=== PATIENT | male | born 1940 | race Caucasian/White ===

== ENCOUNTER → 2016-08-16 | Outpatient (CLI) | payer MEDICARE ==
[2016-08-16 08:45] LABS: CH 32.8; CHCM 32.4; HCT 36.1 % (39.0-53.0); HDW 3.09; Hypochromasia Slight; MCH 33.9 pg (25.0-35.0); MCHC 33.2 g/dL (31.0-37.0); MCV 102.1 fL (80.0-100.0); Macrocytosis Slight; Mean Platelet Volume 7.3; RBC 3.53 m/uL (4.30-5.90); RDW 14.8 % (11.5-15.5); WBC 8.3 k/uL (3.8-10.6)
[2016-08-16 09:59] LABS: Calcium 8.6 mg/dL (8.4-10.2); Total Bilirubin 1.1 mg/dL (0.2-1.3); Total Protein 6.5 g/dL (6.3-8.2)
== END | disposition home or self-care (01) ==
LOC: LABWHC1 08:29
PROVIDERS: ATTEND Nurse Practitioner Adult Health
DX: I50.22 Chronic systolic (congestive) heart failure (principal); E11.8 Type 2 diabetes mellitus with unspecified complications; K92.2 Gastrointestinal hemorrhage, unspecified
CPT/HCPCS: 36415; 80053; 85027

== ENCOUNTER → 2016-08-21 | Outpatient (CLI) | payer MEDICARE ==
[2016-08-21 10:08] LABS: Potassium 3.3 mmol/L (3.5-5.1)
== END | disposition home or self-care (01) ==
LOC: LABWHC1 09:35
PROVIDERS: ATTEND Internal Medicine Clinical Cardiac Electrophysiology
DX: E87.6 Hypokalemia (principal); N18.9 Chronic kidney disease, unspecified; I50.22 Chronic systolic (congestive) heart failure
CPT/HCPCS: 36415; 80051; 82565; 84520

== ENCOUNTER → 2016-09-04 | Outpatient (CLI) | payer MEDICARE ==
[2016-09-04 12:38] LABS: Calcium 9.5 mg/dL (8.4-10.2); Potassium 4.9 mmol/L (3.5-5.1)
== END | disposition home or self-care (01) ==
LOC: LABWHC1 11:46
PROVIDERS: ATTEND Nurse Practitioner Adult Health
DX: N18.3 Chronic kidney disease, stage 3 (moderate) (principal); I50.22 Chronic systolic (congestive) heart failure
CPT/HCPCS: 36415; 80048

== ENCOUNTER → 2016-09-06 | Outpatient (CLI) | payer MEDICARE ==
[2016-09-06 10:50] LABS: Basophils % (A) 0 %; CH 32.5; CHCM 33.2; Eosinophils % (A) 0 %; HCT 44.6 % (39.0-53.0); HDW 2.79; HGB 14.5 gm/dL (13.0-17.5); Luc # (Auto) 0.07; Luc % (Auto) 1; Lymphocytes # (A) 0.8 k/uL (1.0-4.8); Lymphocytes % (A) 9 %; MCH 32.1 pg (25.0-35.0); MCHC 32.6 g/dL (31.0-37.0); MCV 98.5 fL (80.0-100.0); Monocytes # (A) 0.5 k/uL (0-1.0); Monocytes % (A) 5 %; Neutrophils # (A) 7.4 k/uL (1.3-7.7); Neutrophils % (A) 85 %; RBC 4.52 m/uL (4.30-5.90); RDW 14.5 % (11.5-15.5); WBC 8.8 k/uL (3.8-10.6); WBC (Perox) 8.28
[2016-09-06 11:02] LABS: Appearance,Urine Clear (Clear); Bilirubin,Urine Negative (Negative); Glucose,Urine (UA) Negative (Negative); Ketones,Urine Negative (Negative); Leukocyte Esterase,Urine Negative (Negative); Nitrite,Urine Negative (Negative); Protein,Urine Negative (Negative); Specific Gravity,Urine 1.008 (1.001-1.035); UA Billing (MACRO vs. MICRO) CHEM; Urobilinogen,Urine <2.0 mg/dL (<2.0)
[2016-09-06 13:34] LABS: Calcium 9.8 mg/dL (8.4-10.2); Magnesium 1.6 mg/dL (1.6-2.3); Phosphorous 4.5 mg/dL (2.5-4.5); Potassium 5.2 mmol/L (3.5-5.1); Uric Acid 4.8 mg/dL (3.5-8.5)
[2016-09-06 13:42] LABS: % Iron Saturation 42.3 % (20-50)
== END | disposition home or self-care (01) ==
LOC: LABWHC1 10:24
PROVIDERS: ATTEND Nurse Practitioner Family
DX: N18.3 Chronic kidney disease, stage 3 (moderate) (principal); E79.0 Hyperuricemia without signs of inflammatory arthritis and tophaceous disease; E55.9 Vitamin D deficiency, unspecified; M10.9 Gout, unspecified; D64.9 Anemia, unspecified; E21.3 Hyperparathyroidism, unspecified; N39.0 Urinary tract infection, site not specified
CPT/HCPCS: 36415; 80048; 81003; 82040; 82306; 82728; 83540; 83550; 83735; 83970; 84100; 84550; 85025

== ENCOUNTER → 2016-09-15 | Outpatient (CLI) | payer MEDICARE ==
[2016-09-15 11:23] LABS: Calcium 9.1 mg/dL (8.4-10.2); Magnesium 1.5 mg/dL (1.6-2.3)
[2016-09-15 11:48] LABS: Potassium 4.4 mmol/L (3.5-5.1)
== END | disposition home or self-care (01) ==
LOC: LABWHC1 10:43
PROVIDERS: ATTEND Nurse Practitioner Family
DX: N18.3 Chronic kidney disease, stage 3 (moderate) (principal)
CPT/HCPCS: 36415; 80048; 83735

== ENCOUNTER → 2016-10-03 | Outpatient (CLI) | payer MEDICARE ==
[2016-10-03 11:39] LABS: Calcium 8.5 mg/dL (8.4-10.2); Potassium 3.3 mmol/L (3.5-5.1)
== END | disposition home or self-care (01) ==
LOC: LABWHC1 10:56
PROVIDERS: ATTEND Nurse Practitioner Family
DX: N18.3 Chronic kidney disease, stage 3 (moderate) (principal)
CPT/HCPCS: 36415; 80048

== ENCOUNTER → 2016-10-09 | Outpatient (CLI) | payer MEDICARE ==
[2016-10-09 09:49] LABS: Calcium 8.7 mg/dL (8.4-10.2); Magnesium 1.2 mg/dL (1.6-2.3); Phosphorous 3.2 mg/dL (2.5-4.5); Potassium 3.4 mmol/L (3.5-5.1); Uric Acid 4.2 mg/dL (3.5-8.5)
== END | disposition home or self-care (01) ==
LOC: LABWHC1 08:31
PROVIDERS: ATTEND Nurse Practitioner Family
DX: N18.3 Chronic kidney disease, stage 3 (moderate) (principal); N25.81 Secondary hyperparathyroidism of renal origin; M10.9 Gout, unspecified
CPT/HCPCS: 36415; 80048; 82306; 83735; 83970; 84100; 84550

== ENCOUNTER → 2016-10-23 | Outpatient (CLI) | payer MEDICARE ==
[2016-10-23 11:12] LABS: Calcium 8.8 mg/dL (8.4-10.2); Magnesium 1.3 mg/dL (1.6-2.3); Potassium 3.4 mmol/L (3.5-5.1)
== END | disposition home or self-care (01) ==
LOC: LABWHC1 10:23
PROVIDERS: ATTEND Nurse Practitioner Family
DX: N18.3 Chronic kidney disease, stage 3 (moderate) (principal)
CPT/HCPCS: 36415; 80048; 83735

== ENCOUNTER → 2016-11-14 | Outpatient (CLI) | payer MEDICARE ==
[2016-11-14 11:17] LABS: Calcium 9.3 mg/dL (8.4-10.2); Phosphorous 3.9 mg/dL (2.5-4.5); Potassium 4.5 mmol/L (3.5-5.1); Uric Acid 4.2 mg/dL (3.5-8.5)
[2016-11-14 12:01] LABS: Hemoglobin A1C 5.2 % (4.2-6.1)
== END | disposition home or self-care (01) ==
LOC: LABWHC1 10:29
PROVIDERS: ATTEND Nurse Practitioner Family
DX: N25.81 Secondary hyperparathyroidism of renal origin (principal); N18.3 Chronic kidney disease, stage 3 (moderate); M10.9 Gout, unspecified; E11.9 Type 2 diabetes mellitus without complications; I50.22 Chronic systolic (congestive) heart failure
CPT/HCPCS: 36415; 80048; 82306; 83036; 83735; 83970; 84100; 84550

== ENCOUNTER → 2017-03-13 | Outpatient (CLI) | payer MEDICARE ==
[2017-03-13 09:57] LABS: Appearance,Urine Clear (Clear); Bilirubin,Urine Negative (Negative); Glucose,Urine (UA) Negative (Negative); Ketones,Urine Negative (Negative); Leukocyte Esterase,Urine Negative (Negative); Nitrite,Urine Negative (Negative); PH, Urine 6.5 (5.0-8.0); Protein,Urine Negative (Negative); Specific Gravity,Urine 1.008 (1.001-1.035); UA Billing (MACRO vs. MICRO) CHEM; Urobilinogen,Urine <2.0 mg/dL (<2.0)
[2017-03-13 09:59] LABS: Anisocytosis Slight; Basophils # (A) 0.1 k/uL (0-0.2); Basophils % (A) 1 %; CH 33.8; CHCM 33.1; Eosinophils # (A) 0.1 k/uL (0-0.7); Eosinophils % (A) 1 %; HCT 43.5 % (39.0-53.0); HDW 2.53; Luc # (Auto) 0.16; Luc % (Auto) 2; Lymphocytes % (A) 12 %; MCH 33.1 pg (25.0-35.0); MCHC 32.2 g/dL (31.0-37.0); MCV 102.9 fL (80.0-100.0); Macrocytosis Moderate; Mean Platelet Volume 7.8; Monocytes # (A) 0.5 k/uL (0-1.0); Monocytes % (A) 6 %; Neutrophils # (A) 6.5 k/uL (1.3-7.7); Neutrophils % (A) 78 %; RBC 4.22 m/uL (4.30-5.90); RDW 16.5 % (11.5-15.5); WBC 8.3 k/uL (3.8-10.6); WBC (Perox) 8.12
[2017-03-13 10:12] LABS: Calcium 9.5 mg/dL (8.4-10.2); Magnesium 1.7 mg/dL (1.6-2.3); Phosphorous 3.7 mg/dL (2.5-4.5); Potassium 4.3 mmol/L (3.5-5.1); Uric Acid 4.8 mg/dL (3.5-8.5)
[2017-03-13 10:26] LABS: % Iron Saturation 20.6 % (20-50)
== END | disposition home or self-care (01) ==
LOC: LABWHC1 09:22
PROVIDERS: ATTEND Internal Medicine Nephrology
DX: E55.9 Vitamin D deficiency, unspecified (principal); D63.1 Anemia in chronic kidney disease; N18.3 Chronic kidney disease, stage 3 (moderate); E21.3 Hyperparathyroidism, unspecified; M10.9 Gout, unspecified; N39.0 Urinary tract infection, site not specified
CPT/HCPCS: 36415; 80048; 81003; 82306; 82728; 83540; 83550; 83735; 83970; 84100; 84550; 85025

== ENCOUNTER → 2017-04-20 | Outpatient (CLI) | payer MEDICARE ==
[2017-04-20 13:48] LABS: Calcium 9.2 mg/dL (8.4-10.2)
== END | disposition home or self-care (01) ==
LOC: LABWHC1 12:36
PROVIDERS: ATTEND Internal Medicine Nephrology
DX: N18.3 Chronic kidney disease, stage 3 (moderate) (principal)
CPT/HCPCS: 36415; 80048

== ENCOUNTER → 2017-07-09 | Outpatient (CLI) | payer MEDICARE ==
[2017-07-09 10:49] LABS: Basophils # (A) 0.1 k/uL (0-0.2); Basophils % (A) 1 %; CH 33.7; CHCM 33.3; Eosinophils # (A) 0.2 k/uL (0-0.7); Eosinophils % (A) 2 %; HCT 42.1 % (39.0-53.0); HDW 2.68; HGB 13.6 gm/dL (13.0-17.5); Luc # (Auto) 0.23; Luc % (Auto) 3; Lymphocytes # (A) 1.3 k/uL (1.0-4.8); Lymphocytes % (A) 15 %; MCH 32.9 pg (25.0-35.0); MCHC 32.3 g/dL (31.0-37.0); MCV 101.9 fL (80.0-100.0); Macrocytosis Slight; Mean Platelet Volume 7.5; Monocytes # (A) 0.5 k/uL (0-1.0); Monocytes % (A) 5 %; Neutrophils # (A) 6.4 k/uL (1.3-7.7); Neutrophils % (A) 74 %; RBC 4.13 m/uL (4.30-5.90); RDW 14.3 % (11.5-15.5); WBC 8.6 k/uL (3.8-10.6); WBC (Perox) 8.73
[2017-07-09 11:00] LABS: Calcium 9.3 mg/dL (8.4-10.2); Magnesium 1.9 mg/dL (1.6-2.3); Phosphorus 3.3 mg/dL (2.5-4.5); Potassium 4.5 mmol/L (3.5-5.1); Uric Acid 4.1 mg/dL (3.5-8.5)
[2017-07-09 11:22] LABS: Appearance,Urine Clear (Clear); Bilirubin,Urine Negative (Negative); Glucose,Urine (UA) Negative (Negative); Ketones,Urine Negative (Negative); Leukocyte Esterase,Urine Trace (Negative); Mucus,Urine Rare /hpf; Nitrite,Urine Negative (Negative); Particle Count 489; Protein,Urine Negative (Negative); RBC,Urine <1 /hpf (0-5); Specific Gravity,Urine 1.013 (1.001-1.035); Squamous Epithelial Cell,Urine <1 /hpf (0-4); UA Billing (MACRO vs. MICRO) MICRO; Urobilinogen,Urine <2.0 mg/dL (<2.0); WBC,Urine 3 /hpf (0-5)
[2017-07-09 16:12] LABS: Iron Saturation 23.27 (15.00-50.00)
== END | disposition home or self-care (01) ==
LOC: LABWHC1 09:58
PROVIDERS: ATTEND Internal Medicine Nephrology
DX: E55.9 Vitamin D deficiency, unspecified (principal); E21.3 Hyperparathyroidism, unspecified; M10.9 Gout, unspecified; N39.0 Urinary tract infection, site not specified; N18.3 Chronic kidney disease, stage 3 (moderate); D63.1 Anemia in chronic kidney disease
CPT/HCPCS: 36415; 80048; 81001; 82306; 82728; 83540; 83550; 83735; 83970; 84100; 84550; 85025

== ENCOUNTER → 2017-08-31 | Outpatient (CLI) | payer MEDICARE ==
[2017-08-31 10:40] LABS: Potassium 3.8 mmol/L (3.5-5.1)
== END | disposition home or self-care (01) ==
LOC: LABWHC1 09:34
PROVIDERS: ATTEND Internal Medicine Clinical Cardiac Electrophysiology
DX: I50.22 Chronic systolic (congestive) heart failure (principal)
CPT/HCPCS: 36415; 80048

== ENCOUNTER 2017-09-25 18:46 | Inpatient (IN) | payer MEDICARE ==
--- NOTE | 2017-09-25 20:10 | ED ---
Chest Pain HPI - General Chief Complaint: Chest Pain Stated Complaint: Chest pain/sob Time Seen by Provider: 09/25/17 19:11 Source: patient Mode of arrival: wheelchair Limitations: no limitations - History of Present Illness Initial Comments: This is a 77-year-old male history of pneumonia several times in the past who states he had the onset over last couple days of chest tightness shortness of breath orthopnea a cough no overt fevers chills or sweats. He states he feels like he did when he had pneumonia last several years. He does state he gets close to his birthday. No other complaints no palpitations. MD Complaint: chest pain, other - Related Data Home Medications Medication Instructions Recorded Confirmed Atorvastatin Calcium [Lipitor] 80 mg PO HS 04/29/14 09/25/17 Finasteride [Proscar] 5 mg PO HS 04/29/14 09/25/17 Mexiletine [Mexitil] 150 mg PO TID 04/29/14 09/25/17 Clopidogrel [Plavix] 75 mg PO DAILY 10/19/15 09/25/17 Spironolactone [Aldactone] 25 mg PO DAILY 10/19/15 09/25/17 Amiodarone [Cordarone] 200 mg PO HS 07/25/16 09/25/17 Calcitriol 0.5 mcg PO FR 07/25/16 09/25/17 Magnesium Gluconate [Magonate] 500 mg PO BID 07/25/16 09/25/17 Warfarin [Coumadin] 1 mg PO HS 07/25/16 09/25/17 Allopurinol [Zyloprim] 300 mg PO DAILY 09/25/17 09/25/17 Carvedilol [Coreg] 3.125 mg PO BID 09/25/17 09/25/17 Ergocalciferol (Vitamin D2) 50,000 unit PO Q30D 09/25/17 09/25/17 [Vitamin D2] Furosemide [Lasix] 80 mg PO DAILY 09/25/17 09/25/17 Tamsulosin HCl [Flomax] 0.4 mg PO HS 09/25/17 09/25/17 Previous Rx's Medication Instructions Recorded Pantoprazole [Protonix] 40 mg PO AC-BID #60 tablet. 09/28/15 Allergies Allergy/AdvReac Type Severity Reaction Status Date / Time adhesive tape Allergy Severe BLISTERS Verified 09/25/17 20:00 Review of Systems ROS Statement: Those systems with pertinent positive or pertinent negative responses have been documented in the HPI. ROS Other: All systems not noted in ROS Statement are negative. EKG Findings - EKG Results: EKG: interpreted by LOUISE (Atrial sensed ventricular paced rhythm occasional sinus complexes the rate was 82. 38 QRS duration 188 QT since QTC of 470/549) Past Medical History Past Medical History: Atrial Fibrillation, Coronary Artery Disease (CAD), Cancer , Heart Failure, COPD, Diabetes Mellitus, GERD/Reflux, Hyperlipidemia, Hypertension, Myocardial Infarction ([place]), Osteoarthritis (OA), Pneumonia, Prostate Disorder, Renal Disease, Thyroid Disorder Additional Past Medical History / Comment(s): Pt is on coumadin. 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 bilateral cataracts, UTI with sepsis , diverticular dx, R upper lobe pneumonia with SIRS 08/27/15. Last Myocardial Infarction Date:: 1983 History of Any Multi-Drug Resistant Organisms: None Reported Past Surgical History: AICD, Appendectomy, Back Surgery, Cholecystectomy, Prostate Surgery, Tonsillectomy Additional Past Surgical History / Comment(s): AICD 2008 with gen change , PCI with stent, R caratid endartectomy with reocclusion, back surgery x 2, bilateral breast lumpectomies, picc line in and out. Past Anesthesia/Blood Transfusion Reactions: No Reported Reaction Date of Last Stent Placement:: unkn Type of Cardiac Device: AICD Device Placement Date:: 2008 with gen change 05/25/14 Past Psychological History: No Psychological Hx Reported Smoking Status: Former smoker Past Alcohol Use History: None Reported Past Drug Use History: None Reported - Past Family History Father Family Medical History: Unable to Obtain Additional Family Medical History / Comment(s): Pt does not remember fathers health history. His father at age 82 yrs. Mother Family Medical History: Coronary Artery Disease (CAD) Additional Family Medical History / Comment(s): Mother during heart surgery when she was in her 50's General Exam - General Exam Comments Initial Comments: Is a well-developed well-nourished awake alert oriented 3 male Limitations: no limitations General appearance: alert, in no apparent distress Head exam: Present: atraumatic, normocephalic, normal inspection Eye exam: Present: normal appearance, PERRL, EOMI. Absent: scleral icterus, conjunctival injection, periorbital swelling ENT exam: Present: normal exam, mucous membranes moist Neck exam: Present: normal inspection. Absent: tenderness, meningismus, lymphadenopathy Respiratory exam: Present: other (Decreased breath sounds on the right.). Absent: respiratory distress, wheezes, rales, rhonchi, stridor Cardiovascular Exam: Present: regular rate, normal rhythm, normal heart sounds. Absent: systolic murmur, diastolic murmur, rubs, gallop, clicks GI/Abdominal exam: Present: soft, normal bowel sounds. Absent: distended, tenderness, guarding, rebound, rigid Extremities exam: Present: normal inspection, full ROM, normal capillary refill. Absent: tenderness, pedal edema, joint swelling, calf tenderness Back exam: Present: normal inspection Neurological exam: Present: alert, oriented X3, CN II-XII intact Psychiatric exam: Present: normal affect, normal mood Skin exam: Present: warm, dry, intact, normal color. Absent: rash Course Vital Signs 09/25/17 19:04 Temperature 97.9 F Pulse Rate 81 Respiratory 26 H Rate Blood Pressure 128/77 O2 Sat by Pulse 97 Oximetry - Reevaluation(s) Reevaluation #1: 09/25/17 21:40 Comparison of today's EKG with an old one dated 07/25/16 the configuration appears consistent except the PVCs noted today Chest Pain MDM - [facility] Evaluation x-ray shows evidence a right lower lobe pneumonia. I did discuss findings with the patient family patient does have pneumonia additionally he does appear to have CHF and renal insufficiency he will be admitted for inpatient treatment. I did discuss case with the on-call [facility] physician Dr. Alonzo. Disposition Clinical Impression: Pneumonia, CHF (congestive heart failure), Renal insufficiency Disposition: ADMITTED IP TO THIS [facility] Condition: Stable Referrals: Nonstaff,Physician [Primary Care Provider] - 1-2 days
[2017-09-25 20:11] LABS: Basophils # (A) 0.1 k/uL (0-0.2); Basophils % (A) 1 %; Eosinophils # (A) 0.1 k/uL (0-0.7); Eosinophils % (A) 1 %; HCT 37.5 % (39.0-53.0); Lymphocytes # (A) 1.3 k/uL (1.0-4.8); Lymphocytes % (A) 14 %; MCH 32.4 pg (25.0-35.0); MCHC 31.9 g/dL (31.0-37.0); MCV 101.6 fL (80.0-100.0); Macrocytosis Slight; Mean Platelet Volume 7.6; Monocytes # (A) 0.6 k/uL (0-1.0); Monocytes % (A) 6 %; Neutrophils # (A) 6.6 k/uL (1.3-7.7); Neutrophils % (A) 76 %; Platelet Count 272 k/uL (150-450); RBC 3.69 m/uL (4.30-5.90); RDW 15.1 % (11.5-15.5); WBC 8.7 k/uL (3.8-10.6)
--- NOTE | 2017-09-25 20:14 | XR ---
EXAMINATION TYPE: XR chest 2V DATE OF EXAM: 09/25/2017 COMPARISON: 07/30/2016 HISTORY: Chest pain TECHNIQUE: Frontal and lateral views of the chest are obtained. FINDINGS: Heart is enlarged. There is no gross heart failure. There is a mild infiltrate in the righ t lower lobe. There is no definite pleural effusion. There is left axillary pacemaker with the lead t ips in the right ventricle. There are chest leads. IMPRESSION: There is a new right lower lobe pneumonia compared to last exam. There is clearing of ri ght perihilar pneumonic infiltrate compared to last exam. There is clearing of apparent mild heart fa ilure compared to last exam.
[2017-09-25 20:21] LABS: INR 2.8 (<1.2); Partial Thromboplastin Time 31.2 sec (22.0-30.0)
[2017-09-25 20:30] LABS: Albumin 3.7 g/dL (3.5-5.0); Calcium 9.1 mg/dL (8.4-10.2); Magnesium 1.7 mg/dL (1.6-2.3); Potassium 3.6 mmol/L (3.5-5.1); Total Bilirubin 1.1 mg/dL (0.2-1.3); Total Protein 6.5 g/dL (6.3-8.2)
[2017-09-25 20:40] LABS: Creatine Kinase MB 0.3 ng/mL (0.0-2.4); Troponin I 0.029 ng/mL (0.000-0.034)
[2017-09-25] MEDS ORDERED: cefTRIAXone IN SWFI 1,000 MG/10 ML SYRINGE IVP STA (22:39)
[2017-09-25] MEDS ORDERED: PNEUMONIA PROTOCOL UTILIZED 1 EACH MISC PO PRN (22:41)
[2017-09-25] MEDS ORDERED: AZITHROMYCIN 500 MG in SODIUM CHLORIDE 0.9% 250 ML IVPB STA (22:41)
[2017-09-25] MEDS ORDERED: NON-FORMULARY DRUG (Magnesium Gluconate 500 MG) PO STA (23:33)
[2017-09-25] MEDS ORDERED: MEXILETINE 150 MG CAP PO STA (23:33)
[2017-09-25] MEDS ORDERED: CARVEDILOL 3.125 MG TAB PO STA (23:34)
[2017-09-25] MEDS ORDERED: WARFARIN 1 MG TAB PO STA (23:34)
[2017-09-25] MEDS ORDERED: AMIODARONE 200 MG TAB PO STA (23:34)
[2017-09-25] MEDS ORDERED: ATORVASTATIN 80 MG TAB PO STA (23:34)
[2017-09-25] MEDS ORDERED: TAMSULOSIN 0.4 MG CAP.ER.24H PO STA (23:34)
[2017-09-26] MEDS: SODIUM CHLORIDE 0.9% 1,000 ML IV SCH (00:01)
[2017-09-26] MEDS: IPRATROPIUM-ALBUTEROL 3 ML NEB INHALATION SCH ×7 (03:41→20:57)
[2017-09-26 07:09] LABS: Glucose,Whole Blood 131 mg/dL (75-99)
[2017-09-26] MEDS: PANTOPRAZOLE 40 MG TABLET PO SCH ×2 (08:58→17:40)
[2017-09-26] MEDS: ALLOPURINOL 300 MG TAB PO SCH (08:59)
[2017-09-26] MEDS: CLOPIDOGREL 75 MG TAB PO SCH (08:59)
[2017-09-26] MEDS ORDERED: NON-FORMULARY DRUG (Magnesium Gluconate 500 MG) PO SCH (09:00)
[2017-09-26] MEDS: FUROSEMIDE 80 MG TAB PO SCH (09:00)
[2017-09-26] MEDS: SPIRONOLACTONE 25 MG TAB PO SCH (09:02)
[2017-09-26] MEDS: MEXILETINE 150 MG CAP PO SCH ×3 (09:02→21:18)
[2017-09-26] MEDS: CARVEDILOL 3.125 MG TAB PO SCH ×2 (09:05→17:40)
[2017-09-26 11:33] LABS: Glucose,Whole Blood 155 mg/dL (75-99)
--- NOTE | 2017-09-26 15:59 | XR ---
EXAMINATION TYPE: XR chest 2V DATE OF EXAM: 09/26/2017 COMPARISON: Prior chest x-ray 09/25/2017 HISTORY: Pneumonia TECHNIQUE: Frontal and lateral views of the chest are obtained. FINDINGS: Intracardiac defibrillator leads are stable. Heart remains enlarged. Interstitium and cent ral vascularity are prominent. No pneumothorax or pleural effusion. Prominence of the pulmonary arter y may be indicative of underlying pulmonary artery hypertension. Aorta is dense. There are overlying cardiac leads. IMPRESSION: Suspect a component of congestive heart failure. Follow-up is recommended.
--- NOTE | 2017-09-26 16:29 | HP ---
HISTORY AND PHYSICAL CHIEF COMPLAINT: Shortness of breath. HISTORY OF PRESENT ILLNESS: This is another of many admissions for this 77-year-old white male with a longstanding history of congestive heart failure. He started to have shortness of breath and became generally more weak. He did not have a fever. He has slight cough. Came to the emergency room where he was diagnosed as having a right lower lobe pneumonitis. He also has history of renal failure. REVIEW OF SYSTEMS: He has had no headaches, neurologic deficits, change in vision hearing, chest pain, hemoptysis, purulent sputum production, orthopnea, PND, abdominal pain, nausea, vomiting and diarrhea, melena, hematochezia, colitis, jaundice, hepatitis, hematuria, frequency, urgency, arthralgias, diabetes, etc. PAST MEDICAL HISTORY: Past medical history, family history and personal and social histories reveal he has had numerous cardiac issues and BPH. MEDICATIONS INCLUDE: Zyloprim 300 once a day, amiodarone 200 mg once a day, Lipitor 80 mg once a day, Coreg 3.125 twice a day, Plavix 75 once a day, vitamin D2, Proscar 5 mg a day, Lasix 80 mg a day, Mexitil 150 mg t.i.d., Protonix 40 mg once a day, Aldactone 25 mg once a day, Flomax 0.4 once a day, and Coumadin 1 mg a day. SOCIAL HISTORY: He does not smoke or drink. PHYSICAL EXAMINATION: Blood pressure is 109/56 with a pulse 79, respirations of 18, and temperature 97.4. GENERAL: He appeared to be well developed, well nourished and slightly short of breath. Lymph nodes not enlarged. Head, ears, eyes, nose, mouth, and throat were normal and neck veins were not distended. Thyroid was not enlarged. Chest is clear. No rales or rhonchi. Cardiac exam: Normal sinus rhythm and no murmurs or extra sounds. The abdomen is soft, nontender without visceromegaly or masses. EXTREMITIES: Normal neurological is intact. IMPRESSION: 1. Right lower lobe pneumonitis. 2. Congestive heart failure. 3. History of cardiac arrhythmia. 4. History of renal failure. 5. Benign prostatic hypertrophy. PLAN: 1. Bed rest. 2. IV fluids. 3. Updrafts. 4. Antibiotics. 5. Maintain his usual medications. MMODL / IJN: [id number] /
--- NOTE | 2017-09-26 16:35 | PN ---
PROGRESS NOTE DATE OF SERVICE: 09/26/2017 CHIEF COMPLAINT: Pneumonitis. HISTORY OF PRESENT ILLNESS: This gentleman is doing fairly well, but he is still somewhat short of breath. He has not been feverish. He has not been nauseated. PHYSICAL EXAMINATION: Breath sounds are heard on both sides and they are clear. Cardiac exam is normal. The abdomen is soft and nontender. IMPRESSION: 1. Right lower lobe pneumonitis. 2. Congestive heart failure. 3. History of cardiac arrhythmia. PLAN: Continue with current program. MMODL / IJN: [id number] /
[2017-09-26 17:08] LABS: Glucose,Whole Blood 165 mg/dL (75-99)
[2017-09-26 19:54] LABS: Glucose,Whole Blood 131 mg/dL (75-99)
[2017-09-26] MEDS: AZITHROMYCIN 500 MG TAB PO SCH (21:17)
[2017-09-26] MEDS: FINASTERIDE 5 MG TAB PO SCH (21:17)
[2017-09-26] MEDS: ATORVASTATIN 80 MG TAB PO SCH (21:17)
[2017-09-26] MEDS: WARFARIN 1 MG TAB PO SCH (21:17)
[2017-09-26] MEDS: AMIODARONE 200 MG TAB PO SCH (21:17)
[2017-09-26] MEDS: TAMSULOSIN 0.4 MG CAP.ER.24H PO SCH (21:18)
[2017-09-26] MEDS: cefTRIAXone IN SWFI 1,000 MG/10 ML SYRINGE IVP SCH (21:35)
[2017-09-27] MEDS: IPRATROPIUM-ALBUTEROL 3 ML NEB INHALATION SCH ×6 (00:57→21:44)
[2017-09-27] MEDS: SODIUM CHLORIDE 0.9% 1,000 ML IV SCH (03:58)
[2017-09-27 07:14] LABS: Glucose,Whole Blood 113 mg/dL (75-99)
[2017-09-27] MEDS: CARVEDILOL 3.125 MG TAB PO SCH ×2 (08:47→15:52)
[2017-09-27] MEDS: MEXILETINE 150 MG CAP PO SCH ×3 (08:48→21:11)
[2017-09-27] MEDS: CLOPIDOGREL 75 MG TAB PO SCH (08:48)
[2017-09-27] MEDS: PANTOPRAZOLE 40 MG TABLET PO SCH ×2 (08:48→15:52)
[2017-09-27] MEDS: SPIRONOLACTONE 25 MG TAB PO SCH (08:48)
[2017-09-27] MEDS: ALLOPURINOL 300 MG TAB PO SCH (08:48)
[2017-09-27] MEDS: FUROSEMIDE 80 MG TAB PO SCH (08:48)
[2017-09-27 11:49] LABS: Glucose,Whole Blood 160 mg/dL (75-99)
--- NOTE | 2017-09-27 16:09 | PN ---
PROGRESS NOTE CHIEF COMPLAINT: Pneumonitis and congestive heart failure. HISTORY OF PRESENT ILLNESS: This gentleman has gained some fluid and he is a little bit more short of breath. He is afebrile. PHYSICAL EXAM: His chest remains fairly clear with only occasional rales. Cardiac exam is normal and the abdomen is soft, nontender. IMPRESSION: 1. Pneumonitis. 2. Congestive heart failure. PLAN: 1. Continue with antibiotics and IV fluids. 2. Continue with his congestive heart failure program. MMODL / IJN: [id number] /
[2017-09-27 17:17] LABS: Glucose,Whole Blood 171 mg/dL (75-99)
[2017-09-27 20:28] LABS: Glucose,Whole Blood 143 mg/dL (75-99)
[2017-09-27] MEDS: ATORVASTATIN 80 MG TAB PO SCH (21:10)
[2017-09-27] MEDS: AZITHROMYCIN 500 MG TAB PO SCH (21:10)
[2017-09-27] MEDS: TAMSULOSIN 0.4 MG CAP.ER.24H PO SCH (21:11)
[2017-09-27] MEDS: FINASTERIDE 5 MG TAB PO SCH (21:11)
[2017-09-27] MEDS: WARFARIN 1 MG TAB PO SCH (21:11)
[2017-09-27] MEDS: AMIODARONE 200 MG TAB PO SCH (21:11)
[2017-09-27] MEDS: cefTRIAXone IN SWFI 1,000 MG/10 ML SYRINGE IVP SCH (21:11)
[2017-09-28] MEDS: IPRATROPIUM-ALBUTEROL 3 ML NEB INHALATION SCH ×6 (00:31→20:07)
[2017-09-28] MEDS: SODIUM CHLORIDE 0.9% 1,000 ML IV SCH (01:02)
[2017-09-28 06:59] LABS: Glucose,Whole Blood 122 mg/dL (75-99)
[2017-09-28] MEDS: CARVEDILOL 3.125 MG TAB PO SCH (08:28)
[2017-09-28] MEDS: ALLOPURINOL 300 MG TAB PO SCH (08:29)
[2017-09-28] MEDS: MEXILETINE 150 MG CAP PO SCH ×3 (08:29→21:02)
[2017-09-28] MEDS: PANTOPRAZOLE 40 MG TABLET PO SCH ×2 (08:29→17:25)
[2017-09-28] MEDS: SPIRONOLACTONE 25 MG TAB PO SCH (08:29)
[2017-09-28] MEDS: FUROSEMIDE 80 MG TAB PO SCH (08:29)
[2017-09-28] MEDS: CLOPIDOGREL 75 MG TAB PO SCH (08:29)
[2017-09-28] MEDS ORDERED: FUROSEMIDE 10 MG/ML 10 ML VIAL IV STA (08:36)
[2017-09-28] MEDS ORDERED: CALCITRIOL 0.25 MCG CAP PO SCH (09:00)
[2017-09-28 12:01] LABS: Glucose,Whole Blood 147 mg/dL (75-99)
[2017-09-28 12:12] LABS: Basophils # (A) 0.1 k/uL (0-0.2); Basophils % (A) 1 %; Eosinophils # (A) 0.1 k/uL (0-0.7); Eosinophils % (A) 1 %; HCT 36.3 % (39.0-53.0); HGB 11.4 gm/dL (13.0-17.5); Hypochromasia Slight; Lymphocytes # (A) 0.8 k/uL (1.0-4.8); Lymphocytes % (A) 9 %; MCH 32.7 pg (25.0-35.0); MCHC 31.6 g/dL (31.0-37.0); MCV 103.6 fL (80.0-100.0); Macrocytosis Moderate; Mean Platelet Volume 7.7; Monocytes # (A) 0.5 k/uL (0-1.0); Monocytes % (A) 6 %; Neutrophils # (A) 7.4 k/uL (1.3-7.7); Neutrophils % (A) 81 %; Platelet Count 245 k/uL (150-450)
[2017-09-28 12:30] LABS: Calcium 9.2 mg/dL (8.4-10.2)
--- NOTE | 2017-09-28 12:34 | CONS ---
CONSULTATION Mr. Josue is a 77-year-old male with known history of severe ischemic cardiomyopathy, history of paroxysmal atrial fibrillation, history of AICD Bi V implant and prior episode of ventricular tachycardia, who presented with symptoms of progressive dyspnea, PND and orthopnea. The patient has been followed by Dr. Benitez in the past, underwent cardiac catheterization 2010 and at that time was found totally occluded right coronary artery with patent stent of the LAD. He denies any recent cough. No wheezing. He denies any clear PND or orthopnea. No syncope. He had a prior episode of ventricular tachycardia. The patient's past history is remarkable for the coronary artery disease, ischemic cardiomyopathy, history of carotid disease, status post right carotid endarterectomy. His coronary risk factors are remarkable for hyperlipidemia. He stopped smoking over 30 years ago. He is nondiabetic. His medications include vitamin D, Zyloprim, Flomax, Coumadin, spironolactone 25 mg daily, Protonix, mexiletine 150 mg 3 times a day, Lasix 80 mg daily, and he has taken extra Lasix over the last week because of weight gain, Plavix 75 mg daily, Proscar 5 mg daily, Coreg 3.125 mg twice a day, Calcitriol, Lipitor 80 mg daily, and amiodarone 200 mg daily. REVIEW OF SYSTEMS: RESPIRATORY SYSTEM: He had dyspnea on exertion. No recent wheezing or cough. GI SYSTEM: No recent GI bleed. No peptic ulcer disease. SYSTEM: No dysuria or hematuria. NERVOUS SYSTEM: No history of seizure, questionable history of stroke. PHYSICAL EXAMINATION: He is a 77-year-old male, alert, oriented, in no apparent distress. Blood pressure 116/60 with the heart in the 80s. HEAD: Normocephalic. EYES: Sclerae nonicteric. Neck with scar on the right side and increased jugular venous pressure. LUNGS: crackles at the bases. HEART: Regular rate and rhythm, S1, S2. No S3 with a holosystolic murmur at the apex radiating to and systolic ejection murmur. ABDOMEN: Soft, nontender. Positive bowel sounds. No organomegaly. EXTREMITIES: No significant edema. LAB DATA: Lab data on presentation on 25 of September showed a hemoglobin of 12, white blood cell of 8.7. INR of 2.8. BUN and creatinine 29 and 1.65. His NT proBNP was 3760. His EKG revealed a sinus mechanism with 100% ventricle pacing. His chest x-ray is consistent with findings of CHF. IMPRESSION: 1. Progressive dyspnea in a patient with history of congestive heart failure with exacerbation of his chronic systolic dysfunction with acute on chronic systolic heart failure. 2. Prior history of coronary artery disease. 3. Paroxysmal atrial fibrillation, anticoagulated. 4. History of automated implantable cardioverter-defibrillator Bi V implant. 5. History of ventricular tachycardia, stable. 6. History of carotid disease, status post carotid endarterectomy. 7. History of chronic kidney disease followed by Dr. Johnson. RECOMMENDATION: From the cardiac standpoint, I will initiate treatment with IV Lasix. I will increase the dose of Coreg. Follow his renal function closely as well as his INR. It is likely that he can be switched back to oral diuretic in the next 24 to 48 hours. I do not feel that there is any clear evidence to suggest pneumonia at this time. Thank you for this consult. We will follow with you. GABI / ALMA DELIAN: [id number] /
--- NOTE | 2017-09-28 12:42 | ECHOF ---
Referral Reason: MEASUREMENTS -------- HEIGHT: 180.3 cm WEIGHT: 111.6 kg BP: RVIDd: 3.4 cm (< 3.3) IVSd: 1.4 cm (0.6 - 1.1) LVIDd: 4.8 cm (3.9 - 5.3) LVPWd: 1.2 cm (0.6 - 1.1) IVSs: 1.5 cm LVIDs: 4.2 cm LVPWs: 1.5 cm LAESV Index (A-L): 47.68 ml/m Ao Diam: 3.1 cm (2.0 - 3.7) AV Cusp: 1.1 cm (1.5 - 2.6) LA Diam: 3.4 cm (2.7 - 3.8) MV EXCURSION: 32.625 mm (> 18.000) MV EF SLOPE: 59 mm/s (70 - 150) EPSS: 1.1 cm MV E Naif: 1.37 m/s MV DecT: 201 ms MV A Naif: 0.77 m/s MV E/A Ratio: 1.79 AR PHT: 161 ms RAP: 5.00 mmHg RVSP: 65.14 mmHg FINDINGS -------- Sinus rhythm. Pacerwire seen in RV and RA. This was a technically good study. The left ventricular size is normal. There is mild concentric left ventricular hypertrophy. Overa ll left ventricular systolic function is moderate-severely impaired with, an EF between 30 - 35 %. Basal posterior LV wall motion is akinetic. Basal inferior LV wall motion is akinetic. Basal in feroseptal LV wall motion is akinetic. Mid posterior LV wall motion is akinetic. Mid inferior L V wall motion is akinetic. Apical inferior LV wall motion is akinetic. The right ventricle is mildly enlarged. LA is severely dilated >40 ml/m2 The right atrium is normal in size. There is mild aortic valve sclerosis. There is [id number] aortic regurgitation. Moderate mitral annular calcification present. Severe mitral regurgitation is present , predominate ly a posteriorly directed jet. 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 Moderate tricuspid regurgitation present. There is moderate to severe pulmonary hypertension. The right ventricular systolic pressure, as measured by Doppler, is 65.14mmHg. There is no pulmonic regurgitation present. The aortic root size is normal. Normal inferior vena cava with normal inspiratory collapse consistent with estimated right atrial pre ssure of 5 mmHg. There is no pericardial effusion. CONCLUSIONS -------- 1. Sinus rhythm. 2. Pacerwire seen in RV and RA. 3. This was a technically good study. 4. The left ventricular size is normal. 5. There is mild concentric left ventricular hypertrophy. 6. Overall left ventricular systolic function is moderate-severely impaired with, an EF between 30 - 35 %. 7. Basal posterior LV wall motion is akinetic. 8. Basal inferior LV wall motion is akinetic. 9. Basal inferoseptal LV wall motion is akinetic. 10. Mid posterior LV wall motion is akinetic. 11. Mid inferior LV wall motion is akinetic. 12. The right ventricle is mildly enlarged. 13. LA is severely dilated >40 ml/m2 14. There is mild aortic valve sclerosis. 15. There is [id number]-[id number] aortic regurgitation. 16. Moderate mitral annular calcification present. 17. Severe mitral regurgitation is present. 18. , predominately a posteriorly directed jet. 19. 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 20. Moderate tricuspid regurgitation present. 21. There is moderate to severe pulmonary hypertension. 22. There is no pulmonic regurgitation present. 23. The aortic root size is normal. 24. Normal inferior vena cava with normal inspiratory collapse consistent with estimated right atrial pressure of 5 mmHg. 25. There is no pericardial effusion. NURSES DIRECTOR: Brooklyn Sung [facility]
--- NOTE | 2017-09-28 15:19 | XR ---
EXAMINATION TYPE: XR chest 2V DATE OF EXAM: 09/28/2017 COMPARISON: Prior chest x-ray January 24, 2018 HISTORY: Congestive heart failure TECHNIQUE: Frontal and lateral views of the chest are obtained. FINDINGS: Patient is rotated. Intracardiac defibrillator leads are stable. Perihilar increased atten uation is again noted, pulmonary arteries prominent. Interstitium mildly increased. No evident pneumo thorax or pleural effusion. Heart is stable and likely enlarged. IMPRESSION: Correlate for pulmonary venous hypertension and interstitial edema, additional follow-up recommended. Correlate to exclude pulmonary arterial hypertension.
--- NOTE | 2017-09-28 16:01 | PN ---
PROGRESS NOTE CHIEF COMPLAINT: Increasing shortness of breath. HISTORY OF PRESENT ILLNESS: This gentleman is having more trouble with shortness of breath. He has gained weight. Likely his problems are more related to congestive heart failure than pneumonia. He is already on Aldactone and a stiff dose of Lasix. He has no chest pain. He has had no fever, cough, hemoptysis, chills, etc. PHYSICAL EXAM: Breath sounds are good except for occasional rales scattered throughout. Cardiac exam is normal. Abdomen is protuberant. IMPRESSION: 1. Pneumonitis. 2. Increasing congestive heart failure. PLAN: 1. Chest x-ray and repeat labs. 2. Consult Cardiology. MMODL / IJN: [id number] /
[2017-09-28 17:43] LABS: Glucose,Whole Blood 119 mg/dL (75-99)
[2017-09-28] MEDS: CARVEDILOL 6.25 MG TAB PO SCH (19:07)
[2017-09-28 20:26] LABS: Glucose,Whole Blood 129 mg/dL (75-99)
[2017-09-28] MEDS ORDERED: IPRATROPIUM-ALBUTEROL 3 ML NEB INHALATION PRN (20:55)
[2017-09-28] MEDS: AMIODARONE 200 MG TAB PO SCH (21:02)
[2017-09-28] MEDS: ATORVASTATIN 80 MG TAB PO SCH (21:02)
[2017-09-28] MEDS: WARFARIN 1 MG TAB PO SCH (21:02)
[2017-09-28] MEDS: AZITHROMYCIN 500 MG TAB PO SCH (21:02)
[2017-09-28] MEDS: FINASTERIDE 5 MG TAB PO SCH (21:02)
[2017-09-28] MEDS: cefTRIAXone IN SWFI 1,000 MG/10 ML SYRINGE IVP SCH (21:02)
[2017-09-28] MEDS: TAMSULOSIN 0.4 MG CAP.ER.24H PO SCH (21:02)
[2017-09-28] MEDS: FUROSEMIDE 10 MG/ML 10 ML VIAL IV SCH (21:03)
[2017-09-29] MEDS: SODIUM CHLORIDE 0.9% 1,000 ML IV SCH (00:10)
[2017-09-29 07:10] LABS: Glucose,Whole Blood 150 mg/dL (75-99)
[2017-09-29 07:34] LABS: INR 3.8 (<1.2); Prothrombin Time 33.9 sec (9.0-12.0)
[2017-09-29 07:42] LABS: Calcium 9.1 mg/dL (8.4-10.2); Potassium 3.6 mmol/L (3.5-5.1)
[2017-09-29] MEDS: IPRATROPIUM-ALBUTEROL 3 ML NEB INHALATION SCH ×4 (08:03→18:44)
[2017-09-29] MEDS: FUROSEMIDE 10 MG/ML 10 ML VIAL IV SCH ×2 (08:35→21:15)
[2017-09-29] MEDS: CARVEDILOL 6.25 MG TAB PO SCH ×2 (08:35→17:31)
[2017-09-29] MEDS: SPIRONOLACTONE 25 MG TAB PO SCH (08:35)
[2017-09-29] MEDS: PANTOPRAZOLE 40 MG TABLET PO SCH ×2 (08:36→17:31)
[2017-09-29] MEDS: ALLOPURINOL 300 MG TAB PO SCH (08:36)
[2017-09-29] MEDS: CLOPIDOGREL 75 MG TAB PO SCH (08:36)
[2017-09-29] MEDS: MEXILETINE 150 MG CAP PO SCH ×3 (08:37→21:16)
[2017-09-29 12:09] LABS: Glucose,Whole Blood 110 mg/dL (75-99)
--- NOTE | 2017-09-29 14:50 | PN ---
PROGRESS NOTE 77-year-old gentleman with ischemic cardiomyopathy, severe mitral regurgitation, moderate to severe pulmonary hypertension, who has an ICD in place. He is doing somewhat better today. He was started on IV Lasix by Dr. Alicea yesterday. He lost nearly 4-1/2 pounds. His breathing is easier, but complains of feeling a bit tired. Blood pressure is 112/70, pulse rate is about 70 per minute JVD is evident of about 1- 2 cm S1-S2 heard normally. Holosystolic murmur is audible at the apex. Lungs reveal improved air entry with a decent air entry in upper and mid zones. Fine rales both bases. Abdomen is soft. Lower extremity edema has improved. I am recommending that we give him 2 doses of potassium 20 mEq today. Check a BMP tomorrow. Hold Coumadin since INR is 3.8 and continue the diuresis for [address] consideration can be given for a mitral valve clip for this patient, but for now, diuresis appears to be the best approach and I explained this to Mr. Josue. MMODL / IJN: [id number] /
--- NOTE | 2017-09-29 16:47 | PN ---
PROGRESS NOTE DATE OF SERVICE: 09/29/2017. CHIEF COMPLAINT: Pneumonitis and congestive heart failure. HISTORY OF PRESENT ILLNESS: This gentleman is doing a little bit better. He was a little bit better yesterday than today. He is on IV Lasix. This morning he started to have some tightness in the chest, but it was minimal and went away. PHYSICAL EXAM: He has rales scattered throughout and more at the bases posteriorly. Cardiac exam is unchanged. Abdomen is soft and protuberant. He has very little edema. IMPRESSION: 1. Congestive heart failure. 2. Pneumonitis. 3. Chest pain-question angina. PLAN: Continue on current course of diuresis and observe for any further chest pain. MMODL / IJN: [id number] /
[2017-09-29 17:10] LABS: Glucose,Whole Blood 150 mg/dL (75-99)
[2017-09-29] MEDS: POTASSIUM CHLORIDE ER 20 MEQ TAB.ER PO SCH ×2 (17:30→21:16)
[2017-09-29 20:14] LABS: Glucose,Whole Blood 155 mg/dL (75-99)
[2017-09-29] MEDS: AMIODARONE 200 MG TAB PO SCH (21:15)
[2017-09-29] MEDS: cefTRIAXone IN SWFI 1,000 MG/10 ML SYRINGE IVP SCH (21:15)
[2017-09-29] MEDS: ATORVASTATIN 80 MG TAB PO SCH (21:15)
[2017-09-29] MEDS: FINASTERIDE 5 MG TAB PO SCH (21:16)
[2017-09-29] MEDS: TAMSULOSIN 0.4 MG CAP.ER.24H PO SCH (21:16)
[2017-09-29] MEDS: AZITHROMYCIN 500 MG TAB PO SCH (21:16)
[2017-09-29 21:18] LABS: Glucose,Whole Blood 129 mg/dL (75-99)
[2017-09-30] MEDS: SODIUM CHLORIDE 0.9% 1,000 ML IV SCH ×2 (01:02→23:56)
[2017-09-30 07:22] LABS: Glucose,Whole Blood 124 mg/dL (75-99)
[2017-09-30] MEDS: PANTOPRAZOLE 40 MG TABLET PO SCH ×2 (07:49→15:50)
[2017-09-30] MEDS: MEXILETINE 150 MG CAP PO SCH ×3 (07:49→22:06)
[2017-09-30] MEDS: SPIRONOLACTONE 25 MG TAB PO SCH (07:50)
[2017-09-30] MEDS: FUROSEMIDE 10 MG/ML 10 ML VIAL IV SCH ×2 (07:50→16:44)
[2017-09-30] MEDS: ALLOPURINOL 300 MG TAB PO SCH (07:50)
[2017-09-30] MEDS: CLOPIDOGREL 75 MG TAB PO SCH (07:50)
[2017-09-30] MEDS: CARVEDILOL 6.25 MG TAB PO SCH ×2 (07:50→15:50)
[2017-09-30 08:06] LABS: INR 3.7 (<1.2); Prothrombin Time 33.6 sec (9.0-12.0)
[2017-09-30] MEDS: IPRATROPIUM-ALBUTEROL 3 ML NEB INHALATION SCH ×4 (08:15→19:36)
[2017-09-30 12:02] LABS: Calcium 9.5 mg/dL (8.4-10.2)
[2017-09-30 12:29] LABS: Glucose,Whole Blood 133 mg/dL (75-99)
--- NOTE | 2017-09-30 16:25 | PN ---
PROGRESS NOTE Mr. Josue feels better today. His weight has not changed much. I am recommending that we switch him to oral Lasix from tomorrow. Continue IV Lasix today. We will do a BMP in the morning. PT/INR is still elevated. Coumadin will be held. Blood pressure is good. The physical exam revealed normal vital signs. JVD is evident 1 cm. S1-S2 heard normally. Short systolic murmur noted. Lungs reveal improved air entry with fine rales over both bases. Abdomen is soft. Lower extremities reveal improved edema. Rest of physical examination is unchanged. RECOMMENDATIONS: We will switch him from IV to oral Lasix from tomorrow. No Coumadin today and hopefully discharge planning will soon happen in the next 24-48 hours. MMODL / IJN: [id number] /
[2017-09-30] MEDS: NYSTATIN 100,000 UNIT/GM POWD 15 GM TOPICAL SCH ×2 (16:44→22:06)
[2017-09-30 17:23] LABS: Glucose,Whole Blood 133 mg/dL (75-99)
[2017-09-30] MEDS ORDERED: WARFARIN 1 MG TAB PO SCH (21:00)
[2017-09-30] MEDS: AZITHROMYCIN 500 MG TAB PO SCH (22:05)
[2017-09-30] MEDS: ATORVASTATIN 80 MG TAB PO SCH (22:05)
[2017-09-30] MEDS: FINASTERIDE 5 MG TAB PO SCH (22:06)
[2017-09-30] MEDS: TAMSULOSIN 0.4 MG CAP.ER.24H PO SCH (22:06)
[2017-09-30] MEDS: AMIODARONE 200 MG TAB PO SCH (22:11)
[2017-09-30] MEDS: cefTRIAXone IN SWFI 1,000 MG/10 ML SYRINGE IVP SCH (22:11)
[2017-10-01] MEDS: IPRATROPIUM-ALBUTEROL 3 ML NEB INHALATION SCH ×4 (07:33→19:37)
[2017-10-01 07:56] LABS: INR 4.2 (<1.2); Prothrombin Time 37.5 sec (9.0-12.0)
[2017-10-01] MEDS: MEXILETINE 150 MG CAP PO SCH ×3 (09:41→21:52)
[2017-10-01] MEDS: FUROSEMIDE 10 MG/ML 10 ML VIAL IV SCH ×2 (09:41→21:51)
[2017-10-01] MEDS: PANTOPRAZOLE 40 MG TABLET PO SCH ×2 (09:41→17:38)
[2017-10-01] MEDS: ALLOPURINOL 300 MG TAB PO SCH (09:41)
[2017-10-01] MEDS: CARVEDILOL 6.25 MG TAB PO SCH ×2 (09:41→17:38)
[2017-10-01] MEDS: CLOPIDOGREL 75 MG TAB PO SCH (09:41)
[2017-10-01] MEDS: NYSTATIN 100,000 UNIT/GM POWD 15 GM TOPICAL SCH ×3 (09:42→21:52)
[2017-10-01] MEDS: SPIRONOLACTONE 25 MG TAB PO SCH (09:42)
[2017-10-01] MEDS ORDERED: FUROSEMIDE 80 MG TAB PO SCH (10:00)
[2017-10-01] MEDS ORDERED: ONDANSETRON 4 MG/2 ML VIAL IVP PRN (10:52)
--- NOTE | 2017-10-01 14:29 | PN ---
PROGRESS NOTE DATE OF SERVICE: 09/30/2017. CHIEF COMPLAINT: Pneumonitis and congestive heart failure. HISTORY OF PRESENT ILLNESS: This gentleman is fairly stable. He is not any better or any worse. He is still quite dyspneic and he is not responding to IV Lasix very well. He has had no chest pain. He has had no fever or chills. He has developed a area of irritation over the sacrum. PHYSICAL EXAM: Chest demonstrates rales at the bases posteriorly. Cardiac exam is unremarkable. The abdomen is soft, nontender. He has an area of maceration in the top of the intergluteal fold over the sacrum. IMPRESSION: 1. Congestive heart failure. 2. Pneumonitis. 3. Stage I decubitus of the sacrum. PLAN: Stay off of the sacral area as much as possible while using nystatin powder to see if this dries up. MMODL / IJN: [id number] /
--- NOTE | 2017-10-01 14:41 | P.PN ---
Subjective Progress Note Date: 10/01/17 Mr. Josue is seen and examined in no acute distress. He continues to complain of mild shortness of breath, but it has improved greatly since admission. He states he has not been able to have a bowel movement since admission and was vomiting this morning while on the commode. He denies symptoms of chest pain, palpitations, dizziness or diaphoresis. His weight has gone up with a 570 negative fluid balance. Potassium 4.0, creatinine 1.87, proBNP 5390 up from admission 3760. Objective - Vital Signs Vital signs: Vital Signs Temp 97.3 F L 10/01/17 07:00 Pulse 83 10/01/17 08:00 Resp 16 10/01/17 08:00 BP 106/51 10/01/17 07:00 Pulse Ox 93 L 10/01/17 07:00 Intake & Output 09/30/17 10/01/17 10/01/17 18:59 06:59 18:59 Intake Total 240 90 120 Output Total 900 Balance -660 90 120 Weight 110.3 kg 113 kg Intake: IV 30 .9 flush 30 Intake, IV Titration 60 Amount Sodium Chloride 0.9% 1, 60 000 ml @ 20 mls/hr IV . Q24H [facility] Rx#:[id number] Oral 240 120 Output: Urine 900 Other: Voiding Method Toilet Toilet Toilet # Voids 2 2 - Exam Blood pressure 106/51 heart rate 83 afebrile GENERAL: Well-appearing, well-nourished and in no acute distress. NECK: Supple with less than 1 cm JVD or thyromegaly. LUNGS: Breath sounds clear to auscultation bilaterally. Respiration equal and unlabored. No wheezes, rales or rhonchi. HEART: Regular rate and rhythm with holosystolic murmur at the apex radiating to the axilla and systolic ejection murmur at the base, no rubs or gallops. S1 and S2 heard. EXTREMITIES: Normal range of motion, no edema. No clubbing or cyanosis. Peripheral pulses intact. - Labs CBC & Chem 7: 10/02/17 08:33 10/02/17 08:33 Labs: Abnormal Lab Results - Last 24 Hours (Table) 09/30/17 10/01/17 Range/Units 17:20 07:20 PT 37.5 H (9.0-12.0) sec INR 4.2 H (<1.2) POC Glucose (mg/dL) 133 H (75-99) mg/dL Microbiology - Last 24 Hours (Table) 09/25/17 23:08 Blood Culture - Preliminary Blood No Growth after 120 hours Assessment and Plan Assessment: ASSESSMENT 1. Acute on chronic systolic heart failure 2. History of coronary artery disease 3. Paroxysmal atrial fibrillation on long-term anticoagulation 4. History of AICD/BIV pacemaker placement 5. History of ventricular tachycardia, stable 6. History of carotid artery disease, status post carotid endarterectomy 7. Chronic kidney disease followed by Dr. Johnson 8. Supratherapeutic INR, continue to hold coumadin PLAN Continue with IV diuresis with 80 mg IV BID; Repeat chest xray in the morning; Continue with daily weights and strict I&O's; Further recommendations to follow. Nurse Practitioner note has been reviewed, I agree with a documented findings and plan of care. Patient was seen and examined.
--- NOTE | 2017-10-01 14:59 | XR ---
EXAMINATION TYPE: XR abdomen 2V DATE OF EXAM: 10/01/2017 COMPARISON: NONE HISTORY: Constipation and vomiting TECHNIQUE: One view abdominal series FINDINGS: The osseous structures are intact. The bowel gas pattern is nonspecific. Postsurgical change. Arthro bree of the hips. Vascular calcifications noted. There is retained fecal debris throughout the colon . Multilevel degenerative disc disease. Surgical clips gallbladder fossa. Cardiac device noted. IMPRESSION: 1. Nonspecific abdomen. Retained fecal debris throughout the colon.
--- NOTE | 2017-10-01 15:03 | XR ---
EXAMINATION TYPE: XR chest 2V DATE OF EXAM: 10/01/2017 COMPARISON: 10/01/2017 TECHNIQUE: PA and lateral views submitted. HISTORY: Pain FINDINGS: The lungs are clear and there is no pneumothorax, pleural effusion, or focal pneumonia. Interstitia l pattern noted with cardiomegaly and cardiac device. Atherosclerotic change aorta. Arthropathy shoul ders with diffuse osteopenia. Hypertrophic and degenerative change of the spine. IMPRESSION: 1. Interstitial pattern could be seen with venous congestion. Interstitial pneumonitis or pneumonia a lso in the differential diagnosis. 2. There is a metallic density adjacent to the ventricular lead along the upper margin of the left he art border. This does not appear to be contiguous with the lead and should be correlated clinically f indings stable dating back to 2016.
--- NOTE | 2017-10-01 17:32 | PN ---
PROGRESS NOTE DATE OF SERVICE: 10/01/2017. CHIEF COMPLAINT: Pneumonitis and CHF. HISTORY OF PRESENT ILLNESS: This gentleman is doing fairly well, but has had very little improvement. He is still quite dyspneic. He is having no chest pain. He is being followed by Cardiology. PHYSICAL EXAM: He has decreased breath sounds with occasional rales posteriorly. His cardiac exam is unremarkable except for his atrial fibrillation. Abdomen is soft, nontender. He has no edema. IMPRESSION: 1. Pneumonitis. 2. Acute congestive heart failure. 3. Chronic congestive heart failure. PLAN: Continue with efforts to diuresis. MMODL / IJN: [id number] /
[2017-10-01] MEDS: AMIODARONE 200 MG TAB PO SCH (21:49)
[2017-10-01] MEDS: ATORVASTATIN 80 MG TAB PO SCH (21:49)
[2017-10-01] MEDS: AZITHROMYCIN 500 MG TAB PO SCH (21:49)
[2017-10-01] MEDS: cefTRIAXone IN SWFI 1,000 MG/10 ML SYRINGE IVP SCH (21:50)
[2017-10-01] MEDS: FINASTERIDE 5 MG TAB PO SCH (21:51)
[2017-10-01] MEDS: TAMSULOSIN 0.4 MG CAP.ER.24H PO SCH (21:52)
[2017-10-01] MEDS: SODIUM CHLORIDE 0.9% 1,000 ML IV SCH (22:42)
[2017-10-02] MEDS: IPRATROPIUM-ALBUTEROL 3 ML NEB INHALATION SCH ×4 (07:33→19:14)
[2017-10-02 09:34] LABS: Basophils # (A) 0.1 k/uL (0-0.2); Basophils % (A) 0 %; Eosinophils % (A) 0 %; HCT 32.4 % (39.0-53.0); HGB 10.6 gm/dL (13.0-17.5); Hypochromasia Slight; Lymphocytes # (A) 0.9 k/uL (1.0-4.8); Lymphocytes % (A) 7 %; MCH 32.9 pg (25.0-35.0); MCHC 32.6 g/dL (31.0-37.0); MCV 101.2 fL (80.0-100.0); Macrocytosis Slight; Mean Platelet Volume 8.1; Monocytes # (A) 0.6 k/uL (0-1.0); Monocytes % (A) 5 %; Neutrophils # (A) 10.3 k/uL (1.3-7.7); Neutrophils % (A) 86 %; Platelet Count 222 k/uL (150-450); RDW 14.9 % (11.5-15.5); WBC 11.9 k/uL (3.8-10.6)
[2017-10-02 09:36] LABS: INR 4.5 (<1.2); Prothrombin Time 40.4 sec (9.0-12.0)
[2017-10-02] MEDS: FUROSEMIDE 10 MG/ML 10 ML VIAL IV SCH (09:40)
[2017-10-02 09:43] LABS: Calcium 8.7 mg/dL (8.4-10.2); Potassium 4.1 mmol/L (3.5-5.1)
[2017-10-02] MEDS: CARVEDILOL 6.25 MG TAB PO SCH ×2 (10:02→18:33)
[2017-10-02] MEDS: MEXILETINE 150 MG CAP PO SCH ×3 (10:02→23:55)
[2017-10-02] MEDS: SPIRONOLACTONE 25 MG TAB PO SCH (10:02)
[2017-10-02] MEDS: CLOPIDOGREL 75 MG TAB PO SCH (10:02)
[2017-10-02] MEDS: PANTOPRAZOLE 40 MG TABLET PO SCH ×2 (10:02→18:33)
[2017-10-02] MEDS: NYSTATIN 100,000 UNIT/GM POWD 15 GM TOPICAL SCH ×3 (10:05→23:55)
[2017-10-02] MEDS: ALLOPURINOL 300 MG TAB PO SCH (10:57)
[2017-10-02] MEDS ORDERED: MAGNESIUM HYDROXIDE 2,400 MG/10 ML CUP PO PRN (11:31)
[2017-10-02 11:32] VITALS: BMI 34.0
[2017-10-02] MEDS: DOCUSATE 100 MG CAP PO SCH ×2 (13:05→23:54)
--- NOTE | 2017-10-02 13:11 | P.PN ---
Subjective Progress Note Date: 10/02/17 Mr. Josue is seen and examined today resting comfortably in bed. His breathing is better today and he is no longer requiring oxygen around the clock. He does continue to complain of constipation. Abdominal xray yesterday showed evidence of fecal impaction with no acute findings. Chest xray shows interstitial pattern with ongoing venous congestion with improvement. WBC 11.9, hgb 10.6, plt 222, INR 4.5, potassium 4.1, creatinine 2.04. Weight today 110 kg from 107 on admission. He had an episode of hypotension this morning blood pressure 88.48 heart rate 76. This occurred when he first woke up and was trying to get up and go to the bathroom. He was dizzy and had to ask for assistance with ambulation. Telemetry tracings have been unremarkable and continue to showed paced rhythm. Objective - Vital Signs Vital signs: Vital Signs Temp 97.6 F 10/02/17 12:29 Pulse 70 10/02/17 12:29 Resp 16 10/02/17 12:29 BP 114/59 10/02/17 12:29 Pulse Ox 97 10/02/17 12:29 Intake & Output 10/01/17 10/02/17 10/02/17 18:59 06:59 18:59 Intake Total 120 Balance 120 Weight 110.5 kg 110.5 kg Intake: Oral 120 Other: Voiding Method Toilet Toilet Toilet # Voids 2 2 - Exam Blood pressure 114/59 heart rate 70 afebrile GENERAL: Well-appearing, well-nourished and in no acute distress. NECK: Supple with less than 1 cm JVD and no thyromegaly. LUNGS: Breath sounds clear to auscultation bilaterally. Respiration equal and unlabored. No wheezes, rales or rhonchi. HEART: Regular rate and rhythm with holosystolic murmur at the apex radiating to the axilla and systolic ejection murmur at the base, no rubs or gallops. S1 and S2 heard. EXTREMITIES: Normal range of motion, no edema. No clubbing or cyanosis. Peripheral pulses intact. - Labs CBC & Chem 7: 10/02/17 08:33 10/02/17 08:33 Labs: Abnormal Lab Results - Last 24 Hours (Table) 10/02/17 10/02/17 10/02/17 Range/Units 08:33 08:33 08:33 WBC 11.9 H (3.8-10.6) k/uL RBC 3.20 L (4.30-5.90) m/uL Hgb 10.6 L (13.0-17.5) gm/dL Hct 32.4 L (39.0-53.0) % MCV 101.2 H (80.0-100.0) fL Neutrophils # 10.3 H (1.3-7.7) k/uL Lymphocytes # 0.9 L (1.0-4.8) k/uL PT 40.4 H (9.0-12.0) sec INR 4.5 H (<1.2) BUN 33 H (9-20) mg/dL Creatinine 2.04 H (0.66-1.25) mg/dL Glucose 152 H (74-99) mg/dL Microbiology - Last 24 Hours (Table) 09/25/17 23:08 Blood Culture - Final Blood No Growth after 144 hours Assessment and Plan Assessment: ASSESSMENT 1. Acute on chronic systolic heart failure 2. History of coronary artery disease 3. Paroxysmal atrial fibrillation on long-term anticoagulation 4. History of AICD/BIV pacemaker placement 5. History of ventricular tachycardia, stable 6. History of carotid artery disease, status post carotid endarterectomy 7. Chronic kidney disease followed by Dr. Johnson 8. Supratherapeutic INR, continue to hold coumadin PLAN Transition to PO lasix. Check orthostatic blood pressure. Consideration for KENNEDY to be done as an outpatient secondary to supratherapeutic INR, continue to hold coumadin. Check INR and BMP in the morning. Continue with daily weights and strict I&O's. Further recommendations to follow. Nurse Practitioner note has been reviewed, I agree with a documented findings and plan of care. Patient was seen and examined.
--- NOTE | 2017-10-02 16:04 | CDI ---
Last Revision, July 2017 Documentation Clarification Form Date: 10/02/2017 3:53:00 PM From: Alyx Samano RN, CCDS Admit Date: 09/25/2017 10:41:00 PM Patient Name: George Josue Visit Number: [id number] ATTENTION: The Clinical Documentation Specialists (CDI) and [facility] Coding Staff appreciate your assistance in clarifying documentation. Please respond to the clarification below the line at the bottom and electronically sign. The CDI & [facility] Coding staff will review the response and follow-up if needed. Please note: Queries are made part of the Legal Health Record. If you have any questions, please contact the author of this message via ITS. Dr. Edd Mcginnis Renal Insuffiency was documented in the EC notes and requires further Specificity. History/Risk Factors: 07/09/17 Patients baseline BUN/CR/GFR: 29/1.89/35 Clinical Indicators: 09/25 EC Note: "I did discuss findings with the patient family patient does have pneumonia additionally he does appear to have CHF and renal insufficiency he will be admitted for inpatient treatment." 10/02 Cardiology Progress Note: "Chronic kidney disease followed by Dr. Johnson Current BUN: //29/33 Cr: 1.65/1.68/1.87/2.04 GFR: /32 Treatment: Consults: no nephrology consult IVF: 0.9% NS @ 20 cc/hr Other: multiple doses of IV Lasix 80 mg IVP, followed by 80 mg PO BID In order to capture the severity of condition, please clarify if the condition signifies: Acute renal failure, Please specify etiology (if known): Cortical Necrosis Medullary Necrosis Tubular Necrosis Acute kidney injury Acute on chronic renal failure CKD Stage 1 GFR >90 CKD Stage 2 GFR 60-89 CKD Stage 3 GFR 30-59 CKD Stage 4 GFR 15-29 CKD Stage 5 GFR <15 Chronic renal failure/Chronic Kidney disease (CKD) please stage if known CKD Stage 1 GFR >90 CKD Stage 2 GFR 60-89 CKD Stage 3 GFR 30-59 CKD Stage 4 GFR 15-29 CKD Stage 5 GFR <15 ESRD Other, please specify Unable to determine Please continue to document in your progress notes and discharge summary in order to capture severity of illness and risk of mortality. Include clinical findings that support your diagnosis. CKD Stage 3 GFR 30-59 MTDD
[2017-10-02] MEDS: FUROSEMIDE 80 MG TAB PO SCH (18:32)
--- NOTE | 2017-10-02 19:45 | PN ---
PROGRESS NOTE DATE OF SERVICE: 10/02/17 CHIEF COMPLAINT: Pneumonitis and congestive heart failure. HISTORY OF PRESENT ILLNESS: This gentleman is doing fairly well. He is having a lot of trouble with constipation. His weight is about the same. His breathing is not improved. PHYSICAL EXAM: Chest demonstrates decreased breath sounds at the bases. Cardiac exam is normal. The abdomen is soft, nontender. IMPRESSION: 1. Pneumonitis. 2. Congestive heart failure. 3. Constipation and he will be prescribed stool softeners and milk of magnesia. PLAN: Continue to follow with Cardiology in hopes that his heart failure will be improved. MMODL / IJN: [id number] /
[2017-10-02] MEDS: ATORVASTATIN 80 MG TAB PO SCH (23:54)
[2017-10-02] MEDS: AMIODARONE 200 MG TAB PO SCH (23:54)
[2017-10-02] MEDS: FINASTERIDE 5 MG TAB PO SCH (23:54)
[2017-10-02] MEDS: TAMSULOSIN 0.4 MG CAP.ER.24H PO SCH (23:55)
[2017-10-03] MEDS: IPRATROPIUM-ALBUTEROL 3 ML NEB INHALATION SCH ×4 (07:53→19:10)
[2017-10-03 09:16] LABS: Prothrombin Time 46.8 sec (9.0-12.0)
[2017-10-03 09:21] LABS: INR 5.2 (<1.2)
[2017-10-03 09:23] LABS: Calcium 8.9 mg/dL (8.4-10.2)
[2017-10-03] MEDS: DOCUSATE 100 MG CAP PO SCH ×2 (09:31→20:14)
[2017-10-03] MEDS: PANTOPRAZOLE 40 MG TABLET PO SCH ×2 (09:31→16:51)
[2017-10-03] MEDS: FUROSEMIDE 80 MG TAB PO SCH ×2 (09:31→16:51)
[2017-10-03] MEDS: TAMSULOSIN 0.4 MG CAP.ER.24H PO SCH (09:32)
[2017-10-03] MEDS: MEXILETINE 150 MG CAP PO SCH ×3 (09:32→20:14)
[2017-10-03] MEDS: CARVEDILOL 6.25 MG TAB PO SCH ×2 (09:32→16:51)
[2017-10-03] MEDS: SPIRONOLACTONE 25 MG TAB PO SCH (09:32)
[2017-10-03] MEDS: CLOPIDOGREL 75 MG TAB PO SCH (09:32)
[2017-10-03] MEDS: ALLOPURINOL 300 MG TAB PO SCH (09:32)
[2017-10-03] MEDS: NYSTATIN 100,000 UNIT/GM POWD 15 GM TOPICAL SCH ×3 (09:33→20:15)
[2017-10-03] MEDS ORDERED: PHYTONADIONE ORAL 5 MG/5 ML ORAL.SYRG PO STA (10:49)
--- NOTE | 2017-10-03 13:26 | P.PN ---
Subjective Progress Note Date: 10/03/17 Mr. Josue is seen and examined in no acute distress. His breathing has improved and he no longer is wearing oxygen. He has had a bowel movement and overall states he feels much better. INR today 5.2, creatinine 2.18. Coumadin continues to be on hold. He denies symptoms of chest pain, palpitations, dizziness, nausea , vomiting or diaphoresis. He also denies any evidence of bleeding. Stools are brown no yani blood or black tarry stools noted. Objective - Vital Signs Vital signs: Vital Signs Temp 97.3 F L 10/03/17 12:28 Pulse 72 10/03/17 12:33 Resp 16 10/03/17 12:28 BP 105/55 10/03/17 12:28 Pulse Ox 96 10/03/17 07:00 Intake & Output 10/02/17 10/03/17 10/03/17 18:59 06:59 18:59 Intake Total 160 1340 Balance 160 1340 Weight 110.5 kg 110.2 kg Intake: Intake, IV Titration 160 Amount Sodium Chloride 0.9% 1, 160 000 ml @ 20 mls/hr IV . Q24H [facility] Rx#:[id number] Oral 1340 Other: Voiding Method Toilet Toilet Toilet # Voids 2 # Bowel Movements 1 - Exam Blood pressure 105/55 heart rate 76 afebrile GENERAL: Well-appearing, well-nourished and in no acute distress. Multiple sites of ecchymosis on bilateral arms secondary to blood draws. NECK: Supple with no JVD or thyromegaly. LUNGS: Breath sounds clear to auscultation bilaterally. Respiration equal and unlabored. No wheezes, rales or rhonchi. HEART: Regular rate and rhythm with holosystolic murmur at the apex radiating to the axilla and systolic ejection murmur at the base, no rubs or gallops. S1 and S2 heard. EXTREMITIES: Normal range of motion, no edema. No clubbing or cyanosis. Peripheral pulses intact. - Labs CBC & Chem 7: 10/02/17 08:33 10/03/17 08:25 Labs: Abnormal Lab Results - Last 24 Hours (Table) 10/03/17 10/03/17 Range/Units 08:25 08:25 PT 46.8 H (9.0-12.0) sec INR 5.2 H* (<1.2) BUN 36 H (9-20) mg/dL Creatinine 2.18 H (0.66-1.25) mg/dL Glucose 157 H (74-99) mg/dL Assessment and Plan Assessment: ASSESSMENT 1. Acute on chronic systolic heart failure 2. History of coronary artery disease 3. Paroxysmal atrial fibrillation on long-term anticoagulation 4. History of AICD/BIV pacemaker placement 5. History of ventricular tachycardia, stable 6. History of carotid artery disease, status post carotid endarterectomy 7. Chronic kidney disease followed by Dr. Johnson 8. Supratherapeutic INR, continue to hold coumadin PLAN Give Vitamin K 5 mg x1 now. Check INR in the morning. Hope for discharge tomorrow if INR reasonable. KENNEDY scheduled October [address] Rdz. Continue to hold coumadin. Check INR Sunday, Oct 08 at our office. Plan has been communicated to the patient. Pre-admission testing will call him Sunday with preparation information. Nurse Practitioner note has been reviewed, I agree with a documented findings and plan of care. Patient was seen and examined.
--- NOTE | 2017-10-03 19:15 | PN ---
PROGRESS NOTE DATE OF SERVICE: 10/03/2017 I am covering for Dr. Alonzo. This 77-year-old gentleman was admitted with CHF and pneumonia also had acute renal failure. The patient has had Coumadin coagulopathy today. INR is 1.4. Cardiology is following the patient closely. PAST MEDICAL HISTORY: Reviewed. REVIEW OF SYSTEMS: CARDIOVASCULAR: As mentioned earlier. GI: As mentioned earlier. : No nausea, vomiting. NERVOUS: No numbness, weakness. CURRENT MEDICATIONS: 1. DuoNeb q.i.d. and p.r.n. 2. Zyloprim 3 mg and. 3. Cordarone 200 mg q.h.s. 4. Lipitor 80 mg. 5. Rocaltrol 0.5 mg. 6. Coreg 6.5 mg p.o. b.i.d. 7. Plavix 75 mg daily. 8. Colace 100 mg p.o. b.i.d. 9. Vitamin D2 50,000 units. 10.Proscar 5 mg p.o. q.h.s. 11.Lasix 80 mg p.o. b.i.d. 12.Mexitil 150 mg p.o. b.i.d. 13.Zofran. 14.Protonix 40 mg daily. 15.Aldactone 25 mg daily. 16.Flomax 0.4 daily. PHYSICAL EXAM: Patient is alert, oriented x3. Pulse 73, blood pressure 170/86, respirations 16, temperature 97.4, pulse ox 98% room air. HEENT: Conjunctivae normal. Oral mucosa moist. NECK: No jugular venous distention. No carotid bruits. CARDIOVASCULAR: S1, S2 muffled. RESPIRATORY: Breath sounds diminished in the bases. Bilateral scattered rhonchi and no crackles. ABDOMEN: Soft, nontender. No mass palpable. LEGS: No edema. NERVOUS SYSTEM: Higher functions as mentioned earlier. Moves all 4 limbs. No focal deficits. LYMPHATIC: No lymphadenopathy in neck or axillae. SKIN: No ulcer, rash or bleeding. LABS: Chest x-ray done 2 days ago which was personally reviewed by me, showed some pulmonary venous congestion. Otherwise, other labs are WBC 11.2, hemoglobin is 10.6, and INR is 5.2 and PT is 46.2. Sodium 137, potassium 4 creatinine is 2.18. ASSESSMENT: 1. Congestive heart failure acute exacerbation with acute on chronic systolic dysfunction, ejection fraction 30%-35%. 2. Acute on chronic renal failure with baseline chronic kidney disease stage 3. 3. Mild to moderate aortic regurgitation. 4. Severe mitral regurgitation. 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 6. Moderate tricuspid regurgitation. 7. Pneumonitis, bilateral. 8. Constipation. 9. History of atrial fibrillation. 10.Coronary artery disease. 11.Chronic obstructive pulmonary disease. 12.Diabetes mellitus type 2. 13.Gastroesophageal reflux disease. 14.Hyperlipidemia. 15.History of automatic implantable cardioverter-defibrillator. RECOMMENDATIONS AND DISCUSSION: Recommend to continue current medical management and symptomatic treatment. Hold the Coumadin at this time, vitamin K 2.5 mg, monitor PT/INR closely. Otherwise, I would also recommend hold the Aldactone because otherwise some renal failure and I would also recommend a repeat chest x-ray to assess the fluid-electrolyte balance closely and the patient is on 80 mg Lasix daily. I recommend to cut down the home dose of Lasix because of the worsening of the renal failure and prognosis guarded because of multiple complex medical issues. Further recommendations to follow. See orders for further details. Continue the rest of medications, including bronchodilators. Discussed with the patient, who understands and agrees. MMODL / IJN: [id number] /
--- NOTE | 2017-10-03 19:16 | XR ---
EXAMINATION TYPE: XR chest 1V portable DATE OF EXAM: 10/03/2017 HISTORY: Shortness of breath. COMPARISON: None. TECHNIQUE: Single view of the chest is submitted. FINDINGS: Demonstrated are scattered senescent parenchymal change. There is no evidence for focal infiltrate. The heart is stable. Pulmonary venous congestion without overt failure. Hilar and mediastinal structures are within normal limits. Degenerative changes are seen of the dorsal spine. IMPRESSION: 1. Pulmonary venous congestion without overt failure.
[2017-10-03] MEDS: AMIODARONE 200 MG TAB PO SCH (20:14)
[2017-10-03] MEDS: FINASTERIDE 5 MG TAB PO SCH (20:14)
[2017-10-03] MEDS: ATORVASTATIN 80 MG TAB PO SCH (20:14)
[2017-10-04 07:48] LABS: INR 1.7 (<1.2); Prothrombin Time 15.6 sec (9.0-12.0)
[2017-10-04] MEDS: IPRATROPIUM-ALBUTEROL 3 ML NEB INHALATION SCH ×2 (07:48→11:27)
[2017-10-04 08:02] VITALS: BP 107/55; RESP 18; TEMP 97.7
[2017-10-04] MEDS: ALLOPURINOL 300 MG TAB PO SCH (08:10)
[2017-10-04] MEDS: MEXILETINE 150 MG CAP PO SCH (08:11)
[2017-10-04] MEDS: CARVEDILOL 6.25 MG TAB PO SCH (08:11)
[2017-10-04] MEDS: PANTOPRAZOLE 40 MG TABLET PO SCH (08:11)
[2017-10-04] MEDS: DOCUSATE 100 MG CAP PO SCH (08:12)
[2017-10-04] MEDS: CLOPIDOGREL 75 MG TAB PO SCH (08:13)
[2017-10-04] MEDS: NYSTATIN 100,000 UNIT/GM POWD 15 GM TOPICAL SCH (08:13)
[2017-10-04 08:21] LABS: Calcium 8.8 mg/dL (8.4-10.2)
[2017-10-04 08:32] LABS: Potassium 4.1 mmol/L (3.5-5.1)
[2017-10-04] MEDS ORDERED: FUROSEMIDE 80 MG TAB PO SCH (09:00)
[2017-10-04 11:38] VITALS: PULSE 80
--- NOTE | 2017-10-04 23:05 | DS ---
DISCHARGE SUMMARY FINAL DIAGNOSES: 1. Congestive heart failure acute exacerbation acute on chronic systolic dysfunction, ejection fraction 30%-35%. 2. Acute on chronic renal failure with baseline chronic kidney disease stage 3. 3. Mild to moderate aortic regurgitation. 4. Severe mitral regurgitation. 5. Chordal rupture of the posterior mitral leaflet next number. 6. Moderate tricuspid regurgitation. 7. Pneumonitis, bilateral, possibly gram-negative. 8. Constipation. 9. History of atrial fibrillation. 10.History of coronary artery disease. 11.Chronic obstructive pulmonary disease. 12.Diabetes mellitus type 2. 13.Gastroesophageal reflux disease. 14.Hyperlipidemia. 15.History of automatic implantable cardioverter-defibrillator. DISCHARGE DISPOSITION: The patient will be discharged in stable condition with guarded prognosis. Total time taken 35 minutes. HISTORY OF PRESENT ILLNESS: This 77-year-old gentleman with a past medical history of multiple medical problems is being followed by Dr. Alonzo as an outpatient, admitted for CHF acute exacerbation and possible pneumonia, treated with diuretics and antibiotics. Patient improved significantly. The patient would like to return home. The patient also had mild coagulopathy, which was reversed. EXAM: Vitals are stable. CARDIOVASCULAR: S1, S2 muffled. RESPIRATORY: A few scattered rhonchi and crackles. The patient discharged in stable condition with the following advice: 1. Diet: Cardiac. 2. Activity limited until followup. 3. Follow up with Dr. Alonzo as mentioned earlier, 2-3 days. 4. Follow up with Dr. Harvey Rdz as recommended. 5. Medications are: Zyloprim 300 mg p.o. daily. 6. Cordarone 200 mg q.h.s. 7. Lipitor 80 mg q.h.s. 8. Calcitriol 0.5 mg Sunday. 9. Coreg 6.25 mg p.o. b.i.d. 10.Plavix 75 mg p.o. daily. 11.Colace 100 mg p.o. b.i.d. 12.Vitamin D2 50,000 daily. 13.Proscar 5 mg p.o. q.h.s. 14.Lasix 80 mg p.o. daily. 15.Magnesium gluconate 500 mg p.o. b.i.d. 16.Mexitil 150 mg p.o. t.i.d. 17.Nystatin topical b.i.d. 18.Protonix 40 mg b.i.d. 19.Flomax 0.4 q.h.s. 20.Coumadin 0.5 mg q.h.s. to be adjusted . 21.CBC, BMP, PT/INR with Dr. Alonzo in the outpatient setting. MMODL / IJN: [id number] / MTDD
[2017-10-11] MEDS ORDERED: ERGOCALCIFEROL 50,000 UNIT CAP PO SCH (12:00)
--- NOTE | 2017-10-11 12:01 | DS ---
DISCHARGE SUMMARY DATE OF DISCHARGE: 10/04/17 CHIEF COMPLAINT: Shortness of breath. HISTORY OF PRESENT ILLNESS AND PHYSICAL EXAM: Details of this man's history and physical can be found in the initial workup. LABORATORY STUDIES: While he was in a hospital he had laboratory studies details which can be found laboratory section of his chart. COURSE IN HOSPITAL: After admission he was placed on bedrest, started on intravenous fluids, updrafts and IV antibiotics. He was treated for pneumonia. However, he continued to have a weight gain, orthopnea and it was felt that his problem was more related to congestive heart failure. He was seen by Cardiology and heart failure was managed with IV diuretics and eventually improved enough that he could be discharged on the . FINAL DIAGNOSES: 1. Bronchial pneumonia. 2. Congestive heart failure. 3. Chronic congestive heart failure. 4. Atherosclerotic cardiomyopathy. OPERATIONS: None. CONSULTATIONS: Cardiology. He is improved. MMODL / IJN: [id number] /
== END 2017-10-04 15:05 | disposition home or self-care (01) | DRG 291 ==
LOC: EC 18:46 → 4MS4W 22:41 → 5MS5E 09-26 01:41
PROVIDERS: ADMIT Family Medicine; ATTEND Family Medicine
DX: I13.0 Hypertensive heart and chronic kidney disease with heart failure and stage 1 through stage 4 chronic kidney disease, or unspecified chronic kidney disease (principal); I50.23 Acute on chronic systolic (congestive) heart failure; J15.6 Pneumonia due to other Gram-negative bacteria; L89.151 Pressure ulcer of sacral region, stage 1; N17.9 Acute kidney failure, unspecified; E11.22 Type 2 diabetes mellitus with diabetic chronic kidney disease; I25.82 Chronic total occlusion of coronary artery; I27.20 Pulmonary hypertension, unspecified; J44.0 Chronic obstructive pulmonary disease with (acute) lower respiratory infection; I48.0 Paroxysmal atrial fibrillation; N18.3 Chronic kidney disease, stage 3 (moderate); E78.5 Hyperlipidemia, unspecified; I25.10 Atherosclerotic heart disease of native coronary artery without angina pectoris; I25.5 Ischemic cardiomyopathy; I08.0 Rheumatic disorders of both mitral and aortic valves; K21.9 Gastro-esophageal reflux disease without esophagitis; K56.41 Fecal impaction; N40.0 Benign prostatic hyperplasia without lower urinary tract symptoms; R79.1 Abnormal coagulation profile; Z79.01 Long term (current) use of anticoagulants; Z79.02 Long term (current) use of antithrombotics/antiplatelets; Z79.899 Other long term (current) drug therapy; Z86.79 Personal history of other diseases of the circulatory system; Z87.891 Personal history of nicotine dependence; Z95.810 Presence of automatic (implantable) cardiac defibrillator
CPT/HCPCS: 36415; 71045; 71046; 74019; 80048; 80053; 82550; 82553; 83735; 83880; 84484; 85025; 85610; 85730; 87040; 87070; 87205; 93005; 93306; 94640; 94760; 96365; 96366; 96375; 99285

== ENCOUNTER 2017-10-11 10:36 | Day surgery (SDC) | payer MEDICARE ==
[2017-10-08 14:30] VITALS: BMI 33.2
[2017-10-11] MEDS ORDERED: SODIUM CHLORIDE 0.9% 500 ML IV ONE (11:18)
[2017-10-11 11:37] VITALS: TEMP 97.7
[2017-10-11 11:45] LABS: INR 1.4 (<1.2); Prothrombin Time 12.9 sec (9.0-12.0)
[2017-10-11] MEDS ORDERED: fentaNYL (PF) 50 MCG/ML 2 ML AMP ONE (12:13)
[2017-10-11] MEDS ORDERED: MIDAZOLAM 2 MG/2 ML VIAL ONE (12:13)
[2017-10-11] MEDS ORDERED: BENZOCAINE SPRAY 1 SPRAY CAN MUCOUS MEM ONE (12:31)
[2017-10-11] MEDS ORDERED: fentaNYL (PF) 50 MCG/ML 2 ML AMP IV ONE (12:31)
[2017-10-11] MEDS ORDERED: MIDAZOLAM 2 MG/2 ML VIAL IV ONE (12:35)
--- NOTE | 2017-10-11 13:37 | ECHOT ---
TRANSESOPHAGEAL ECHOCARDIOGRAM The transesophageal echocardiogram was performed to assess the patient mitral regurgitation. The patient was given intravenous sedation with Versed and fentanyl and transesophageal echocardiogram was performed without any complications. Left ventricular chamber is normal in size with evidence of inferior septal and inferolateral hypokinesia. Estimated ejection fraction is 35% to 40%. There is evidence of a ruptured chordae tendineae with flail middle cusp of the posterior mitral leaflet. The color Doppler study shows evidence of severe degree of eccentric mitral regurgitation. There is reversal of flow in the pulmonary vein. There is evidence of moderate degree of tricuspid regurgitation. Aortic valve is mildly sclerotic and there is mild stenosis. There is a mild atherosclerotic plaque noted in descending thoracic aorta. There is evidence of small PFO with [id number] and small [id number] shunt. FINAL IMPRESSION: 1. There is evidence of a ruptured chordae tendineae with flail posterior mitral leaflet with severe mitral regurgitation. There is evidence of reversal of flow in the pulmonary vein. 2. Left atrium is moderate to severely enlarged. 3. There is a moderate degree of right tricuspid regurgitation. 4. There is mild aortic stenosis. 5. There is evidence of small patent foramen ovale with [id number] and right-to- left shunt. MMODL / IJN: [id number] /
[2017-10-11 14:05] VITALS: BP 135/62; PULSE 76; RESP 16
== END 2017-10-11 14:14 | disposition home or self-care (01) ==
LOC: CATHCVL 10:36
PROVIDERS: ATTEND Internal Medicine Cardiovascular Disease
DX: I08.3 Combined rheumatic disorders of mitral, aortic and tricuspid valves (principal)
CPT/HCPCS: 93312; 93320; 93325; 85610; J2250; J3010

== ENCOUNTER → 2017-11-05 | Outpatient (CLI) | payer MEDICARE ==
[2017-11-05 10:36] LABS: Basophils % (A) 1 %; Eosinophils # (A) 0.2 k/uL (0-0.7); Eosinophils % (A) 2 %; HCT 33.4 % (39.0-53.0); HGB 10.2 gm/dL (13.0-17.5); Hypochromasia Marked; Lymphocytes # (A) 1.3 k/uL (1.0-4.8); Lymphocytes % (A) 16 %; MCH 29.3 pg (25.0-35.0); MCHC 30.5 g/dL (31.0-37.0); Mean Platelet Volume 8.9; Monocytes # (A) 0.6 k/uL (0-1.0); Monocytes % (A) 7 %; Neutrophils # (A) 6.2 k/uL (1.3-7.7); Neutrophils % (A) 74 %; Platelet Count 235 k/uL (150-450); RBC 3.47 m/uL (4.30-5.90); RDW 14.8 % (11.5-15.5); WBC 8.4 k/uL (3.8-10.6)
[2017-11-05 10:37] LABS: MCV 96.1 fL (80.0-100.0)
[2017-11-05 10:44] LABS: Calcium 9.2 mg/dL (8.4-10.2); Magnesium 1.6 mg/dL (1.6-2.3); Phosphorus 3.1 mg/dL (2.5-4.5); Potassium 4.7 mmol/L (3.5-5.1); Uric Acid 3.5 mg/dL (3.5-8.5)
[2017-11-05 11:44] LABS: Appearance,Urine Clear (Clear); Bilirubin,Urine Negative (Negative); Blood,Urine Negative (Negative); Color,Urine Yellow; Glucose,Urine (UA) Negative (Negative); Ketones,Urine Negative (Negative); Leukocyte Esterase,Urine Small (Negative); Mucus,Urine Rare /hpf; Nitrite,Urine Negative (Negative); Protein,Urine Trace (Negative); Specific Gravity,Urine 1.015 (1.001-1.035); Squamous Epithelial Cell,Urine 3 /hpf (0-4); Urobilinogen,Urine <2.0 mg/dL (<2.0); WBC,Urine 5 /hpf (0-5)
[2017-11-05 16:29] LABS: Parathyroid Hormone Intact 61.8 pg/mL (14.0-72.0)
== END | disposition home or self-care (01) ==
LOC: LABWHC1 09:35
PROVIDERS: ATTEND Nurse Practitioner Family
DX: I50.22 Chronic systolic (congestive) heart failure (principal); D64.9 Anemia, unspecified; E55.9 Vitamin D deficiency, unspecified; M10.9 Gout, unspecified; R80.9 Proteinuria, unspecified; N18.3 Chronic kidney disease, stage 3 (moderate)
CPT/HCPCS: 36415; 80048; 81001; 82728; 83540; 83550; 83735; 83970; 84100; 84550; 85025

== ENCOUNTER → 2017-11-21 | Outpatient (CLI) | payer MEDICARE ==
[2017-11-21 09:37] LABS: Calcium 8.8 mg/dL (8.4-10.2); Potassium 3.4 mmol/L (3.5-5.1)
== END | disposition home or self-care (01) ==
LOC: LABWHC1 08:40
PROVIDERS: ATTEND Nurse Practitioner Adult Health
DX: I50.22 Chronic systolic (congestive) heart failure (principal)
CPT/HCPCS: 36415; 80048

== ENCOUNTER → 2017-12-03 | Outpatient (CLI) | payer MEDICARE ==
[2017-12-03 13:09] LABS: Potassium 4.6 mmol/L (3.5-5.1)
== END | disposition home or self-care (01) ==
LOC: LABWHC1 12:15
PROVIDERS: ATTEND Nurse Practitioner Family
DX: I13.10 Hypertensive heart and chronic kidney disease without heart failure, with stage 1 through stage 4 chronic kidney disease, or unspecified chronic kidney disease (principal); N18.9 Chronic kidney disease, unspecified; I50.22 Chronic systolic (congestive) heart failure
CPT/HCPCS: 36415; 80048

== ENCOUNTER → 2017-12-26 | Outpatient (CLI) | payer MEDICARE ==
[2017-12-26 13:48] LABS: Anisocytosis Slight; Basophils # (A) 0.1 k/uL (0-0.2); Basophils % (A) 1 %; Eosinophils # (A) 0.1 k/uL (0-0.7); Eosinophils % (A) 1 %; HCT 43.2 % (39.0-53.0); Lymphocytes # (A) 1.2 k/uL (1.0-4.8); Lymphocytes % (A) 13 %; MCH 29.1 pg (25.0-35.0); MCV 91.2 fL (80.0-100.0); Mean Platelet Volume 7.1; Monocytes # (A) 0.6 k/uL (0-1.0); Monocytes % (A) 6 %; Neutrophils # (A) 7.1 k/uL (1.3-7.7); Neutrophils % (A) 78 %; Platelet Count 206 k/uL (150-450); RBC 4.74 m/uL (4.30-5.90); RDW 18.4 % (11.5-15.5); WBC 9.2 k/uL (3.8-10.6)
[2017-12-26 13:53] LABS: Appearance,Urine Clear (Clear); Bilirubin,Urine Negative (Negative); Blood,Urine Negative (Negative); Color,Urine Light Yellow; Glucose,Urine (UA) Negative (Negative); Ketones,Urine Negative (Negative); Leukocyte Esterase,Urine Negative (Negative); Nitrite,Urine Negative (Negative); Protein,Urine Negative (Negative); Specific Gravity,Urine 1.009 (1.001-1.035); Urobilinogen,Urine <2.0 mg/dL (<2.0)
[2017-12-26 13:57] LABS: Calcium 9.6 mg/dL (8.4-10.2); Magnesium 2.1 mg/dL (1.6-2.3); Potassium 4.6 mmol/L (3.5-5.1); Uric Acid 5.9 mg/dL (3.5-8.5)
[2017-12-26 14:04] LABS: HGB 13.8 gm/dL (13.0-17.5)
[2017-12-26 19:08] LABS: Vitamin D 25 Hydroxy 46.4 ng/mL (30.0-100.0)
[2017-12-26 19:12] LABS: Iron Saturation 23.21 (15.00-50.00)
[2017-12-26 20:21] LABS: Parathyroid Hormone Intact 119.7 pg/mL (14.0-72.0)
== END | disposition home or self-care (01) ==
LOC: LABWHC1 12:11
PROVIDERS: ATTEND Nurse Practitioner Family
DX: N18.3 Chronic kidney disease, stage 3 (moderate) (principal); D64.9 Anemia, unspecified; E55.9 Vitamin D deficiency, unspecified; E21.3 Hyperparathyroidism, unspecified; M10.9 Gout, unspecified; N39.0 Urinary tract infection, site not specified
CPT/HCPCS: 36415; 80048; 81003; 82306; 82728; 83540; 83550; 83735; 83970; 84100; 84550; 85025

== ENCOUNTER → 2018-02-01 | Outpatient (CLI) | payer MEDICARE ==
[2018-02-01 10:44] LABS: Calcium 9.1 mg/dL (8.4-10.2); Potassium 4.3 mmol/L (3.5-5.1)
== END | disposition home or self-care (01) ==
LOC: LABWHC1 10:01
PROVIDERS: ATTEND Internal Medicine Nephrology
DX: N18.3 Chronic kidney disease, stage 3 (moderate) (principal)
CPT/HCPCS: 36415; 80048

== ENCOUNTER → 2018-03-25 | Outpatient (CLI) | payer MEDICARE ==
[2018-03-25 14:27] LABS: Basophils % (A) 0 %; Eosinophils # (A) 0.2 k/uL (0-0.7); Eosinophils % (A) 2 %; HCT 33.4 % (39.0-53.0); HGB 11.1 gm/dL (13.0-17.5); Hypochromasia Slight; Lymphocytes # (A) 0.9 k/uL (1.0-4.8); Lymphocytes % (A) 11 %; MCH 30.2 pg (25.0-35.0); MCHC 33.1 g/dL (31.0-37.0); MCV 91.1 fL (80.0-100.0); Mean Platelet Volume 7.6; Monocytes # (A) 0.6 k/uL (0-1.0); Monocytes % (A) 7 %; Neutrophils # (A) 6.2 k/uL (1.3-7.7); Neutrophils % (A) 77 %; Platelet Count 270 k/uL (150-450); RBC 3.66 m/uL (4.30-5.90); RDW 15.5 % (11.5-15.5); WBC 8.1 k/uL (3.8-10.6)
[2018-03-25 14:37] LABS: Calcium 8.8 mg/dL (8.4-10.2); Magnesium 2.1 mg/dL (1.6-2.3); Phosphorus 3.7 mg/dL (2.5-4.5); Potassium 4.6 mmol/L (3.5-5.1); Uric Acid 5.5 mg/dL (3.5-8.5)
[2018-03-25 15:37] LABS: Appearance,Urine Clear (Clear); Bilirubin,Urine Negative (Negative); Blood,Urine Negative (Negative); Color,Urine Light Yellow; Glucose,Urine (UA) Negative (Negative); Ketones,Urine Negative (Negative); Leukocyte Esterase,Urine Negative (Negative); Nitrite,Urine Negative (Negative); Protein,Urine Negative (Negative); Specific Gravity,Urine 1.007 (1.001-1.035); Urobilinogen,Urine <2.0 mg/dL (<2.0)
[2018-03-25 18:53] LABS: Parathyroid Hormone Intact 99.7 pg/mL (14.0-72.0)
[2018-03-25 19:10] LABS: Iron Saturation 9.24 (15.00-50.00); Vitamin D 25 Hydroxy 44.6 ng/mL (30.0-100.0)
== END | disposition home or self-care (01) ==
LOC: LABWHC1 13:35
PROVIDERS: ATTEND Internal Medicine Nephrology
DX: E55.9 Vitamin D deficiency, unspecified (principal); N18.3 Chronic kidney disease, stage 3 (moderate); D63.1 Anemia in chronic kidney disease; M10.9 Gout, unspecified; N39.0 Urinary tract infection, site not specified
CPT/HCPCS: 36415; 80048; 81003; 82306; 82728; 83540; 83550; 83735; 83970; 84100; 84550; 85025

== ENCOUNTER → 2018-06-21 | Outpatient (CLI) | payer MEDICARE ==
[2018-06-21 10:40] LABS: Appearance,Urine Clear (Clear); Bilirubin,Urine Negative (Negative); Blood,Urine Negative (Negative); Color,Urine Yellow; Glucose,Urine (UA) Negative (Negative); Ketones,Urine Negative (Negative); Leukocyte Esterase,Urine Negative (Negative); Nitrite,Urine Negative (Negative); Protein,Urine Negative (Negative); Specific Gravity,Urine 1.011 (1.001-1.035); Urobilinogen,Urine <2.0 mg/dL (<2.0)
[2018-06-21 10:50] LABS: Anisocytosis Slight; Basophils % (A) 1 %; Eosinophils # (A) 0.1 k/uL (0-0.7); Eosinophils % (A) 2 %; HCT 42.7 % (39.0-53.0); HGB 13.6 gm/dL (13.0-17.5); Lymphocytes # (A) 1.2 k/uL (1.0-4.8); Lymphocytes % (A) 16 %; MCH 32.4 pg (25.0-35.0); MCHC 31.8 g/dL (31.0-37.0); MCV 101.7 fL (80.0-100.0); Macrocytosis Slight; Mean Platelet Volume 6.8; Monocytes # (A) 0.5 k/uL (0-1.0); Monocytes % (A) 6 %; Neutrophils # (A) 5.6 k/uL (1.3-7.7); Neutrophils % (A) 74 %; Platelet Count 201 k/uL (150-450); RBC 4.19 m/uL (4.30-5.90); RDW 17.2 % (11.5-15.5); WBC 7.7 k/uL (3.8-10.6)
[2018-06-21 17:22] LABS: Vitamin D 25 Hydroxy 28.8 ng/mL (30.0-100.0)
[2018-06-21 17:40] LABS: Calcium 8.9 mg/dL (8.7-10.3); Magnesium 1.9 mg/dL (1.5-2.4); Phosphorus 3.4 mg/dL (2.4-5.1); Potassium 3.8 mmol/L (3.5-5.5); Uric Acid 6.4 mg/dL (3.7-8.7)
[2018-06-21 17:54] LABS: Iron Saturation 15.51 (15.00-50.00)
== END | disposition home or self-care (01) ==
LOC: LABWHC1 10:04
PROVIDERS: ATTEND Nurse Practitioner Family
DX: N18.3 Chronic kidney disease, stage 3 (moderate) (principal); D63.1 Anemia in chronic kidney disease; M10.9 Gout, unspecified; N39.0 Urinary tract infection, site not specified; E55.9 Vitamin D deficiency, unspecified
CPT/HCPCS: 36415; 80048; 81003; 82306; 82728; 83540; 83550; 83735; 83970; 84100; 84550; 85025

== ENCOUNTER → 2018-09-18 | Outpatient (CLI) | payer MEDICARE ==
[2018-09-18 13:58] LABS: Basophils # (A) 0.1 k/uL (0-0.2); Basophils % (A) 1 %; Eosinophils # (A) 0.1 k/uL (0-0.7); Eosinophils % (A) 1 %; HCT 43.7 % (39.0-53.0); HGB 14.3 gm/dL (13.0-17.5); Lymphocytes # (A) 0.8 k/uL (1.0-4.8); Lymphocytes % (A) 10 %; MCH 33.4 pg (25.0-35.0); MCHC 32.6 g/dL (31.0-37.0); MCV 102.4 fL (80.0-100.0); Macrocytosis Slight; Mean Platelet Volume 7.7; Monocytes # (A) 0.5 k/uL (0-1.0); Monocytes % (A) 7 %; Neutrophils # (A) 6.2 k/uL (1.3-7.7); Neutrophils % (A) 80 %; Platelet Count 179 k/uL (150-450); RBC 4.27 m/uL (4.30-5.90); RDW 14.1 % (11.5-15.5); WBC 7.7 k/uL (3.8-10.6)
[2018-09-18 14:04] LABS: Appearance,Urine Clear (Clear); Bilirubin,Urine Negative (Negative); Blood,Urine Negative (Negative); Color,Urine Yellow; Glucose,Urine (UA) Negative (Negative); Ketones,Urine Negative (Negative); Leukocyte Esterase,Urine Negative (Negative); Nitrite,Urine Negative (Negative); PH, Urine 5.5 (5.0-8.0); Protein,Urine Negative (Negative); Specific Gravity,Urine 1.011 (1.001-1.035); Urobilinogen,Urine <2.0 mg/dL (<2.0)
[2018-09-18 19:59] LABS: Iron Saturation 39.2 (15.00-50.00)
[2018-09-18 20:06] LABS: Anion Gap 8.9 mmol/L (4.00-12.00); Calcium 8.8 mg/dL (8.7-10.3); Carbon Dioxide 24.1 mmol/L (21.6-31.8); Magnesium 1.9 mg/dL (1.5-2.4); Phosphorus 3.1 mg/dL (2.4-5.1); Potassium 3.6 mmol/L (3.5-5.5); Uric Acid 6.1 mg/dL (3.7-8.7)
== END ==
LOC: LABWHC1 13:25
PROVIDERS: ATTEND Nurse Practitioner Family
DX: N18.3 Chronic kidney disease, stage 3 (moderate) (principal); D63.1 Anemia in chronic kidney disease; M10.9 Gout, unspecified; N39.0 Urinary tract infection, site not specified
CPT/HCPCS: 36415; 80048; 81003; 82728; 83540; 83550; 83735; 84100; 84550; 85025

== ENCOUNTER → 2018-12-30 | Outpatient (CLI) | payer MEDICARE ==
--- NOTE | 2018-12-30 09:23 | US ---
EXAMINATION TYPE: US venous doppler duplex UE LT DATE OF EXAM: 12/30/2018 COMPARISON: NONE CLINICAL HISTORY: M79.89 LEFT ARM SWELLING. Injury this past week during simple movement in elderly m jacqueline, no h/o dvt, swelling in upper bicep and dark purple skin discoloration SIDE PERFORMED: Left Left Arm: Appears negative for dvt *At site of most pain and swelling near medial bicep appears to be fluid seen within possible tear or strain of bicep, difficult to fully assess due to habitus and edema. IMPRESSION: 1. No diagnostic evidence of DVT as visualized. It does appear to be a hypoechoic area in the region of the biceps tendon in the left upper arm. Could not exclude a hematoma or possibly biceps tendon or muscle injury correlate with MRI.
== END ==
LOC: RADUSWWP 08:29
PROVIDERS: ATTEND Family Medicine
DX: M79.89 Other specified soft tissue disorders (principal)

== ENCOUNTER 2018-12-31 11:29 | Observation (INO) | payer MEDICARE ==
[2018-12-31] MEDS ORDERED: IPRATROPIUM-ALBUTEROL 3 ML NEB INHALATION STA (11:37)
--- NOTE | 2018-12-31 12:09 | ED ---
General Adult HPI - General Chief complaint: Shortness of Breath Stated complaint: arm muscle pain/water retention Time Seen by Provider: 12/31/18 11:37 Source: patient, family, RN notes reviewed Mode of arrival: wheelchair Limitations: no limitations - History of Present Illness Initial comments: Patient is a pleasant 78-year-old male presenting to the emergency Department with shortness of breath. Onset of symptoms was yesterday. Patient does have a history of similar symptoms previously associated with moderate tension/CHF. No leg pain or leg swelling. Patient states he does not usually have leg involvement. Patient has a known history of a heart valve problem. Patient does take Coumadin for this. Patient last week was pulling on a box out of the truck when it did not move. Patient felt a snap in his left arm. Patient did see his doctor for this and had ultrasound done. Patient has been diagnosed with biceps tendon rupture. Patient is having some swelling increased of the left arm with ecchymosis. Patient states they also did an ultrasound for DVT yesterday showing no DVT. Arm discomfort increases with movement. - Related Data Home Medications Medication Instructions Recorded Confirmed Atorvastatin Calcium [Lipitor] 80 mg PO HS 04/29/14 12/31/18 Finasteride [Proscar] 5 mg PO DAILY 04/29/14 12/31/18 Mexiletine [Mexitil] 150 mg PO TID 04/29/14 12/31/18 Clopidogrel [Plavix] 75 mg PO DAILY 10/19/15 12/31/18 Amiodarone [Cordarone] 200 mg PO HS 07/25/16 12/31/18 Calcitriol 0.5 mcg PO FR 07/25/16 12/31/18 Magnesium Gluconate [Magonate] 500 mg PO DAILY 07/25/16 12/31/18 Allopurinol [Zyloprim] 150 mg PO DAILY 09/25/17 12/31/18 Ergocalciferol (Vitamin D2) 50,000 unit PO Q30D 09/25/17 12/31/18 [Vitamin D2] Furosemide [Lasix] 80 mg PO BID 09/25/17 12/31/18 Tamsulosin HCl [Flomax] 0.4 mg PO BID 09/25/17 12/31/18 Potassium Chloride [K-Tab ER] 20 meq PO DAILY 12/03/17 12/31/18 Calcium Carbonate [Calcium] 600 mg PO DAILY 12/31/18 12/31/18 Ferrous Sulfate [Feosol] 325 mg PO DAILY 12/31/18 12/31/18 Spironolactone [Aldactone] 25 mg PO DAILY 12/31/18 12/31/18 Warfarin [Coumadin] 1 mg PO HS 12/31/18 12/31/18 Previous Rx's Medication Instructions Recorded Pantoprazole [Protonix] 40 mg PO AC-BID #60 tablet. 09/28/15 Carvedilol [Coreg] 6.25 mg PO BID-W/MEALS #60 tab 10/04/17 Allergies Allergy/AdvReac Type Severity Reaction Status Date / Time adhesive tape Allergy Severe BLISTERS Verified 12/31/18 12:11 Review of Systems ROS Statement: Those systems with pertinent positive or pertinent negative responses have been documented in the HPI. ROS Other: All systems not noted in ROS Statement are negative. Constitutional: Denies: fever Eyes: Denies: eye pain ENT: Denies: ear pain Respiratory: Reports: dyspnea. Denies: cough Cardiovascular: Reports: as per HPI Endocrine: Reports: fatigue Gastrointestinal: Denies: abdominal pain Genitourinary: Denies: dysuria Musculoskeletal: Denies: back pain Skin: Reports: rash Past Medical History Past Medical History: Atrial Fibrillation, Coronary Artery Disease (CAD), Cancer , Heart Failure, Diabetes Mellitus, GERD/Reflux, Hyperlipidemia, Hypertension, Myocardial Infarction ([place]), Osteoarthritis (OA), Pneumonia, Prostate Disorder, Renal Disease, Respiratory Disorder, Thyroid Disorder Additional Past Medical History / Comment(s): HX: systolic dysfunction heart failure with EF 35-40%, severe cardiomyopathy with AICD, severe pulmonary HTN, severe mitral and moderate tricuspid regurg,Stage 3 kidney disease,Hx CA prostate; L caratid artery stenosis-awaiting stent placement. bilateral cataracts, diverticular dx,Hx gout. Last Myocardial Infarction Date:: 1983 History of Any Multi-Drug Resistant Organisms: None Reported Past Surgical History: AICD, Appendectomy, Back Surgery, Cholecystectomy, Prostate Surgery, Tonsillectomy Additional Past Surgical History / Comment(s): AICD 2008 with gen change 05/25/14, PCI with stent, R caratid endartectomy with reocclusion, back surgery x 2, bilateral breast lumpectomies, picc line in and out. MITRAL VALVE CLIPPED. Past Anesthesia/Blood Transfusion Reactions: No Reported Reaction Date of Last Stent Placement:: unkn Type of Cardiac Device: AICD Device Placement Date:: 2008 with gen change 05/25/14 Past Psychological History: No Psychological Hx Reported Smoking Status: Former smoker Past Alcohol Use History: None Reported Past Drug Use History: None Reported - Past Family History Father Family Medical History: Unable to Obtain Additional Family Medical History / Comment(s): Pt does not remember fathers health history. His father at age 82 yrs. Mother Family Medical History: Coronary Artery Disease (CAD) Additional Family Medical History / Comment(s): Mother during heart surgery when she was in her 50's General Exam Limitations: no limitations General appearance: alert, in no apparent distress Head exam: Present: atraumatic Eye exam: Present: normal appearance Neck exam: Present: normal inspection Respiratory exam: Present: normal lung sounds bilaterally Cardiovascular Exam: Present: regular rate, normal rhythm Expanded Peripheral pulses: 2+: Radial (L) GI/Abdominal exam: Present: soft. Absent: tenderness Extremities exam: Present: other (Left mid to distal upper arm anterior with swelling and ecchymosis, extending to the proximal forearm. This leave the extremity is intact. No pain with range of motion of the wrist or fingers. Wrist and hand strength is intact. Sensation intact. Pulses intact. ). Absent: pedal edema, calf tenderness Neurological exam: Present: alert Psychiatric exam: Present: normal affect, normal mood Skin exam: Present: other (Left arm ecchymosis) Course Vital Signs 12/31/18 12/31/18 12/31/18 11:32 12:10 12:24 Temperature 96 F L Pulse Rate 60 61 Respiratory 24 20 18 Rate Blood Pressure 145/60 116/50 O2 Sat by Pulse 98 97 Oximetry 12/31/18 13:15 Temperature 97.4 F L Pulse Rate 60 Respiratory 18 Rate Blood Pressure 116/49 O2 Sat by Pulse 98 Oximetry EKG Findings - EKG Comments: EKG Findings:: Paced rhythm with a rate of 60. OR 168. QRS to 24. QT 556. QTc 556. Left axis. Wide QRS complex. Q waves in leads V3 through V6. Nonspecific T waves. Medical Decision Making - Medical Decision Making Patient reevaluated and resting comfortably in bed. Patient states now that his dyspnea he described earlier was more of chest discomfort. Patient and family updated on results and plan. Case was discussed in detail with Dr. Neal, who will admit covering for hospital call. - Lab Data Result diagrams: 12/31/18 12:23 12/31/18 12:23 Lab Results 12/31/18 12/31/18 12/31/18 Range/Units 12:23 12:23 12:23 WBC 7.5 (3.8-10.6) k/uL RBC 3.88 L (4.30-5.90) m/uL Hgb 12.6 L (13.0-17.5) gm/dL Hct 39.0 (39.0-53.0) % MCV 100.4 H (80.0-100.0) fL MCH 32.5 (25.0-35.0) pg MCHC 32.3 (31.0-37.0) g/dL RDW 14.0 (11.5-15.5) % Plt Count 223 (150-450) k/uL Neutrophils % 77 % Lymphocytes % 11 % Monocytes % 8 % Eosinophils % 2 % Basophils % 1 % Neutrophils # 5.8 (1.3-7.7) k/uL Lymphocytes # 0.8 L (1.0-4.8) k/uL Monocytes # 0.6 (0-1.0) k/uL Eosinophils # 0.2 (0-0.7) k/uL Basophils # 0.0 (0-0.2) k/uL Macrocytosis Slight PT (9.0-12.0) sec INR (<1.2) APTT (22.0-30.0) sec Sodium 138 (137-145) mmol/L Potassium 3.6 (3.5-5.1) mmol/L Chloride 107 (98-107) mmol/L Carbon Dioxide 23 (22-30) mmol/L Anion Gap 8 mmol/L BUN 32 H (9-20) mg/dL Creatinine 1.75 H (0.66-1.25) mg/dL Est GFR (CKD-EPI)AfAm 43 (>60 ml/min/1.73 sqM) Est GFR (CKD-EPI)NonAf 37 (>60 ml/min/1.73 sqM) Glucose 148 H (74-99) mg/dL Calcium 8.8 (8.4-10.2) mg/dL Total Bilirubin 1.0 (0.2-1.3) mg/dL AST 38 (17-59) U/L ALT 30 (21-72) U/L Alkaline Phosphatase 141 H (38-126) U/L Troponin I (0.000-0.034) ng/mL NT-Pro-B Natriuret Pep 1610 pg/mL Total Protein 6.3 (6.3-8.2) g/dL Albumin 3.5 (3.5-5.0) g/dL 12/31/18 12/31/18 Range/Units 12:23 12:23 WBC (3.8-10.6) k/uL RBC (4.30-5.90) m/uL Hgb (13.0-17.5) gm/dL Hct (39.0-53.0) % MCV (80.0-100.0) fL MCH (25.0-35.0) pg MCHC (31.0-37.0) g/dL RDW (11.5-15.5) % Plt Count (150-450) k/uL Neutrophils % % Lymphocytes % % Monocytes % % Eosinophils % % Basophils % % Neutrophils # (1.3-7.7) k/uL Lymphocytes # (1.0-4.8) k/uL Monocytes # (0-1.0) k/uL Eosinophils # (0-0.7) k/uL Basophils # (0-0.2) k/uL Macrocytosis PT 21.9 H (9.0-12.0) sec INR 2.3 H (<1.2) APTT 34.9 H (22.0-30.0) sec Sodium (137-145) mmol/L Potassium (3.5-5.1) mmol/L Chloride (98-107) mmol/L Carbon Dioxide (22-30) mmol/L Anion Gap mmol/L BUN (9-20) mg/dL Creatinine (0.66-1.25) mg/dL Est GFR (CKD-EPI)AfAm (>60 ml/min/1.73 sqM) Est GFR (CKD-EPI)NonAf (>60 ml/min/1.73 sqM) Glucose (74-99) mg/dL Calcium (8.4-10.2) mg/dL Total Bilirubin (0.2-1.3) mg/dL AST (17-59) U/L ALT (21-72) U/L Alkaline Phosphatase (38-126) U/L Troponin I 0.014 (0.000-0.034) ng/mL NT-Pro-B Natriuret Pep pg/mL Total Protein (6.3-8.2) g/dL Albumin (3.5-5.0) g/dL - Radiology Data Radiology results: image reviewed (Chest x-ray shows no acute process) Disposition Clinical Impression: Chest pain, Biceps tendon rupture Disposition: ADMITTED IP TO THIS HOSP Is patient prescribed a controlled substance at d/c from ED?: No Referrals: Jose Childers DO [Primary Care Provider] - 1-2 days Decision Time: 14:31
--- NOTE | 2018-12-31 12:37 | XR ---
EXAMINATION TYPE: XR chest 2V DATE OF EXAM: 12/31/2018 COMPARISON: 10/03/2017 HISTORY: Shortness of breath TECHNIQUE: Frontal and lateral views of the chest are obtained. FINDINGS: There is a multilead left-sided cardiac device. Cardia mediastinal silhouette is upper hoff its of normal in size. No pulmonary vascular congestion, pleural effusion or pneumothorax. No focal c onsolidation. Generalized osseous demineralization is seen. Pulmonary hyperinflation suggests underly ing COPD. Mild multilevel degenerative changes of the spine. IMPRESSION: No acute cardiopulmonary process.
[2018-12-31 12:49] LABS: Basophils % (A) 1 %; Eosinophils # (A) 0.2 k/uL (0-0.7); Eosinophils % (A) 2 %; HGB 12.6 gm/dL (13.0-17.5); Lymphocytes # (A) 0.8 k/uL (1.0-4.8); Lymphocytes % (A) 11 %; MCH 32.5 pg (25.0-35.0); MCHC 32.3 g/dL (31.0-37.0); MCV 100.4 fL (80.0-100.0); Macrocytosis Slight; Mean Platelet Volume 7.2; Monocytes # (A) 0.6 k/uL (0-1.0); Monocytes % (A) 8 %; Neutrophils # (A) 5.8 k/uL (1.3-7.7); Neutrophils % (A) 77 %; Platelet Count 223 k/uL (150-450); RBC 3.88 m/uL (4.30-5.90); WBC 7.5 k/uL (3.8-10.6)
[2018-12-31 12:56] LABS: INR 2.3 (<1.2); Partial Thromboplastin Time 34.9 sec (22.0-30.0); Prothrombin Time 21.9 sec (9.0-12.0)
[2018-12-31 13:04] LABS: Albumin 3.5 g/dL (3.5-5.0); Calcium 8.8 mg/dL (8.4-10.2); Potassium 3.6 mmol/L (3.5-5.1); Total Protein 6.3 g/dL (6.3-8.2)
[2018-12-31] MEDS ORDERED: NITROGLYCERIN SL TABS 0.4 MG TAB SUBLINGUAL PRN (14:32)
[2018-12-31] MEDS ORDERED: ASPIRIN 81 MG PO STA (14:32)
[2018-12-31] MEDS ORDERED: FUROSEMIDE 10 MG/ML 4 ML VIAL IV STA (14:32)
--- NOTE | 2018-12-31 15:25 | P.CNOR ---
History of Present Illness - [facility] Consult date: 12/31/18 Requesting physician: Pako Israel Consult reason: other History of present illness: Patient is a pleasant 78-year-old male seen in the emergency department in consultation for left bicep pain, swelling and bruising. He states he was pulling on something this past Sunday, 12/28/[id number] he felt a pain in his left bicep as well as felt/heard a pop. He developed a small bruising at the left bicep which progressed. He has tenderness and swelling at the left bicep. He is currently denying numbness or tingling. He has no weakness in his forearm, wrist and hand or fingers. He has no loss of sensation. He has pain and fullness in his left bicep. He doesn't feel weak necessarily. Pain is worse more towards the shoulder then the elbow. He has full range of motion. It is limited due to pain however. He takes Coumadin. He has no other current complaints. Review of Systems All systems: negative Constitutional: Denies chills, Denies fever Eyes: denies blurred vision, denies pain Ears, nose, mouth and throat: Denies headache, Denies sore throat Cardiovascular: Denies chest pain, Denies shortness of breath Respiratory: Denies cough Gastrointestinal: Denies abdominal pain, Denies diarrhea, Denies nausea, Denies vomiting Musculoskeletal: Denies myalgias Integumentary: Denies pruritus, Denies rash Neurological: Denies numbness, Denies weakness Psychiatric: Denies anxiety, Denies depression Endocrine: Denies fatigue, Denies weight change Past Medical History Past Medical History: Atrial Fibrillation, Coronary Artery Disease (CAD), Cancer, Heart Failure, Diabetes Mellitus, GERD/Reflux, Hyperlipidemia, Hypertension, Myocardial Infarction ([place]), Osteoarthritis (OA), Pneumonia, Prostate Disorder, Renal Disease, Respiratory Disorder, Thyroid Disorder Additional Past Medical History / Comment(s): HX: systolic dysfunction heart failure with EF 35-40%, severe cardiomyopathy with AICD, severe pulmonary HTN, severe mitral and moderate tricuspid regurg,Stage 3 kidney disease,Hx CA prostate; L caratid artery stenosis-awaiting stent placement. bilateral cataracts, diverticular dx,Hx gout. Last Myocardial Infarction Date:: 1983 History of Any Multi-Drug Resistant Organisms: None Reported Past Surgical History: AICD, Appendectomy, Back Surgery, Cholecystectomy, Prostate Surgery, Tonsillectomy Additional Past Surgical History / Comment(s): AICD 2008 with gen change 05/25/14, PCI with stent, R caratid endartectomy with reocclusion, back surgery x 2, bilateral breast lumpectomies, picc line in and out. MITRAL VALVE CLIPPED. Past Anesthesia/Blood Transfusion Reactions: No Reported Reaction Date of Last Stent Placement:: unkn Type of Cardiac Device: AICD Device Placement Date:: 2008 with gen change 05/25/14 Past Psychological History: No Psychological Hx Reported Smoking Status: Former smoker Past Alcohol Use History: None Reported Past Drug Use History: None Reported - Past Family History Father Family Medical History: Unable to Obtain Additional Family Medical History / Comment(s): Pt does not remember fathers health history. His father at age 82 yrs. Mother Family Medical History: Coronary Artery Disease (CAD) Additional Family Medical History / Comment(s): Mother during heart surgery when she was in her 50's Medications and Allergies Home Medications Medication Instructions Recorded Confirmed Type Atorvastatin Calcium [Lipitor] 80 mg PO HS 04/29/14 12/31/18 History Finasteride [Proscar] 5 mg PO DAILY 04/29/14 12/31/18 History Mexiletine [Mexitil] 150 mg PO TID 04/29/14 12/31/18 History Pantoprazole [Protonix] 40 mg PO AC-BID #60 tablet. 09/28/15 12/31/18 Rx Clopidogrel [Plavix] 75 mg PO DAILY 10/19/15 12/31/18 History Amiodarone [Cordarone] 200 mg PO HS 07/25/16 12/31/18 History Calcitriol 0.5 mcg PO FR 07/25/16 12/31/18 History Magnesium Gluconate [Magonate] 500 mg PO DAILY 07/25/16 12/31/18 History Allopurinol [Zyloprim] 150 mg PO DAILY 09/25/17 12/31/18 History Ergocalciferol (Vitamin D2) 50,000 unit PO Q30D 09/25/17 12/31/18 History [Vitamin D2] Furosemide [Lasix] 80 mg PO BID 09/25/17 12/31/18 History Tamsulosin HCl [Flomax] 0.4 mg PO BID 09/25/17 12/31/18 History Carvedilol [Coreg] 6.25 mg PO BID-W/MEALS #60 tab 10/04/17 12/31/18 Rx Potassium Chloride [K-Tab ER] 20 meq PO DAILY 12/03/17 12/31/18 History Calcium Carbonate [Calcium] 600 mg PO DAILY 12/31/18 12/31/18 History Ferrous Sulfate [Feosol] 325 mg PO DAILY 12/31/18 12/31/18 History Spironolactone [Aldactone] 25 mg PO DAILY 12/31/18 12/31/18 History Warfarin [Coumadin] 1 mg PO HS 12/31/18 12/31/18 History Allergies Allergy/AdvReac Type Severity Reaction Status Date / Time adhesive tape Allergy Severe BLISTERS Verified 12/31/18 12:11 Physical Examination Inspection of the left upper extremity shows diffuse ecchymosis and some bunching of the left bicep. There is tenderness at the left bicep. There is also tenderness at the left bicipital groove. There is a negative hook test. Motor with flexion-extension at the elbow is intact. Sensation is intact to light touch throughout the left upper extremity. He has a 2+ radial pulse. There is less than 2 second capillary refill. Drill Hand strength is normal. He has full extension of all digits and finger intrinsics are intact. Results - Labs Labs: Abnormal Lab Results - Last 24 Hours (Table) 12/31/18 12/31/18 12/31/18 Range/Units 12:23 12:23 12:23 RBC 3.88 L (4.30-5.90) m/uL Hgb 12.6 L (13.0-17.5) gm/dL MCV 100.4 H (80.0-100.0) fL Lymphocytes # 0.8 L (1.0-4.8) k/uL PT 21.9 H (9.0-12.0) sec INR 2.3 H (<1.2) APTT 34.9 H (22.0-30.0) sec BUN 32 H (9-20) mg/dL Creatinine 1.75 H (0.66-1.25) mg/dL Glucose 148 H (74-99) mg/dL Alkaline Phosphatase 141 H (38-126) U/L H & H 12/31/18 Range/Units 12:23 Hgb 12.6 L (13.0-17.5) gm/dL Hct 39.0 (39.0-53.0) % Coagulation 12/31/18 Range/Units 12:23 INR 2.3 H (<1.2) Result Diagrams: 12/31/18 12:23 12/31/18 12:23 Assessment and Plan (1) Biceps tendon rupture Narrative/Plan: Patient likely has a proximal biceps tendon rupture. There is currently no evidence of compartment syndrome as he has full motor and sensation intact as well as perfusion distally. I recommended initial conservative care including rest, sling for comfort and pain management. Advised him follow up in our office in the next few days for further review and recommendations. I also advised him to follow-up with his primary care regarding his anticoagulation therapy. I've advised him should he have worsening of symptoms including numbness or tingling, he is to follow-up with emergency department or our office immediately. Current Visit: Yes Status: Acute Priority: Medium Code(s): S46.219A - STRAIN OF MUSC/FASC/TEND PRT BICEPS, UNSP ARM, INIT SNOMED Code(s): 133832568 Time with Patient: Less than 30
[2018-12-31 16:51] LABS: Glucose,Whole Blood 93 mg/dL (75-99)
[2018-12-31 16:57] VITALS: BMI 35.1
--- NOTE | 2018-12-31 17:28 | P.HPIM ---
History of Present Illness this is a pleasnt 78 yo M with past medical history of atrial fibrillation , mitral valve replacement, hypertension , hyperlipidemia, diabetes Mellitus who presents because of pain and bruising of the left upper ext , he stats he was pulling something in his car one earlier and suddenly felt heaviness and pain in his left upper ext with bulging at the arm , he had worsening ecchymosis progressing from arm to left forearm today , it seems there is no loss of function of left hand, no numbness or loss of sensation and his pulsation is also intact. also pt complains from chest tightness , but no pain of discomfort. associated with exertional dyspnea. no dizziness of syncope , no abd pain ,, no change in urine or bowel habits, no fever. pt is on coumadin for his a fib and patient also he states may be also for his heart valve disease. no history of DVT or PE. on admission , his INR is 2.2. his cxr: no acute process per fur buyer , ekg: paced rhythm at 60 bmp, labs showing WBC 7.5K, Hb 12.6 Plt 223. normal sodium and potassium and creatinine. glucose 148. pt is on plavix and coumadin, he was started on aspirin in ED. we will change that to plavix. also pt got one extra dose of lasix in ED. orthopedic team evaluated pt for his left tendon rupture and possible compartment syndrome and they recommended conservative treatment. also vascular syrgoen was informed. pt was placed on neurovascular check and discussed with staff Review of Systems CONSTITUTIONAL: No fever, no malaise, no fatigue. HEENT: No recent visual problems or hearing problems. Denied any sore throat. CARDIOVASCULAR: No orthopnea, PND, no palpitations, no syncope. PULMONARY: No shortness of breath, no cough, no hemoptysis. GASTROINTESTINAL: No diarrhea, no nausea, no vomiting, no abdominal pain. Normoactive bowel sounds. NEUROLOGICAL: No headaches, no weakness, no numbness. HEMATOLOGICAL: Denies any bleeding or petechiae. GENITOURINARY: Denies any burning micturition, frequency, or urgency. MUSCULOSKELETAL/RHEUMATOLOGICAL: Denies any joint pain, swelling, or any muscle pain. ENDOCRINE: Denies any polyuria or polydipsia. Past Medical History Past Medical History: Atrial Fibrillation, Coronary Artery Disease (CAD), Cancer, Heart Failure, Diabetes Mellitus, GERD/Reflux, Hyperlipidemia, Hypertension, Myocardial Infarction ([place]), Osteoarthritis (OA), Pneumonia, Prostate Disorder, Renal Disease, Respiratory Disorder, Thyroid Disorder Additional Past Medical History / Comment(s): HX: systolic dysfunction heart failure with EF 35-40%, severe cardiomyopathy with AICD, severe pulmonary HTN, severe mitral and moderate tricuspid regurg,Stage 3 kidney disease,Hx CA prostate; L caratid artery stenosis-awaiting stent placement. bilateral cataracts, diverticular dx,Hx gout. Last Myocardial Infarction Date:: 1983 History of Any Multi-Drug Resistant Organisms: None Reported Past Surgical History: AICD, Appendectomy, Back Surgery, Cholecystectomy, Prostate Surgery, Tonsillectomy Additional Past Surgical History / Comment(s): AICD 2008 with gen change 05/25/14, PCI with stent, R caratid endartectomy with reocclusion, back surgery x 2, bilateral breast lumpectomies, picc line in and out. MITRAL VALVE CLIPPED. Past Anesthesia/Blood Transfusion Reactions: No Reported Reaction Date of Last Stent Placement:: unkn Type of Cardiac Device: AICD Device Placement Date:: 2008 with gen change 05/25/14 Past Psychological History: No Psychological Hx Reported Smoking Status: Former smoker Past Alcohol Use History: None Reported Past Drug Use History: None Reported - Past Family History Father Family Medical History: Unable to Obtain Additional Family Medical History / Comment(s): Pt does not remember fathers health history. His father at age 82 yrs. Mother Family Medical History: Coronary Artery Disease (CAD) Additional Family Medical History / Comment(s): Mother during heart surgery when she was in her 50's Medications and Allergies Home Medications Medication Instructions Recorded Confirmed Type Atorvastatin Calcium [Lipitor] 80 mg PO HS 04/29/14 12/31/18 History Finasteride [Proscar] 5 mg PO DAILY 04/29/14 12/31/18 History Mexiletine [Mexitil] 150 mg PO TID 04/29/14 12/31/18 History Pantoprazole [Protonix] 40 mg PO AC-BID #60 tablet. 09/28/15 12/31/18 Rx Clopidogrel [Plavix] 75 mg PO DAILY 10/19/15 12/31/18 History Amiodarone [Cordarone] 200 mg PO HS 07/25/16 12/31/18 History Calcitriol 0.5 mcg PO FR 07/25/16 12/31/18 History Magnesium Gluconate [Magonate] 500 mg PO DAILY 07/25/16 12/31/18 History Allopurinol [Zyloprim] 150 mg PO DAILY 09/25/17 12/31/18 History Ergocalciferol (Vitamin D2) 50,000 unit PO Q30D 09/25/17 12/31/18 History [Vitamin D2] Furosemide [Lasix] 80 mg PO BID 09/25/17 12/31/18 History Tamsulosin HCl [Flomax] 0.4 mg PO BID 09/25/17 12/31/18 History Carvedilol [Coreg] 6.25 mg PO BID-W/MEALS #60 tab 10/04/17 12/31/18 Rx Potassium Chloride [K-Tab ER] 20 meq PO DAILY 12/03/17 12/31/18 History Calcium Carbonate [Calcium] 600 mg PO DAILY 12/31/18 12/31/18 History Ferrous Sulfate [Feosol] 325 mg PO DAILY 12/31/18 12/31/18 History Spironolactone [Aldactone] 25 mg PO DAILY 12/31/18 12/31/18 History Warfarin [Coumadin] 1 mg PO HS 12/31/18 12/31/18 History Allergies Allergy/AdvReac Type Severity Reaction Status Date / Time adhesive tape Allergy Severe BLISTERS Verified 12/31/18 12:11 Physical Exam Vitals: Vital Signs Temp Pulse Resp BP Pulse Ox 12/31/18 15:32 60 123/56 98 12/31/18 13:15 97.4 F L 60 18 116/49 98 12/31/18 12:24 61 18 116/50 97 12/31/18 12:10 20 12/31/18 11:32 96 F L 60 24 145/60 98 Intake and Output 12/31/18 12/31/18 12/31/18 06:59 14:59 22:59 Other: Weight 111.13 kg GENERAL: The patient is alert and oriented x3, not in any acute distress. Well developed, well nourished. HEENT: Pupils are round and equally reacting to light. EOMI. No scleral icterus. No conjunctival pallor. Normocephalic, atraumatic. No pharyngeal erythema. No thyromegaly. CARDIOVASCULAR: S1 and S2 present. No murmurs, rubs, or gallops. PULMONARY: Chest is clear to auscultation, no wheezing or crackles. ABDOMEN: Soft, nontender, nondistended, normoactive bowel sounds. No palpable organomegaly. MUSCULOSKELETAL: No joint swelling or deformity. EXTREMITIES: No cyanosis, clubbing, or pedal edema. NEUROLOGICAL: Gross neurological examination did not reveal any focal deficits. SKIN: No rashes. Results CBC & Chem 7: 12/31/18 12:23 12/31/18 12:23 Labs: Abnormal Lab Results - Last 24 Hours (Table) 12/31/18 12/31/18 12/31/18 Range/Units 12:23 12:23 12:23 RBC 3.88 L (4.30-5.90) m/uL Hgb 12.6 L (13.0-17.5) gm/dL MCV 100.4 H (80.0-100.0) fL Lymphocytes # 0.8 L (1.0-4.8) k/uL PT 21.9 H (9.0-12.0) sec INR 2.3 H (<1.2) APTT 34.9 H (22.0-30.0) sec BUN 32 H (9-20) mg/dL Creatinine 1.75 H (0.66-1.25) mg/dL Glucose 148 H (74-99) mg/dL Alkaline Phosphatase 141 H (38-126) U/L Assessment and Plan Assessment: left biceps rupture ecchymosis of left upper ext secondary to above chest tightness and exertional dyspnea diabetes Mellitus atrial fibrillation history of severe valvular heart disease , unsure if pt had mitral valve replacement essential hypertension hyperlipidemia History of GERD History of cardiomyopathy with EF 35-40%. s/p AICD chronic kidney disease osteoarthritis hypothyroidism History of left carotid artery stenosis, History of prostate cancer History of sever pulmonary hypertension History of diverticular disease History of gout Plan: this is a pleasant 78 yo M who presents with biceps rupture and left upper ext ecchyosis, and chest pain . we will do serial troponin and ekg, cardiology consult, orthopedic input is appreciated. we ordered left upper ext ultrasound , doppler and non-vascular. we will do neurovascular check for his left upper ext. we will change aspirin to plavix, and hold coumadin till his ecchymosis is stable and is indicated. his inr is therapeutic upon admission. Labs and medication were reviewed.. Continue same treatment. Continue with symptomatic treatment. Resume home medication. Monitor lytes and vitals. DVT and GI prophylaxis. Further recommendations of the clinical course of the patient DVT prophylaxis: already on Coumadin GI Prophylaxis: Ppi PT/OT: Pending Prognosis is guarded
[2018-12-31] MEDS: NITROGLYCERIN OINT 1 INCH/GM PACKET TOPICAL SCH ×2 (17:45→22:44)
[2018-12-31] MEDS: CARVEDILOL 6.25 MG TAB PO SCH (17:52)
[2018-12-31] MEDS: PANTOPRAZOLE 40 MG TABLET PO SCH (17:52)
[2018-12-31] MEDS: MEXILETINE 150 MG CAP PO SCH (20:40)
[2018-12-31] MEDS: TAMSULOSIN 0.4 MG CAP.ER.24H PO SCH (20:40)
[2018-12-31 20:41] LABS: Glucose,Whole Blood 77 mg/dL (75-99)
--- NOTE | 2018-12-31 20:53 | US ---
EXAMINATION TYPE: US venous doppler duplex UE LT DATE OF EXAM: 12/31/2018 COMPARISON: NONE CLINICAL HISTORY: echymosis , on coumadin . Edema worse than yesterday. Unable to have an MRI. SIDE PERFORMED: Left arm Left Arm: Negative for DVT No evidence of DVT left arm. IMPRESSION: No deep venous thrombosis seen in the left arm.
[2018-12-31] MEDS ORDERED: ATORVASTATIN 80 MG TAB PO SCH (21:00)
[2018-12-31] MEDS ORDERED: AMIODARONE 200 MG TAB PO SCH (21:00)
[2019-01-01] MEDS: ACETAMINOPHEN TAB 325 MG TAB PO PRN ×2 (03:19→09:06)
[2019-01-01] MEDS: NITROGLYCERIN OINT 1 INCH/GM PACKET TOPICAL SCH ×2 (03:42→12:56)
[2019-01-01 06:57] LABS: Glucose,Whole Blood 85 mg/dL (75-99)
[2019-01-01 08:26] LABS: Basophils # (A) 0.1 k/uL (0-0.2); Basophils % (A) 1 %; Eosinophils # (A) 0.2 k/uL (0-0.7); Eosinophils % (A) 3 %; HCT 36.3 % (39.0-53.0); HGB 11.7 gm/dL (13.0-17.5); Lymphocytes # (A) 1.5 k/uL (1.0-4.8); Lymphocytes % (A) 17 %; MCH 32.7 pg (25.0-35.0); MCHC 32.3 g/dL (31.0-37.0); MCV 101.2 fL (80.0-100.0); Macrocytosis Slight; Mean Platelet Volume 7.3; Monocytes # (A) 0.6 k/uL (0-1.0); Monocytes % (A) 7 %; Neutrophils # (A) 5.9 k/uL (1.3-7.7); Neutrophils % (A) 70 %; Platelet Count 221 k/uL (150-450); RBC 3.58 m/uL (4.30-5.90); RDW 14.1 % (11.5-15.5); WBC 8.4 k/uL (3.8-10.6)
[2019-01-01 08:42] LABS: Partial Thromboplastin Time 32.5 sec (22.0-30.0); Prothrombin Time 19.4 sec (9.0-12.0)
[2019-01-01 08:43] LABS: Cholesterol 140 mg/dL (<200); HDL Cholesterol 55 mg/dL (40-60); LDL Cholesterol,Calculated 71 mg/dL (0-99); Triglycerides 68 mg/dL (<150)
[2019-01-01] MEDS ORDERED: SPIRONOLACTONE 25 MG TAB PO SCH (09:00)
[2019-01-01] MEDS ORDERED: CALCIUM CARBONATE 500 MG CHEWABLE PO SCH (09:00)
[2019-01-01] MEDS ORDERED: FINASTERIDE 5 MG TAB PO SCH (09:00)
[2019-01-01] MEDS ORDERED: ASPIRIN 325 MG TAB PO SCH (09:00)
[2019-01-01] MEDS ORDERED: FUROSEMIDE 80 MG TAB PO SCH (09:00)
[2019-01-01] MEDS ORDERED: FERROUS SULFATE 325 MG TAB PO SCH (09:00)
[2019-01-01] MEDS ORDERED: ALLOPURINOL 300 MG TAB PO SCH (09:00)
[2019-01-01] MEDS ORDERED: MAGNESIUM OXIDE 400 MG TAB PO SCH (09:00)
[2019-01-01] MEDS ORDERED: POTASSIUM CHLORIDE ER 20 MEQ TAB.ER PO SCH (09:00)
[2019-01-01] MEDS: PANTOPRAZOLE 40 MG TABLET PO SCH (09:07)
[2019-01-01] MEDS: TAMSULOSIN 0.4 MG CAP.ER.24H PO SCH (09:08)
[2019-01-01] MEDS: MEXILETINE 150 MG CAP PO SCH (09:10)
[2019-01-01] MEDS: CARVEDILOL 6.25 MG TAB PO SCH (09:19)
--- NOTE | 2019-01-01 09:47 | P.CRDCN ---
History of Present Illness History of present illness: This is a pleasant 78-year-old male past medical history significant for hypertension, dyslipidemia, ischemic cardiomyopathy status post AICD, pulmonary hypertension, diabetes mellitus, valvular heart disease status post mitral clip, chronic kidney disease and paroxysmal atrial fibrillation and peripheral vascular disease status post right carotid endarterectomy. He follows in the office with Dr. Benitez. We have been asked to see him in consultation secondary to chest discomfort. He presented to the emergency department yesterday for evaluation of his left arm. He states he was pulling something on his car on Sunday and heard a pop and felt excruciating pain in the left upper arm. Since that time his arm is continuing to cause significant discomfort and is significantly bruised all the way from the shoulder down to the wrist. He also states over the weekend he started feeling mildly increased shortness of breath associated with a tightness in his chest. He said the tightness felt like somebody giving him a really big bearhug and that he couldn't get in a full breath. He weighs himself daily and has noticed a 5 pound weight gain in the previous 4 days. Upon arrival to the emergency department he was given one dose of IV Lasix. He states his breathing is back to normal. He denies any further symptoms of chest tightness. He has seen and examined resting comfortably laying completely flat in bed. EKG reveals BiV pacing. Chest x-ray is negative for acute cardiopulmonary process. Laboratory data reviewed, cardiac enzymes negative 3, LDL 71, HDL 55, INR 2.0, hemoglobin 11.7, platelets 221, WBC 8.4, sodium 138, potassium 3.6, creatinine 1.75, GFR 37 and NT proBNP 1610. Current cardiac medications include Aldactone 25 mg daily, Coumadin 1 mg daily, Lasix 80 mg twice a day, atorvastatin 80 mg daily, amiodarone 200 mg daily, mexiletine 150 mg TID, plavix 75 mg daily and carvedilol 6.25 mg BID. Most recent echocardiogram performed October 2017 prior to his mitral clip revealed impaired LV systolic function with ejection fraction 35-40%, inferior septal and inferior lateral hypokinesia, evidence of ruptured chordae tendon eye with flail posterior mitral leaflet with severe MR with reversal of flow in the pulmonary vein, moderate to severely enlarged left atrium, moderate tricuspid regurgitation, mild aortic stenosis and a patent foramen ovale with [id number] and [id number] shunt. Most recent cardiac catheterization performed in 2010 revealed RCA totally occluded with ipsilateral collaterals, left main free of occlusion, proximal LAD stent widely patent, midportion 30-40% narrowing, distal stent in-stent restenosis approximately 80% as well as distal to the stent. Maximum medical therapy recommended at that time. Most recent stress test performed in the office October 2013 was negative for reversible cardiac ischemia with a fixed defect of the inferior wall. At the time of my exam: CONSTITUTIONAL: Denies fever. Denies chills. EYES: Denies blurred vision. Denies vision changes. Denies eye pain. EARS, NOSE, MOUTH & THROAT: Denies headache. Denies sore throat. Denies ear pain. CARDIOVASCULAR: Denies chest pain. Denies shortness of breath. Denies orthopnea. Denies PND. Denies palpitations. RESPIRATORY: Denies cough. GASTROINTESTINAL: Denies abdominal pain. Denies diarrhea. Denies constipation. Denies nausea. Denies vomiting. MUSCULOSKELETAL: Complains of pain to the left arm. INTEGUMENTARY: Denies pruitis. Denies rash. NEUROLOGIC: Denies numbness. Denies tingling. Denies weakness. PSYCHIATRIC: Denies anxiety. Denies depression. ENDOCRINE: Denies fatigue. Denies weight change. Denies polydipsia. Denies polyurina. GENITOURINARY: Denies burning, hematuria or urgency with micturation. HEMATOLOGIC: Denies history of anemia. Denies bleeding. Blood pressure 98/62 heart rate 60 afebrile maintaining oxygen saturation on room air GENERAL: This is a 78-year-old male in no apparent distress at the time of my examination. HEENT: Head is atraumatic, normocephalic. Pupils are equal, round. Sclerae anicteric. Conjunctivae are clear. Mucous membranes of the mouth are moist. Neck is supple. There is no jugular venous distention. No carotid bruit is heard. LUNGS: Clear to auscultation no wheezes, rales or rhonchi. No chest wall tenderness is noted on palpation or with deep breathing. HEART: Regular rate and rhythm with systolic ejection murmur at the left sternal border, no rubs or gallops. S1 and S2 heard. ABDOMEN: Soft, nontender. Bowel sounds are heard. No organomegaly noted. EXTREMITIES: No evidence of peripheral edema and no calf tenderness noted. Left arm with significant ecchymosis from the shoulder to the wrist, tender to touch and mild nonpitting soft tissue edema. VASCULAR: Radial and dorsalis pedis pulses palpated, no evidence of clubbing. NEUROLOGIC: Patient is awake, alert and oriented x3. ASSESSMENT Chest pain, atypical for angina. Acute coronary event has been ruled out. Left biceps tendon rupture Chronic systolic heart failure, currently euvolemic. Clinically no signs of fluid overload. Normal chest xray, normal proBNP, no rales and no swelling. Hypertension Dyslipidemia Non-rheumatic valvular heart disease s/p mitral clip Paroxysmal atrial fibrillation on alf anti-coagulation with coumadin Ischemic cardiomyopathy s/p AICD placement Chronic kidney disease follows with nephrology as an outpatient PLAN An acute coronary event has been ruled out. Overall he is euvolemic and hemodynamically stable. No further cardiac intervention at this time. Ongoing medical management and evaluation of bicep tendon tear. Follow up with Dr. Benitez upon discharge. Thank you kindly for this consultation. Nurse Practitioner note has been reviewed, I agree with a documented findings and plan of care. Patient was seen and examined. Past Medical History Past Medical History: Atrial Fibrillation, Coronary Artery Disease (CAD), Cancer, Heart Failure, Diabetes Mellitus, GERD/Reflux, Hyperlipidemia, Hypertension, Myocardial Infarction ([place]), Osteoarthritis (OA), Pneumonia, Prostate Disorder, Renal Disease, Respiratory Disorder, Thyroid Disorder Additional Past Medical History / Comment(s): HX: systolic dysfunction heart failure with EF 35-40%, severe cardiomyopathy with AICD, severe pulmonary HTN, severe mitral and moderate tricuspid regurg,Stage 3 kidney disease,Hx CA prostate; L caratid artery stenosis-awaiting stent placement. bilateral cataracts, diverticular dx,Hx gout. Last Myocardial Infarction Date:: 1983 History of Any Multi-Drug Resistant Organisms: None Reported Past Surgical History: AICD, Appendectomy, Back Surgery, Cholecystectomy, Prostate Surgery, Tonsillectomy Additional Past Surgical History / Comment(s): AICD 2008 with gen change 05/25/14, PCI with stent, R caratid endartectomy with reocclusion, back surgery x 2, bilateral breast lumpectomies, picc line in and out. MITRAL VALVE CLIPPED. Past Anesthesia/Blood Transfusion Reactions: No Reported Reaction Date of Last Stent Placement:: unkn Type of Cardiac Device: AICD Device Placement Date:: 2008 with gen change 05/25/14 Past Psychological History: No Psychological Hx Reported Smoking Status: Former smoker Past Alcohol Use History: None Reported Past Drug Use History: None Reported - Past Family History Father Family Medical History: Unable to Obtain Additional Family Medical History / Comment(s): Pt does not remember fathers health history. His father at age 82 yrs. Mother Family Medical History: Coronary Artery Disease (CAD) Additional Family Medical History / Comment(s): Mother during heart surgery when she was in her 50's Medications and Allergies Home Medications Medication Instructions Recorded Confirmed Type Atorvastatin Calcium [Lipitor] 80 mg PO HS 04/29/14 12/31/18 History Finasteride [Proscar] 5 mg PO DAILY 04/29/14 12/31/18 History Mexiletine [Mexitil] 150 mg PO TID 04/29/14 12/31/18 History Pantoprazole [Protonix] 40 mg PO AC-BID #60 tablet. 09/28/15 12/31/18 Rx Clopidogrel [Plavix] 75 mg PO DAILY 10/19/15 12/31/18 History Amiodarone [Cordarone] 200 mg PO HS 07/25/16 12/31/18 History Calcitriol 0.5 mcg PO FR 07/25/16 12/31/18 History Magnesium Gluconate [Magonate] 500 mg PO DAILY 07/25/16 12/31/18 History Allopurinol [Zyloprim] 150 mg PO DAILY 09/25/17 12/31/18 History Ergocalciferol (Vitamin D2) 50,000 unit PO Q30D 09/25/17 12/31/18 History [Vitamin D2] Furosemide [Lasix] 80 mg PO BID 09/25/17 12/31/18 History Tamsulosin HCl [Flomax] 0.4 mg PO BID 09/25/17 12/31/18 History Carvedilol [Coreg] 6.25 mg PO BID-W/MEALS #60 tab 10/04/17 12/31/18 Rx Potassium Chloride [K-Tab ER] 20 meq PO DAILY 12/03/17 12/31/18 History Calcium Carbonate [Calcium] 600 mg PO DAILY 12/31/18 12/31/18 History Ferrous Sulfate [Feosol] 325 mg PO DAILY 12/31/18 12/31/18 History Spironolactone [Aldactone] 25 mg PO DAILY 12/31/18 12/31/18 History Warfarin [Coumadin] 1 mg PO HS 12/31/18 12/31/18 History Allergies Allergy/AdvReac Type Severity Reaction Status Date / Time adhesive tape Allergy Severe BLISTERS Verified 12/31/18 12:11 Physical Exam Vitals: Vital Signs Temp Pulse Pulse Resp BP BP Pulse Ox 01/01/19 03:29 60 16 143/62 98 12/31/18 23:37 98.4 F 60 16 128/53 98 12/31/18 23:25 16 12/31/18 20:00 16 12/31/18 19:41 97.5 F L 58 L 16 159/71 99 12/31/18 16:30 97.5 F L 60 18 116/80 96 12/31/18 16:21 97.4 F L 60 18 122/62 99 12/31/18 16:00 18 12/31/18 15:32 60 123/56 98 12/31/18 13:15 97.4 F L 60 18 116/49 98 12/31/18 12:24 61 18 116/50 97 12/31/18 12:10 20 12/31/18 11:32 96 F L 60 24 145/60 98 Intake and Output 12/31/18 01/01/19 01/01/19 22:59 06:59 14:59 Intake Total 236 Balance 236 Intake: Oral 236 Other: Voiding Method Toilet Toilet Urinal Urinal # Voids 1 1 Results 01/01/19 07:53 12/31/18 12:23 Cardiac Enzymes 12/31/18 12/31/18 12/31/18 Range/Units 12:23 12:23 17:57 AST 38 (17-59) U/L Troponin I 0.014 <0.012 (0.000-0.034) ng/mL 01/01/19 Range/Units 00:21 AST (17-59) U/L Troponin I 0.014 (0.000-0.034) ng/mL Coagulation 12/31/18 Range/Units 12:23 PT 21.9 H (9.0-12.0) sec APTT 34.9 H (22.0-30.0) sec CBC 12/31/18 Range/Units 12:23 WBC 7.5 (3.8-10.6) k/uL RBC 3.88 L (4.30-5.90) m/uL Hgb 12.6 L (13.0-17.5) gm/dL Hct 39.0 (39.0-53.0) % Plt Count 223 (150-450) k/uL Comprehensive Metabolic Panel 12/31/18 Range/Units 12:23 Sodium 138 (137-145) mmol/L Potassium 3.6 (3.5-5.1) mmol/L Chloride 107 (98-107) mmol/L Carbon Dioxide 23 (22-30) mmol/L BUN 32 H (9-20) mg/dL Creatinine 1.75 H (0.66-1.25) mg/dL Glucose 148 H (74-99) mg/dL Calcium 8.8 (8.4-10.2) mg/dL AST 38 (17-59) U/L ALT 30 (21-72) U/L Alkaline Phosphatase 141 H (38-126) U/L Total Protein 6.3 (6.3-8.2) g/dL Albumin 3.5 (3.5-5.0) g/dL Current Medications Generic Name Dose Route Start Last Admin Trade Name Freq PRN Reason Stop Dose Admin Acetaminophen 650 mg 01/01/19 03:15 01/01/19 03:19 Tylenol Tab PO 650 mg Q4HR PRN Administration Fever and/ or Pain Allopurinol 150 mg 01/01/19 09:00 Zyloprim PO DAILY [facility] Amiodarone HCl 200 mg 12/31/18 21:00 12/31/18 20:40 Cordarone PO 200 mg HS CARYL Administration Atorvastatin Calcium 80 mg 12/31/18 21:00 12/31/18 20:40 Lipitor PO 80 mg HS CARYL Administration Calcitriol 0.5 mcg 01/03/19 09:00 Rocaltrol PO FR [facility] Calcium Carbonate/Glycine 500 mg 01/01/19 09:00 Tums PO DAILY [facility] Carvedilol 6.25 mg 12/31/18 17:30 12/31/18 17:52 Coreg PO 6.25 mg BID-W/MEALS CARYL Administration Clopidogrel Bisulfate 75 mg 01/01/19 11:00 Plavix PO DAILY [facility] Ergocalciferol 50,000 unit 01/11/19 09:00 Vitamin D2 PO Q30D [facility] Ferrous Sulfate 325 mg 01/01/19 09:00 Feosol PO DAILY [facility] Finasteride 5 mg 01/01/19 09:00 Proscar PO DAILY [facility] Furosemide 80 mg 01/01/19 09:00 Lasix PO BID@0900,1600 [facility] Magnesium Oxide 400 mg 01/01/19 09:00 Mag-Ox PO DAILY [facility] Mexiletine HCl 150 mg 12/31/18 22:00 12/31/18 20:40 Mexitil PO 150 mg TID [facility] Administration Nitroglycerin 1 inch 12/31/18 18:00 01/01/19 03:42 Nitro-Bid Oint TOPICAL Not Given Q6HR [facility] Nitroglycerin 0.4 mg 12/31/18 14:32 Nitrostat SUBLINGUAL Q5M PRN Chest Pain Pantoprazole Sodium 40 mg 12/31/18 17:30 12/31/18 17:52 Protonix PO 40 mg AC-BID [facility] Administration Potassium Chloride 20 meq 01/01/19 09:00 K-Dur 20 PO DAILY [facility] Spironolactone 25 mg 01/01/19 09:00 Aldactone PO DAILY [facility] Tamsulosin HCl 0.4 mg 12/31/18 21:00 12/31/18 20:40 Flomax PO 0.4 mg BID [facility] Administration Intake and Output 12/31/18 01/01/19 01/01/19 22:59 06:59 14:59 Intake Total 236 Balance 236 Intake: Oral 236 Other: Voiding Method Toilet Toilet Urinal Urinal # Voids 1 1 12/31/18 12:23 12/31/18 12:23
[2019-01-01] MEDS ORDERED: CLOPIDOGREL 75 MG TAB PO SCH (11:00)
[2019-01-01 11:55] LABS: Glucose,Whole Blood 160 mg/dL (75-99)
--- NOTE | 2019-01-01 12:08 | P.GSCN ---
History of Present Illness Consult date: 01/01/19 Reason for Consult: Left upper extremity ecchymosis/possible vascular injury. Requesting physician: Eric E Sheet History of present illness: Patient is a 78-year-old male who presented with a history of left upper ext remity edema and color change. He stated that on Sunday of this past week he reached down for something and felt a discomfort in his left upper extremity. Shortly thereafter he noticed a small area of bruising. Over the next few days this area of bruising and increased. He was evaluated by his primary care physician. Venous ultrasound was performed and no evidence of deep venous thrombosis was noted. Because of the increasing discoloration and swelling of the arm the patient was subsequently evaluated and placed in observation status. He denies any known trauma to the area where previous similar symptoms. He denies any paresthesias or paralysis of the upper extremity. Evaluation today revealed axillary, brachial, radial pulses be intact in the left upper extremity. There is a large ecchymotic area extending essentially from the upper humeral area and down to the level of the wrist. The skin is soft and there is no evidence of compartment syndrome. The upper extremities no ntender to palpation. Patient exhibits full range of motion at the elbow wrist hand and finger joints on the left. Impression: #1 Left upper extremity subcutaneous hematoma secondary to ruptured biceps muscle. #2 current full therapeutic anticoagulation on Coumadin with an INR of 2.3 Recommendation: No less surgical intervention from a vascular standpoint is warranted. I believe the ecchymotic reaction will resolve with elevation and other supportive measures. Past Medical History Past Medical History: Atrial Fibrillation, Coronary Artery Disease (CAD), Cancer, Heart Failure, Diabetes Mellitus, GERD/Reflux, Hyperlipidemia, Hypertension, Myocardial Infarction (AR), Osteoarthritis (OA), Pneumonia, Prostate Disorder, Renal Disease, Respiratory Disorder, Thyroid Disorder Additional Past Medical History / Comment(s): HX: systolic dysfunction heart failure with EF 35-40%, severe cardiomyopathy with AICD, severe pulmonary HTN, severe mitral and moderate tricuspid regurg,Stage 3 kidney disease,Hx CA prostate; L caratid artery stenosis-awaiting stent placement. bilateral cataracts, diverticular dx,Hx gout. Last Myocardial Infarction Date:: 1983 History of Any Multi-Drug Resistant Organisms: None Reported Past Surgical History: AICD, Appendectomy, Back Surgery, Cholecystectomy, Prostate Surgery, Tonsillectomy Additional Past Surgical History / Comment(s): AICD 2008 with gen change 05/25/14, PCI with stent, R caratid endartectomy with reocclusion, back surgery x 2, bilateral breast lumpectomies, picc line in and out. MITRAL VALVE CLIPPED. Past Anesthesia/Blood Transfusion Reactions: No Reported Reaction Date of Last Stent Placement:: unkn Type of Cardiac Device: AICD Device Placement Date:: 2008 with gen change 05/25/14 Past Psychological History: No Psychological Hx Reported Smoking Status: Former smoker Past Alcohol Use History: None Reported Past Drug Use History: None Reported - Past Family History Father Family Medical History: Unable to Obtain Additional Family Medical History / Comment(s): Pt does not remember fathers health history. His father at age 82 yrs. Mother Family Medical History: Coronary Artery Disease (CAD) Additional Family Medical History / Comment(s): Mother during heart surgery when she was in her 50's Medications and Allergies Home Medications Medication Instructions Recorded Confirmed Type Atorvastatin Calcium [Lipitor] 80 mg PO HS 04/29/14 12/31/18 History Finasteride [Proscar] 5 mg PO DAILY 04/29/14 12/31/18 History Mexiletine [Mexitil] 150 mg PO TID 04/29/14 12/31/18 History Pantoprazole [Protonix] 40 mg PO AC-BID #60 tablet. 09/28/15 12/31/18 Rx Clopidogrel [Plavix] 75 mg PO DAILY 10/19/15 12/31/18 History Amiodarone [Cordarone] 200 mg PO HS 07/25/16 12/31/18 History Calcitriol 0.5 mcg PO FR 07/25/16 12/31/18 History Magnesium Gluconate [Magonate] 500 mg PO DAILY 07/25/16 12/31/18 History Allopurinol [Zyloprim] 150 mg PO DAILY 09/25/17 12/31/18 History Ergocalciferol (Vitamin D2) 50,000 unit PO Q30D 09/25/17 12/31/18 History [Vitamin D2] Furosemide [Lasix] 80 mg PO BID 09/25/17 12/31/18 History Tamsulosin HCl [Flomax] 0.4 mg PO BID 09/25/17 12/31/18 History Carvedilol [Coreg] 6.25 mg PO BID-W/MEALS #60 tab 10/04/17 12/31/18 Rx Potassium Chloride [K-Tab ER] 20 meq PO DAILY 12/03/17 12/31/18 History Calcium Carbonate [Calcium] 600 mg PO DAILY 12/31/18 12/31/18 History Ferrous Sulfate [Feosol] 325 mg PO DAILY 12/31/18 12/31/18 History Spironolactone [Aldactone] 25 mg PO DAILY 12/31/18 12/31/18 History Warfarin [Coumadin] 1 mg PO HS 12/31/18 12/31/18 History Allergies Allergy/AdvReac Type Severity Reaction Status Date / Time adhesive tape Allergy Severe BLISTERS Verified 12/31/18 12:11 Surgical - Exam Osteopathic Statement: *. No significant issues noted on an osteopathic structural exam other than those noted in the History and Physical/Consult. Vital Signs Temp Pulse Resp BP Pulse Ox 96 F L 60 24 145/60 98 12/31/18 11:32 12/31/18 11:32 12/31/18 11:32 12/31/18 11:32 12/31/18 11:32 Results - Labs 01/01/19 07:53 12/31/18 12:23 Abnormal Lab Results - Last 24 Hours (Table) 12/31/18 12/31/18 12/31/18 Range/Units 12:23 12:23 12:23 RBC 3.88 L (4.30-5.90) m/uL Hgb 12.6 L (13.0-17.5) gm/dL Hct (39.0-53.0) % MCV 100.4 H (80.0-100.0) fL Lymphocytes # 0.8 L (1.0-4.8) k/uL PT 21.9 H (9.0-12.0) sec INR 2.3 H (<1.2) APTT 34.9 H (22.0-30.0) sec BUN 32 H (9-20) mg/dL Creatinine 1.75 H (0.66-1.25) mg/dL Glucose 148 H (74-99) mg/dL POC Glucose (mg/dL) (75-99) mg/dL Alkaline Phosphatase 141 H (38-126) U/L 01/01/19 01/01/1901/01/19 Range/Units 07:53 07:53 11:53 RBC 3.58 L (4.30-5.90) m/uL Hgb 11.7 L (13.0-17.5) gm/dL Hct 36.3 L (39.0-53.0) % MCV 101.2 H (80.0-100.0) fL Lymphocytes # (1.0-4.8) k/uL PT 19.4 H (9.0-12.0) sec INR 2.0 H (<1.2) APTT 32.5 H (22.0-30.0) sec BUN (9-20) mg/dL Creatinine (0.66-1.25) mg/dL Glucose (74-99) mg/dL POC Glucose (mg/dL) 160 H (75-99) mg/dL Alkaline Phosphatase (38-126) U/L Diabetes panel 12/31/18 01/01/19 Range/Units 12:23 07:53 Sodium 138 (137-145) mmol/L Potassium 3.6 (3.5-5.1) mmol/L Chloride 107 (98-107) mmol/L Carbon Dioxide 23 (22-30) mmol/L BUN 32 H (9-20) mg/dL Creatinine 1.75 H (0.66-1.25) mg/dL Glucose 148 H (74-99) mg/dL Calcium 8.8 (8.4-10.2) mg/dL AST 38 (17-59) U/L ALT 30 (21-72) U/L Alkaline Phosphatase 141 H (38-126) U/L Total Protein 6.3 (6.3-8.2) g/dL Albumin 3.5 (3.5-5.0) g/dL Triglycerides 68 (<150) mg/dL HDL Cholesterol 55 (40-60) mg/dL Calcium panel 12/31/18 Range/Units 12:23 Calcium 8.8 (8.4-10.2) mg/dL Albumin 3.5 (3.5-5.0) g/dL Pituitary panel 12/31/18 Range/Units 12:23 Sodium 138 (137-145) mmol/L Potassium 3.6 (3.5-5.1) mmol/L Chloride 107 (98-107) mmol/L Carbon Dioxide 23 (22-30) mmol/L BUN 32 H (9-20) mg/dL Creatinine 1.75 H (0.66-1.25) mg/dL Glucose 148 H (74-99) mg/dL Calcium 8.8 (8.4-10.2) mg/dL Adrenal panel 12/31/18 Range/Units 12:23 Sodium 138 (137-145) mmol/L Potassium 3.6 (3.5-5.1) mmol/L Chloride 107 (98-107) mmol/L Carbon Dioxide 23 (22-30) mmol/L BUN 32 H (9-20) mg/dL Creatinine 1.75 H (0.66-1.25) mg/dL Glucose 148 H (74-99) mg/dL Calcium 8.8 (8.4-10.2) mg/dL Total Bilirubin 1.0 (0.2-1.3) mg/dL AST 38 (17-59) U/L ALT 30 (21-72) U/L Alkaline Phosphatase 141 H (38-126) U/L Total Protein 6.3 (6.3-8.2) g/dL Albumin 3.5 (3.5-5.0) g/dL Assessment and Plan Assessment: Left upper extremity hematoma/ecchymotic reaction secondary to muscle tear aggravated by recurrent full therapeutic anticoagulation Plan: Currently there is no evidence of any ongoing vascular issue. I believe the hematoma/ecchymosis will resolve with arm elevation and other general supportive measures. Time with Patient: Less than 30
--- NOTE | 2019-01-01 12:15 | ECHOF ---
Referral Reason:dyspnea MEASUREMENTS -------- HEIGHT: 177.8 cm WEIGHT: 111.1 kg BP: 143/62 RVIDd: 3.7 cm (< 3.3) IVSd: 1.4 cm (0.6 - 1.1) LVIDd: 5.8 cm (3.9 - 5.3) LVPWd: 1.4 cm (0.6 - 1.1) IVSs: 1.8 cm LVIDs: 4.4 cm LVPWs: 1.7 cm LA Diam: 4.2 cm (2.7 - 3.8) LAESV Index (A-L): 36.93 ml/m Ao Diam: 3.3 cm (2.0 - 3.7) AV Cusp: 1.1 cm (1.5 - 2.6) MV EXCURSION: 11.063 mm (> 18.000) MV EF SLOPE: 48 mm/s (70 - 150) EPSS: 0.1 cm MV E Naif: 1.59 m/s MV DecT: 560 ms MV A Naif: 1.47 m/s MV E/A Ratio: 1.09 AV maxP.73 mmHg AV meanP.43 mmHg RAP: 5.00 mmHg RVSP: 35.45 mmHg FINDINGS -------- Paced rhythm. This was a technically adequate study. The left ventricular size is normal. There is moderate concentric left ventricular hypertrophy. O verall left ventricular systolic function is mildly impaired with, an EF between 45 - 50 %. Basal p osterior LV wall motion is hypokinetic. Basal inferior LV wall motion is hypokinetic. The right ventricle is mild to moderately enlarged. LA is moderately dilated 34-39 ml/m2 The right atrium is normal in size. Interatrial and interventricular septum intact. There is moderate aortic valve sclerosis. There is moderate aortic regurgitation. There is mild a ortic stenosis present. Peak/mean gradient across the Aortic Valve is 23.73mmHg / 12.43mmHg. The mitral valve leaflets are moderate to severely thickened. Severe mitral annular calcification p resent. Moderate mitral regurgitation is present. The peak and mean MV gradients are 22.59mmHg 8 .31mmHg as measured by doppler. Moderate mitral stenosis. pt is s/p dagoberto clip Mild tricuspid regurgitation present. There is mild pulmonary hypertension. The right ventricular systolic pressure, as measured by Doppler, is 35.45mmHg. The pulmonic valve was not well visualized. The aortic root size is normal. Normal inferior vena cava with normal inspiratory collapse consistent with estimated right atrial pre ssure of 5 mmHg. There is no pericardial effusion. CONCLUSIONS -------- 1. Paced rhythm. 2. This was a technically adequate study. 3. The left ventricular size is normal. 4. There is moderate concentric left ventricular hypertrophy. 5. Overall left ventricular systolic function is mildly impaired with, an EF between 45 - 50 %. 6. Basal posterior LV wall motion is hypokinetic. 7. Basal inferior LV wall motion is hypokinetic. 8. The right ventricle is mild to moderately enlarged. 9. LA is moderately dilated 34-39 ml/m2 10. The right atrium is normal in size. 11. Interatrial and interventricular septum intact. 12. There is moderate aortic valve sclerosis. 13. There is moderate aortic regurgitation. 14. There is mild aortic stenosis present. 15. Peak/mean gradient across the Aortic Valve is 23.73mmHg / 12.43mmHg. 16. The mitral valve leaflets are moderate to severely thickened. 17. Severe mitral annular calcification present. 18. Moderate mitral regurgitation is present. 19. The peak and mean MV gradients are 22.59mmHg 8.31mmHg as measured by doppler. 20. Moderate mitral stenosis. 21. Mild tricuspid regurgitation present. 22. There is mild pulmonary hypertension. 23. The right ventricular systolic pressure, as measured by Doppler, is 35.45mmHg. 24. The pulmonic valve was not well visualized. 25. The aortic root size is normal. 26. Normal inferior vena cava with normal inspiratory collapse consistent with estimated right atrial pressure of 5 mmHg. 27. There is no pericardial effusion. INDUSTRIAL NURSE: Fifi Ugalde RDCS
--- NOTE | 2019-01-01 15:09 | P.DS ---
Providers Date of admission: 12/31/18 14:32 Attending physician: Eric Lopez MD Consults: 12/31/18 14:32 Consult Physician Urgent Consulting Provider: Elliott Benitez Consult Reason/Comments: Chest discomfort/dyspnea Do you want consulting provider notified?: Yes Consult Physician Urgent Consulting Provider: Pako Israel Consult Reason/Comments: Evaluated for biceps tendon rupture, recent ultrasound done Do you want consulting provider notified?: Yes 12/31/18 16:35 Consult Physician Urgent Consulting Provider: Arcenio Diego Consult Reason/Comments: worsening left upper extrimity ecchymosis Do you want consulting provider notified?: Yes Primary care physician: Jose Childers DO Hospital Course: Diagnoses: left biceps rupture ecchymosis of left upper ext secondary to above chest tightness and exertional dyspnea. Completely resolved diabetes Mellitus atrial fibrillation history of severe valvular heart disease , unsure if pt had mitral valve replacement essential hypertension hyperlipidemia History of GERD History of cardiomyopathy with EF 35-40%. s/p AICD chronic kidney disease osteoarthritis hypothyroidism History of left carotid artery stenosis, History of prostate cancer History of sever pulmonary hypertension History of diverticular disease History of gout Hospital course: this is a pleasnt 78 yo M with past medical history of atrial fibrillation , mitral valve replacement, hypertension , hyperlipidemia, diabetes Mellitus who presents because of pain and bruising of the left upper ext , he stats he was pulling something in his car one earlier and suddenly felt heaviness and pain in his left upper ext with bulging at the arm , he had worsening ecchymosis progressing from arm to left forearm today , it seems there is no loss of function of left hand, no numbness or loss of sensation and his pulsation is also intact. also pt complains from chest tightness , but no pain of discomfort. associated with exertional dyspnea. no dizziness of syncope , no abd pain ,, no change in urine or bowel habits, no fever. pt is on coumadin for his a fib and patient also he states may be also for his heart valve disease. no history of DVT or PE. on admission , his INR is 2.2. his cxr: no acute process per wildlife biology technician , ekg: paced rhythm at 60 bmp, labs showing WBC 7.5K, Hb 12.6 Plt 223. normal sodium and potassium and creatinine. glucose 148. pt is on plavix and coumadin, he was started on aspirin in ED. we will change that to plavix. also pt got one extra dose of lasix in ED. orthopedic team evaluated pt for his left tendon rupture and possible compar tment syndrome (he had no compartment syndrome)and. they recommended conservative treatment. also vascular syrgoen was informed. Patient has Doppler ultrasound which was negative for DVT in the left upper extremity. Also his been evaluated by vascular surgery and the recommended no any surgical intervention. Sling is provided for the patient. Patient also has been evaluated by wildlife biology technician and cleared him for discharge. Patient has been monitored in the hospital for 24 hours and there is no worsening in the ecchymosis despite his INR is still therapeutic at 2.0 on the day of discharge. Swelling in the left upper extremity looks his stable and there is no loss of function in his left hand or forearm. Patient denies any chest pain or dyspnea. No abdominal pain or nausea vomiting. He is tolerating diet well. No fever. Patient was very eager to go home today and he did not want to stay for another day to monitor his ecchymosis while we starting his Coumadin, I explained to the patient that we held his Coumadin last night although his INR still therapeutic and recontour started today but he refused to stay in the hospital because he says he does not want to pay more copay for his stay in the hospital, actually after I talked to the patient in the morning, he asked the nurse to times to call me again to be discharged, for which I came and talked to him 2 more times and he has the same thought to be discharged today. Discontinue benefits and alternatives are explained to him and he verbalized understanding and acceptance Patient was cleared for discharge by all consultants including wildlife biology technician, orthopedic and vascular surgery team Limbs and management plan was discussed with the patient and he verbalized understanding and acceptance Patient was found stable and can be discharged home however he needs follow-up as an outpatient. Patient was instructed to follow up with his PCP in one week. As well as to follow up with his orthopedic and wildlife biology technician. Patient was instructed to resume his Coumadin upon discharge and check his INR with his doctors Gen: patient is a AAOx3, no distress CVS: S1-S2, RRR, no murmur Lungs: B/L CTA, no wheezing Abdomen: soft, no distention, no tenderness, positive bowel sounds Extremity: no leg edema or induration. stable left upper extremity ecchymosis in the arm and proximal forearm. Stable swelling in the left arm from ruptured biceps Time spent more than 35 minutes Plan - Discharge Summary Discharge Rx Participant: No New Discharge Prescriptions: New Acetaminophen Tab [Tylenol] 650 mg PO Q4HR PRN tab PRN Reason: Fever And/ Or Pain Continue Warfarin [Coumadin] 1 mg PO HS Ferrous Sulfate [Iron (65 MG Elemental)] 325 mg PO DAILY Spironolactone [Aldactone] 25 mg PO DAILY Calcium Carbonate [Calcium] 600 mg PO DAILY No Action Finasteride [Proscar] 5 mg PO DAILY Mexiletine [Mexitil] 150 mg PO TID Atorvastatin Calcium [Lipitor] 80 mg PO HS Pantoprazole [Protonix] 40 mg PO AC-BID #60 tablet. Clopidogrel [Plavix] 75 mg PO DAILY Magnesium Gluconate [Magonate] 500 mg PO DAILY Amiodarone [Cordarone] 200 mg PO HS Calcitriol 0.5 mcg PO FR Allopurinol [Zyloprim] 150 mg PO DAILY Furosemide [Lasix] 80 mg PO BID Tamsulosin HCl [Flomax] 0.4 mg PO BID Ergocalciferol (Vitamin D2) [Vitamin D2] 50,000 unit PO Q30D Carvedilol [Coreg] 6.25 mg PO BID-W/MEALS #60 tab Potassium Chloride [K-Tab ER] 20 meq PO DAILY Discharge Medication List Atorvastatin Calcium [Lipitor] 80 mg PO HS 04/29/14 [History] Finasteride [Proscar] 5 mg PO DAILY 04/29/14 [History] Mexiletine [Mexitil] 150 mg PO TID 04/29/14 [History] Pantoprazole [Protonix] 40 mg PO AC-BID #60 tablet. 09/28/15 [Rx] Clopidogrel [Plavix] 75 mg PO DAILY 10/19/15 [History] Amiodarone [Cordarone] 200 mg PO HS 07/25/16 [History] Calcitriol 0.5 mcg PO FR 07/25/16 [History] Magnesium Gluconate [Magonate] 500 mg PO DAILY 07/25/16 [History] Allopurinol [Zyloprim] 150 mg PO DAILY 09/25/17 [History] Ergocalciferol (Vitamin D2) [Vitamin D2] 50,000 unit PO Q30D 09/25/17 [History] Furosemide [Lasix] 80 mg PO BID 09/25/17 [History] Tamsulosin HCl [Flomax] 0.4 mg PO BID 09/25/17 [History] Carvedilol [Coreg] 6.25 mg PO BID-W/MEALS #60 tab 10/04/17 [Rx] Potassium Chloride [K-Tab ER] 20 meq PO DAILY 12/03/17 [History] Calcium Carbonate [Calcium] 600 mg PO DAILY 12/31/18 [History] Ferrous Sulfate [Iron (65 MG Elemental)] 325 mg PO DAILY 12/31/18 [History] Spironolactone [Aldactone] 25 mg PO DAILY 12/31/18 [History] Warfarin [Coumadin] 1 mg PO HS 12/31/18 [History] Acetaminophen Tab [Tylenol] 650 mg PO Q4HR PRN tab 01/01/19 [Rx] Follow up Appointment(s)/Referral(s): Vern Boyer PAC [PHYSICIAN SENIOR RECRUITER] - 3 Days Jose Childers DO [Primary Care Provider] - 1-2 days Pako Israel MD [STAFF PHYSICIAN] - 3 Days Activity/Diet/Wound Care/Special Instructions: Sling for comfort Rest left upper extremity, no lifting more than glass of water Pain management per primary care/emergency department Follow up in office for further recommendations. Cardiac diet Activity is limited until you see your doctor Discharge Disposition: HOME SELF-CARE
[2019-01-01 16:06] VITALS: BP 127/69; PULSE 72; RESP 18; TEMP 97.4
[2019-01-01] MEDS ORDERED: WARFARIN 1 MG TAB PO SCH (18:00)
[2019-01-03] MEDS ORDERED: CALCITRIOL 0.25 MCG CAP PO SCH (09:00)
[2019-01-11] MEDS ORDERED: ERGOCALCIFEROL 50,000 UNIT CAP PO SCH (09:00)
== END 2019-01-01 17:01 | disposition home or self-care (01) ==
LOC: EC 11:29 → 1SOBS 14:32
PROVIDERS: ADMIT Internal Medicine; ATTEND Internal Medicine
DX: S46.212A Strain of muscle, fascia and tendon of other parts of biceps, left arm, initial encounter (principal); S40.022A Contusion of left upper arm, initial encounter; R07.89 Other chest pain; R06.09 Other forms of dyspnea; E78.5 Hyperlipidemia, unspecified; I48.0 Paroxysmal atrial fibrillation; I25.5 Ischemic cardiomyopathy; K21.9 Gastro-esophageal reflux disease without esophagitis; I13.0 Hypertensive heart and chronic kidney disease with heart failure and stage 1 through stage 4 chronic kidney disease, or unspecified chronic kidney disease; E11.22 Type 2 diabetes mellitus with diabetic chronic kidney disease; E11.51 Type 2 diabetes mellitus with diabetic peripheral angiopathy without gangrene; I50.22 Chronic systolic (congestive) heart failure; N18.3 Chronic kidney disease, stage 3 (moderate); M19.90 Unspecified osteoarthritis, unspecified site; E03.9 Hypothyroidism, unspecified; I65.22 Occlusion and stenosis of left carotid artery; I27.20 Pulmonary hypertension, unspecified; M10.9 Gout, unspecified; I25.10 Atherosclerotic heart disease of native coronary artery without angina pectoris; I25.82 Chronic total occlusion of coronary artery; I77.1 Stricture of artery; I25.2 Old myocardial infarction; I34.0 Nonrheumatic mitral (valve) insufficiency; I36.1 Nonrheumatic tricuspid (valve) insufficiency; X50.0XXA Overexertion from strenuous movement or load, initial encounter; Z95.810 Presence of automatic (implantable) cardiac defibrillator; Z85.46 Personal history of malignant neoplasm of prostate; Z95.2 Presence of prosthetic heart valve; Z79.01 Long term (current) use of anticoagulants; Z87.01 Personal history of pneumonia (recurrent); Z90.49 Acquired absence of other specified parts of digestive tract; Z95.5 Presence of coronary angioplasty implant and graft; Z87.891 Personal history of nicotine dependence; Z79.899 Other long term (current) drug therapy; Z79.02 Long term (current) use of antithrombotics/antiplatelets; Z91.048 Other nonmedicinal substance allergy status
CPT/HCPCS: 96374; 99285; 36415; 93005; 93306; 83880; 80061; 80053; 84484 ×2; 85025 ×2; 85610 ×2; 85730 ×2; 71046; 93971; G0378 ×2; S0138; J1940

== ENCOUNTER → 2019-01-10 | Outpatient (CLI) | payer MEDICARE ==
[2019-01-10 08:26] LABS: Appearance,Urine Clear (Clear); Bilirubin,Urine Negative (Negative); Blood,Urine Negative (Negative); Color,Urine Yellow; Glucose,Urine (UA) Negative (Negative); Ketones,Urine Negative (Negative); Leukocyte Esterase,Urine Negative (Negative); Nitrite,Urine Negative (Negative); Protein,Urine Negative (Negative); Specific Gravity,Urine 1.014 (1.001-1.035); Urobilinogen,Urine <2.0 mg/dL (<2.0)
[2019-01-10 08:35] LABS: Anisocytosis Slight; Basophils # (A) 0.1 k/uL (0-0.2); Basophils % (A) 1 %; Eosinophils # (A) 0.2 k/uL (0-0.7); Eosinophils % (A) 2 %; HCT 37.1 % (39.0-53.0); HGB 12.1 gm/dL (13.0-17.5); Lymphocytes # (A) 1.1 k/uL (1.0-4.8); Lymphocytes % (A) 11 %; MCH 33.1 pg (25.0-35.0); MCHC 32.7 g/dL (31.0-37.0); MCV 101.4 fL (80.0-100.0); Macrocytosis Slight; Mean Platelet Volume 7.5; Monocytes # (A) 0.7 k/uL (0-1.0); Monocytes % (A) 7 %; Neutrophils # (A) 7.2 k/uL (1.3-7.7); Neutrophils % (A) 77 %; Platelet Count 224 k/uL (150-450); RBC 3.66 m/uL (4.30-5.90); RDW 16.4 % (11.5-15.5); WBC 9.4 k/uL (3.8-10.6)
[2019-01-10 17:11] LABS: Iron Saturation 24.59 (15.00-50.00)
[2019-01-10 17:19] LABS: Vitamin D 25 Hydroxy 35.4 ng/mL (30.0-100.0)
[2019-01-10 17:23] LABS: Anion Gap 9.2 mmol/L (4.00-12.00); Calcium 8.6 mg/dL (8.7-10.3); Carbon Dioxide 25.8 mmol/L (21.6-31.8); Magnesium 1.9 mg/dL (1.5-2.4); Phosphorus 2.7 mg/dL (2.4-5.1); Potassium 3.9 mmol/L (3.5-5.5); Uric Acid 5.8 mg/dL (3.7-8.7)
[2019-01-10 17:41] LABS: Parathyroid Hormone Intact 104.9 pg/mL (14.0-72.0)
== END | disposition home or self-care (01) ==
LOC: LABWHC1 07:29
PROVIDERS: ATTEND Internal Medicine Nephrology
DX: E55.9 Vitamin D deficiency, unspecified (principal); E21.3 Hyperparathyroidism, unspecified; N39.0 Urinary tract infection, site not specified; M10.9 Gout, unspecified; N18.3 Chronic kidney disease, stage 3 (moderate); D63.1 Anemia in chronic kidney disease
CPT/HCPCS: 36415; 80048; 81003; 82306; 82728; 83540; 83550; 83735; 83970; 84100; 84550; 85025

== ENCOUNTER → 2019-03-21 | Outpatient (CLI) | payer MEDICARE ==
[2019-03-21 18:09] LABS: African American GFR (CKD) 36.2 (60.0-200.0); Albumin 3.9 g/dL (3.80-4.90); Albumin/Globulin Ratio 1.95 (1.60-3.17); BUN/Creat Ratio 22.5 Ratio (12.00-20.00); Calcium 8.6 mg/dL (8.7-10.3); Total Bilirubin 0.6 mg/dL (0.2-1.2); Total Protein 5.9 g/dL (6.2-8.2)
== END | disposition home or self-care (01) ==
LOC: LABWHC1 09:11
PROVIDERS: ATTEND Physician Assistant
DX: I10 Essential (primary) hypertension (principal); Z79.899 Other long term (current) drug therapy
CPT/HCPCS: 36415; 80053; 84443; 84481

== ENCOUNTER → 2019-05-14 | Outpatient (CLI) | payer MEDICARE ==
[2019-05-14 12:20] LABS: Basophils # (A) 0.1 k/uL (0-0.2); Basophils % (A) 1 %; Eosinophils # (A) 0.2 k/uL (0-0.7); Eosinophils % (A) 2 %; HGB 13.8 gm/dL (13.0-17.5); Lymphocytes % (A) 14 %; MCH 32.7 pg (25.0-35.0); MCV 102.2 fL (80.0-100.0); Macrocytosis Slight; Mean Platelet Volume 7.5; Monocytes # (A) 0.6 k/uL (0-1.0); Monocytes % (A) 9 %; Neutrophils # (A) 5.2 k/uL (1.3-7.7); Neutrophils % (A) 72 %; Platelet Count 171 k/uL (150-450); RBC 4.21 m/uL (4.30-5.90); RDW 14.2 % (11.5-15.5); WBC 7.3 k/uL (3.8-10.6)
[2019-05-14 12:24] LABS: Appearance,Urine Clear (Clear); Bilirubin,Urine Negative (Negative); Blood,Urine Negative (Negative); Color,Urine Light Yellow; Glucose,Urine (UA) Negative (Negative); Ketones,Urine Negative (Negative); Leukocyte Esterase,Urine Negative (Negative); Nitrite,Urine Negative (Negative); PH, Urine 6.5 (5.0-8.0); Protein,Urine Negative (Negative); Specific Gravity,Urine 1.011 (1.001-1.035); Urobilinogen,Urine <2.0 mg/dL (<2.0)
[2019-05-14 17:29] LABS: African American GFR (CKD) 38.6 (60.0-200.0); Anion Gap 10.3 mmol/L (4.00-12.00); BUN/Creat Ratio 18.42 Ratio (12.00-20.00); Calcium 8.7 mg/dL (8.7-10.3); Carbon Dioxide 27.7 mmol/L (21.6-31.8); Magnesium 1.9 mg/dL (1.5-2.4); Phosphorus 3.3 mg/dL (2.4-5.1); Potassium 3.6 mmol/L (3.5-5.5); Uric Acid 6.2 mg/dL (3.7-8.7)
[2019-05-14 18:27] LABS: Iron Saturation 41.36 (15.00-50.00)
== END | disposition home or self-care (01) ==
LOC: LABWHC1 11:20
PROVIDERS: ATTEND Nurse Practitioner Family
DX: N39.0 Urinary tract infection, site not specified (principal); M10.9 Gout, unspecified; N25.81 Secondary hyperparathyroidism of renal origin; D63.1 Anemia in chronic kidney disease; N18.3 Chronic kidney disease, stage 3 (moderate)
CPT/HCPCS: 36415; 80048; 81003; 82728; 83540; 83550; 83735; 83970; 84100; 84550; 85025

== ENCOUNTER → 2019-09-05 | Outpatient (CLI) | payer MEDICARE ==
[2019-09-05 15:33] LABS: Basophils # (A) 0.1 k/uL (0-0.2); Basophils % (A) 1 %; Eosinophils # (A) 0.2 k/uL (0-0.7); Eosinophils % (A) 2 %; HGB 15.5 gm/dL (13.0-17.5); Lymphocytes # (A) 1.1 k/uL (1.0-4.8); Lymphocytes % (A) 12 %; MCH 33.8 pg (25.0-35.0); MCHC 33.7 g/dL (31.0-37.0); MCV 100.1 fL (80.0-100.0); Mean Platelet Volume 7.8; Monocytes # (A) 0.8 k/uL (0-1.0); Monocytes % (A) 9 %; Neutrophils # (A) 6.8 k/uL (1.3-7.7); Neutrophils % (A) 74 %; Platelet Count 235 k/uL (150-450); RBC 4.59 m/uL (4.30-5.90); RDW 13.5 % (11.5-15.5); WBC 9.2 k/uL (3.8-10.6)
[2019-09-05 16:23] LABS: Appearance,Urine Clear (Clear); Bilirubin,Urine Negative (Negative); Blood,Urine Negative (Negative); Color,Urine Light Yellow; Glucose,Urine (UA) Negative (Negative); Ketones,Urine Negative (Negative); Leukocyte Esterase,Urine Negative (Negative); Nitrite,Urine Negative (Negative); PH, Urine 6.5 (5.0-8.0); Protein,Urine Negative (Negative); Specific Gravity,Urine 1.009 (1.001-1.035); Urobilinogen,Urine <2.0 mg/dL (<2.0)
[2019-09-05 23:46] LABS: % Iron Saturation 28.22 (15.00-50.00); African American GFR (CKD) 32.1 (60.0-200.0); Anion Gap 9.2 mmol/L (4.00-12.00); BUN/Creat Ratio 18.18 Ratio (12.00-20.00); Calcium 8.8 mg/dL (8.7-10.3); Carbon Dioxide 26.8 mmol/L (21.6-31.8); Magnesium 2.2 mg/dL (1.5-2.4); Non-African American GFR(CKD) 27.7 (60.0-200.0); Potassium 3.8 mmol/L (3.5-5.5); Uric Acid 6.6 mg/dL (3.7-8.7)
== END | disposition home or self-care (01) ==
LOC: LABWHC1 15:07
PROVIDERS: ATTEND Nurse Practitioner Family
DX: N18.3 Chronic kidney disease, stage 3 (moderate) (principal); D63.1 Anemia in chronic kidney disease; N39.0 Urinary tract infection, site not specified; N25.81 Secondary hyperparathyroidism of renal origin; E83.39 Other disorders of phosphorus metabolism; M10.9 Gout, unspecified
CPT/HCPCS: 36415; 80048; 81003; 82728; 83540; 83550; 83735; 83970; 84100; 84550; 85025

== ENCOUNTER → 2019-10-14 | Outpatient (CLI) | payer MEDICARE ==
[2019-10-14 18:22] LABS: African American GFR (CKD) 40.9 (60.0-200.0); BUN/Creat Ratio 17.78 Ratio (12.00-20.00); Calcium 8.6 mg/dL (8.7-10.3); Non-African American GFR(CKD) 35.3 (60.0-200.0)
== END | disposition home or self-care (01) ==
LOC: LABWHC1 14:55
PROVIDERS: ATTEND Nurse Practitioner Family
DX: N18.3 Chronic kidney disease, stage 3 (moderate) (principal)
CPT/HCPCS: 36415; 80048

== ENCOUNTER 2019-12-29 14:32 | Emergency (ER) | payer MEDICARE ==
[2019-12-29 14:42] VITALS: TEMP 97.2
[2019-12-29] MEDS ORDERED: FUROSEMIDE 10 MG/ML 4 ML VIAL IV STA (14:58)
[2019-12-29] MEDS ORDERED: MORPHINE SULFATE 4 MG/ML SYRINGE IVP STA (15:13)
[2019-12-29 15:36] VITALS: RESP 18
[2019-12-29 15:44] LABS: Basophils % (A) 0 %; Eosinophils # (A) 0.2 k/uL (0-0.7); Eosinophils % (A) 2 %; HCT 45.8 % (39.0-53.0); HGB 15.2 gm/dL (13.0-17.5); Lymphocytes # (A) 0.7 k/uL (1.0-4.8); Lymphocytes % (A) 8 %; MCH 34.5 pg (25.0-35.0); MCHC 33.1 g/dL (31.0-37.0); MCV 104.3 fL (80.0-100.0); Macrocytosis Slight; Mean Platelet Volume 7.4; Monocytes # (A) 0.5 k/uL (0-1.0); Monocytes % (A) 6 %; Neutrophils # (A) 7.1 k/uL (1.3-7.7); Neutrophils % (A) 82 %; Platelet Count 192 k/uL (150-450); RBC 4.39 m/uL (4.30-5.90); RDW 13.8 % (11.5-15.5); WBC 8.7 k/uL (3.8-10.6)
--- NOTE | 2019-12-29 15:50 | XR ---
EXAMINATION TYPE: XR chest 2V DATE OF EXAM: 12/29/2019 COMPARISON: Prior chest x-ray 12/31/2018 HISTORY: Difficulty breathing some increased shortness of breath TECHNIQUE: Frontal and lateral views of the chest are obtained. FINDINGS: Aorta is dense and somewhat ectatic. Generator is present in left pectoral region, there a re intracardiac leads in the right atrium and ventricle, coronary sinus. No evident pneumothorax or p leural effusion. Cardiac mediastinal silhouette, pulmonary vascularity and hector are stable. No eviden t airspace disease. Multilevel spondylosis is present. There is a metallic device at the level of the mitral valve is stable. IMPRESSION: No acute cardiopulmonary process. Stable exam.
--- NOTE | 2019-12-29 15:54 | ED ---
General Adult HPI - General Chief complaint: Shortness of Breath Stated complaint: chest muscle pain Time Seen by Provider: 12/29/19 14:43 Source: patient, RN notes reviewed, old records reviewed Mode of arrival: wheelchair Limitations: no limitations - History of Present Illness Initial comments: This Patient is a 79-year-old male presents today with chief complaint of shortness of breath, fluid overload. He reports he's had a 5 pound weight gain in the past week. Patient states that is loudest noticed some lower [place] edema complaining of some shortness of breath. Patient relates that he was getting off of his tractor this week and felt a pull and snap over his left ribs. He reports the pain is worse with certain movements. He has not taken any Motrin or Tylenol for pain. His surveillance camera technician is Dr. Pond and crown blocker is Dr. Johnson. - Related Data Home Medications Medication Instructions Recorded Confirmed Atorvastatin Calcium [Lipitor] 80 mg PO HS 04/29/14 12/31/18 Finasteride [Proscar] 5 mg PO DAILY 04/29/14 12/31/18 Mexiletine [Mexitil] 150 mg PO TID 04/29/14 12/31/18 Clopidogrel [Plavix] 75 mg PO DAILY 10/19/15 12/31/18 Amiodarone [Cordarone] 200 mg PO HS 07/25/16 12/31/18 Calcitriol 0.5 mcg PO FR 07/25/16 12/31/18 Magnesium Gluconate [Magonate] 500 mg PO DAILY 07/25/16 12/31/18 Allopurinol [Zyloprim] 150 mg PO DAILY 09/25/17 12/31/18 Ergocalciferol (Vitamin D2) 50,000 unit PO Q30D 09/25/17 12/31/18 [Vitamin D2] Furosemide [Lasix] 80 mg PO BID 09/25/17 12/31/18 Tamsulosin HCl [Flomax] 0.4 mg PO BID 09/25/17 12/31/18 Potassium Chloride [K-Tab ER] 20 meq PO DAILY 12/03/17 12/31/18 Calcium Carbonate [Calcium] 600 mg PO DAILY 12/31/18 12/31/18 Ferrous Sulfate [Iron (65 MG 325 mg PO DAILY 05/21/19 05/21/19 Elemental)] Spironolactone [Aldactone] 25 mg PO DAILY 12/31/18 12/31/18 Warfarin [Coumadin] 1 mg PO HS 12/31/18 12/31/18 Previous Rx's Medication Instructions Recorded Pantoprazole [Protonix] 40 mg PO AC-BID #60 tablet. 09/28/15 Carvedilol [Coreg] 6.25 mg PO BID-W/MEALS #60 tab 10/04/17 Acetaminophen Tab [Tylenol] 650 mg PO Q4HR PRN tab 01/01/19 Allergies Allergy/AdvReac Type Severity Reaction Status Date / Time adhesive tape Allergy Severe BLISTERS Verified 12/29/19 14:42 Review of Systems ROS Statement: Those systems with pertinent positive or pertinent negative responses have been documented in the HPI. ROS Other: All systems not noted in ROS Statement are negative. Past Medical History Past Medical History: Atrial Fibrillation, Coronary Artery Disease (CAD), Cancer, Heart Failure, Diabetes Mellitus, GERD/Reflux, Hyperlipidemia, Hypertension, Myocardial Infarction (CA), Osteoarthritis (OA), Pneumonia, Prostate Disorder, Renal Disease, Respiratory Disorder, Thyroid Disorder Additional Past Medical History / Comment(s): HX: systolic dysfunction heart failure with EF 35-40%, severe cardiomyopathy with AICD, severe pulmonary HTN, severe mitral and moderate tricuspid regurg,Stage 3 kidney disease,Hx CA prostate; L caratid artery stenosis-awaiting stent placement. bilateral cataracts, diverticular dx,Hx gout. Last Myocardial Infarction Date:: 1983 History of Any Multi-Drug Resistant Organisms: None Reported Past Surgical History: AICD, Appendectomy, Back Surgery, Cholecystectomy, Prostate Surgery, Tonsillectomy Additional Past Surgical History / Comment(s): AICD 2008 with gen change 05/25/14, PCI with stent, R caratid endartectomy with reocclusion, back surgery x 2, bilateral breast lumpectomies, picc line in and out. MITRAL VALVE CLIPPED. Past Anesthesia/Blood Transfusion Reactions: No Reported Reaction Date of Last Stent Placement:: unkn Type of Cardiac Device: AICD Device Placement Date:: 2008 with gen change 05/25/14 Past Psychological History: No Psychological Hx Reported Smoking Status: Former smoker Past Alcohol Use History: None Reported Past Drug Use History: None Reported - Past Family History Father Family Medical History: Unable to Obtain Additional Family Medical History / Comment(s): Pt does not remember fathers health history. His father at age 82 yrs. Mother Family Medical History: Coronary Artery Disease (CAD) Additional Family Medical History / Comment(s): Mother during heart surgery when she was in her 50's General Exam - General Exam Comments Initial Comments: 79-year-old male. Alert and oriented. Limitations: no limitations General appearance: alert, in no apparent distress Head exam: Present: atraumatic, normocephalic, normal inspection Eye exam: Present: normal appearance, PERRL, EOMI. Absent: scleral icterus, conjunctival injection, periorbital swelling ENT exam: Present: normal exam Neck exam: Present: normal inspection. Absent: tenderness, meningismus, lymphadenopathy Respiratory exam: Present: chest wall tenderness (over L lower rib and with m ovement patient winces in pain), other (Crackles at bilateral lower lung bases.). Absent: normal lung sounds bilaterally, respiratory distress, wheezes, rales, rhonchi, stridor Cardiovascular Exam: Present: regular rate, normal rhythm, normal heart sounds. Absent: systolic murmur, diastolic murmur, rubs, gallop, clicks GI/Abdominal exam: Present: soft, normal bowel sounds. Absent: distended, tenderness, guarding, rebound, rigid Extremities exam: Present: normal inspection, full ROM, normal capillary refill. Absent: tenderness, pedal edema, joint swelling, calf tenderness Back exam: Present: normal inspection Neurological exam: Present: alert, oriented X3, CN II-XII intact Psychiatric exam: Present: normal affect, normal mood Skin exam: Present: warm, dry, intact, normal color. Absent: rash Course Vital Signs 12/29/19 12/29/19 12/29/19 14:38 15:29 16:59 Temperature 97.2 F L Pulse Rate 60 60 61 Respiratory 20 18 18 Rate Blood Pressure 133/74 127/67 121/60 O2 Sat by Pulse 95 95 95 Oximetry 12/29/19 17:01 Temperature 97.2 F L Pulse Rate 61 Respiratory 18 Rate Blood Pressure 121/60 O2 Sat by Pulse 95 Oximetry EKG Findings - EKG Comments: EKG Findings:: EKG performed at 1524 shows AV dual paced rhythm biventricular pacer detected. Ventricular rate of 60 bpm. Intervals 176 most seconds. QRS ration is 208 ms. QT QTc is 5:30 milliseconds. Medical Decision Making - Medical Decision Making 31-year-old male history of heart failure presents by department today with 5 pound weight gain in the past week as well as some lower extremity swelling. He also reports that he pulled a muscle and left side of the chest wall on getting out of his tractor. Patient has reproducible with movement chest pain until palpation over the left chest wall. Full cardiac workup was completed. Troponin is negative. EKG was negative for any acute changes. Patient does have a slightly elevated BNP however this is lower than on previous test. He has no signs of severe heart failure on chest x-ray. I discussed increasing his Lasix for the next 4 days. Discussed discharge and Patient was short course of pain medication for the left chest wall muscle strain. Patient is able to play. - Lab Data Result diagrams: 12/29/19 15:30 12/29/19 15:30 Lab Results 12/29/19 12/29/19 12/29/19 Range/Units 15:30 15:30 15:30 WBC 8.7 (3.8-10.6) k/uL RBC 4.39 (4.30-5.90) m/uL Hgb 15.2 (13.0-17.5) gm/dL Hct 45.8 (39.0-53.0) % MCV 104.3 H (80.0-100.0) fL MCH 34.5 (25.0-35.0) pg MCHC 33.1 (31.0-37.0) g/dL RDW 13.8 (11.5-15.5) % Plt Count 192 (150-450) k/uL Neutrophils % 82 % Lymphocytes % 8 % Monocytes % 6 % Eosinophils % 2 % Basophils % 0 % Neutrophils # 7.1 (1.3-7.7) k/uL Lymphocytes # 0.7 L (1.0-4.8) k/uL Monocytes # 0.5 (0-1.0) k/uL Eosinophils # 0.2 (0-0.7) k/uL Basophils # 0.0 (0-0.2) k/uL Macrocytosis Slight PT 22.5 H (9.0-12.0) sec INR 2.3 H (<1.2) APTT 32.0 H (22.0-30.0) sec Sodium 137 (137-145) mmol/L Potassium 4.1 (3.5-5.1) mmol/L Chloride 101 (98-107) mmol/L Carbon Dioxide 25 (22-30) mmol/L Anion Gap 11 mmol/L BUN 34 H (9-20) mg/dL Creatinine 1.89 H (0.66-1.25) mg/dL Est GFR (CKD-EPI)AfAm 38 (>60 ml/min/1.73 sqM) Est GFR (CKD-EPI)NonAf 33 (>60 ml/min/1.73 sqM) Glucose 147 H (74-99) mg/dL Plasma Lactic Acid Tk (0.7-2.0) mmol/L Calcium 9.0 (8.4-10.2) mg/dL Magnesium 2.0 (1.6-2.3) mg/dL Total Bilirubin 1.2 (0.2-1.3) mg/dL AST 35 (17-59) U/L ALT 16 (4-49) U/L Alkaline Phosphatase 145 H (38-126) U/L Troponin I (0.000-0.034) ng/mL NT-Pro-B Natriuret Pep pg/mL Total Protein 7.1 (6.3-8.2) g/dL Albumin 4.0 (3.5-5.0) g/dL 12/29/19 12/29/19 12/29/19 Range/Units 15:30 15:30 15:30 WBC (3.8-10.6) k/uL RBC (4.30-5.90) m/uL Hgb (13.0-17.5) gm/dL Hct (39.0-53.0) % MCV (80.0-100.0) fL MCH (25.0-35.0) pg MCHC (31.0-37.0) g/dL RDW (11.5-15.5) % Plt Count (150-450) k/uL Neutrophils % % Lymphocytes % % Monocytes % % Eosinophils % % Basophils % % Neutrophils # (1.3-7.7) k/uL Lymphocytes # (1.0-4.8) k/uL Monocytes # (0-1.0) k/uL Eosinophils # (0-0.7) k/uL Basophils # (0-0.2) k/uL Macrocytosis PT (9.0-12.0) sec INR (<1.2) APTT (22.0-30.0) sec Sodium (137-145) mmol/L Potassium (3.5-5.1) mmol/L Chloride (98-107) mmol/L Carbon Dioxide (22-30) mmol/L Anion Gap mmol/L BUN (9-20) mg/dL Creatinine (0.66-1.25) mg/dL Est GFR (CKD-EPI)AfAm (>60 ml/min/1.73 sqM) Est GFR (CKD-EPI)NonAf (>60 ml/min/1.73 sqM) Glucose (74-99) mg/dL Plasma Lactic Acid Tk 1.0 (0.7-2.0) mmol/L Calcium (8.4-10.2) mg/dL Magnesium (1.6-2.3) mg/dL Total Bilirubin (0.2-1.3) mg/dL AST (17-59) U/L ALT (4-49) U/L Alkaline Phosphatase (38-126) U/L Troponin I 0.012 (0.000-0.034) ng/mL NT-Pro-B Natriuret Pep 2000 pg/mL Total Protein (6.3-8.2) g/dL Albumin (3.5-5.0) g/dL - Radiology Data Radiology results: report reviewed Chest x-ray shows no acute cardiac pulmonary process. Stable exam. Disposition Clinical Impression: Fluid overload, Left-sided chest wall pain, Pulled muscle Disposition: HOME SELF-CARE Condition: Good Instructions (If sedation given, give patient instructions): Leg Edema (ED), Rib Contusion (ED) Additional Instructions: Patient should increase the Lasix to 60 mg in the morning and 40mg in the evening for the next 4 days. Using the pain medicine to help with the left rib pain at nighttime. Taking regular Tylenol for pain as well. Return to the ED if any alarming signs or symptoms occur. Is patient prescribed a controlled substance at d/c from ED?: No Referrals: Nonstaff,Physician [Primary Care Provider] - 1-2 days Time of Disposition: 16:57
[2019-12-29 15:55] LABS: Potassium 4.1 mmol/L (3.5-5.1); Total Bilirubin 1.2 mg/dL (0.2-1.3); Total Protein 7.1 g/dL (6.3-8.2)
[2019-12-29 15:56] LABS: INR 2.3 (<1.2); Prothrombin Time 22.5 sec (9.0-12.0)
[2019-12-29] MEDS ORDERED: ACET/COD 300 MG/30 MG STARTER PACK 6 TAB BTL PO STA (16:56)
[2019-12-29 17:00] VITALS: BP 121/60; PULSE 61
== END 2019-12-29 17:07 | disposition home or self-care (01) ==
LOC: EC 14:32
DX: E87.70 Fluid overload, unspecified (principal); R06.02 Shortness of breath; S29.011A Strain of muscle and tendon of front wall of thorax, initial encounter; R63.5 Abnormal weight gain; R79.89 Other specified abnormal findings of blood chemistry; I13.0 Hypertensive heart and chronic kidney disease with heart failure and stage 1 through stage 4 chronic kidney disease, or unspecified chronic kidney disease; I50.20 Unspecified systolic (congestive) heart failure; N18.3 Chronic kidney disease, stage 3 (moderate); I43 Cardiomyopathy in diseases classified elsewhere; M10.9 Gout, unspecified; I48.91 Unspecified atrial fibrillation; I25.10 Atherosclerotic heart disease of native coronary artery without angina pectoris; E78.5 Hyperlipidemia, unspecified; I25.2 Old myocardial infarction; M19.90 Unspecified osteoarthritis, unspecified site; Z79.02 Long term (current) use of antithrombotics/antiplatelets; Z79.899 Other long term (current) drug therapy; Z79.01 Long term (current) use of anticoagulants; Z95.810 Presence of automatic (implantable) cardiac defibrillator; Z85.46 Personal history of malignant neoplasm of prostate; Z91.048 Other nonmedicinal substance allergy status; Z98.890 Other specified postprocedural states; Z87.891 Personal history of nicotine dependence
CPT/HCPCS: 36415; 93005; 83880; 80053; 83605; 83735; 84484; 85025; 85610; 85730; 87040; 71046; 99285; 96374; J1940

== ENCOUNTER → 2020-02-18 | Outpatient (CLI) | payer MEDICARE ==
[2020-02-18 08:55] LABS: Appearance,Urine Clear (Clear); Bilirubin,Urine Negative (Negative); Blood,Urine Negative (Negative); Color,Urine Yellow; Glucose,Urine (UA) Negative (Negative); Ketones,Urine Negative (Negative); Leukocyte Esterase,Urine Negative (Negative); Nitrite,Urine Negative (Negative); PH, Urine 6.5 (5.0-8.0); Protein,Urine Negative (Negative); Specific Gravity,Urine 1.011 (1.001-1.035); Urobilinogen,Urine <2.0 mg/dL (<2.0)
[2020-02-18 08:56] LABS: Basophils # (A) 0.1 k/uL (0-0.2); Basophils % (A) 1 %; Eosinophils # (A) 0.2 k/uL (0-0.7); Eosinophils % (A) 2 %; HCT 40.5 % (39.0-53.0); HGB 13.5 gm/dL (13.0-17.5); Lymphocytes # (A) 1.4 k/uL (1.0-4.8); Lymphocytes % (A) 18 %; MCH 35.1 pg (25.0-35.0); MCHC 33.4 g/dL (31.0-37.0); MCV 105.1 fL (80.0-100.0); Macrocytosis Moderate; Mean Platelet Volume 7.7; Monocytes # (A) 0.5 k/uL (0-1.0); Monocytes % (A) 7 %; Neutrophils # (A) 5.4 k/uL (1.3-7.7); Neutrophils % (A) 70 %; Platelet Count 184 k/uL (150-450); RBC 3.85 m/uL (4.30-5.90); RDW 13.9 % (11.5-15.5); WBC 7.8 k/uL (3.8-10.6)
[2020-02-18 17:09] LABS: % Iron Saturation 20.07 (15.00-50.00); Chol/HDL Ratio 2.84; LDL Cholesterol,Calculated 79.6 mg/dL (0.0-131.0); Magnesium 1.8 mg/dL (1.5-2.4); Uric Acid 5.8 mg/dL (3.7-8.7); VLDL Calculation 12.4 mg/dL (5.00-40.00)
[2020-02-18 17:18] LABS: Ferritin 62.8 ng/mL (22.0-322.0)
== END | disposition home or self-care (01) ==
LOC: LABWHC1 07:47
PROVIDERS: ATTEND Internal Medicine Clinical Cardiac Electrophysiology
DX: E78.2 Mixed hyperlipidemia (principal); N18.3 Chronic kidney disease, stage 3 (moderate); E55.9 Vitamin D deficiency, unspecified; M10.9 Gout, unspecified; N39.0 Urinary tract infection, site not specified; N25.81 Secondary hyperparathyroidism of renal origin; D63.1 Anemia in chronic kidney disease
CPT/HCPCS: 36415; 80061; 81003; 82306; 82728; 83540; 83550; 83735; 83970; 84100; 84450; 84460; 84550; 85025

== ENCOUNTER 2020-05-30 22:38 | Inpatient (IN) | payer MEDICARE ==
[2020-05-30 23:47] LABS: Glucose,Whole Blood 210 mg/dL (75-99)
[2020-05-31 00:05] LABS: Basophils # (A) 0.1 k/uL (0-0.2); Basophils % (A) 1 %; Eosinophils % (A) 0 %; HCT 47.4 % (39.0-53.0); HGB 15.2 gm/dL (13.0-17.5); Lymphocytes # (A) 0.8 k/uL (1.0-4.8); Lymphocytes % (A) 8 %; MCH 32.6 pg (25.0-35.0); MCHC 32.1 g/dL (31.0-37.0); MCV 101.7 fL (80.0-100.0); Macrocytosis Slight; Mean Platelet Volume 7.5; Monocytes # (A) 0.6 k/uL (0-1.0); Monocytes % (A) 6 %; Neutrophils # (A) 8.3 k/uL (1.3-7.7); Neutrophils % (A) 83 %; Platelet Count 242 k/uL (150-450); RBC 4.66 m/uL (4.30-5.90); RDW 14.2 % (11.5-15.5)
[2020-05-31 00:07] LABS: Prothrombin Time 19.7 sec (9.0-12.0)
[2020-05-31 00:20] LABS: Calcium 9.1 mg/dL (8.4-10.2); Magnesium 2.5 mg/dL (1.6-2.3); Potassium 3.7 mmol/L (3.5-5.1); Total Bilirubin 0.9 mg/dL (0.2-1.3)
--- NOTE | 2020-05-31 00:35 | XR ---
EXAM: XR Chest, 2 Views CLINICAL HISTORY: ITS.REASON XR Reason: short of breath TECHNIQUE: Frontal and lateral views of the chest. COMPARISON: December 29, 2019 FINDINGS: Lungs: Lungs are well expanded with slight prominent interstitial markings centrally consistent with mild emphysema, unchanged. No new infiltrates are identified. Mild multilevel osteophytosis throughout the thoracic spine. Pleural space: Unremarkable. No pneumothorax. Heart: The cardiac silhouette is mildly enlarged. Mediastinum: Unremarkable. Bones/joints: Unremarkable. Vasculature: The thoracic aorta is mildly calcified but nondilated. Tubes, lines and devices: There is a pacing device on the left. IMPRESSION: Pacing device in place with borderline mild cardiomegaly. No signs of pulmonary edema. Mild emphysema, similar to previous. No new infiltrates are identified.
--- NOTE | 2020-05-31 00:37 | ED ---
Dizziness HPI - General Chief Complaint: Dizziness Stated Complaint: Congestion, Unbalanced Time Seen by Provider: 05/30/20 22:50 Source: patient Mode of arrival: ambulatory Limitations: no limitations - History of Present Illness Initial Comments: Patient is a 79-year-old male, with history of A. fib with defibrillator, heart disease, diabetes, kidney disease, presenting to emergency Department with complaints of feeling dizzy that started today. Patient states yesterday he was also having a weird a warm feeling coming up the back of his neck up until top of his head. Patient states this feeling was intermittent. He is also complaining of some shortness of breath and cough for the last 2 days. He denies any fever, chills, nausea or vomiting. He denies any abdominal pain. He denies any chest pain. Patient states he has been eating and drinking as normal. He's been having regular bowel movements, he has been urinating a little bit less. He has had no recent changes in medication. He did mention that Dr. Benitez "did something to my defibrillator last week." He has no further complaints at this time. Upon arrival to the ER, he is a 93% on RA, other vitals are normal. - Related Data Home Medications Medication Instructions Recorded Confirmed Atorvastatin Calcium [Lipitor] 80 mg PO HS 04/29/14 12/31/18 Finasteride [Proscar] 5 mg PO DAILY 04/29/14 12/31/18 Mexiletine [Mexitil] 150 mg PO TID 04/29/14 12/31/18 Clopidogrel [Plavix] 75 mg PO DAILY 10/19/15 12/31/18 Amiodarone [Cordarone] 200 mg PO HS 07/25/16 12/31/18 Magnesium Gluconate [Magonate] 500 mg PO DAILY 07/25/16 12/31/18 calcitrioL [Calcitriol] 0.5 mcg PO FR 07/25/16 12/31/18 Ergocalciferol (Vitamin D2) 50,000 unit PO Q30D 09/25/17 12/31/18 [Vitamin D2] Furosemide [Lasix] 80 mg PO BID 09/25/17 12/31/18 Tamsulosin HCl [Flomax] 0.4 mg PO BID 09/25/17 12/31/18 allopurinoL [Zyloprim] 150 mg PO DAILY 09/25/17 12/31/18 Potassium Chloride [K-Tab ER] 20 meq PO DAILY 12/03/17 12/31/18 Calcium Carbonate [Calcium] 600 mg PO DAILY 12/31/18 12/31/18 Ferrous Sulfate [Iron (65 MG 325 mg PO DAILY 12/31/18 12/31/18 Elemental)] Spironolactone [Aldactone] 25 mg PO DAILY 12/31/18 12/31/18 Warfarin [Coumadin] 1 mg PO HS 12/31/18 12/31/18 Previous Rx's Medication Instructions Recorded Pantoprazole [Protonix] 40 mg PO AC-BID #60 tablet. 09/28/15 carvediloL [Coreg] 6.25 mg PO BID-W/MEALS #60 tab 10/04/17 Acetaminophen Tab [Tylenol] 650 mg PO Q4HR PRN tab 01/01/19 Allergies Allergy/AdvReac Type Severity Reaction Status Date / Time adhesive tape Allergy Severe BLISTERS Verified 05/30/20 22:43 Review of Systems ROS Statement: Those systems with pertinent positive or pertinent negative responses have been documented in the HPI. ROS Other: All systems not noted in ROS Statement are negative. Past Medical History Past Medical History: Atrial Fibrillation, Coronary Artery Disease (CAD), Cancer, Heart Failure, Diabetes Mellitus, GERD/Reflux, Hyperlipidemia, Hypertension, Myocardial Infarction ([place]), Osteoarthritis (OA), Pneumonia, Prostate Disorder, Renal Disease, Respiratory Disorder, Thyroid Disorder Additional Past Medical History / Comment(s): HX: systolic dysfunction heart f ailure with EF 35-40%, severe cardiomyopathy with AICD, severe pulmonary HTN, severe mitral and moderate tricuspid regurg,Stage 3 kidney disease,Hx CA prostate; L caratid artery stenosis-awaiting stent placement. bilateral cataracts, diverticular dx,Hx gout. Last Myocardial Infarction Date:: 1983 History of Any Multi-Drug Resistant Organisms: None Reported Past Surgical History: AICD, Appendectomy, Back Surgery, Cholecystectomy, Prostate Surgery, Tonsillectomy Additional Past Surgical History / Comment(s): AICD 2008 with gen change 05/25/14, PCI with stent, R caratid endartectomy with reocclusion, back surgery x 2, bilateral breast lumpectomies, picc line in and out. MITRAL VALVE CLIPPED. Past Anesthesia/Blood Transfusion Reactions: No Reported Reaction Date of Last Stent Placement:: unkn Type of Cardiac Device: AICD Device Placement Date:: 2008 with gen change 05/25/14 Past Psychological History: No Psychological Hx Reported Smoking Status: Never smoker Past Alcohol Use History: None Reported Past Drug Use History: None Reported - Past Family History Father Family Medical History: Unable to Obtain Additional Family Medical History / Comment(s): Pt does not remember fathers health history. His father at age 82 yrs. Mother Family Medical History: Coronary Artery Disease (CAD) Additional Family Medical History / Comment(s): Mother during heart surgery when she was in her 50's General Exam - General Exam Comments Initial Comments: GENERAL: Patient is well-developed and well-nourished. Patient is nontoxic and in no acute distress. HEAD: Atraumatic, normocephalic. EYES: Pupils equal round and reactive to light, extraocular movements intact, sclera anicteric, conjunctiva are normal. Eyelids were unremarkable. ENT: TMs normal, nares patent, oropharynx clear without exudates. Moist mucous membr anes. NECK: Normal range of motion, supple without lymphadenopathy or JVD. LUNGS: Unlabored respirations. Breath sounds clear to auscultation bilaterally and equal. No wheezes rales or rhonchi. HEART: Regular rate and rhythm without murmurs, rubs or gallops. ABDOMEN: Soft, nontender, normoactive bowel sounds. No guarding, no rebound. No masses appreciated. : Deferred MUSCULOSKELETAL: Normal extremities with adequate strength and normal range of motion, no pitting or edema. No clubbing or cyanosis. NEUROLOGICAL: Patient is alert and oriented x 3. Motor and sensory are also intact. Cranial nerves II through XII grossly intact. Symmetrical smile. Normal speech, normal gait. PSYCH: Normal mood, normal affect. SKIN: Warm, Dry, normal turgor, no rashes or lesions noted. Limitations: no limitations Course Vital Signs 05/30/20 05/31/20 22:40 01:00 Temperature 97.4 F L Pulse Rate 93 60 Respiratory 16 14 Rate Blood Pressure 138/80 142/52 O2 Sat by Pulse 93 L 99 Oximetry EKG Findings - EKG Comments: EKG Findings:: AV dual paced rhythm, biventricular pacemaker detected, ventricular rate 60, P over 174, QTC 564. Medical Decision Making - Medical Decision Making Patient is a 79-year-old male here for weakness that started today as well as cough and shortness of breath. He does have history of A. fib, defibrillator in place. He shows 93% on room air upon arrival, rest of vitals normal. EKG shows paced rhythm, heart rate has been ranging in the 60s however during examination, I did witness heart rate jumped to 130s for approximately 5-10 seconds. Patient seemed to be asymptomatic during this increase. Labs show normal white count, INR is 2.0, creatinine is 2.36 and BUN 72, increased from baseline. Troponin is 0.024, BNP is 3200, urine is normal. Patient will be admitted for serial troponins and Dr. Benitez to see. Patient is in agreement with this plan of care. Case discussed with Dr. Gil. - Lab Data Result diagrams: 05/30/20 23:35 05/30/20 23:35 Lab Results 05/30/20 05/30/20 05/30/20 Range/Units 00:37 23:35 23:35 WBC 10.0 (3.8-10.6) k/uL RBC 4.66 (4.30-5.90) m/uL Hgb 15.2 (13.0-17.5) gm/dL Hct 47.4 (39.0-53.0) % MCV 101.7 H (80.0-100.0) fL MCH 32.6 (25.0-35.0) pg MCHC 32.1 (31.0-37.0) g/dL RDW 14.2 (11.5-15.5) % Plt Count 242 (150-450) k/uL Neutrophils % 83 % Lymphocytes % 8 % Monocytes % 6 % Eosinophils % 0 % Basophils % 1 % Neutrophils # 8.3 H (1.3-7.7) k/uL Lymphocytes # 0.8 L (1.0-4.8) k/uL Monocytes # 0.6 (0-1.0) k/uL Eosinophils # 0.0 (0-0.7) k/uL Basophils # 0.1 (0-0.2) k/uL Macrocytosis Slight PT 19.7 H (9.0-12.0) sec INR 2.0 H (<1.2) Sodium (137-145) mmol/L Potassium (3.5-5.1) mmol/L Chloride (98-107) mmol/L Carbon Dioxide (22-30) mmol/L Anion Gap mmol/L BUN (9-20) mg/dL Creatinine (0.66-1.25) mg/dL Est GFR (CKD-EPI)AfAm (>60 ml/min/1.73 sqM) Est GFR (CKD-EPI)NonAf (>60 ml/min/1.73 sqM) Glucose (74-99) mg/dL POC Glucose (mg/dL) (75-99) mg/dL POC Glu Yarder Operator ID Plasma Lactic Acid Tk (0.7-2.0) mmol/L Calcium (8.4-10.2) mg/dL Magnesium (1.6-2.3) mg/dL Total Bilirubin (0.2-1.3) mg/dL AST (17-59) U/L ALT (4-49) U/L Alkaline Phosphatase (38-126) U/L Troponin I (0.000-0.034) ng/mL NT-Pro-B Natriuret Pep pg/mL Total Protein (6.3-8.2) g/dL Albumin (3.5-5.0) g/dL Urine Color Light Yellow Urine Appearance Clear (Clear) Urine pH 6.5 (5.0-8.0) Ur Specific [place] 1.012 (1.001-1.035) Urine Protein Negative (Negative) Urine Glucose (UA) Negative (Negative) Urine Ketones Negative (Negative) Urine Blood Negative (Negative) Urine Nitrite Negative (Negative) Urine Bilirubin Negative (Negative) Urine Urobilinogen <2.0 (<2.0) mg/dL Ur Leukocyte Esterase Negative (Negative) 05/30/20 05/30/20 05/30/20 Range/Units 23:35 23:35 23:35 WBC (3.8-10.6) k/uL RBC (4.30-5.90) m/uL Hgb (13.0-17.5) gm/dL Hct (39.0-53.0) % MCV (80.0-100.0) fL MCH (25.0-35.0) pg MCHC (31.0-37.0) g/dL RDW (11.5-15.5) % Plt Count (150-450) k/uL Neutrophils % % Lymphocytes % % Monocytes % % Eosinophils % % Basophils % % Neutrophils # (1.3-7.7) k/uL Lymphocytes # (1.0-4.8) k/uL Monocytes # (0-1.0) k/uL Eosinophils # (0-0.7) k/uL Basophils # (0-0.2) k/uL Macrocytosis PT (9.0-12.0) sec INR (<1.2) Sodium 133 L (137-145) mmol/L Potassium 3.7 (3.5-5.1) mmol/L Chloride 99 (98-107) mmol/L Carbon Dioxide 23 (22-30) mmol/L Anion Gap 11 mmol/L BUN 72 H (9-20) mg/dL Creatinine 2.36 H (0.66-1.25) mg/dL Est GFR (CKD-EPI)AfAm 29 (>60 ml/min/1.73 sqM) Est GFR (CKD-EPI)NonAf 25 (>60 ml/min/1.73 sqM) Glucose 206 H (74-99) mg/dL POC Glucose (mg/dL) (75-99) mg/dL POC Glu Yarder Operator ID Plasma Lactic Acid Tk 1.6 (0.7-2.0) mmol/L Calcium 9.1 (8.4-10.2) mg/dL Magnesium 2.5 H (1.6-2.3) mg/dL Total Bilirubin 0.9 (0.2-1.3) mg/dL AST 49 (17-59) U/L ALT 23 (4-49) U/L Alkaline Phosphatase 148 H (38-126) U/L Troponin I 0.024 (0.000-0.034) ng/mL NT-Pro-B Natriuret Pep pg/mL Total Protein 7.0 (6.3-8.2) g/dL Albumin 4.0 (3.5-5.0) g/dL Urine Color Urine Appearance (Clear) Urine pH (5.0-8.0) Ur Specific [place] (1.001-1.035) Urine Protein (Negative) Urine Glucose (UA) (Negative) Urine Ketones (Negative) Urine Blood (Negative) Urine Nitrite (Negative) Urine Bilirubin (Negative) Urine Urobilinogen (<2.0) mg/dL Ur Leukocyte Esterase (Negative) 05/30/20 05/30/20 Range/Units 23:35 23:46 WBC (3.8-10.6) k/uL RBC (4.30-5.90) m/uL Hgb (13.0-17.5) gm/dL Hct (39.0-53.0) % MCV (80.0-100.0) fL MCH (25.0-35.0) pg MCHC (31.0-37.0) g/dL RDW (11.5-15.5) % Plt Count (150-450) k/uL Neutrophils % % Lymphocytes % % Monocytes % % Eosinophils % % Basophils % % Neutrophils # (1.3-7.7) k/uL Lymphocytes # (1.0-4.8) k/uL Monocytes # (0-1.0) k/uL Eosinophils # (0-0.7) k/uL Basophils # (0-0.2) k/uL Macrocytosis PT (9.0-12.0) sec INR (<1.2) Sodium (137-145) mmol/L Potassium (3.5-5.1) mmol/L Chloride (98-107) mmol/L Carbon Dioxide (22-30) mmol/L Anion Gap mmol/L BUN (9-20) mg/dL Creatinine (0.66-1.25) mg/dL Est GFR (CKD-EPI)AfAm (>60 ml/min/1.73 sqM) Est GFR (CKD-EPI)NonAf (>60 ml/min/1.73 sqM) Glucose (74-99) mg/dL POC Glucose (mg/dL) 210 H (75-99) mg/dL POC Glu Yarder Operator ID Haylee Jenkins Plasma Lactic Acid Tk (0.7-2.0) mmol/L Calcium (8.4-10.2) mg/dL Magnesium (1.6-2.3) mg/dL Total Bilirubin (0.2-1.3) mg/dL AST (17-59) U/L ALT (4-49) U/L Alkaline Phosphatase (38-126) U/L Troponin I (0.000-0.034) ng/mL NT-Pro-B Natriuret Pep 3270 pg/mL Total Protein (6.3-8.2) g/dL Albumin (3.5-5.0) g/dL Urine Color Urine Appearance (Clear) Urine pH (5.0-8.0) Ur Specific [place] (1.001-1.035) Urine Protein (Negative) Urine Glucose (UA) (Negative) Urine Ketones (Negative) Urine Blood (Negative) Urine Nitrite (Negative) Urine Bilirubin (Negative) Urine Urobilinogen (<2.0) mg/dL Ur Leukocyte Esterase (Negative) Disposition Clinical Impression: Dehydration, Dizziness, Cough, Shortness of breath Disposition: ADMITTED IP TO THIS [facility] Condition: Good Decision Date: 05/31/20 Decision Time: 01:20
[2020-05-31 01:12] LABS: Appearance,Urine Clear (Clear); Bilirubin,Urine Negative (Negative); Blood,Urine Negative (Negative); Color,Urine Light Yellow; Glucose,Urine (UA) Negative (Negative); Ketones,Urine Negative (Negative); Leukocyte Esterase,Urine Negative (Negative); Nitrite,Urine Negative (Negative); PH, Urine 6.5 (5.0-8.0); Protein,Urine Negative (Negative); Specific Gravity,Urine 1.012 (1.001-1.035); Urobilinogen,Urine <2.0 mg/dL (<2.0)
[2020-05-31 06:14] LABS: Glucose,Whole Blood 124 mg/dL (75-99)
[2020-05-31 06:15] LABS: Calcium 8.9 mg/dL (8.4-10.2); Potassium 3.4 mmol/L (3.5-5.1)
[2020-05-31] MEDS ORDERED: carvediloL 6.25 MG TAB PO SCH (08:15)
[2020-05-31] MEDS ORDERED: POTASSIUM CHLORIDE ER 20 MEQ TAB.ER PO STA (10:39)
[2020-05-31] MEDS: carvediloL 6.25 MG TAB PO STA ×2 (11:02→14:18)
[2020-05-31 12:06] LABS: Glucose,Whole Blood 183 mg/dL (75-99)
--- NOTE | 2020-05-31 12:14 | P.HPIM ---
History of Present Illness this is a pleasnt 79 yo M with past medical history of atrial fibrillation , mitral valve replacement, hypertension , hyperlipidemia, diabetes Mellitus , History of cardiomyopathy with EF 35-40%. s/p AICD, History of cardiomyopathy with EF 35-40%. s/p AICD chronic kidney disease ,osteoarthritis, hypothyroidism who presents because he was feeling hot flashes in the back of his head and tingling on the top of his head as he describes for 2 days associated with some bones problem. Patient states he was in the hospital and this happen again and they notice he has been tachycardic. Also he had some mild chest tightness. Currently he does not have any of these symptoms however he states he stayed in bed and not sure if still h as bolus problem. However he denies weakness or numbness in extremities, no new blurred vision or difficulty swallowing. Vitas looks stable. Orthostatic vitals also showing no postural dizziness or hypotension. CBC is unremarkable. INR is 2.0. Sodium is 132, potassium 3.4, creatinine is 2.3, his baseline 1.8-2.0. Glucose controlled. troponin are negative 3. ProBNP is 3270. Urine analysis is not suspicious of infection. Chest x-ray: No acute process. EKG showing 60 BPM with dual paced rhythm Facilities Operator team were consulted from emergency room Review of Systems CONSTITUTIONAL: No fever, no malaise, no fatigue. HEENT: No recent visual problems or hearing problems. Denied any sore throat. CARDIOVASCULAR: No orthopnea, PND, no palpitations, no syncope. PULMONARY: No shortness of breath, no cough, no hemoptysis. GASTROINTESTINAL: No diarrhea, no nausea, no vomiting, no abdominal pain. Normoactive bowel sounds. NEUROLOGICAL: No headaches, no weakness, no numbness. HEMATOLOGICAL: Denies any bleeding or petechiae. GENITOURINARY: Denies any burning micturition, frequency, or urgency. MUSCULOSKELETAL/RHEUMATOLOGICAL: Denies any joint pain, swelling, or any muscle pain. ENDOCRINE: Denies any polyuria or polydipsia. Past Medical History Past Medical History: Atrial Fibrillation, Coronary Artery Disease (CAD), Cancer, Heart Failure, Diabetes Mellitus, GERD/Reflux, Hyperlipidemia, Hypertension, Myocardial Infarction ([place]), Osteoarthritis (OA), Pneumonia, Prostate Disorder, Renal Disease, Respiratory Disorder, Thyroid Disorder Additional Past Medical History / Comment(s): HX: systolic dysfunction heart failure with EF 35-40%, severe cardiomyopathy with AICD, severe pulmonary HTN, severe mitral and moderate tricuspid regurg,Stage 3 kidney disease,Hx CA prostate; L caratid artery stenosis-awaiting stent placement. bilateral cataracts, diverticular dx,Hx gout. Last Myocardial Infarction Date:: 1983 History of Any Multi-Drug Resistant Organisms: None Reported Past Surgical History: AICD, Appendectomy, Back Surgery, Cholecystectomy, Prostate Surgery, Tonsillectomy Additional Past Surgical History / Comment(s): AICD 2008 with gen change 05/25/14, PCI with stent, R caratid endartectomy with reocclusion, back surgery x 2, bilateral breast lumpectomies, picc line in and out. MITRAL VALVE CLIPPED. Past Anesthesia/Blood Transfusion Reactions: No Reported Reaction Date of Last Stent Placement:: unkn Type of Cardiac Device: AICD Device Placement Date:: 2008 with gen change 05/25/14 Past Psychological History: No Psychological Hx Reported Smoking Status: Never smoker Past Alcohol Use History: None Reported Past Drug Use History: None Reported - Past Family History Father Family Medical History: Unable to Obtain Additional Family Medical History / Comment(s): Pt does not remember fathers health history. His father at age 82 yrs. Mother Family Medical History: Coronary Artery Disease (CAD) Additional Family Medical History / Comment(s): Mother during heart surgery when she was in her 50's Medications and Allergies Home Medications Medication Instructions Recorded Confirmed Type Atorvastatin Calcium [Lipitor] 80 mg PO HS 04/29/14 05/31/20 History Finasteride [Proscar] 5 mg PO DAILY 04/29/14 05/31/20 History Mexiletine [Mexitil] 150 mg PO TID 04/29/14 05/31/20 History Clopidogrel [Plavix] 75 mg PO DAILY 10/19/15 05/31/20 History Amiodarone [Cordarone] 200 mg PO HS 07/25/16 05/31/20 History calcitrioL [Calcitriol] 0.5 mcg PO FR@2100 07/25/16 05/31/20 History Ergocalciferol (Vitamin D2) 50,000 unit PO Q30D 09/25/17 05/31/20 History [Vitamin D2] Tamsulosin HCl [Flomax] 0.4 mg PO BID 09/25/17 05/31/20 History allopurinoL [Zyloprim] 150 mg PO DAILY 09/25/17 05/31/20 History Ferrous Sulfate [Iron (65 MG 325 mg PO DAILY 12/31/18 05/31/20 History Elemental)] Spironolactone [Aldactone] 25 mg PO DAILY 12/31/18 05/31/20 History Warfarin [Coumadin] 1 mg PO HS 12/31/18 05/31/20 History Calcium 20meq(Unknown Otc) 1 tab PO DAILY 05/31/20 05/31/20 History Ezetimibe [Zetia] 10 mg PO HS 05/31/20 05/31/20 History Furosemide [Lasix] 80 mg PO BID@0900,1500 05/31/20 05/31/20 History Magnesium Oxide [Mag-Ox] 400 mg PO DAILY 05/31/20 05/31/20 History Pantoprazole [Protonix] 40 mg PO BID 05/31/20 05/31/20 History carvediloL [Coreg] 6.25 mg PO BID 05/31/20 05/31/20 History Allergies Allergy/AdvReac Type Severity Reaction Status Date / Time adhesive tape Allergy Severe BLISTERS Verified 05/31/20 08:16 Physical Exam Vitals: Vital Signs Temp Pulse Pulse Resp BP BP BP 05/31/20 11:33 60 16 05/31/20 11:20 97.3 F L 60 16 130/58 05/31/20 08:00 97.2 F L 60 16 126/58 112/56 05/31/20 04:00 60 16 05/31/20 01:00 60 14 142/52 05/30/20 22:40 97.4 F L 93 16 138/80 BP BP Pulse Ox 05/31/20 11:33 05/31/20 11:20 96 05/31/20 08:00 129/62 129/62 95 05/31/20 04:00 155/75 97 05/31/20 01:00 99 05/30/20 22:40 93 L Intake and Output 05/30/20 05/31/20 05/31/20 22:59 06:59 14:59 Intake Total 240 Output Total 610 250 Balance -610 -10 Intake: Oral 240 Output: Urine 610 250 Other: Voiding Method Urinal # Voids 3 Weight 110.677 kg 112.1 kg GENERAL: The patient is alert and oriented x3, not in any acute distress. Well developed, well nourished. HEENT: Pupils are round and equally reacting to light. EOMI. No scleral icterus. No conjunctival pallor. Normocephalic, atraumatic. No pharyngeal erythema. No thyromegaly. CARDIOVASCULAR: S1 and S2 present. No murmurs, rubs, or gallops. PULMONARY: Chest is clear to auscultation, no wheezing or crackles. ABDOMEN: Soft, nontender, nondistended, normoactive bowel sounds. No palpable organomegaly. MUSCULOSKELETAL: No joint swelling or deformity. EXTREMITIES: No cyanosis, clubbing, or pedal edema. NEUROLOGICAL: Gross neurological examination did not reveal any focal deficits. SKIN: No rashes. No petechiae Results CBC & Chem 7: 05/30/20 23:35 05/31/20 05:14 Labs: Abnormal Lab Results - Last 24 Hours (Table) 05/30/20 05/30/20 05/30/20 Range/Units 23:35 23:35 23:35 MCV 101.7 H (80.0-100.0) fL Neutrophils # 8.3 H (1.3-7.7) k/uL Lymphocytes # 0.8 L (1.0-4.8) k/uL PT 19.7 H (9.0-12.0) sec INR 2.0 H (<1.2) Sodium 133 L (137-145) mmol/L Potassium (3.5-5.1) mmol/L BUN 72 H (9-20) mg/dL Creatinine 2.36 H (0.66-1.25) mg/dL Glucose 206 H (74-99) mg/dL POC Glucose (mg/dL) (75-99) mg/dL Magnesium 2.5 H (1.6-2.3) mg/dL Alkaline Phosphatase 148 H (38-126) U/L 05/30/20 05/31/20 05/31/20 Range/Units 23:46 05:14 06:12 MCV (80.0-100.0) fL Neutrophils # (1.3-7.7) k/uL Lymphocytes # (1.0-4.8) k/uL PT (9.0-12.0) sec INR (<1.2) Sodium 132 L (137-145) mmol/L Potassium 3.4 L (3.5-5.1) mmol/L BUN 70 H (9-20) mg/dL Creatinine 2.34 H (0.66-1.25) mg/dL Glucose 133 H (74-99) mg/dL POC Glucose (mg/dL) 210 H 124 H (75-99) mg/dL Magnesium (1.6-2.3) mg/dL Alkaline Phosphatase (38-126) U/L Thrombosis Risk Factor Assmnt - Choose All That Apply Any of the Below Risk Factors Present?: Yes Each Factor Represents 1 point: Medical pt on bed rest, Obesity (BMI >25), Swollen legs (current) Other Risk Factors: Yes Each Risk Factor Represents 3 Points: Age 75 years or older Other congenital or acquired thrombophilia - If yes, enter type in comment: No Thrombosis Risk Factor Assessment Total Risk Factor Score: 6 Thrombosis Risk Factor Assessment Level: High Risk Assessment and Plan Assessment: feeling of hot flashes in the back of her head with tingling in the top of her head associated with bolus problem and tachycardia as per patient. Cardiology team are involved to the patient diabetes Mellitus atrial fibrillation history of severe valvular heart disease , unsure if pt had mitral valve replacement essential hypertension hyperlipidemia History of GERD History of cardiomyopathy with EF 35-40%. s/p AICD chronic kidney disease osteoarthritis hypothyroidism History of left carotid artery stenosis, History of prostate cancer History of sever pulmonary hypertension History of diverticular disease History of gout Plan: This is a pleasant 79 years old male who presents with dizziness. The cardiology consult recommendation. Check hemoglobin A1c, monitor INR and ask for physical therapy evaluation. Pacemaker interrogation as per cardiology team. Coreg dose was increased by cartilage team Labs and medication were reviewed.. Continue same treatment. Continue with symptomatic treatment. Resume home medication. Monitor lytes and vitals. DVT and GI prophylaxis. Further recommendations depends on the clinical course of the patient DVT prophylaxis: On Coumadin GI Prophylaxis: Pepcid PT/OT: Pending Prognosis is guarded
[2020-05-31 12:32] LABS: INR 2.1 (<1.2); Prothrombin Time 20.1 sec (9.0-12.0)
--- NOTE | 2020-05-31 12:48 | ECHOF ---
Referral Reason:near syncope MEASUREMENTS -------- HEIGHT: 180.3 cm WEIGHT: 112.0 kg BP: RVIDd: 3.2 cm (< 3.3) IVSd: 0.8 cm (0.6 - 1.1) LVIDd: 5.5 cm (3.9 - 5.3) LVPWd: 0.9 cm (0.6 - 1.1) IVSs: 1.5 cm LVIDs: 4.5 cm LVPWs: 1.1 cm LAESV Index (A-L): 35.20 ml/m Ao Diam: 2.9 cm (2.0 - 3.7) AV Cusp: 1.1 cm (1.5 - 2.6) LA Diam: 3.4 cm (2.7 - 3.8) MV E Naif: 1.22 m/s MV DecT: 561 ms MV A Naif: 0.74 m/s MV E/A Ratio: 1.66 AV maxP.30 mmHg AV meanP.47 mmHg AR PHT: 649 ms RAP: 5.00 mmHg RVSP: 30.28 mmHg FINDINGS -------- This was a technically difficult study with suboptimal views. The left ventricular size is normal. Left ventricular wall thickness is normal. Overall left vent ricular systolic function is moderately impaired with, an EF between 35 - 40 %. Increased LAP Grade 2 Diastolic Dysfunction. Basal inferior LV wall motion is hypokinetic. Basal inferoseptal LV wa ll motion is hypokinetic. Mid inferior LV wall motion is hypokinetic. Apical septum LV wall mot ion is hypokinetic. Basal inferolateral hypokinesis. The right ventricle is normal in size. LA is moderately dilated 34-39 ml/m2 The right atrial size is normal. Lumason used Aortic valve is trileaflet and is severely thickened. There is mild aortic regurgitation. There i s [id number] aortic stenosis present. Peak/mean gradient across the Aortic Valve is {AV maxPG } / {AV meanPG} however LINDA by continuity equation is 0.96 cm2 with SV indexed of 19.6 concerning for low flow low gradient severe aortic stenosis. Would recommend low dose dobutamine stress echo, CT w ith calcium scoring or KENNEDY to further assess if clinically indicated. The mitral valve is normal. The mitral valve leaflets are moderate to severely thickened. Severe mitral annular calcification present. Mild mitral regurgitation is present. The peak and mean MV gradients are 13.08mmHg 4.39mmHg as measured by doppler. Mild mitral stenosis. Mitral valve clip noted. The tricuspid valve appears structurally normal. Mild tricuspid regurgitation present. Right vent ricular systolic pressure is normal at < 35 mmHg. There is no pulmonic regurgitation present. The aortic root size is normal. IVC Not well visulized. There is no pericardial effusion. CONCLUSIONS -------- 1. The left ventricular size is normal. 2. Left ventricular wall thickness is normal. 3. Overall left ventricular systolic function is moderately impaired with, an EF between 35 - 40 %. 4. Increased LAP Grade 2 Diastolic Dysfunction. 5. Basal inferior LV wall motion is hypokinetic. 6. Basal inferoseptal LV wall motion is hypokinetic. 7. Mid inferior LV wall motion is hypokinetic. 8. Apical septum LV wall motion is hypokinetic. 9. Basal inferolateral hypokinesis. 10. LA is moderately dilated 34-39 ml/m2 11. There is mild aortic regurgitation. 12. There is svhfiqqf-[id number] aortic stenosis present. Peak/mean gradient across the Aortic Valve i s {AV maxPG} / {AV meanPG} however LINDA by continuity equation is 0.96 cm2 with SV indexed of 19.6 con cerning for low flow low gradient severe aortic stenosis. Would recommend low dose dobutamine stress echo, CT with calcium scoring or KENNEDY to further assess if clinically indicated. 13. Mild mitral regurgitation is present. 14. The peak and mean MV gradients are 13.08mmHg 4.39mmHg as measured by doppler. 15. Mild mitral stenosis. 16. Mitral valve clip 17. Mild tricuspid regurgitation present. 18. There is no pericardial effusion. SECURITY ORDERLY: Brooklyn Sung RDCS
--- NOTE | 2020-05-31 12:57 | CONS ---
CONSULTATION This is a 79-year-old gentleman with ischemic cardiomyopathy, prior PCI, who came into the hospital with mainly complaints of having some episodes of dizziness. He has a warm feeling of the back of his neck and then feels dizzy. While he was here he had short 3-4 beat runs of what seems to be PVCs. He did not have anything more than 5 beats in a row. Since he has been here. He has had no further episodes on the nuclear monitoring technician. We have seen 3-4 beats of PVCs. His biventricular ICD has been interrogated functioning well without any alerts to suggest any arrhythmia. He does have history of paroxysmal atrial fibrillation with ischemic cardiomyopathy, prior PCI and a biventricular ICD. At the time of my evaluation, he is resting comfortably without symptoms. He sees Dr. Benitez in the outpatient setting. PAST MEDICAL HISTORY: Remarkable for ischemic cardiomyopathy with prior PCI, paroxysmal/persistent atrial fibrillation, history of osteoarthritis, diabetes, hypertension, hyperlipidemia. He also has a history of prostate CA. His last intervention was performed in 2010, which was an LAD intervention. He also had previous carotid endarterectomy as well. MEDICATIONS: At home include carvedilol 6.25 mg b.i.d., Coumadin 1 mg daily, Flomax 0.4 mg daily, Aldactone 25 mg daily, mexiletine 150 mg t.i.d., amiodarone 200 mg at bedtime, atorvastatin 80 mg daily, Plavix 75 mg daily, and iron supplements and Lasix 80 mg b.i.d. LABORATORY DATA: Suggests that his potassium was 3.4, and he received an additional supplement. His magnesium level was acceptable. His troponins are unremarkable. Do not suggest any myocardial injury. PHYSICAL EXAMINATION: On examination, blood pressure is 130/70, pulse rate is 60 per minute, paced. There is JVD of 1 cm. No carotid bruit. Heart exam reveals S1, S2 heard normally. There is a short systolic murmur at the base and left sternal border. Lungs reveal decent air entry. Abdomen is soft, nontender. Lower extremities reveal diminished pulses. Central nervous system grossly within normal limits. IMPRESSION: 1. Palpitations with short runs of 3-4 beats of PVCs in a row. 2. Ischemic cardiomyopathy with prior PCI. 3. History of biventricular ICD, which has been checked recently. 4. Hypertension. 5. Hyperlipidemia. RECOMMENDATIONS: I am recommending that we supplement the potassium and also resume most of his medications and increase the carvedilol from 6.25 mg to 12.5 mg b.i.d. and see how he does and continue nuclear monitoring technician for the next 24 hours. If he has no further arrhythmia, he may be discharged, but I will speak to Dr. Benitez regarding this patient and see if he has any other additional thoughts. Thank you very much for the consult. GABI / TITI: [id number] /
[2020-05-31 13:26] LABS: Hemoglobin A1C 6.1 % (4.0-6.0)
[2020-05-31] MEDS ORDERED: CLOPIDOGREL 75 MG TAB PO STA (14:05)
[2020-05-31] MEDS ORDERED: SPIRONOLACTONE 25 MG TAB PO STA (14:05)
[2020-05-31] MEDS ORDERED: AMIODARONE 200 MG TAB PO STA (14:21)
[2020-05-31] MEDS ORDERED: DEXTROSE 5% IN WATER 100 ML with AMIODARONE 150 MG IV ONE (14:56)
[2020-05-31] MEDS ORDERED: FUROSEMIDE 80 MG TAB PO SCH (15:00)
[2020-05-31] MEDS: MEXILETINE 200 MG CAP PO SCH ×2 (15:46→21:54)
[2020-05-31] MEDS: SPIRONOLACTONE 25 MG TAB PO SCH (15:46)
[2020-05-31 16:46] LABS: Glucose,Whole Blood 190 mg/dL (75-99)
[2020-05-31] MEDS: carvediloL 12.5 MG TAB PO SCH (17:22)
[2020-05-31] MEDS: INSULIN ASPART (NovoLOG) 100 UNIT/ML VIAL SQ SCH ×2 (17:50→21:55)
[2020-05-31 20:17] LABS: Glucose,Whole Blood 344 mg/dL (75-99)
[2020-05-31 20:29] LABS: T4, Free (Free Thyroxine) 2.34 ng/dL (0.78-2.19)
[2020-05-31] MEDS ORDERED: AMIODARONE 200 MG TAB PO SCH (21:00)
[2020-05-31] MEDS ORDERED: POTASSIUM CHLORIDE ER 20 MEQ TAB.ER PO ONE (21:00)
[2020-05-31] MEDS ORDERED: FUROSEMIDE 40 MG TAB PO SCH (21:00)
[2020-05-31] MEDS: EZETIMIBE 10 MG TAB PO SCH (21:54)
[2020-05-31] MEDS: ATORVASTATIN 80 MG TAB PO SCH (21:54)
[2020-05-31] MEDS: AMIODARONE 200 MG TAB PO SCH (21:54)
[2020-05-31] MEDS: WARFARIN 1 MG TAB PO SCH (22:37)
[2020-06-01] MEDS: methIMAzole 5 MG TAB PO SCH ×4 (00:41→23:26)
[2020-06-01 06:13] LABS: Glucose,Whole Blood 141 mg/dL (75-99)
[2020-06-01] MEDS: carvediloL 12.5 MG TAB PO SCH ×2 (06:46→16:19)
[2020-06-01] MEDS: INSULIN ASPART (NovoLOG) 100 UNIT/ML VIAL SQ SCH ×4 (06:47→22:33)
[2020-06-01 08:52] LABS: Calcium 8.6 mg/dL (8.4-10.2)
[2020-06-01 09:00] LABS: INR 2.1 (<1.2); Prothrombin Time 20.1 sec (9.0-12.0)
[2020-06-01] MEDS ORDERED: SPIRONOLACTONE 25 MG TAB PO SCH (09:00)
[2020-06-01] MEDS ORDERED: ASPIRIN 325 MG TAB PO SCH (09:00)
[2020-06-01 09:03] LABS: Potassium 4.2 mmol/L (3.5-5.1)
[2020-06-01] MEDS: CLOPIDOGREL 75 MG TAB PO SCH (10:26)
[2020-06-01] MEDS: FERROUS SULFATE 325 MG TAB PO SCH (10:26)
[2020-06-01] MEDS: AMIODARONE 200 MG TAB PO SCH ×2 (10:26→10:43)
[2020-06-01] MEDS: ASPIRIN 81 MG PO SCH (10:26)
[2020-06-01] MEDS: FINASTERIDE 5 MG TAB PO SCH (10:27)
[2020-06-01] MEDS: MAGNESIUM OXIDE 400 MG TAB PO SCH (10:28)
[2020-06-01] MEDS: SPIRONOLACTONE 25 MG TAB PO SCH (10:29)
[2020-06-01] MEDS: allopurinoL 300 MG TAB PO SCH (10:35)
[2020-06-01] MEDS: MEXILETINE 200 MG CAP PO SCH ×3 (11:06→22:30)
[2020-06-01] MEDS: FUROSEMIDE 40 MG TAB PO SCH ×2 (11:07→16:19)
[2020-06-01 12:15] LABS: Glucose,Whole Blood 146 mg/dL (75-99)
--- NOTE | 2020-06-01 12:29 | P.PN ---
Subjective this is a pleasnt 79 yo M with past medical history of atrial fibrillation , mitral valve replacement, hypertension , hyperlipidemia, diabetes Mellitus , History of cardiomyopathy with EF 35-40%. s/p AICD, History of cardiomyopathy with EF 35-40%. s/p AICD chronic kidney disease ,osteoarthritis, hypothyroidism who presents because he was feeling hot flashes in the back of his head and tingling on the top of his head as he describes for 2 days associated with some bones problem. Patient states he was in the hospital and this happen again and they notice he has been tachycardic. Also he had some mild chest tightness. Currently he does not have any of these symptoms however he states he stayed in bed and not sure if still has bolus problem. However he denies weakness or numbness in extremities, no new blurred vision or difficulty swallowing. Vitas looks stable. Orthostatic vitals also showing no postural dizziness or hypotension. CBC is unremarkable. INR is 2.0. Sodium is 132, potassium 3.4, creatinine is 2.3, his baseline 1.8-2.0. Glucose controlled. troponin are negative 3. ProBNP is 3270. Urine analysis is not suspicious of infection. Chest x-ray: No acute process. EKG showing 60 BPM with dual paced rhythm [employer] Floor [employer] Wall Applier team were consulted from emergency room 06/01/2020 Patient symptoms of head numbness and tingling sensation are improved today. No chest pain or dyspnea. Vitals are stable and his mildly bradycardic, INR is 2.1 and BMP is unremarkable. Creatinine is 2.1 slightly less than yesterday. Cardiology team on the case Yesterday patient has elevated TSH and free T4. Patient informed and methimazol e was started with recommendation for outpatient follow-up Review of systems: CONSTITUTIONAL: No fever, no malaise, no fatigue. HEENT: No recent visual problems or hearing problems. Denied any sore throat. CARDIOVASCULAR: No orthopnea, PND, no palpitations, no syncope. PULMONARY: No shortness of breath, no cough, no hemoptysis. GASTROINTESTINAL: No diarrhea, no nausea, no vomiting, no abdominal pain. Normoactive bowel sounds. NEUROLOGICAL: No headaches, no weakness, no numbness. HEMATOLOGICAL: Denies any bleeding or petechiae. Active Medications Generic Name Dose Route Start Last Admin Trade Name Freq PRN Reason Stop Dose Admin Allopurinol 150 mg 06/01/20 09:00 06/01/20 10:35 Allopurinol 300 Mg Tab PO 150 mg DAILY CARYL Administration Amiodarone HCl 200 mg 05/31/20 21:00 06/01/20 10:43 Amiodarone 200 Mg Tab PO 200 mg BID CARYL Administration Aspirin 81 mg 06/01/20 09:00 06/01/20 10:26 Aspirin 81 Mg PO 81 mg DAILY CARYL Administration Atorvastatin Calcium 80 mg 05/31/20 21:00 05/31/20 21:54 Atorvastatin 80 Mg Tab PO 80 mg HS CARYL Administration Carvedilol 12.5 mg 05/31/20 17:30 06/01/20 06:46 Carvedilol 12.5 Mg Tab PO 12.5 mg BID-W/MEALS CARYL Administration Clopidogrel Bisulfate 75 mg 06/01/20 09:00 06/01/20 10:26 Clopidogrel 75 Mg Tab PO 75 mg DAILY CARYL Administration Ezetimibe 10 mg 05/31/20 21:00 05/31/20 21:54 Ezetimibe 10 Mg Tab PO 10 mg HS CARYL Administration Ferrous Sulfate 325 mg 06/01/20 09:00 06/01/20 10:26 Ferrous Sulfate 325 Mg Tab PO 325 mg DAILY CARYL Administration Finasteride 5 mg 06/01/20 09:00 06/01/20 10:27 Finasteride 5 Mg Tab PO 5 mg DAILY CARYL Administration Furosemide 40 mg 06/01/20 10:15 06/01/20 11:07 Furosemide 40 Mg Tab PO 40 mg BID@0900,1600 [facility] Administration Insulin Aspart 0 unit 05/31/20 17:45 06/01/20 06:47 Insulin Aspart (Novolog) 100 Unit/Ml Vial SQ Not Given ACHS [facility] Protocol Magnesium Oxide 400 mg 06/01/20 09:00 06/01/20 10:28 Magnesium Oxide 400 Mg Tab PO Not Given DAILY [facility] Methimazole 5 mg 05/31/20 23:45 06/01/20 10:28 Methimazole 5 Mg Tab PO 5 mg TID [facility] Administration Mexiletine HCl 200 mg 05/31/20 15:00 06/01/20 11:06 Mexiletine 200 Mg Cap PO 200 mg TID CARYL Administration Miscellaneous Information 0 each 05/31/20 10:44 Warfarin Per Pharmacy MISCELLANE DIRECTED PRN Per Protocol Spironolactone 25 mg 05/31/20 15:15 06/01/20 10:29 Spironolactone 25 Mg Tab PO 25 mg DAILY CARYL Administration Warfarin Sodium 1 mg 05/31/20 21:00 05/31/20 22:37 Warfarin 1 Mg Tab PO 1 mg HS CARYL Administration Protocol Objective - Vital Signs Vital signs: Vital Signs Temp 97.4 F L 06/01/20 11:56 Pulse 57 L 06/01/20 12:00 Resp 20 06/01/20 12:00 BP 109/55 06/01/20 11:56 Pulse Ox 96 06/01/20 11:56 Intake & Output 05/31/20 06/01/20 06/01/20 18:59 06:59 18:59 Intake Total 720 240 Output Total 650 1380 Balance 70 -1380 240 Weight 111.8 kg Intake: Oral 720 240 Output: Urine 650 1380 Other: Voiding Method Urinal Urinal Toilet # Voids 1 1 # Bowel Movements 0 0 - Exam GENERAL: The patient is alert and oriented x3, not in any acute distress. Well developed, well nourished. HEENT: Pupils are round and equally reacting to light. EOMI. No scleral icterus. No conjunctival pallor. Normocephalic, atraumatic. No pharyngeal erythema. No thyromegaly. CARDIOVASCULAR: S1 and S2 present. No murmurs, rubs, or gallops. PULMONARY: Chest is clear to auscultation, no wheezing or crackles. ABDOMEN: Soft, nontender, nondistended, normoactive bowel sounds. No palpable organomegaly. MUSCULOSKELETAL: No joint swelling or deformity. EXTREMITIES: No cyanosis, clubbing, or pedal edema. NEUROLOGICAL: Gross neurological examination did not reveal any focal deficits. SKIN: No rashes. no petechiae. - Labs CBC & Chem 7: 05/30/20 23:35 06/01/20 07:41 Labs: Abnormal Lab Results - Last 24 Hours (Table) 05/31/20 05/31/20 05/31/20 Range/Units 04:15 05:14 05:14 PT 20.1 H (9.0-12.0) sec INR 2.1 H (<1.2) Sodium (137-145) mmol/L BUN (9-20) mg/dL Creatinine (0.66-1.25) mg/dL Glucose (74-99) mg/dL POC Glucose (mg/dL) (75-99) mg/dL Hemoglobin A1c 6.1 H (4.0-6.0) % TSH 4.690 H (0.465-4.680) mIU/L Free T4 2.34 H (0.78-2.19) ng/dL 05/31/20 05/31/20 06/01/20 Range/Units 16:42 20:15 06:12 PT (9.0-12.0) sec INR (<1.2) Sodium (137-145) mmol/L BUN (9-20) mg/dL Creatinine (0.66-1.25) mg/dL Glucose (74-99) mg/dL POC Glucose (mg/dL) 190 H 344 H 141 H (75-99) mg/dL Hemoglobin A1c (4.0-6.0) % TSH (0.465-4.680) mIU/L Free T4 (0.78-2.19) ng/dL 06/01/20 06/01/20 06/01/20 Range/Units 07:41 07:41 12:10 PT 20.1 H (9.0-12.0) sec INR 2.1 H (<1.2) Sodium 131 L (137-145) mmol/L BUN 66 H (9-20) mg/dL Creatinine 2.15 H (0.66-1.25) mg/dL Glucose 174 H (74-99) mg/dL POC Glucose (mg/dL) 146 H (75-99) mg/dL Hemoglobin A1c (4.0-6.0) % TSH (0.465-4.680) mIU/L Free T4 (0.78-2.19) ng/dL Assessment and Plan Assessment: feeling of hot flashes in the back of her head with tingling in the top of her head associated with bolus problem and tachycardia as per patient. Cardiology team are involved to the patient Hyperthyroidism diabetes Mellitus atrial fibrillation history of severe valvular heart disease , unsure if pt had mitral valve replacement essential hypertension hyperlipidemia History of GERD History of cardiomyopathy with EF 35-40%. s/p AICD chronic kidney disease osteoarthritis hypothyroidism History of left carotid artery stenosis, History of prostate cancer History of sever pulmonary hypertension History of diverticular disease History of gout Plan: This is a pleasant 79 years old male who presents with dizziness. The cardiology consult recommendation. monitor INR and ask for physical therapy evaluation. Pacemaker interrogation as per cardiology team. Coreg dose was increased by cartilage team. Started the patient on methimazole Labs and medication were reviewed.. Continue same treatment. Continue with symptomatic treatment. Resume home medication. Monitor lytes and vitals. DVT and GI prophylaxis. Further recommendations depends on the clinical course of the patient DVT prophylaxis: On Coumadin GI Prophylaxis: Pepcid PT/OT: Pending Prognosis is guarded
--- NOTE | 2020-06-01 14:00 | PN ---
PROGRESS NOTE This is a 79-year-old gentleman with ischemic cardiomyopathy, status post stenting of LAD, also has a biventricular ICD and sees Dr. Benitez. Yesterday, he came into the hospital with some shortness of breath, episodes of palpitations and was found to have a runs of nonsustained VT. Based on this, I spoke to Dr. Benitez and he suggested a bolus of amiodarone followed by increase in the oral dose to 200 mg b.i.d. Since that was done around 4 -5 o'clock yesterday, he has not had any further arrhythmia. He looked comfortable, resting, breathing easier slightly pre renal. Will recheck his CBC, BMP and magnesium levels tomorrow. I am recommending that we continue amiodarone at a higher dose mexiletine was also increased. Creatinine is slightly elevated at 2.15. No overt heart failure. Blood pressure is 110/70, pulse rate is 70 per minute. JVD 1 cm, no carotid bruit. S1-S2 heard normally, short systolic murmur noted. Lungs reveal improved air entry. Abdomen and lower exam unchanged. Plan is to continue current medications, increase dose of amiodarone, mexiletine. Continue monitoring for another 24 hours. His thyroid functions are abnormal and Tapazole was started for elevated free T4. Prognosis remains guarded. We will continue the above-outlined plan. Discussed with the patient at length. Possible discharge tomorrow. GABI / TITI: [id number] /
[2020-06-01] MEDS ORDERED: DEXTROSE 5% IN WATER 100 ML with AMIODARONE 150 MG IV ONE ×2 (14:44→15:00)
[2020-06-01] MEDS ORDERED: AMIODARONE 360 MG in DEXTROSE 5% IN WATER 200 ML IV ONE ×2 (15:45)
[2020-06-01 17:01] LABS: Glucose,Whole Blood 216 mg/dL (75-99)
[2020-06-01 20:38] LABS: Glucose,Whole Blood 150 mg/dL (75-99)
[2020-06-01] MEDS: AMIODARONE 300 MG in DEXTROSE 5% IN WATER 250 ML IV SCH ×2 (22:26)
[2020-06-01] MEDS: WARFARIN 1 MG TAB PO SCH (22:30)
[2020-06-01] MEDS: ATORVASTATIN 80 MG TAB PO SCH (22:30)
[2020-06-01] MEDS: EZETIMIBE 10 MG TAB PO SCH (22:30)
[2020-06-02 06:13] LABS: Glucose,Whole Blood 127 mg/dL (75-99)
[2020-06-02] MEDS: INSULIN ASPART (NovoLOG) 100 UNIT/ML VIAL SQ SCH ×4 (06:18→21:14)
[2020-06-02] MEDS: carvediloL 12.5 MG TAB PO SCH ×2 (06:56→15:57)
[2020-06-02] MEDS: AMIODARONE 300 MG in DEXTROSE 5% IN WATER 250 ML IV SCH ×4 (07:48→21:16)
[2020-06-02] MEDS: ASPIRIN 81 MG PO SCH (07:50)
[2020-06-02] MEDS: MEXILETINE 200 MG CAP PO SCH ×3 (07:50→21:15)
[2020-06-02] MEDS: FERROUS SULFATE 325 MG TAB PO SCH (07:50)
[2020-06-02] MEDS: methIMAzole 5 MG TAB PO SCH ×3 (07:50→21:15)
[2020-06-02] MEDS: FINASTERIDE 5 MG TAB PO SCH (07:51)
[2020-06-02] MEDS: MAGNESIUM OXIDE 400 MG TAB PO SCH (07:51)
[2020-06-02] MEDS: FUROSEMIDE 40 MG TAB PO SCH ×2 (07:51→15:57)
[2020-06-02] MEDS: SPIRONOLACTONE 25 MG TAB PO SCH (07:51)
[2020-06-02] MEDS: allopurinoL 300 MG TAB PO SCH (07:51)
[2020-06-02] MEDS: CLOPIDOGREL 75 MG TAB PO SCH (07:51)
[2020-06-02 08:09] LABS: HCT 44.4 % (39.0-53.0); HGB 14.3 gm/dL (13.0-17.5); MCH 33.6 pg (25.0-35.0); MCHC 32.3 g/dL (31.0-37.0); Macrocytosis Slight; Mean Platelet Volume 7.5; Platelet Count 210 k/uL (150-450); RBC 4.26 m/uL (4.30-5.90); RDW 13.7 % (11.5-15.5)
[2020-06-02 08:19] LABS: Calcium 8.8 mg/dL (8.4-10.2); Magnesium 2.1 mg/dL (1.6-2.3); Potassium 4.4 mmol/L (3.5-5.1)
--- NOTE | 2020-06-02 10:47 | P.PN ---
Subjective this is a pleasnt 79 yo M with past medical history of atrial fibrillation , mitral valve replacement, hypertension , hyperlipidemia, diabetes Mellitus , History of cardiomyopathy with EF 35-40%. s/p AICD, History of cardiomyopathy with EF 35-40%. s/p AICD chronic kidney disease ,osteoarthritis, hypothyroidism who presents because he was feeling hot flashes in the back of his head and tingling on the top of his head as he describes for 2 days associated with some bones problem. Patient states he was in the hospital and this happen again and they notice he has been tachycardic. Also he had some mild chest tightness. Currently he does not have any of these symptoms however he states he stayed in bed and not sure if still has bolus problem. However he denies weakness or numbness in extremities, no new blurred vision or difficulty swallowing. Vitas looks stable. Orthostatic vitals also showing no postural dizziness or hypotension. CBC is unremarkable. INR is 2.0. Sodium is 132, potassium 3.4, creatinine is 2.3, his baseline 1.8-2.0. Glucose controlled. troponin are negative 3. ProBNP is 3270. Urine analysis is not suspicious of infection. Chest x-ray: No acute process. EKG showing 60 BPM with dual paced rhythm [employer] team were consulted from emergency room 06/01/2020 Patient symptoms of head numbness and tingling sensation are improved today. No chest pain or dyspnea. Vitals are stable and his mildly bradycardic, INR is 2.1 and BMP is unremarkable. Creatinine is 2.1 slightly less than yesterday. Cardiology team on the case Yesterday patient has elevated TSH and free T4. Patient informed and methimazol e was started with recommendation for outpatient follow-up 06/02/2020 Patient this morning is as symptomatic however last night he has an episode of chest heaviness for about 15 minutes and short episode of hot flashes in the back of his head for 2 seconds only. Currently he is hemodynamically stable He remains on amiodarone drip Discussed case with cardiology team, we'll keep monitoring for now. Also patient continued on methimazole for his thyroid disease. Patient informed about his hyperthyroidism and he agrees with the plan to follow up as an outpatient with director strategic planning Review of systems: CONSTITUTIONAL: No fever, no malaise, no fatigue. HEENT: No recent visual problems or hearing problems. Denied any sore throat. CARDIOVASCULAR: No orthopnea, PND, no palpitations, no syncope. PULMONARY: No shortness of breath, no cough, no hemoptysis. GASTROINTESTINAL: No diarrhea, no nausea, no vomiting, no abdominal pain. Normoactive bowel sounds. NEUROLOGICAL: No headaches, no weakness, no numbness. HEMATOLOGICAL: Denies any bleeding or petechiae. Active Medications Generic Name Dose Route Start Last Admin Trade Name Freq PRN Reason Stop Dose Admin Allopurinol 150 mg 06/01/20 09:00 06/02/20 07:51 Allopurinol 300 Mg Tab PO 150 mg DAILY CARYL Administration Atorvastatin Calcium 80 mg 05/31/20 21:00 06/01/20 22:30 Atorvastatin 80 Mg Tab PO 80 mg HS CARYL Administration Carvedilol 12.5 mg 05/31/20 17:30 06/02/20 06:56 Carvedilol 12.5 Mg Tab PO 12.5 mg BID-W/MEALS CARYL Administration Clopidogrel Bisulfate 75 mg 06/01/20 09:00 06/02/20 07:51 Clopidogrel 75 Mg Tab PO 75 mg DAILY CARYL Administration Ezetimibe 10 mg 05/31/20 21:00 06/01/20 22:30 Ezetimibe 10 Mg Tab PO 10 mg HS CARYL Administration Ferrous Sulfate 325 mg 06/01/20 09:00 06/02/20 07:50 Ferrous Sulfate 325 Mg Tab PO 325 mg DAILY CARYL Administration Finasteride 5 mg 06/01/20 09:00 06/02/20 07:51 Finasteride 5 Mg Tab PO 5 mg DAILY CARYL Administration Furosemide 40 mg 06/01/20 10:15 06/02/20 07:51 Furosemide 40 Mg Tab PO 40 mg BID@0900,1600 CARYL Administration Amiodarone HCl 300 mg/ 250 mls @ 25 mls/hr 06/01/20 21:45 06/02/20 07:48 Dextrose/Water IV 06/02/20 15:44 0.5 mg/min .Q10H CARYL 25 mls/hr Administration Protocol 0.5 MG/MIN Insulin Aspart 0 unit 05/31/20 17:45 06/02/20 06:18 Insulin Aspart (Novolog) 100 Unit/Ml Vial SQ Not Given ACHS CARYL Protocol Magnesium Oxide 400 mg 06/01/20 09:00 06/02/20 07:51 Magnesium Oxide 400 Mg Tab PO 400 mg DAILY CARYL Administration Methimazole 5 mg 05/31/20 23:45 06/02/20 07:50 Methimazole 5 Mg Tab PO 5 mg TID CARYL Administration Mexiletine HCl 200 mg 05/31/20 15:00 06/02/20 07:50 Mexiletine 200 Mg Cap PO 200 mg TID CARYL Administration Miscellaneous Information 0 each 05/31/20 10:44 Warfarin Per Pharmacy MISCELLANE DIRECTED PRN Per Protocol Spironolactone 25 mg 05/31/20 15:15 06/02/20 07:51 Spironolactone 25 Mg Tab PO 25 mg DAILY CARYL Administration Warfarin Sodium 1 mg 05/31/20 21:00 06/01/20 22:30 Warfarin 1 Mg Tab PO 1 mg HS CARYL Administration Protocol Objective - Vital Signs Vital signs: Vital Signs Temp 97.3 F L 06/02/20 07:35 Pulse 60 06/02/20 07:35 Resp 18 06/02/20 07:35 BP 121/57 06/02/20 07:35 Pulse Ox 96 06/02/20 07:35 Intake & Output 06/01/20 06/02/20 06/02/20 18:59 06:59 18:59 Intake Total 1100 100 474.167 Output Total 200 380 Balance 900 -280 474.167 Weight 113.5 kg Intake: Intake, IV Titration 100 234.167 Amount Amiodarone 300 mg In 234.167 Dextrose 5% in Water 250 ml @ 0.5 MG/MIN 25 mls/hr IV .Q10H CARYL Rx#: [id number] Dextrose 5% in Water 100 100 ml @ 100 mls/hr IV .Q1H2M ONE with Amiodarone 150 mg Rx#:[id number] Oral 1100 240 Output: Urine 200 380 Other: Voiding Method Toilet Urinal Bedside Commode Urinal # Voids 1 # Bowel Movements 1 - Exam GENERAL: The patient is alert and oriented x3, not in any acute distress. Well developed, well nourished. HEENT: Pupils are round and equally reacting to light. EOMI. No scleral icterus. No conjunctival pallor. Normocephalic, atraumatic. No pharyngeal erythema. No thyromegaly. CARDIOVASCULAR: S1 and S2 present. No murmurs, rubs, or gallops. PULMONARY: Chest is clear to auscultation, no wheezing or crackles. ABDOMEN: Soft, nontender, nondistended, normoactive bowel sounds. No palpable organomegaly. MUSCULOSKELETAL: No joint swelling or deformity. EXTREMITIES: No cyanosis, clubbing, or pedal edema. NEUROLOGICAL: Gross neurological examination did not reveal any focal deficits. SKIN: No rashes. no petechiae. - Labs CBC & Chem 7: 06/02/20 07:44 06/02/20 07:44 Labs: Abnormal Lab Results - Last 24 Hours (Table) 06/01/20 06/01/20 06/01/20 Range/Units 12:10 16:57 20:32 RBC (4.30-5.90) m/uL MCV (80.0-100.0) fL PT (9.0-12.0) sec INR (<1.2) Sodium (137-145) mmol/L BUN (9-20) mg/dL Creatinine (0.66-1.25) mg/dL Glucose (74-99) mg/dL POC Glucose (mg/dL) 146 H 216 H 150 H (75-99) mg/dL 06/02/20 06/02/20 06/02/20 Range/Units 06:05 07:44 07:44 RBC 4.26 L (4.30-5.90) m/uL MCV 104.0 H (80.0-100.0) fL PT 20.0 H (9.0-12.0) sec INR 2.0 H (<1.2) Sodium (137-145) mmol/L BUN (9-20) mg/dL Creatinine (0.66-1.25) mg/dL Glucose (74-99) mg/dL POC Glucose (mg/dL) 127 H (75-99) mg/dL 06/02/20 Range/Units 07:44 RBC (4.30-5.90) m/uL MCV (80.0-100.0) fL PT (9.0-12.0) sec INR (<1.2) Sodium 133 L (137-145) mmol/L BUN 66 H (9-20) mg/dL Creatinine 2.32 H (0.66-1.25) mg/dL Glucose 133 H (74-99) mg/dL POC Glucose (mg/dL) (75-99) mg/dL Assessment and Plan Assessment: feeling of hot flashes in the back of her head with tingling in the top of her head associated with bolus problem and tachycardia as per patient. Cardiology team are involved to the patient Hyperthyroidism diabetes Mellitus atrial fibrillation history of severe valvular heart disease , unsure if pt had mitral valve repl acement essential hypertension hyperlipidemia History of GERD History of cardiomyopathy with EF 35-40%. s/p AICD chronic kidney disease osteoarthritis hypothyroidism History of left carotid artery stenosis, History of prostate cancer History of sever pulmonary hypertension History of diverticular disease History of gout Plan: This is a pleasant 79 years old male who presents with dizziness. The cardiology consult recommendation. monitor INR and ask for physical therapy evaluation. Pacemaker interrogation as per cardiology team. Coreg dose was increased by cartilage team. Started the patient on methimazole Labs and medication were reviewed.. Continue same treatment. Continue with symptomatic treatment. Resume home medication. Monitor lytes and vitals. DVT and GI prophylaxis. Further recommendations depends on the clinical course of the patient DVT prophylaxis: On Coumadin GI Prophylaxis: Pepcid PT/OT: Pending Prognosis is guarded
--- NOTE | 2020-06-02 11:36 | PN ---
PROGRESS NOTE This is a 79-year-old obese gentleman with history of hypertension, hyperlipidemia, paroxysmal atrial fibrillation and episodes of nonsustained ventricular tachycardia for which he has a biventricular ICD. Yesterday, he was fairly stable without much arrhythmia, but towards the evening had so-so runs of nonsustained VT requiring a bolus and drip of amiodarone and he is still on 0.5 mg of amiodarone drip. Since about midnight, his ventricular ectopy has decreased substantially. I spoke to Dr. Benitez who feels that he may benefit from an ablation. He will re-evaluate him and look at the rhythm strips and make a decision. For now we will continue amiodarone and his other medications. Discussed my thoughts in detail with the patient. Vitals are stable. JVD 1 cm. No carotid bruit, S1-S2 heard normally. Short systolic murmur is audible. Lungs reveal improved air entry. Abdomen and lower extremity exam unchanged. The patient has improvement in nonsustained VT, but will be considered for a VT ablation by Dr. Benitez. I discussed this with the patient. MMODL / IJN: [id number] /
[2020-06-02 11:45] LABS: Glucose,Whole Blood 199 mg/dL (75-99)
[2020-06-02 16:52] LABS: Glucose,Whole Blood 111 mg/dL (75-99)
[2020-06-02 20:57] LABS: Glucose,Whole Blood 252 mg/dL (75-99)
[2020-06-02] MEDS: WARFARIN 1 MG TAB PO SCH (21:14)
[2020-06-02] MEDS: ATORVASTATIN 80 MG TAB PO SCH (21:14)
[2020-06-02] MEDS: EZETIMIBE 10 MG TAB PO SCH (21:15)
[2020-06-03] MEDS: AMIODARONE 300 MG in DEXTROSE 5% IN WATER 250 ML IV SCH ×2 (04:39)
[2020-06-03 05:55] LABS: Glucose,Whole Blood 124 mg/dL (75-99)
[2020-06-03] MEDS: INSULIN ASPART (NovoLOG) 100 UNIT/ML VIAL SQ SCH ×4 (06:34→21:56)
[2020-06-03] MEDS: carvediloL 12.5 MG TAB PO SCH ×2 (06:51→17:38)
--- NOTE | 2020-06-03 08:33 | P.PN ---
Subjective this is a pleasnt 79 yo M with past medical history of atrial fibrillation , mitral valve replacement, hypertension , hyperlipidemia, diabetes Mellitus , History of cardiomyopathy with EF 35-40%. s/p AICD, History of cardiomyopathy with EF 35-40%. s/p AICD chronic kidney disease ,osteoarthritis, hypothyroidism who presents because he was feeling hot flashes in the back of his head and tingling on the top of his head as he describes for 2 days associated with some bones problem. Patient states he was in the hospital and this happen again and they notice he has been tachycardic. Also he had some mild chest tightness. Currently he does not have any of these symptoms however he states he stayed in bed and not sure if still has bolus problem. However he denies weakness or numbness in extremities, no new blurred vision or difficulty swallowing. Vitas looks stable. Orthostatic vitals also showing no postural dizziness or hypotension. CBC is unremarkable. INR is 2.0. Sodium is 132, potassium 3.4, creatinine is 2.3, his baseline 1.8-2.0. Glucose controlled. troponin are negative 3. ProBNP is 3270. Urine analysis is not suspicious of infection. Chest x-ray: No acute process. EKG showing 60 BPM with dual paced rhythm [employer] team were consulted from emergency room 06/01/2020 Patient symptoms of head numbness and tingling sensation are improved today. No chest pain or dyspnea. Vitals are stable and his mildly bradycardic, INR is 2.1 and BMP is unremarkable. Creatinine is 2.1 slightly less than yesterday. Cardiology team on the case Yesterday patient has elevated TSH and free T4. Patient informed and methimazol e was started with recommendation for outpatient follow-up 06/02/2020 Patient this morning is as symptomatic however last night he has an episode of chest heaviness for about 15 minutes and short episode of hot flashes in the back of his head for 2 seconds only. Currently he is hemodynamically stable He remains on amiodarone drip Discussed case with cardiology team, we'll keep monitoring for now. Also patient continued on methimazole for his thyroid disease. Patient informed about his hyperthyroidism and he agrees with the plan to follow up as an outpatient with straw baler 06/03/2020 This is a pleasant 79 years old male who presents with episodic Flushes and tingling of the head associated with nonsustained V. tach, he has history of ischemic cardiomyopathy and he status post AICD, also he is on warfarin for his history of paroxysmal atrial fibrillation. He is been evaluated by vocational psychologist who found an echo with ejection fraction low at 35-40% with diastolic dysfunction. EP consult was obtained with Dr. Macdonald and is planning for VT ablation today. Clinically he is doing well with no more symptoms, he is currently on amiodarone Drip Vitals and labs were reviewed, labs from today are still pending Also patient found to have high per thyroidism with increased TSH and T4, patient was started on methimazole with recommendation for outpatient follow-up with his PCP and straw baler. Continue with amiodarone, warfarin, Plavix. Objective - Vital Signs Vital signs: Vital Signs Temp 97.6 F 06/03/20 04:00 Pulse 61 06/03/20 04:00 Resp 18 06/03/20 04:00 BP 112/55 06/03/20 04:00 Pulse Ox 98 06/03/20 04:00 Intake & Output 06/02/20 06/03/20 06/03/20 18:59 06:59 18:59 Intake Total 714.167 184.583 Output Total 400 Balance 314.167 184.583 Weight 113.9 kg Intake: Intake, IV Titration 234.167 184.583 Amount Amiodarone 300 mg In 234.167 Dextrose 5% in Water 250 ml @ 0.5 MG/MIN 25 mls/hr IV .Q10H CARYL Rx#: [id number] Amiodarone 300 mg In 184.583 Dextrose 5% in Water 250 ml @ 0.5 MG/MIN 25 mls/hr IV .Q10H CARYL Rx#: [id number] Oral 480 Output: Urine 400 Other: Voiding Method Bedside Commode Urinal - Exam GENERAL: The patient is alert and oriented x3, not in any acute distress. Well developed, well nourished. HEENT: Pupils are round and equally reacting to light. EOMI. No scleral icterus. No conjunctival pallor. Normocephalic, atraumatic. No pharyngeal erythema. No thyromegaly. CARDIOVASCULAR: S1 and S2 present. No murmurs, rubs, or gallops. PULMONARY: Chest is clear to auscultation, no wheezing or crackles. ABDOMEN: Soft, nontender, nondistended, normoactive bowel sounds. No palpable or ganomegaly. MUSCULOSKELETAL: No joint swelling or deformity. EXTREMITIES: No cyanosis, clubbing, or pedal edema. NEUROLOGICAL: Gross neurological examination did not reveal any focal deficits. SKIN: No rashes. no petechiae. - Labs CBC & Chem 7: 06/02/20 07:44 06/02/20 07:44 Labs: Abnormal Lab Results - Last 24 Hours (Table) 06/02/20 06/02/20 06/02/20 Range/Units 11:36 16:49 20:56 POC Glucose (mg/dL) 199 H 111 H 252 H (75-99) mg/dL 06/03/20 Range/Units 05:54 POC Glucose (mg/dL) 124 H (75-99) mg/dL Assessment and Plan Assessment: feeling of hot flashes in the back of her head with tingling in the top of her head associated with bolus problem and tachycardia as per patient. Cardiology team are involved to the patient Hyperthyroidism diabetes Mellitus atrial fibrillation history of severe valvular heart disease , unsure if pt had mitral valve replacement essential hypertension hyperlipidemia History of GERD History of cardiomyopathy with EF 35-40%. s/p AICD chronic kidney disease osteoarthritis hypothyroidism History of left carotid artery stenosis, History of prostate cancer History of sever pulmonary hypertension History of diverticular disease History of gout Plan: This is a pleasant 79 years old male who presents with dizziness. The cardiology consult recommendation. monitor INR and ask for physical therapy evaluation. Pacemaker interrogation as per cardiology team. Coreg dose was increased by cardiology team. Started the patient on methimazole Labs and medication were reviewed.. Continue same treatment. Continue with symptomatic treatment. Resume home medication. Monitor lytes and vitals. DVT and GI prophylaxis. Further recommendations depends on the clinical course of the patient DVT prophylaxis: On Coumadin GI Prophylaxis: Pepcid PT/OT: Pending Prognosis is guarded
[2020-06-03] MEDS: FERROUS SULFATE 325 MG TAB PO SCH (09:00)
[2020-06-03] MEDS: FUROSEMIDE 40 MG TAB PO SCH ×2 (09:00→17:38)
[2020-06-03] MEDS: MEXILETINE 200 MG CAP PO SCH ×3 (09:00→21:55)
[2020-06-03] MEDS: SPIRONOLACTONE 25 MG TAB PO SCH (09:00)
[2020-06-03] MEDS: FINASTERIDE 5 MG TAB PO SCH (09:00)
[2020-06-03] MEDS: CLOPIDOGREL 75 MG TAB PO SCH (09:00)
[2020-06-03] MEDS: allopurinoL 300 MG TAB PO SCH (09:00)
[2020-06-03] MEDS: methIMAzole 5 MG TAB PO SCH ×3 (09:00→21:55)
[2020-06-03] MEDS: MAGNESIUM OXIDE 400 MG TAB PO SCH (09:01)
[2020-06-03 09:36] LABS: INR 2.1 (<1.2); Prothrombin Time 20.4 sec (9.0-12.0)
[2020-06-03 12:11] LABS: Glucose,Whole Blood 208 mg/dL (75-99)
[2020-06-03 16:48] LABS: Glucose,Whole Blood 131 mg/dL (75-99)
[2020-06-03 20:32] LABS: Glucose,Whole Blood 160 mg/dL (75-99)
[2020-06-03] MEDS: WARFARIN 1 MG TAB PO SCH (21:55)
[2020-06-03] MEDS: ATORVASTATIN 80 MG TAB PO SCH (21:55)
[2020-06-03] MEDS: EZETIMIBE 10 MG TAB PO SCH (21:55)
[2020-06-04] MEDS: AMIODARONE 300 MG in DEXTROSE 5% IN WATER 250 ML IV SCH ×4 (04:01→13:20)
[2020-06-04 06:30] LABS: Glucose,Whole Blood 160 mg/dL (75-99)
[2020-06-04] MEDS: carvediloL 12.5 MG TAB PO SCH ×2 (06:56→17:32)
[2020-06-04] MEDS: INSULIN ASPART (NovoLOG) 100 UNIT/ML VIAL SQ SCH ×3 (06:56→17:34)
[2020-06-04] MEDS: SPIRONOLACTONE 25 MG TAB PO SCH (08:35)
[2020-06-04] MEDS: FINASTERIDE 5 MG TAB PO SCH (08:36)
[2020-06-04] MEDS: FUROSEMIDE 40 MG TAB PO SCH ×2 (08:36→15:59)
[2020-06-04] MEDS: FERROUS SULFATE 325 MG TAB PO SCH (08:36)
[2020-06-04] MEDS: CLOPIDOGREL 75 MG TAB PO SCH (08:36)
[2020-06-04] MEDS: allopurinoL 300 MG TAB PO SCH (08:36)
[2020-06-04] MEDS: MAGNESIUM OXIDE 400 MG TAB PO SCH (08:36)
[2020-06-04] MEDS: MEXILETINE 200 MG CAP PO SCH ×2 (08:38→15:59)
[2020-06-04] MEDS: methIMAzole 5 MG TAB PO SCH ×2 (08:38→15:59)
--- NOTE | 2020-06-04 11:17 | P.PN ---
Subjective This is a pleasant 79-year-old male past medical history significant for hypertension, dyslipidemia, paroxysmal atrial fibrillation and nonsustained ventricular tachycardia status post AICD. He is seen and examined resting comfortably lying flat in bed in no acute distress. Since being maintained on amiodarone infusion he has had no further runs of ventricular tachycardia. Dr. Macdonald has spoken with Dr. Sarah Reyna who is an mailroom assistant at the [facility] we are currently in the process of transferring the patient for higher level of care. Blood pressure 120/58 heart rate 68 afebrile maintaining oxygen saturation on room air. Currently maintained on amiodarone infusion, atorvastatin 80 mg at bedtime, carvedilol 12.5 mg twice a day, Plavix 75 mg daily, Zetia 10 mg daily, Lasix 40 mg by mouth twice a day, mexiletine 200 mg 3 times a day, Coumadin and Aldactone 25 mg daily. GENERAL: Well-appearing, well-nourished and in no acute distress. NECK: Supple without JVD or thyromegaly. LUNGS: Breath sounds clear to auscultation bilaterally. Respiration equal and unlabored. No wheezes, rales or rhonchi. HEART: Regular rate and rhythm with systolic ejection murmur at the left sternal border, no rubs or gallops. S1 and S2 heard. EXTREMITIES: Normal range of motion, no edema. No clubbing or cyanosis. Peripheral pulses intact. ASSESSMENT Nonsustained ventricular tachycardia Ischemic cardiomyopathy status post AICD Hypertension Dyslipidemia Chronic systolic heart failure, ejection fraction 35-40% Valvular heart disease status post mitral clip Paroxysmal atrial fibrillation on long-term anticoagulation Chronic kidney disease PLAN Continue amiodarone infusion. Coumadin for femoral embolic protection, check PT and INR daily. Currently pending transfer to [facility] for VT ablation. Nurse Practitioner note has been reviewed, I agree with a documented findings and plan of care. Patient was seen and examined. Objective - Vital Signs Vital signs: Vital Signs Temp 98.2 F 06/04/20 08:00 Pulse 60 06/04/20 08:00 Resp 17 06/04/20 08:00 BP 120/58 06/04/20 08:00 Pulse Ox 95 06/04/20 08:00 Intake & Output 06/03/20 06/04/20 06/04/20 18:59 06:59 18:59 Intake Total 1999 Output Total 1000 Balance -970 1999 Weight 113.1 kg Intake: Oral 1999 Output: Urine 1000 Other: # Voids 4 - Labs CBC & Chem 7: 06/02/20 07:44 06/02/20 07:44 Labs: Abnormal Lab Results - Last 24 Hours (Table) 06/03/20 06/03/20 06/03/20 Range/Units 12:10 16:47 20:26 POC Glucose (mg/dL) 208 H 131 H 160 H (75-99) mg/dL 06/04/20 Range/Units 06:27 POC Glucose (mg/dL) 160 H (75-99) mg/dL
[2020-06-04 11:27] LABS: INR 2.5 (<1.2); Prothrombin Time 24.1 sec (9.0-12.0)
[2020-06-04 11:39] LABS: Calcium 8.7 mg/dL (8.4-10.2); Potassium 4.1 mmol/L (3.5-5.1)
[2020-06-04 12:00] LABS: Glucose,Whole Blood 140 mg/dL (75-99)
--- NOTE | 2020-06-04 15:42 | PN ---
PROGRESS NOTE DATE OF SERVICE: 06/04/2020 This 79-year-old gentleman who was admitted with nonsustained ventricular tachycardia, ischemic cardiomyopathy and AICD is being closely monitored. The patient is on amiodarone drip at this time. Cardiology recommended possible transfusions. He was admitted for further evaluation and treatment. Sodium is 133. INR is 2.5. Hemoglobin is 14.3. Past medical history reviewed. REVIEW OF SYSTEMS: CARDIOVASCULAR SYSTEM: As mentioned earlier. RESPIRATORY SYSTEM: As mentioned earlier. GI: As mentioned earlier. : No dysuria or retention. CURRENT MEDICATIONS: Reviewed. They include Zyloprim, amiodarone drip, Lipitor, Coreg, Plavix, Zetia, iron sulfate, Proscar, Lasix, NovoLog, magnesium oxide, Tapazole, Mexitil, Aldactone, Coumadin. PHYSICAL EXAMINATION: Patient is alert and oriented x3. Pulse 60, blood pressure 124/54, respiration 18, temperature 98.4, pulse ox 98% on room air. HEENT: Conjunctivae normal. NECK: No jugular venous distention. CARDIOVASCULAR SYSTEM: S1, S2 muffled. RESPIRATORY SYSTEM: Breath sounds diminished at the bases. Scattered rhonchi and crackles. ABDOMEN: Soft, non-tender. LEGS: No edema. No swelling. NERVOUS SYSTEM: No focal deficit. LABS: WBC 10, hemoglobin is 14.3. Sodium is 133. Creatinine is 2.32. ASSESSMENT: 1. Non-sustained ventricular tachycardia, on amiodarone drip. 2. Ischemic cardiomyopathy, status post AICD. 3. Hyponatremia. 4. Renal failure, possibly acute on chronic, with acute tubular necrosis. 5. Chronic kidney disease, stage 3 baseline. 6. Sick euthyroid syndrome. 7. History of hypertension. 8. Dyslipidemia. 9. History of congestive heart failure with chronic systolic dysfunction, ejection fraction 35% to 40%. 10.Valvular heart disease. 11.Paroxysmal atrial fibrillation, on long-term anticoagulation. 12.History of coronary artery disease. 13.History of myocardial infarction. 14.History of carcinoma of the prostate. 15.History of left carotid artery stenosis. Awaiting stent placement. 16.History of AICD. 17.History of cholecystectomy. 18.Clipped mitral valve. RECOMMENDATIONS AND DISCUSSION: In this 79-year-old gentleman who presented with multiple complex medical issues, we will monitor the patient closely, continue the current medications, continue with symptomatic treatment, continue with amiodarone drip. Monitor on telemetry. Otherwise, I would also recommend repeat labs. Resume the home medications. We will continue to monitor. Guarded prognosis. Further recommendations to follow. GABI / ALMA DELIAN: [id number] /
[2020-06-04 15:59] VITALS: PULSE 60
[2020-06-04 17:35] LABS: Glucose,Whole Blood 150 mg/dL (75-99)
[2020-06-04 20:44] VITALS: BP 133/61; RESP 14; TEMP 97.8
[2020-06-04] MEDS ORDERED: TAMSULOSIN 0.4 MG CAP.ER.24H PO SCH (21:00)
[2020-06-04] MEDS ORDERED: PANTOPRAZOLE 40 MG TABLET PO SCH (21:00)
[2020-06-13] MEDS ORDERED: ERGOCALCIFEROL 50,000 UNIT CAP PO SCH (09:00)
== END 2020-06-04 20:30 | disposition short-term general hospital (02) | DRG 308 ==
LOC: EC 22:38 → 3SCARD 05-31 01:15 → OBSVTOIN 06-02 10:39
PROVIDERS: ADMIT Hospitalist; ATTEND Hospitalist
PROC: 4B02XSZ Measurement of Cardiac Pacemaker, External Approach (ICD-10-PCS; principal; 2020-06-02)
DX: I47.2 Ventricular tachycardia (principal); N17.0 Acute kidney failure with tubular necrosis; E87.1 Hypo-osmolality and hyponatremia; I13.0 Hypertensive heart and chronic kidney disease with heart failure and stage 1 through stage 4 chronic kidney disease, or unspecified chronic kidney disease; I50.22 Chronic systolic (congestive) heart failure; I25.10 Atherosclerotic heart disease of native coronary artery without angina pectoris; I25.5 Ischemic cardiomyopathy; I27.20 Pulmonary hypertension, unspecified; E78.5 Hyperlipidemia, unspecified; E03.9 Hypothyroidism, unspecified; E07.81 Sick-euthyroid syndrome; E66.9 Obesity, unspecified; E86.0 Dehydration; K21.9 Gastro-esophageal reflux disease without esophagitis; M19.90 Unspecified osteoarthritis, unspecified site; I08.3 Combined rheumatic disorders of mitral, aortic and tricuspid valves; N18.30 Chronic kidney disease, stage 3 unspecified; M10.9 Gout, unspecified; E11.22 Type 2 diabetes mellitus with diabetic chronic kidney disease; I49.3 Ventricular premature depolarization; I48.19 Other persistent atrial fibrillation; E05.90 Thyrotoxicosis, unspecified without thyrotoxic crisis or storm; M47.9 Spondylosis, unspecified; Z95.810 Presence of automatic (implantable) cardiac defibrillator; Z95.5 Presence of coronary angioplasty implant and graft; Z95.2 Presence of prosthetic heart valve; Z90.49 Acquired absence of other specified parts of digestive tract; Z85.46 Personal history of malignant neoplasm of prostate; Z79.01 Long term (current) use of anticoagulants; Z79.02 Long term (current) use of antithrombotics/antiplatelets; Z79.899 Other long term (current) drug therapy; Z88.8 Allergy status to other drugs, medicaments and biological substances; I25.2 Old myocardial infarction; Z68.34 Body mass index [BMI] 34.0-34.9, adult; Z87.01 Personal history of pneumonia (recurrent); Z98.890 Other specified postprocedural states; Z90.89 Acquired absence of other organs; Z82.49 Family history of ischemic heart disease and other diseases of the circulatory system
CPT/HCPCS: 36415; 71046; 80048; 80053; 81003; 83036; 83605; 83735; 83880; 84439; 84443; 84484; 85025; 85027; 85610; 93005; 93306; 99285

== ENCOUNTER → 2020-06-16 | Outpatient (CLI) | payer MEDICARE ==
[2020-06-16 21:19] LABS: African American GFR (CKD) 32.1 (60.0-200.0); Anion Gap 9.6 mmol/L (4.00-12.00); BUN/Creat Ratio 20.45 Ratio (12.00-20.00); Calcium 9.1 mg/dL (8.7-10.3); Carbon Dioxide 22.4 mmol/L (21.6-31.8); Magnesium 2.4 mg/dL (1.5-2.4); Non-African American GFR(CKD) 27.7 (60.0-200.0); Potassium 5.2 mmol/L (3.5-5.5)
== END | disposition home or self-care (01) ==
LOC: LABWHC1 10:27
DX: I47.2 Ventricular tachycardia (principal)
CPT/HCPCS: 36415; 80048; 83735

== ENCOUNTER → 2020-07-05 | Outpatient (CLI) | payer MEDICARE ==
[2020-07-05 18:51] LABS: African American GFR (CKD) 33.9 (60.0-200.0); BUN/Creat Ratio 14.76 Ratio (12.00-20.00); Calcium 8.9 mg/dL (8.7-10.3); Non-African American GFR(CKD) 29.3 (60.0-200.0); Potassium 3.7 mmol/L (3.5-5.5)
== END | disposition home or self-care (01) ==
LOC: LABWHC1 10:45
PROVIDERS: ATTEND Internal Medicine Interventional Cardiology
DX: I50.9 Heart failure, unspecified (principal)
CPT/HCPCS: 36415; 80048; 83735

== ENCOUNTER 2020-07-13 10:06 | Inpatient (IN) | payer MEDICARE ==
--- NOTE | 2020-07-13 10:31 | ED ---
GI Bleed HPI - General Chief complaint: GI Bleed Stated complaint: GI Bleed Time Seen by Provider: 07/13/20 10:29 Source: patient Mode of arrival: wheelchair Limitations: no limitations - History of Present Illness Initial comments: Pt is a 79yo male, with multiple comorbidities including heart disease, pacer with defibrillator, diabetes, presenting to the emergency department for a total bleeding that started last night. There is a mixture of dark and light red blood in the stools, he is going frequently. He denies any abdominal pain, no nausea or vomiting. He denies any chest pain, short of breath, cough. He states he is on Coumadin secondary to heart disease. Patient states he's had this issue one other time after a colonoscopy many years ago. He denies any urinary complaints. He denies any lightheadedness, dizziness. Patient states he did take his morning meds this morning including Protonix, and did take his dose a Coumadin last night. Patient had his INR checked last week but is unsure of the number. He has no further complaints at this time. Upon arrival to the ER, his vital signs are stable. - Related Data Home Medications Medication Instructions Recorded Confirmed Atorvastatin Calcium [Lipitor] 80 mg PO HS 04/29/14 07/13/20 Finasteride [Proscar] 5 mg PO DAILY 04/29/14 07/13/20 Clopidogrel [Plavix] 75 mg PO DAILY 10/19/15 07/13/20 calcitrioL [Calcitriol] 0.5 mcg PO FR@2100 07/25/16 07/13/20 Ergocalciferol (Vitamin D2) 50,000 unit PO Q30D 09/25/17 07/13/20 [Vitamin D2] Tamsulosin HCl [Flomax] 0.4 mg PO BID 09/25/17 07/13/20 allopurinoL [Zyloprim] 150 mg PO DAILY 09/25/17 07/13/20 Ferrous Sulfate [Iron (65 MG 325 mg PO DAILY 12/31/18 07/13/20 Elemental)] Spironolactone [Aldactone] 25 mg PO DAILY 12/31/18 07/13/20 Warfarin [Coumadin] 0.5 mg PO Q48H 12/31/18 07/13/20 Calcium 20meq(Unknown Otc) 1 tab PO DAILY 05/31/20 07/13/20 Ezetimibe [Zetia] 10 mg PO HS 05/31/20 07/13/20 Furosemide [Lasix] 80 mg PO BID@0900,1500 05/31/20 07/13/20 Magnesium Oxide [Mag-Ox] 400 mg PO DAILY 05/31/20 07/13/20 Pantoprazole [Protonix] 40 mg PO BID 05/31/20 07/13/20 Amiodarone HCl [Pacerone] 400 mg PO DAILY 07/13/20 07/13/20 Carvedilol [Coreg] 12.5 mg PO BID 07/13/20 07/13/20 Docusate [Colace] 100 mg PO DAILY PRN 07/13/20 07/13/20 Mexiletine [Mexitil] 200 mg PO TID 07/13/20 07/13/20 Warfarin [Coumadin] 1 mg PO Q48H 07/13/20 07/13/20 Allergies Allergy/AdvReac Type Severity Reaction Status Date / Time adhesive tape Allergy Severe BLISTERS Verified 07/13/20 11:58 Review of Systems ROS Statement: Those systems with pertinent positive or pertinent negative responses have been documented in the HPI. ROS Other: All systems not noted in ROS Statement are negative. Past Medical History Past Medical History: Atrial Fibrillation, Coronary Artery Disease (CAD), Cancer, Heart Failure, Diabetes Mellitus, GERD/Reflux, Hyperlipidemia, Hypertension, Myocardial Infarction ([place]), Osteoarthritis (OA), Pneumonia, Prostate Disorder, Renal Disease, Respiratory Disorder, Thyroid Disorder Additional Past Medical History / Comment(s): HX: systolic dysfunction heart failure with EF 35-40%, severe cardiomyopathy with AICD, severe pulmonary HTN, severe mitral and moderate tricuspid regurg,Stage 3 kidney disease,Hx CA prostate; L caratid artery stenosis-awaiting stent placement. bilateral cataracts, diverticular dx,Hx gout. Last Myocardial Infarction Date:: 1983 History of Any Multi-Drug Resistant Organisms: None Reported Past Surgical History: AICD, Appendectomy, Back Surgery, Cholecystectomy, Prost ate Surgery, Tonsillectomy Additional Past Surgical History / Comment(s): AICD 2008 with gen change 05/25/14, PCI with stent, R caratid endartectomy with reocclusion, back surgery x 2, bilateral breast lumpectomies, picc line in and out. MITRAL VALVE CLIPPED. Past Anesthesia/Blood Transfusion Reactions: No Reported Reaction Date of Last Stent Placement:: unkn Type of Cardiac Device: AICD Device Placement Date:: 2008 with gen change 05/25/14 Past Psychological History: No Psychological Hx Reported Smoking Status: Never smoker Past Alcohol Use History: None Reported Past Drug Use History: None Reported - Past Family History Father Family Medical History: Unable to Obtain Additional Family Medical History / Comment(s): Pt does not remember fathers health history. His father at age 82 yrs. Mother Family Medical History: Coronary Artery Disease (CAD) Additional Family Medical History / Comment(s): Mother during heart surgery when she was in her 50's General Exam - General Exam Comments Initial Comments: GENERAL: Patient is well-developed and well-nourished. Patient is nontoxic and in no acute distress. HEAD: Atraumatic, normocephalic. EYES: Pupils equal round and reactive to light, extraocular movements intact, sclera anicteric, conjunctiva are normal. Eyelids were unremarkable. ENT: TMs normal, nares patent, oropharynx clear without exudates. Moist mucous membranes. NECK: Normal range of motion, supple without lymphadenopathy or JVD. LUNGS: Unlabored respirations. Breath sounds clear to auscultation bilaterally and equal. No wheezes rales or rhonchi. HEART: Regular rate and rhythm without murmurs, rubs or gallops. ABDOMEN: Soft, nontender, normoactive bowel sounds. No guarding, no rebound. No masses appreciated. : Deferred Rectal exam was not performed in the ED secondary to patient being in a hallway bed. MUSCULOSKELETAL: Normal extremities with adequate strength and normal range of motion. Bilateral lower leg edema. No clubbing or cyanosis. NEUROLOGICAL: Patient is alert and oriented x 3. Motor and sensory are also intact. Cranial nerves II through XII grossly intact. Symmetrical smile. Normal speech, normal gait. PSYCH: Normal mood, normal affect. SKIN: Warm, Dry, normal turgor, no rashes or lesions noted. Limitations: no limitations Course Vital Signs 07/13/20 07/13/20 10:26 12:03 Temperature 97.7 F Pulse Rate 60 57 L Respiratory 18 18 Rate Blood Pressure 112/70 116/52 O2 Sat by Pulse 98 98 Oximetry Medical Decision Making - Medical Decision Making Patient is a 79-year-old male, with multiple comorbidities, presenting for a GI bleed that started last night. Patient is on Coumadin. He has no pain, no chest pain, no shortness of breath. His EKG shows a paced rhythm, no other abnormality seen. Vital signs stable upon arrival. Labs show normal white count, hemoglobin is 9.9 which is down from 1 month ago of 14.3. INR is 5.0, creatinine is stable at 2.38, lactic acid is 1.7. Patient was given Protonix in the ER and 2 g of vitamin K. Patient will be admitted for acute GI bleed. Patient is in agreement with this plan of care. Patient accepted by Dr. Mcginnis, case discussed with Dr. Daley. - Lab Data Result diagrams: 07/13/20 10:40 07/13/20 11:15 Lab Results 07/13/20 07/13/20 07/13/20 Range/Units 10:40 10:40 11:15 WBC 9.8 (3.8-10.6) k/uL RBC 2.92 L (4.30-5.90) m/uL Hgb 9.9 L D (13.0-17.5) gm/dL Hct 30.8 L (39.0-53.0) % MCV 105.4 H (80.0-100.0) fL MCH 33.9 (25.0-35.0) pg MCHC 32.2 (31.0-37.0) g/dL RDW 14.9 (11.5-15.5) % Plt Count 210 (150-450) k/uL MPV 7.6 Neutrophils % 84 % Lymphocytes % 8 % Monocytes % 5 % Eosinophils % 1 % Basophils % 0 % Neutrophils # 8.3 H (1.3-7.7) k/uL Lymphocytes # 0.8 L (1.0-4.8) k/uL Monocytes # 0.5 (0-1.0) k/uL Eosinophils # 0.1 (0-0.7) k/uL Basophils # 0.0 (0-0.2) k/uL Macrocytosis Moderate PT 49.8 H (9.0-12.0) sec INR 5.0 H (<1.2) APTT 37.8 H (22.0-30.0) sec Sodium (137-145) mmol/L Potassium (3.5-5.1) mmol/L Chloride (98-107) mmol/L Carbon Dioxide (22-30) mmol/L Anion Gap mmol/L BUN (9-20) mg/dL Creatinine (0.66-1.25) mg/dL Est GFR (CKD-EPI)AfAm (>60 ml/min/1.73 sqM) Est GFR (CKD-EPI)NonAf (>60 ml/min/1.73 sqM) Glucose (74-99) mg/dL Plasma Lactic Acid Tk (0.7-2.0) mmol/L Calcium (8.4-10.2) mg/dL Total Bilirubin (0.2-1.3) mg/dL AST (17-59) U/L ALT (4-49) U/L Alkaline Phosphatase (38-126) U/L Troponin I (0.000-0.034) ng/mL Total Protein (6.3-8.2) g/dL Albumin (3.5-5.0) g/dL Blood Type B Positive Blood Type Recheck B Pos Bld Type Recheck Status No Antibody Screen NEGATIVE Spec Expiration Date 07/16/2020 - 233907/13/20 07/13/20 07/13/20 Range/Units 11:15 11:15 11:15 WBC (3.8-10.6) k/uL RBC (4.30-5.90) m/uL Hgb (13.0-17.5) gm/dL Hct (39.0-53.0) % MCV (80.0-100.0) fL MCH (25.0-35.0) pg MCHC (31.0-37.0) g/dL RDW (11.5-15.5) % Plt Count (150-450) k/uL MPV Neutrophils % % Lymphocytes % % Monocytes % % Eosinophils % % Basophils % % Neutrophils # (1.3-7.7) k/uL Lymphocytes # (1.0-4.8) k/uL Monocytes # (0-1.0) k/uL Eosinophils # (0-0.7) k/uL Basophils # (0-0.2) k/uL Macrocytosis PT (9.0-12.0) sec INR (<1.2) APTT (22.0-30.0) sec Sodium 136 L (137-145) mmol/L Potassium 4.4 (3.5-5.1) mmol/L Chloride 104 (98-107) mmol/L Carbon Dioxide 25 (22-30) mmol/L Anion Gap 7 mmol/L BUN 46 H (9-20) mg/dL Creatinine 2.38 H (0.66-1.25) mg/dL Est GFR (CKD-EPI)AfAm 29 (>60 ml/min/1.73 sqM) Est GFR (CKD-EPI)NonAf 25 (>60 ml/min/1.73 sqM) Glucose 141 H (74-99) mg/dL Plasma Lactic Acid Tk 1.7 (0.7-2.0) mmol/L Calcium 8.6 (8.4-10.2) mg/dL Total Bilirubin 0.7 (0.2-1.3) mg/dL AST 36 (17-59) U/L ALT 17 (4-49) U/L Alkaline Phosphatase 109 (38-126) U/L Troponin I <0.012 (0.000-0.034) ng/mL Total Protein 5.8 L (6.3-8.2) g/dL Albumin 3.3 L (3.5-5.0) g/dL Blood Type Blood Type Recheck Bld Type Recheck Status Antibody Screen Spec Expiration Date - EKG Data EKG Comments: AV sequential or dual-chamber electronic pacer, no signs of acute process, ventricular rate 60, QRS duration 200, QT 524. Critical Care Time Critical Care Time: Yes Total Critical Care Time: 33 (GI bleed on Coumadin with an INR 5.0, 2 g of vitamin K was given, patient was admitted.) Disposition Clinical Impression: Elevated INR, GI bleed Disposition: ADMITTED IP TO THIS [facility] Condition: Stable Is patient prescribed a controlled substance at d/c from ED?: No Decision Date: 07/13/20 Decision Time: 12:52
[2020-07-13] MEDS ORDERED: PANTOPRAZOLE 40 MG/10 ML VIAL IVP STA ×2 (11:00→12:21)
[2020-07-13 11:16] LABS: Basophils % (A) 0 %; Eosinophils # (A) 0.1 k/uL (0-0.7); Eosinophils % (A) 1 %; HCT 30.8 % (39.0-53.0); Lymphocytes # (A) 0.8 k/uL (1.0-4.8); Lymphocytes % (A) 8 %; MCH 33.9 pg (25.0-35.0); MCHC 32.2 g/dL (31.0-37.0); MCV 105.4 fL (80.0-100.0); Macrocytosis Moderate; Mean Platelet Volume 7.6; Monocytes # (A) 0.5 k/uL (0-1.0); Monocytes % (A) 5 %; Neutrophils # (A) 8.3 k/uL (1.3-7.7); Neutrophils % (A) 84 %; Platelet Count 210 k/uL (150-450); RBC 2.92 m/uL (4.30-5.90); RDW 14.9 % (11.5-15.5); WBC 9.8 k/uL (3.8-10.6)
[2020-07-13 11:23] LABS: Albumin 3.3 g/dL (3.5-5.0); Calcium 8.6 mg/dL (8.4-10.2); Potassium 4.4 mmol/L (3.5-5.1); Total Bilirubin 0.7 mg/dL (0.2-1.3); Total Protein 5.8 g/dL (6.3-8.2)
[2020-07-13 11:30] LABS: HGB 9.9 gm/dL (13.0-17.5)
[2020-07-13 12:13] LABS: Partial Thromboplastin Time 37.8 sec (22.0-30.0); Prothrombin Time 49.8 sec (9.0-12.0)
[2020-07-13] MEDS ORDERED: PHYTONADIONE 2 MG in SODIUM CHLORIDE 0.9% 50 ML IVPB STA (12:21)
[2020-07-13] MEDS ORDERED: ACETAMINOPHEN TAB 325 MG TAB PO PRN (12:48)
[2020-07-13] MEDS ORDERED: NALOXONE 0.4 MG/ML 1 ML VIAL IV PRN (12:48)
[2020-07-13 18:39] LABS: Basophils # (A) 0.1 k/uL (0-0.2); Basophils % (A) 1 %; Eosinophils # (A) 0.1 k/uL (0-0.7); Eosinophils % (A) 1 %; HCT 29.4 % (39.0-53.0); HGB 9.7 gm/dL (13.0-17.5); Lymphocytes # (A) 1.1 k/uL (1.0-4.8); Lymphocytes % (A) 11 %; MCH 35.1 pg (25.0-35.0); MCHC 33.1 g/dL (31.0-37.0); MCV 106.1 fL (80.0-100.0); Macrocytosis Moderate; Mean Platelet Volume 7.5; Monocytes # (A) 0.7 k/uL (0-1.0); Monocytes % (A) 7 %; Neutrophils # (A) 8.2 k/uL (1.3-7.7); Neutrophils % (A) 78 %; Platelet Count 218 k/uL (150-450); RBC 2.77 m/uL (4.30-5.90); RDW 14.4 % (11.5-15.5); WBC 10.5 k/uL (3.8-10.6)
[2020-07-13 18:44] LABS: INR 4.2 (<1.2); Prothrombin Time 41.7 sec (9.0-12.0)
[2020-07-13] MEDS: AMIODARONE 200 MG TAB PO SCH (19:01)
[2020-07-13] MEDS: MAGNESIUM OXIDE 400 MG TAB PO SCH (19:01)
--- NOTE | 2020-07-13 21:45 | HP ---
HISTORY AND PHYSICAL DATE OF SERVICE: 07/13/2020 CHIEF COMPLAINT: GI bleed. HISTORY OF PRESENT ILLNESS: This 79-year-old gentleman with a past medical history of multiple medical problems including atrial fibrillation, CAD, history of CHF with diabetes mellitus, type 2, GERD, hypertension, hyperlipidemia, history of DJD, history of hypothyroidism, history of chronic systolic dysfunction, ejection fraction 35-40 percent, being followed by Dr. Mcfarlane in the outpatient setting, was noted to have multiple episodes of gastrointestinal bleeding started last night which was mixed with dark and light colored blood and because of increasing weakness, the patient is concerned, the patient had abdominal pain. The patient came to [facility] and was admitted for further evaluation and treatment. The patient had a colonoscopy several years ago, about 15 years ago at [facility]. The details are not available at this time. There is no history of fever, rigors. No history of headache, loss of consciousness, seizures. The hemoglobin was found to be 9.9, but however the previous hemoglobin the chart was couple months ago 14.3, indicating significant blood-loss anemia. INR was 5. Vitamin K was administered. Creatinine is 2.38 and the baseline creatinine was fluctuating at 2.1, indicating some acute on chronic renal failure. Patient admitted for further evaluation and treatment. There is no history of fever, rigors. No headache, loss of consciousness, seizures. No history of contact with Covid. PAST MEDICAL HISTORY: History atrial fibrillation, CAD, CHF, diabetes mellitus, type 2, GERD, hypertension, hyperlipidemia, history of DJD, hypothyroidism. MEDICATIONS: Medications prior to admission include home medications are Mexitil, Colace, Coumadin. Flomax, Aldactone, Protonix, magnesium oxalate, vitamin D2, Proscar, iron, Zetia, Plavix. Lipitor, calcitriol, Zyloprim, Coreg, Pacerone. ALLERGIES: noted FAMILY HISTORY: Unable to remember. SOCIAL HISTORY: Previous history of smoking. No history of alcohol. REVIEW OF SYSTEMS: ENT: Diminished vision. Diminished hearing. CARDIOVASCULAR system: No angina or palpitations. RESPIRATORY: As mentioned earlier. GI: As mentioned earlier. no dysuria. NERVOUS SYSTEM: No numbness or weakness. ALLERGY/IMMUNOLOGY: No asthma, or hayfever. MUSCULOSKELETAL as mentioned earlier. HEMATOLOGY/ONCOLOGY: As mentioned earlier. ENDOCRINE: No history of diabetes or hypothyroidism. CONSTITUTIONAL: As mentioned earlier. DERMATOLOGY: Negative. RHEUMATOLOGY negative. PSYCHIATRY as mentioned earlier. PHYSICAL EXAMINATION: Alert and oriented times three. Pulse 60. Blood pressure 112/70, respiration 18, temperature 97.7, pulse ox 98% on room air. HEENT is conjunctivae pale. Oral mucosa moist. NECK is no jugular venous distention. No carotid bruit. No lymph node enlargement. Cardiovascular system: S1, S2 muffled. No S3, no S4. RESPIRATION: Breath sounds diminished in the bases. A few scattered rhonchi and crackles. ABDOMEN: Soft. No discomfort. No guarding. No rigidity. No mass palpable. LEGS no edema. No swelling. NERVOUS SYSTEM: Higher functions as mentioned earlier. Moves all 4 limbs. No focal motor or sensory deficits. LYMPHATICS: No lymph nodes palpable in the neck, axilla or groin. JOINTS: No active deforming arthropathy. LABS: WBC 9.8, hemoglobin 9.9. INR is 5. Sodium 136, creatinine 2.38. ASSESSMENT: 1. Acute lower gastrointestinal bleeding with acute blood loss anemia possibly diverticular bleed. Rule out ischemic colitis. 2. Coumadin coagulopathy. 3. Increased MCV. 4. Hyponatremia. 5. Acute on chronic renal failure with acute tubular necrosis. 6. Chronic kidney stage 3 baseline. 7. History atrial fibrillation chronic. 8. History of coronary artery disease. 9. History of congestive heart failure, ejection fraction unknown. 10.Diabetes mellitus type 2. 11.History of gastroesophageal reflux disease. 12.Hypertension. 13.Hyperlipidemia. 14.Myocardial infarction. 15.History of degenerative joint disease. 16.History of pneumonia. 17.History of prostate disorder. 18.Hypothyroidism. 19.History of congestive heart failure with chronic systolic dysfunction, ejection fraction 35-40 percent with severe cardiomyopathy with AICD. 20.History of pulmonary hypertension. 21.Severe mitral, moderate tricuspid regurgitation. 22.History of carcinoma of the prostate. 23.Left carotid artery stenosis. Awaiting stent placement. 24.History of appendectomy. 25.History of back surgery/degenerative joint disease. 26.FULL CODE. 27.Obesity with body mass of 34.9. RECOMMENDATIONS AND DISCUSSION: This 79-year-old gentleman who presented with multiple complex medical issues, we will monitor the patient closely. Continue the current medications, management and symptomatic treatment. Otherwise vitamin K has been given. I would recommend 2 mg IV. Otherwise, we will monitor the PT/INR closely. Closely follow the hemoglobin q.6 and if hemoglobin less than 7 we will transfuse. We will obtain Gastroenterology consultation for possible colonoscopy. Resume the home medications. Hold antiplatelet agents also. We will continue the rest of medications. Medication reconciliation will be done. Prognosis guarded because of multiple complex medical issues. Further recommendations to follow. A copy of this dictation being forwarded to Dr. Mcfarlane who is the primary physician. BREEZYL / ALMA DELIAN: [id number] / SUNSHINE
[2020-07-13] MEDS: MEXILETINE 200 MG CAP PO SCH ×2 (22:06→22:07)
[2020-07-13] MEDS: TAMSULOSIN 0.4 MG CAP.ER.24H PO SCH (22:21)
[2020-07-13] MEDS: allopurinoL 300 MG TAB PO SCH (22:22)
[2020-07-13] MEDS: ATORVASTATIN 80 MG TAB PO SCH (22:22)
[2020-07-13] MEDS: PANTOPRAZOLE 40 MG TABLET PO SCH (22:22)
[2020-07-13] MEDS: carvediloL 12.5 MG TAB PO SCH (22:22)
[2020-07-14] MEDS: FINASTERIDE 5 MG TAB PO SCH ×2 (01:40→07:52)
[2020-07-14] MEDS: EZETIMIBE 10 MG TAB PO SCH ×2 (01:40→21:01)
[2020-07-14 05:03] LABS: Basophils # (A) 0.1 k/uL (0-0.2); Basophils % (A) 1 %; Eosinophils # (A) 0.1 k/uL (0-0.7); Eosinophils % (A) 1 %; HCT 27.6 % (39.0-53.0); HGB 9.2 gm/dL (13.0-17.5); Lymphocytes % (A) 10 %; MCH 35.1 pg (25.0-35.0); MCHC 33.3 g/dL (31.0-37.0); MCV 105.4 fL (80.0-100.0); Macrocytosis Moderate; Mean Platelet Volume 7.6; Monocytes # (A) 0.6 k/uL (0-1.0); Monocytes % (A) 6 %; Neutrophils # (A) 7.9 k/uL (1.3-7.7); Neutrophils % (A) 80 %; Platelet Count 194 k/uL (150-450); RBC 2.62 m/uL (4.30-5.90); RDW 14.5 % (11.5-15.5); WBC 9.8 k/uL (3.8-10.6)
[2020-07-14 05:16] LABS: INR 2.2 (<1.2); Prothrombin Time 21.7 sec (9.0-12.0)
[2020-07-14 05:38] LABS: Calcium 8.4 mg/dL (8.4-10.2); Potassium 4.1 mmol/L (3.5-5.1)
[2020-07-14] MEDS: FUROSEMIDE 80 MG TAB PO SCH ×2 (07:52→16:07)
[2020-07-14] MEDS: SPIRONOLACTONE 25 MG TAB PO SCH (07:52)
[2020-07-14] MEDS: allopurinoL 300 MG TAB PO SCH (07:52)
[2020-07-14] MEDS: TAMSULOSIN 0.4 MG CAP.ER.24H PO SCH ×2 (07:52→21:01)
[2020-07-14] MEDS: AMIODARONE 200 MG TAB PO SCH (07:52)
[2020-07-14] MEDS: PANTOPRAZOLE 40 MG TABLET PO SCH ×2 (07:53→21:01)
[2020-07-14] MEDS: carvediloL 12.5 MG TAB PO SCH ×2 (07:53→21:01)
[2020-07-14] MEDS: MEXILETINE 200 MG CAP PO SCH ×3 (07:53→21:51)
[2020-07-14] MEDS: MAGNESIUM OXIDE 400 MG TAB PO SCH (07:53)
--- NOTE | 2020-07-14 09:23 | XR ---
EXAMINATION TYPE: XR chest 2V DATE OF EXAM: 07/14/2020 COMPARISON: 05/31/2020 TECHNIQUE: PA and lateral views submitted. HISTORY: Shortness of breath FINDINGS: The lungs are clear and there is no pneumothorax, pleural effusion, or focal pneumonia. There is a cardiac device with interstitial pattern and hyperinflation. No pleural effusion or pneumothorax. No consolidative pneumonia. Diffuse osteopenia and arthropathy of the shoulder. Atherosclerotic change a grant. Mild cardiomegaly. Hypertrophic and degenerative change of the spine. IMPRESSION: 1. Stable mild cardiomegaly and mildly coarsened interstitium which is unchanged from the prior exam and therefore could represent chronic interstitial lung disease or congestion correlate clinically..
--- NOTE | 2020-07-14 12:26 | P.CRDCN ---
History of Present Illness History of present illness: HISTORY OF PRESENTING ILLNESS This is a pleasant 79-year-old male past medical history significant for hypertension, dyslipidemia, ischemic cardiomyopathy status post AICD, sustained ventricular tachycardia with slow rate, pulmonary hypertension, diabetes mellitus, valvular heart disease status post mitral clip, chronic kidney disease, chronic systolic heart failure, peripheral vascular disease status post right carotid endarterectomy and paroxysmal atrial fibrillation. He follows in the office with Dr. Benitez. We have been asked to see in consultation for heart failure. Stented to the hospital with symptoms of bleeding in the stool that started on Sunday night. He states he has noticed multiple episodes of bright red and black stools. He is maintained on warfarin secondary to A. fib and his INR on admission was 5 and hemoglobin of 9.9 with a repeat this morning of 9.2. His baseline on last admission was around 14. He also states after being discharged from the hospital in May there was adjustments made to his diuretic therapy. Since that time he has noticed increased shortness of breath and weight gain. He did follow-up in the office with Dr. Benitez in his diuretics were resumed at that time. His last hospitalization in May was for sustained ventricular tachycardia for which he was transferred to [facility] for high risk ablation. At that time the patient states he underwent cardiac catheterization and cardiac MRI. He was deemed too high risk to undergo ablation and had medication adjustments made. Most recent echocardiogram obtained in May 2020 revealed impaired LV systolic function with ejection fraction 35-40%, grade 2 diastolic dysfunction, basal inferior, basal inferior septal, mid inferior, apical septal and basal inferolateral wall hypokinesia, moderately dilated left atrium, mild aortic regurgitation, moderate to severe aortic stenosis, mild mitral regurgitation, mild mitral stenosis with a mean gradient of 4 mmHg, mild tricuspid regurgitation and mitral valve click noted. According to the patient lives at [facility] there was question about further valve surgery however when they performed the left heart catheterization the deemed that the valvular heart disease was not as bad as thought to be on echocardiogram. DIAGNOSTICS EKG reveals AV paced. No chest xray obtained on admission. Laboratory reviewed, WBC 9.8, hemoglobin 9.2, platelets 194, INR on admission 5. 0 repeat today 2.2, sodium 135, potassium 4.1, creatinine 2.47, cardiac enzymes negative 1. Current cardiac medications include mexiletine 200 mg 3 times a day, Coumadin, Aldactone 25 mg daily, Lasix 80 mg twice a day, Zetia 10 mg daily, Plavix 75 mg daily, atorvastatin 80 mg daily, amiodarone 400 mg daily and carvedilol 12.5 mg twice a day. REVIEW OF SYSTEMS At the time of my exam: CONSTITUTIONAL: Denies fever or chills. CARDIOVASCULAR: Complains of shortness of breath. Denies chest pain, orthopnea, PND or palpitations. RESPIRATORY: Denies cough. GASTROINTESTINAL: Complains of black and bright red stool. Denies abdominal pain, diarrhea, constipation, nausea or vomiting. MUSCULOSKELETAL: Denies myalgias. NEUROLOGIC: Denies numbness, tingling or weakness. ENDOCRINE: Denies fatigue, weight change, polydipsia or polyurina. GENITOURINARY: Denies burning, hematuria or urgency with micturation. HEMATOLOGIC: Denies history of anemia or bleeding. PHYSICAL EXAMINATION Blood pressure 118/55 heart rate 60 afebrile and maintaining oxygen saturation on room air. CONSTITUTIONAL: No apparent distress. HEENT: Head is normocephalic. Pupils are equal, round. Sclerae anicteric. Mucous membranes of the mouth are moist. No JVD. No carotid bruit. CHEST EXAMINATION: Lungs are clear to auscultation. No chest wall tenderness is noted on palpation or with deep breathing. HEART EXAMINATION: Regular rate and rhythm. S1, S2 heard. Systolic ejection murmur at the base and left sternal border, no gallops or rub. ABDOMEN: Soft, nontender. Positive bowel sounds. EXTREMITIES: 2+ peripheral pulses, trace bilateral lower extremity edema and no calf tenderness. NEUROLOGIC EXAMINATION: Patient is awake, alert and oriented x3. ASSESSMENT Acute GI bleeding Anemia secondary to above Paroxysmal atrial fibrillation maintained on Coumadin Supratherapeutic INR Chronic systolic heart failure Ischemic cardiomyopathy status post AICD Aortic stenosis Mitral regurgitation and stenosis status post mitral clip Chronic kidney disease History of sustained ventricular tachycardia Hypertension Dyslipidemia PLAN Obtain baseline chest x-ray. Check NT proBNP. Hold warfarin until evaluation by GI. Further recommendations to follow based on clinical course. Thank you kindly for this consultation. Nurse Practitioner note has been reviewed, I agree with a documented findings and plan of care. Patient was seen and examined. Past Medical History Past Medical History: Atrial Fibrillation, Coronary Artery Disease (CAD), Cancer, Heart Failure, Diabetes Mellitus, GERD/Reflux, Hyperlipidemia, Hypertension, Myocardial Infarction (NE), Osteoarthritis (OA), Pneumonia, Prostate Disorder, Renal Disease, Respiratory Disorder, Thyroid Disorder Additional Past Medical History / Comment(s): HX: systolic dysfunction heart failure with EF 35-40%, severe cardiomyopathy with AICD, severe pulmonary HTN, severe mitral and moderate tricuspid regurg,Stage 3 kidney disease,Hx CA prostate; L caratid artery stenosis-awaiting stent placement. bilateral cataracts, diverticular dx,Hx gout. Last Myocardial Infarction Date:: 1983 History of Any Multi-Drug Resistant Organisms: None Reported Past Surgical History: AICD, Appendectomy, Back Surgery, Cholecystectomy, Prosta te Surgery, Tonsillectomy Additional Past Surgical History / Comment(s): AICD 2008 with gen change 05/25/14, PCI with stent, R caratid endartectomy with reocclusion, back surgery x 2, bilateral breast lumpectomies, picc line in and out. MITRAL VALVE CLIPPED. Past Anesthesia/Blood Transfusion Reactions: No Reported Reaction Date of Last Stent Placement:: unkn Type of Cardiac Device: AICD Device Placement Date:: 2008 with gen change 05/25/14 Past Psychological History: No Psychological Hx Reported Smoking Status: Never smoker Past Alcohol Use History: None Reported Past Drug Use History: None Reported - Past Family History Father Family Medical History: Unable to Obtain Additional Family Medical History / Comment(s): Pt does not remember fathers health history. His father at age 82 yrs. Mother Family Medical History: Coronary Artery Disease (CAD) Additional Family Medical History / Comment(s): Mother during heart surgery when she was in her 50's Medications and Allergies Home Medications Medication Instructions Recorded Confirmed Type Atorvastatin Calcium [Lipitor] 80 mg PO HS 04/29/14 07/13/20 History Finasteride [Proscar] 5 mg PO DAILY 04/29/14 07/13/20 History Clopidogrel [Plavix] 75 mg PO DAILY 10/19/15 07/13/20 History calcitrioL [Calcitriol] 0.5 mcg PO FR@2100 07/25/16 07/13/20 History Ergocalciferol (Vitamin D2) 50,000 unit PO Q30D 09/25/17 07/13/20 History [Vitamin D2] Tamsulosin HCl [Flomax] 0.4 mg PO BID 09/25/17 07/13/20 History allopurinoL [Zyloprim] 150 mg PO DAILY 09/25/17 07/13/20 History Ferrous Sulfate [Iron (65 MG 325 mg PO DAILY 12/31/18 07/13/20 History Elemental)] Spironolactone [Aldactone] 25 mg PO DAILY 12/31/18 07/13/20 History Warfarin [Coumadin] 0.5 mg PO Q48H 12/31/18 07/13/20 History Calcium 20meq(Unknown Otc) 1 tab PO DAILY 05/31/20 07/13/20 History Ezetimibe [Zetia] 10 mg PO HS 05/31/20 07/13/20 History Furosemide [Lasix] 80 mg PO BID@0900,1500 05/31/20 07/13/20 History Magnesium Oxide [Mag-Ox] 400 mg PO DAILY 05/31/20 07/13/20 History Pantoprazole [Protonix] 40 mg PO BID 05/31/20 07/13/20 History Amiodarone HCl [Pacerone] 400 mg PO DAILY 07/13/20 07/13/20 History Carvedilol [Coreg] 12.5 mg PO BID 07/13/20 07/13/20 History Docusate [Colace] 100 mg PO DAILY PRN 07/13/20 07/13/20 History Mexiletine [Mexitil] 200 mg PO TID 07/13/20 07/13/20 History Warfarin [Coumadin] 1 mg PO Q48H 07/13/20 07/13/20 History Allergies Allergy/AdvReac Type Severity Reaction Status Date / Time adhesive tape Allergy Severe BLISTERS Verified 07/13/20 11:58 Physical Exam Vitals: Vital Signs Temp Pulse Pulse Resp BP BP Pulse Ox 07/14/20 07:45 98 F 60 18 118/55 97 07/14/20 03:56 98.1 F 62 18 117/50 97 07/14/20 00:00 97.9 F 60 18 114/46 97 07/13/20 22:33 18 07/13/20 20:00 96.9 F L 60 18 121/63 99 07/13/20 19:00 98.2 F 67 19 119/67 98 07/13/20 17:00 17 07/13/20 15:02 97.7 F 60 18 129/60 98 07/13/20 12:03 57 L 18 116/52 98 07/13/20 10:26 97.7 F 60 18 112/70 98 Intake and Output 07/13/20 07/14/20 07/14/20 22:59 06:59 14:59 Other: # Voids 2 Results 07/14/20 04:28 07/14/20 04:28 Cardiac Enzymes 07/13/20 07/13/20 Range/Units 11:15 11:15 AST 36 (17-59) U/L Troponin I <0.012 (0.000-0.034) ng/mL Coagulation 07/13/20 07/13/20 07/14/20 Range/Units 11:15 18:17 04:28 PT 49.8 H 41.7 H 21.7 H (9.0-12.0) sec APTT 37.8 H (22.0-30.0) sec CBC 07/13/20 07/13/20 07/14/20 Range/Units 10:40 18:17 04:28 WBC 9.8 10.5 9.8 (3.8-10.6) k/uL RBC 2.92 L 2.77 L 2.62 L (4.30-5.90) m/uL Hgb 9.9 L D 9.7 L 9.2 L (13.0-17.5) gm/dL Hct 30.8 L 29.4 L 27.6 L (39.0-53.0) % Plt Count 210 218 194 (150-450) k/uL Comprehensive Metabolic Panel 07/13/20 07/14/20 Range/Units 11:15 04:28 Sodium 136 L 135 L (137-145) mmol/L Potassium 4.4 4.1 (3.5-5.1) mmol/L Chloride 104 102 (98-107) mmol/L Carbon Dioxide 25 27 (22-30) mmol/L BUN 46 H 47 H (9-20) mg/dL Creatinine 2.38 H 2.47 H (0.66-1.25) mg/dL Glucose 141 H 102 H (74-99) mg/dL Calcium 8.6 8.4 (8.4-10.2) mg/dL AST 36 (17-59) U/L ALT 17 (4-49) U/L Alkaline Phosphatase 109 (38-126) U/L Total Protein 5.8 L (6.3-8.2) g/dL Albumin 3.3 L (3.5-5.0) g/dL Current Medications Generic Name Dose Route Start Last Admin Trade Name Freq PRN Reason Stop Dose Admin Acetaminophen 650 mg 07/13/20 12:48 Acetaminophen Tab 325 Mg Tab PO Q6HR PRN Mild Pain or Fever > 100.5 Allopurinol 150 mg 07/13/20 17:45 07/13/20 22:22 Allopurinol 300 Mg Tab PO 150 mg DAILY CARYL Administration Amiodarone HCl 400 mg 07/13/20 17:45 07/13/20 19:01 Amiodarone 200 Mg Tab PO 400 mg DAILY CARYL Administration Atorvastatin Calcium 80 mg 07/13/20 21:00 07/13/20 22:22 Atorvastatin 80 Mg Tab PO 80 mg HS CARYL Administration Calcitriol 0.5 mcg 07/16/20 21:00 Calcitriol 0.25 Mcg Cap PO FR@2100 [facility] Carvedilol 12.5 mg 07/13/20 21:00 07/13/20 22:22 Carvedilol 12.5 Mg Tab PO 12.5 mg BID CARYL Administration Ezetimibe 10 mg 07/13/20 21:00 07/14/20 01:40 Ezetimibe 10 Mg Tab PO 10 mg HS CARYL Administration Finasteride 5 mg 07/13/20 17:45 07/14/20 01:40 Finasteride 5 Mg Tab PO 5 mg DAILY CARYL Administration Furosemide 80 mg 07/14/20 09:00 Furosemide 80 Mg Tab PO BID@0900,1500 [facility] Magnesium Oxide 400 mg 07/13/20 17:45 07/13/20 19:01 Magnesium Oxide 400 Mg Tab PO 400 mg DAILY CARYL Administration Mexiletine HCl 200 mg 07/13/20 17:45 07/13/20 22:07 Mexiletine 200 Mg Cap PO Not Given TID CARYL Naloxone HCl 0.2 mg 07/13/20 12:48 Naloxone 0.4 Mg/Ml 1 Ml Vial IV Q2M PRN Opioid Reversal Pantoprazole Sodium 40 mg 07/13/20 21:00 07/13/20 22:22 Pantoprazole 40 Mg Tablet PO 40 mg BID CARYL Administration Spironolactone 25 mg 07/14/20 09:00 Spironolactone 25 Mg Tab PO DAILY CARYL Tamsulosin HCl 0.4 mg 07/13/20 21:00 07/13/20 22:21 Tamsulosin 0.4 Mg Cap.Er.24h PO 0.4 mg BID [facility] Administration Intake and Output 07/13/20 07/14/20 07/14/20 22:59 06:59 14:59 Other: # Voids 2 07/14/20 04:28 07/14/20 04:28
--- NOTE | 2020-07-14 15:22 | CONS ---
CONSULTATION DATE OF SERVICE: 07/14/2020 . REQUESTING PHYSICIAN: Dr. Mcginnis and Dr. Reece. REASON FOR CONSULTATION: Acute GI bleed. HISTORY OF PRESENT ILLNESS: The patient is a 79-year-old pleasant white male with history of atrial fibrillation, coronary artery disease, congestive heart failure, diabetes mellitus, came in the emergency room after having multiple episodes of acute GI bleed. He initially had some dark black stool followed by blood in the stool, had about 6 episodes he became somewhat lightheaded, came to the emergency room and subsequently admitted to the hospital for further evaluation. The patient has history of atrial fibrillation on Coumadin. His INR was 5. She was given 2 mg of IV vitamin K and this morning INR is down to 2.2. The patient has no further bleeding since this morning. He denies any abdominal pain. No nausea, no vomiting. He never had these symptoms in the past. His last colonoscopy was several years ago. No recent NSAID use. No prior history of peptic ulcer disease. PAST MEDICAL HISTORY: Significant for atrial fibrillation, congestive heart failure, coronary artery disease, diabetes mellitus, GERD, hypertension, hyperlipidemia, degenerative joint disease, hypothyroidism. MEDICATIONS: At home include Mexitil, Colace, Coumadin, Flomax, Aldactone, Protonix, magnesium oxide, vitamin D2, Proscar, iron, Zetia, Plavix, Lipitor, calcitriol, Zyloprim, Coreg and Pacerone. SOCIAL HISTORY: No smoking, no alcohol use. ALLERGIES: ADHESIVE TAPE. PAST SURGICAL HISTORY: AICD placement a few years ago, history of back surgery, appendectomy, cholecystectomy, prostate surgery, bilateral breast lumpectomy mitral valve clipping. FAMILY HISTORY: Father unremarkable, mother coronary artery disease. REVIEW OF SYSTEMS: CARDIOPULMONARY: He denies any chest pain, but he does complain of shortness of breath. : No dysuria or hematuria. MUSCULOSKELETAL: Unremarkable. SKIN: Unremarkable. ENDOCRINE: Unremarkable. PSYCHIATRIC:: Unremarkable. NEUROLOGY: Unremarkable. ENT/VISION: Unremarkable. CONSTITUTIONAL: No recent weight loss. No fever, chills, night sweats. PHYSICAL EXAMINATION: Blood pressure was 132/63, pulse rate 60, temperature 98. HEENT: Examination unremarkable, conjunctivae are pin, sclerae nonicteric, oral cavity no lesions. NECK: No JVD or lymph node enlargement. CHEST: Clear to auscultation. HEART: Regular rate and rhythm. ABDOMEN: Soft, bowel sounds are positive, no organomegaly. EXTREMITIES: No pedal edema. NEURO: He is alert and oriented x3. No focal deficits. LABS: WBC 9.8, hemoglobin was 9.9, this morning it is 9.2, platelets normal. INR was 5, it is 2.2 this morning, BUN 48, creatinine 2.47. IMPRESSION: 1. Acute GI bleed since yesterday. Patient had multiple episodes of black-colored stool followed by bright red blood per rectum. He had 6 episodes yesterday. Hemoglobin is 9.2 g/dL. His hemoglobin a month ago was 14.3 g/dL. His last colonoscopy was several years ago. No recent NSAID use. No prior history of peptic ulcer disease. 2. History of atrial fibrillation on Coumadin with an INR of 2.2. Currently, he received vitamin K 2 mg IV in the ER yesterday. 3. Chronic kidney disease with elevated BUN and creatinine. 4. History of AICD placement. RECOMMENDATIONS: 1. Start him a clear liquid diet. 2. Continue with Protonix 40 mg daily. 3. Monitor CBC daily. 4. Repeat INR in the morning. 5. Will proceed with EGD colonoscopy tomorrow. Discussed with the patient risks, benefits and complications and he is agreeable to it. Thank you for this consultation. GABI / ALMA DELIAN: [id number] /
[2020-07-14] MEDS ORDERED: PEG 3350-NA SULF,BICARB,CL/KCL 4,000 ML BOTTLE PO ONE (16:00)
[2020-07-14 16:49] LABS: Glucose,Whole Blood 106 mg/dL (75-99)
--- NOTE | 2020-07-14 17:58 | PN ---
PROGRESS NOTE DATE OF SERVICE: 07/14/2020 This 79-year-old gentleman admitted with significant bleeding which includes bright red blood and black tarry stools, is being closely monitored. Patient also has blood-loss anemia also. Hemoglobin is 9.2 at this time. No blood transfusion has been given so far. Gastroenterology following the patient closely. INR was 5. Vitamin K was given. Today INR is 2.2. Sodium is 133. Patient also had renal failure creatinine about 2.47. The baseline was fluctuating. Definitely there is no acute worsening at this time. Past medical history reviewed. REVIEW OF SYSTEMS: CARDIOVASCULAR SYSTEM: No angina or palpitations. RESPIRATION as mentioned earlier. GI: As mentioned earlier. : No dysuria. NERVOUS SYSTEM: No numbness or weakness. CURRENT MEDICATIONS: Reviewed and include: Tylenol, Zyloprim, Cordarone, Lipitor. Rocaltrol. Coreg, Zetia, Proscar, Lasix. Doses are reviewed. PHYSICAL EXAM: Patient is alert, oriented x3. Pulse 60. Blood pressure 109/54, respiratory rate 17, temperature 97.4, pulse ox 97% on room air. HEENT: Conjunctivae normal. NECK: No JVD. CARDIOVASCULAR: S1, S2 muffled. RESPIRATIONS: Breath sounds diminished in the bases. A few scattered rhonchi. ABDOMEN: Soft. Nontender. NERVOUS SYSTEM: No focal deficits. LABS: At this time shows WBC 9.8, hemoglobin 9.3. INR is 2.2. Sodium 135. Other labs are noted. ASSESSMENT: 1. Acute gastrointestinal bleeding possibly lower with blood loss anemia possibly diverticular bleed. Rule out ischemic colitis or peptic ulcer disease. 2. Coumadin coagulopathy. 3. Increased MCV. 4. Hyponatremia. 5. Acute on chronic renal failure, acute tubular necrosis. 6. Chronic kidney disease stage 3 baseline. 7. History of atrial fibrillation, chronic. 8. History of coronary artery disease. 9. History of congestive heart failure, ejection fraction unknown. 10.Diabetes mellitus type 2. 11.History of gastroesophageal reflux disease. 12.Hypertension. 13.Hyperlipidemia. 14.History of myocardial infarction. 15.History of degenerative joint disease. 16.History of pneumonia. 17.History of prostate disorder. 18.Hypothyroidism. 19.History of congestive heart failure with chronic systolic dysfunction, ejection fraction 35-40 percent with severe cardiomyopathy with AICD. 20.History of pulmonary hypertension. 21.History of severe mitral, moderate tricuspid regurgitation. 22.History of carcinoma of the prostate. 23.Left carotid artery stenosis, awaiting stent placement. 24.History of appendectomy. 25.History of back surgery, degenerative joint disease. 26.Obesity with body mass of 34.8. 27.FULL CODE. RECOMMENDATIONS AND DISCUSSION: I recommend to continue current medications. Symptomatic treatment. We will monitor hemoglobin further. Gastroenterology consultation, possible EGD, colonoscopy. Monitor PT, INR closely. I would also recommend nephrology consultation because of the worsening of the renal failure. Otherwise, continue the rest of medications. Avoid nephrotoxic medications. Guarded prognosis because of multiple complex medical issues. Further recommendations to follow. MMODL / IJN: [id number] /
[2020-07-14 20:10] LABS: Glucose,Whole Blood 187 mg/dL (75-99)
[2020-07-14] MEDS: ATORVASTATIN 80 MG TAB PO SCH (21:01)
[2020-07-15 06:21] LABS: Basophils % (A) 0 %; Eosinophils % (A) 0 %; HCT 27.3 % (39.0-53.0); HGB 9.1 gm/dL (13.0-17.5); Lymphocytes # (A) 0.8 k/uL (1.0-4.8); Lymphocytes % (A) 8 %; MCH 35.3 pg (25.0-35.0); MCHC 33.4 g/dL (31.0-37.0); MCV 105.7 fL (80.0-100.0); Macrocytosis Moderate; Mean Platelet Volume 7.5; Monocytes # (A) 0.5 k/uL (0-1.0); Monocytes % (A) 6 %; Neutrophils # (A) 7.5 k/uL (1.3-7.7); Neutrophils % (A) 84 %; Platelet Count 188 k/uL (150-450); RBC 2.59 m/uL (4.30-5.90); RDW 14.8 % (11.5-15.5)
[2020-07-15 06:59] LABS: Glucose,Whole Blood 125 mg/dL (75-99)
[2020-07-15] MEDS: TAMSULOSIN 0.4 MG CAP.ER.24H PO SCH ×2 (08:43→21:30)
[2020-07-15] MEDS: MAGNESIUM OXIDE 400 MG TAB PO SCH (08:43)
[2020-07-15] MEDS: FINASTERIDE 5 MG TAB PO SCH (08:43)
[2020-07-15] MEDS: carvediloL 12.5 MG TAB PO SCH ×2 (08:43→21:30)
[2020-07-15] MEDS: PANTOPRAZOLE 40 MG TABLET PO SCH ×2 (08:44→21:30)
[2020-07-15] MEDS: AMIODARONE 200 MG TAB PO SCH (08:44)
[2020-07-15] MEDS: FUROSEMIDE 80 MG TAB PO SCH ×2 (08:44→16:46)
[2020-07-15] MEDS: allopurinoL 300 MG TAB PO SCH (08:44)
[2020-07-15] MEDS: MEXILETINE 200 MG CAP PO SCH ×3 (08:44→21:30)
[2020-07-15] MEDS: SPIRONOLACTONE 25 MG TAB PO SCH (08:44)
[2020-07-15] MEDS ORDERED: MAGNESIUM CITRATE 296 ML BOTTLE PO ONE (09:00)
[2020-07-15 09:54] LABS: African American GFR (CKD) 28.9 (60.0-200.0); Anion Gap 10.1 mmol/L (4.00-12.00); BUN/Creat Ratio 18.33 Ratio (12.00-20.00); Calcium 8.5 mg/dL (8.7-10.3); Carbon Dioxide 25.9 mmol/L (21.6-31.8); Non-African American GFR(CKD) 24.9 (60.0-200.0)
[2020-07-15 10:17] LABS: INR 1.6 (0.90-1.11); Prothrombin Time 16.7 sec (9.9-11.9)
--- NOTE | 2020-07-15 10:48 | P.PN ---
Subjective Progress Note Date: 07/15/20 HISTORY OF PRESENT ILLNESS: This is a pleasant 79-year-old male past medical history significant for hypertension, dyslipidemia, ischemic cardiomyopathy status post AICD, sustained ventricular tachycardia with slow rate, pulmonary hypertension, diabetes mellitus, valvular heart disease status post mitral clip, chronic kidney disease, chronic systolic heart failure, periph eral vascular disease status post right carotid endarterectomy and paroxysmal atrial fibrillation. He follows in the office with Dr. Benitez. We have been asked to see in consultation for heart failure. Stented to the hospital with symptoms of bleeding in the stool that started on Sunday night. He states he has noticed multiple episodes of bright red and black stools. He is maintained on warfarin secondary to A. fib and his INR on admission was 5 and hemoglobin of 9.9 with a repeat this morning of 9.2. His baseline on last admission was around 14. He also states after being discharged from the hospital in May there was adjustments made to his diuretic therapy. Since that time he has noticed increased shortness of breath and weight gain. He did follow-up in the office with Dr. Benitez in his diuretics were resumed at that time. His last hospitalization in May was for sustained ventricular tachycardia for which he was transferred to [facility] for high risk ablation. At that time the patient states he underwent cardiac catheterization and cardiac MRI. He was deemed too high risk to undergo ablation and had medication adjustments made. Most recent echocardiogram obtained in May 2020 revealed impaired LV systolic function with ejection fraction 35-40%, grade 2 diastolic dysfunction, basal inferior, basal inferior septal, mid inferior, apical septal and basal inferolateral wall hypokinesia, moderately dilated left atrium, mild aortic regurgitation, moderate to severe aortic stenosis, mild mitral regurgitation, mild mitral stenosis with a mean gradient of 4 mmHg, mild tricuspid regurgitation and mitral valve click noted. According to the patient lives at [facility] there was question about further valve surgery however when they performed the left heart catheterization the deemed that the valvular heart disease was not as bad as thought to be on echocardiogram. 07/15/2020 Patient examined this morning at the bedside. He denies chest pain or pressure. Denies shortness of breath. Patient was scheduled for EGD/colonoscopy today. However, he did not finish his bowel prep and his procedure has been rescheduled for tomorrow. Hemoglobin 9.1. INR 1.60. Coumadin remains on hold. PHYSICAL EXAM: VITAL SIGNS: Reviewed. GENERAL: Well-developed in no acute distress. NECK: Supple. No JVD or thyromegaly LUNGS: Respirations even and unlabored. Lungs essentially clear to auscultation bilaterally. HEART: Regular rate and rhythm. S1 and S2 heard. Systolic murmur noted. EXTREMITIES: Normal range of motion. No clubbing or cyanosis. Peripheral pulses intact. Trace bilateral lower extremity edema ASSESSMENT: Acute GI bleeding Anemia secondary to above Paroxysmal atrial fibrillation maintained on Coumadin Supratherapeutic INR Chronic systolic heart failure Ischemic cardiomyopathy status post AICD Aortic stenosis Mitral regurgitation and stenosis status post mitral clip Chronic kidney disease History of sustained ventricular tachycardia Hypertension Dyslipidemia PLAN: Continue to hold Coumadin. Resume when okay with GI service. Patient to undergo EGD/colonoscopy tomorrow [facility]btain records [facility] Further recommendations pending patient course Nurse practitioner note has been reviewed by physician. Signing provider agrees with the documented findings, assessment, and plan of care. Objective - Vital Signs Vital signs: Vital Signs Temp 97.8 F 07/15/20 07:22 Pulse 62 07/15/20 08:45 Resp 18 07/15/20 08:45 BP 120/59 07/15/20 07:22 Pulse Ox 97 07/15/20 07:22 Intake & Output 07/14/20 07/15/20 07/15/20 18:59 06:59 18:59 Weight 86 kg Other: # Voids 1 # Bowel Movements 1 3 - Labs CBC & Chem 7: 07/15/20 05:54 07/15/20 05:54 Labs: Abnormal Lab Results - Last 24 Hours (Table) 07/14/20 07/14/20 07/15/20 Range/Units 16:39 20:09 05:54 RBC 2.59 L (4.30-5.90) m/uL Hgb 9.1 L (13.0-17.5) gm/dL Hct 27.3 L (39.0-53.0) % MCV 105.7 H (80.0-100.0) fL MCH 35.3 H (25.0-35.0) pg Lymphocytes # 0.8 L (1.0-4.8) k/uL PT (9.9-11.9) sec INR (0.90-1.11) BUN (9.0-27.0) mg/dL Creatinine (0.6-1.5) mg/dL Est GFR (CKD-EPI)AfAm (60.0-200.0) Est GFR (CKD-EPI)NonAf (60.0-200.0) Glucose (70-110) mg/dL POC Glucose (mg/dL) 106 H 187 H (75-99) mg/dL Calcium (8.7-10.3) mg/dL 07/15/20 07/15/20 07/15/20 Range/Units 05:54 05:54 06:57 RBC (4.30-5.90) m/uL Hgb (13.0-17.5) gm/dL Hct (39.0-53.0) % MCV (80.0-100.0) fL MCH (25.0-35.0) pg Lymphocytes # (1.0-4.8) k/uL PT 16.7 H (9.9-11.9) sec INR 1.60 H (0.90-1.11) BUN 44.0 H (9.0-27.0) mg/dL Creatinine 2.4 H (0.6-1.5) mg/dL Est GFR (CKD-EPI)AfAm 28.9 L (60.0-200.0) Est GFR (CKD-EPI)NonAf 24.9 L (60.0-200.0) Glucose 123 H (70-110) mg/dL POC Glucose (mg/dL) 125 H (75-99) mg/dL Calcium 8.5 L (8.7-10.3) mg/dL
--- NOTE | 2020-07-15 12:39 | P.NPCON ---
History of Present Illness - Reason for Consult acute renal failure, chronic renal failure - History of Present Illness Reason for consultation: Acute kidney injury and chronic kidney disease History of present illness: Patient is a 79-year-old male seen in renal consultation for acute kidney injury on chronic kidney disease. Patient has chronic kidney disease stage III with baseline creatinine in the range of 1.8-2 secondary to chronic essential nephritis and cardiorenal syndrome. Renal function stable this admission with creatinine around 2.4. He is maintained on Lasix 80 mg orally twice daily. Patient presented to the hospital with GI bleed. Patient states he noticed that his stool was dark and also noticed blood. Hemoglobin was 9.9 on admission and was 9.1 this morning. GI is following. He's scheduled for endoscopy tomorrow. Denies any hematuria or dysuria. No vomiting or diarrhea. No chest pain or shortness of breath. Blood pressure is stable. No edema. Patient also has si gnificant cardiac history with A. fib, systolic CHF status post AICD, aortic stenosis as well as mitral regurgitation and stenosis status post mitral clip. He denies use of nonsteroidals. Anticoagulation is currently held. Vital signs are stable. General: The patient appeared well nourished and normally developed. HEENT: Head exam is unremarkable. Neck is without jugular venous distension. LUNGS: Breath sounds decreased. HEART: Rate and Rhythm are regular. ABDOMEN: Soft, nontender. EXTREMITITES: No edema. Past Medical History Past Medical History: Atrial Fibrillation, Coronary Artery Disease (CAD), Cancer, Heart Failure, Diabetes Mellitus, GERD/Reflux, Hyperlipidemia, Hypertension, Myocardial Infarction (UT), Osteoarthritis (OA), Pneumonia, Pros brown Disorder, Renal Disease, Respiratory Disorder, Thyroid Disorder Additional Past Medical History / Comment(s): HX: systolic dysfunction heart failure with EF 35-40%, severe cardiomyopathy with AICD, severe pulmonary HTN, severe mitral and moderate tricuspid regurg,Stage 3 kidney disease,Hx CA prostate; L caratid artery stenosis-awaiting stent placement. bilateral ca taracts, diverticular dx,Hx gout. Last Myocardial Infarction Date:: 1983 History of Any Multi-Drug Resistant Organisms: None Reported Past Surgical History: AICD, Appendectomy, Back Surgery, Cholecystectomy, Prostate Surgery, Tonsillectomy Additional Past Surgical History / Comment(s): AICD 2008 with gen change 05/25/14, PCI with stent, R caratid endartectomy with reocclusion, back surgery x 2, bilateral breast lumpectomies, picc line in and out. MITRAL VALVE CLIPPED. Past Anesthesia/Blood Transfusion Reactions: No Reported Reaction Date of Last Stent Placement:: unkn Type of Cardiac Device: AICD Device Placement Date:: 2008 with gen change 05/25/14 Past Psychological History: No Psychological Hx Reported Smoking Status: Never smoker Past Alcohol Use History: None Reported Past Drug Use History: None Reported - Past Family History Father Family Medical History: Unable to Obtain Additional Family Medical History / Comment(s): Pt does not remember fathers health history. His father at age 82 yrs. Mother Family Medical History: Coronary Artery Disease (CAD) Additional Family Medical History / Comment(s): Mother during heart surgery when she was in her 50's Medications and Allergies Home Medications Medication Instructions Recorded Confirmed Type Atorvastatin Calcium [Lipitor] 80 mg PO HS 04/29/14 07/13/20 History Finasteride [Proscar] 5 mg PO DAILY 04/29/14 07/13/20 History Clopidogrel [Plavix] 75 mg PO DAILY 10/19/15 07/13/20 History calcitrioL [Calcitriol] 0.5 mcg PO FR@2100 07/25/16 07/13/20 History Ergocalciferol (Vitamin D2) 50,000 unit PO Q30D 09/25/17 07/13/20 History [Vitamin D2] Tamsulosin HCl [Flomax] 0.4 mg PO BID 09/25/17 07/13/20 History allopurinoL [Zyloprim] 150 mg PO DAILY 09/25/17 07/13/20 History Ferrous Sulfate [Iron (65 MG 325 mg PO DAILY 12/31/18 07/13/20 History Elemental)] Spironolactone [Aldactone] 25 mg PO DAILY 12/31/18 07/13/20 History Warfarin [Coumadin] 0.5 mg PO Q48H 12/31/18 07/13/20 History Calcium 20meq(Unknown Otc) 1 tab PO DAILY 05/31/20 07/13/20 History Ezetimibe [Zetia] 10 mg PO HS 05/31/20 07/13/20 History Furosemide [Lasix] 80 mg PO BID@0900,1500 05/31/20 07/13/20 History Magnesium Oxide [Mag-Ox] 400 mg PO DAILY 05/31/20 07/13/20 History Pantoprazole [Protonix] 40 mg PO BID 05/31/20 07/13/20 History Amiodarone HCl [Pacerone] 400 mg PO DAILY 07/13/20 07/13/20 History Carvedilol [Coreg] 12.5 mg PO BID 07/13/20 07/13/20 History Docusate [Colace] 100 mg PO DAILY PRN 07/13/20 07/13/20 History Mexiletine [Mexitil] 200 mg PO TID 07/13/20 07/13/20 History Warfarin [Coumadin] 1 mg PO Q48H 07/13/20 07/13/20 History Allergies Allergy/AdvReac Type Severity Reaction Status Date / Time adhesive tape Allergy Severe BLISTERS Verified 07/13/20 11:58 Physical Exam Vitals: Vital Signs Temp Pulse Pulse Resp BP Pulse Ox 07/15/20 08:45 62 18 07/15/20 07:22 97.8 F 62 18 120/59 97 07/15/20 02:25 97.5 F L 60 18 101/47 98 07/14/20 19:55 97.5 F L 60 16 117/71 97 07/14/20 14:04 60 18 07/14/20 13:26 97.4 F L 60 17 109/55 96 Intake and Output 07/14/20 07/15/20 07/15/20 22:59 06:59 14:59 Other: # Voids 1 # Bowel Movements 3 3 Weight 86 kg Results - Lab Results Most recent lab results Calcium 8.5 mg/dL (8.7-10.3) L 07/15/20 05:54 07/15/20 05:54 07/15/20 05:54 Assessment and Plan Plan: Assessment: 1. Acute kidney injury mostly prerenal secondary to cardiorenal syndrome. Creatinine 2.4 today. 2. Chronic kidney disease stage III with baseline creatinine in the range of 1.8-2 secondary to chronic interstitial nephritis and chronic cardiorenal syndrome. 3. Chronic systolic CHF with ejection fraction of 35-40% status post AICD. 4. Aortic stenosis. 5. Mitral stenosis and regurgitation status post mitral valve clip. 6. Acute GI bleed. Scheduled for endoscopy tomorrow. 7. Chronic kidney disease mineral bone disease maintained on calcitriol. Plan: Maintain Lasix. Avoid nephrotoxins. Check iron studies. Add Aranesp. Continue to monitor renal function and urine output. Thank you for the consultation. I will continue to follow the patient with you during his hospital stay.
[2020-07-15] MEDS ORDERED: DARBEPOETIN ALFA 40 MCG/0.4 ML SYRINGE SQ SCH (13:00)
--- NOTE | 2020-07-15 14:24 | P.PN ---
Subjective Progress Note Date: 07/15/20 This is a 79-year-old male who was recently admitted with significant bleeding per rectum with bright red and black tarry stools and is being closely monitored. Patient's INR was 5 on admission and received a dose of vitamin K. Patient was scheduled to undergo EGD/colonoscopy today although did not complete bowel prep and is currently doing so at this time. Patient continues to have bright red and black tarry stools noted in the bedside commode. Patient's current hemoglobin is 9.1 today and Coumadin is on hold with an INR of 1.6. Patient will undergo endoscopy tomorrow with GI. Patient is maintained on clear liquids and will be nothing by mouth at midnight again. Nephrology consulted and following along with GI and cardiology. Review of systems: Constitutional: No reports of fatigue, fever, or chills Cardiovascular: No reports of chest pain or palpitations Respiratory: No reports of shortness of breath or cough GI: No reports of nausea, vomiting, reports loose bloody stools currently undergoing bowel prep : No reports of dysuria or retention Neurovascular: Reports mild weakness with no reports of numbness All medications have been reviewed Active Medications Acetaminophen (Acetaminophen Tab 325 Mg Tab) 650 mg PO Q6HR PRN PRN Reason: Mild Pain or Fever > 100.5 Allopurinol (Allopurinol 300 Mg Tab) 150 mg PO DAILY [facility] Last Admin: 07/15/20 08:44 Dose: 150 mg Documented by: Amiodarone HCl (Amiodarone 200 Mg Tab) 400 mg PO DAILY [facility] Last Admin: 07/15/20 08:44 Dose: 400 mg Documented by: Atorvastatin Calcium (Atorvastatin 80 Mg Tab) 80 mg PO [facility] Last Admin: 07/14/20 21:01 Dose: 80 mg Documented by: Calcitriol (Calcitriol 0.25 Mcg Cap) 0.5 mcg PO FR@2100 [facility] Carvedilol (Carvedilol 12.5 Mg Tab) 12.5 mg PO BID [facility] Last Admin: 07/15/20 08:43 Dose: 12.5 mg Documented by: Darbepoetin Robel (Darbepoetin Robel 40 Mcg/0.4 Ml Syringe) 40 mcg SQ Q7D [facility] Last Admin: 07/15/20 13:21 Dose: 40 mcg Documented by: Ezetimibe (Ezetimibe 10 Mg Tab) 10 mg PO [facility] Last Admin: 07/14/20 21:01 Dose: 10 mg Documented by: Finasteride (Finasteride 5 Mg Tab) 5 mg PO DAILY [facility] Last Admin: 07/15/20 08:43 Dose: 5 mg Documented by: Furosemide (Furosemide 80 Mg Tab) 80 mg PO BID@0900,1500 [facility] Last Admin: 07/15/20 08:44 Dose: 80 mg Documented by: Magnesium Oxide (Magnesium Oxide 400 Mg Tab) 400 mg PO DAILY [facility] Last Admin: 07/15/20 08:43 Dose: 400 mg Documented by: Mexiletine HCl (Mexiletine 200 Mg Cap) 200 mg PO TID [facility] Last Admin: 07/15/20 08:44 Dose: 200 mg Documented by: Naloxone HCl (Naloxone 0.4 Mg/Ml 1 Ml Vial) 0.2 mg IV Q2M PRN PRN Reason: Opioid Reversal Pantoprazole Sodium (Pantoprazole 40 Mg Tablet) 40 mg PO BID [facility] Last Admin: 07/15/20 08:44 Dose: 40 mg Documented by: Spironolactone (Spironolactone 25 Mg Tab) 25 mg PO DAILY [facility] Last Admin: 07/15/20 08:44 Dose: 25 mg Documented by: Tamsulosin HCl (Tamsulosin 0.4 Mg Cap.Er.24h) 0.4 mg PO BID [facility] Last Admin: 07/15/20 08:43 Dose: 0.4 mg Documented by: Objective - Vital Signs Vital signs: Vital Signs Temp 97.8 F 07/15/20 07:22 Pulse 62 07/15/20 08:45 Resp 18 07/15/20 08:45 BP 120/59 07/15/20 07:22 Pulse Ox 97 07/15/20 07:22 Intake & Output 07/14/20 07/15/20 07/15/20 18:59 06:59 18:59 Weight 86 kg Other: # Voids 1 # Bowel Movements 1 3 - Exam Gen: This is a 79-year-old male awake, alert and oriented 3, well-developed, well-nourished. Obese 97.8F, pulse is 62, respirations are 18, blood pressure is 120/59, oxygen saturation is 97% on room air. HEENT: Head is atraumatic, normocephalic. Pupils equal, round. Sclerae is anicteric. NECK: Supple. No JVD. No lymphadenopathy. No thyromegaly. LUNGS: Diminished breath sounds at the bases with No wheezes or rhonchi. No intercostal retractions. HEART: S1, S2 are muffled ABDOMEN: Soft. Obese. Bowel sounds are present. No masses. No tenderness. EXTREMITIES: No pedal edema. No calf tenderness. NEUROLOGICAL: Patient is awake, alert and oriented x3. Cranial nerves 2 through 12 are grossly intact. - Labs CBC & Chem 7: 07/15/20 05:54 07/15/20 05:54 Labs: Abnormal Lab Results - Last 24 Hours (Table) 07/14/20 07/14/20 07/15/20 Range/Units 16:39 20:09 05:54 RBC 2.59 L (4.30-5.90) m/uL Hgb 9.1 L (13.0-17.5) gm/dL Hct 27.3 L (39.0-53.0) % MCV 105.7 H (80.0-100.0) fL MCH 35.3 H (25.0-35.0) pg Lymphocytes # 0.8 L (1.0-4.8) k/uL PT (9.9-11.9) sec INR (0.90-1.11) BUN (9.0-27.0) mg/dL Creatinine (0.6-1.5) mg/dL Est GFR (CKD-EPI)AfAm (60.0-200.0) Est GFR (CKD-EPI)NonAf (60.0-200.0) Glucose (70-110) mg/dL POC Glucose (mg/dL) 106 H 187 H (75-99) mg/dL Calcium (8.7-10.3) mg/dL 07/15/20 07/15/20 07/15/20 Range/Units 05:54 05:54 06:57 RBC (4.30-5.90) m/uL Hgb (13.0-17.5) gm/dL Hct (39.0-53.0) % MCV (80.0-100.0) fL MCH (25.0-35.0) pg Lymphocytes # (1.0-4.8) k/uL PT 16.7 H (9.9-11.9) sec INR 1.60 H (0.90-1.11) BUN 44.0 H (9.0-27.0) mg/dL Creatinine 2.4 H (0.6-1.5) mg/dL Est GFR (CKD-EPI)AfAm 28.9 L (60.0-200.0) Est GFR (CKD-EPI)NonAf 24.9 L (60.0-200.0) Glucose 123 H (70-110) mg/dL POC Glucose (mg/dL) 125 H (75-99) mg/dL Calcium 8.5 L (8.7-10.3) mg/dL Assessment and Plan Assessment: Acute gastrointestinal bleeding possibly lower with blood loss anemia possibly diverticular bleed. Rule out ischemic colitis or peptic ulcer disease Coumadin coagulopathy Increased MCV Hyponatremia Acute on chronic renal failure, acute tubular necrosis Chronic kidney disease stage III baseline History of atrial fibrillation, chronic History of coronary artery disease history of congestive heart failure, ejection fraction unknown Diabetes mellitus type 2 History of gastroesophageal reflux disease Hypertension Hyperlipidemia History of myocardial infarction History of degenerative joint disease history of pneumonia History of prostate disorder Hypothyroidism History of congestive heart failure with chronic systolic dysfunction, ejection fraction 35-40% with severe cardiomyopathy with AICD History of pulmonary hypertension History of severe mitral, moderate tricuspid regurgitation History of carcinoma of the prostate Left carotid artery stenosis, awaiting stent placement history of appendectomy history back surgery with DJD obesity with body mass index of 34.8 Full code Recommendations and discussion: Recommend to continue current medications, management, and symptomatic treatment. Continue to hold Coumadin as patient is scheduled to undergo EGD, colonoscopy in the morning. Current INR is 1.6. Patient continues to have bright red mixed with black tarry stools and is currently undergoing bowel prep. Hemoglobin is stable at 9.1 and will continue to monitor vital signs and labs closely. Multiple medical consultations following including nephrology, cardiology, and GI. Due to multiple complex medical issues, prognosis is guarded. Further recommendations to follow.
--- NOTE | 2020-07-15 15:26 | P.PN ---
Subjective Progress Note Date: 07/15/20 Principal diagnosis: Acute GI bleed This is a 71-year-old white male with a history of atrial fibrillation coronary artery disease who was Coumadin who came in to the emergency department after having multiple episodes of bloody stools. He patient initially had dark stools that followed with bright red. Upon admission to the hospital the patient's INR was 5 he was given 2 mg of IV vitamin K, today's INR is 1.6. He has had no further episodes of bleeding. He denies any abdominal pain, nausea, or vomiting. He was scheduled today for an EGD and colonoscopy, however failed to complete his prep. He is in agreement to complete his prep throughout the day today and will be scheduled tomorrow for an upper and lower endoscopy. Objective - Vital Signs Vital signs: Vital Signs Temp 97.8 F 07/15/20 07:22 Pulse 62 07/15/20 08:45 Resp 18 07/15/20 08:45 BP 120/59 07/15/20 07:22 Pulse Ox 97 07/15/20 07:22 Intake & Output 07/14/20 07/15/20 07/15/20 18:59 06:59 18:59 Weight 86 kg Other: # Voids 1 # Bowel Movements 1 3 - Exam General appearance: The patient is alert, oriented, in no acute distress. HET: Head is normocephalic and atraumatic. Conjunctiva pink. Sclera anicteric. Neck: Supple without lymphadenopathy. Abdomen: Soft, nontender, nondistended with bowel sounds. No guarding or rig idity. Extremities: Normal skin color and turgor. No pedal edema Neurological: No focal deficits. Alert and oriented 3. - Labs CBC & Chem 7: 07/15/20 05:54 07/15/20 05:54 Labs: Abnormal Lab Results - Last 24 Hours (Table) 07/14/20 07/14/20 07/15/20 Range/Units 16:39 20:09 05:54 RBC 2.59 L (4.30-5.90) m/uL Hgb 9.1 L (13.0-17.5) gm/dL Hct 27.3 L (39.0-53.0) % MCV 105.7 H (80.0-100.0) fL MCH 35.3 H (25.0-35.0) pg Lymphocytes # 0.8 L (1.0-4.8) k/uL PT (9.9-11.9) sec INR (0.90-1.11) BUN (9.0-27.0) mg/dL Creatinine (0.6-1.5) mg/dL Est GFR (CKD-EPI)AfAm (60.0-200.0) Est GFR (CKD-EPI)NonAf (60.0-200.0) Glucose (70-110) mg/dL POC Glucose (mg/dL) 106 H 187 H (75-99) mg/dL Calcium (8.7-10.3) mg/dL 07/15/20 07/15/20 07/15/20 Range/Units 05:54 05:54 06:57 RBC (4.30-5.90) m/uL Hgb (13.0-17.5) gm/dL Hct (39.0-53.0) % MCV (80.0-100.0) fL MCH (25.0-35.0) pg Lymphocytes # (1.0-4.8) k/uL PT 16.7 H (9.9-11.9) sec INR 1.60 H (0.90-1.11) BUN 44.0 H (9.0-27.0) mg/dL Creatinine 2.4 H (0.6-1.5) mg/dL Est GFR (CKD-EPI)AfAm 28.9 L (60.0-200.0) Est GFR (CKD-EPI)NonAf 24.9 L (60.0-200.0) Glucose 123 H (70-110) mg/dL POC Glucose (mg/dL) 125 H (75-99) mg/dL Calcium 8.5 L (8.7-10.3) mg/dL Assessment and Plan Assessment: 1. Acute GI bleed since yesterday. Patient had multiple episodes of black colored stool followed by bright red blood per rectum. He had 6 episodes with no further bleeding since admission. His admission hemoglobin was 9.2, a month ago was 14.3. His last colonoscopy was several years ago. No recent NSAID use. No prior history of peptic ulcer disease. Today's hemoglobin was 9.1, INR 1.6. The patient was scheduled for an upper and lower endoscopy today, however patient failed to complete his bowel prep. Patient is scheduled for an upper and lower endoscopy tomorrow. 2. History of atrial fibrillation on Coumadin with an visual INR of 5, he was given vitamin K 2 mg IV in the emergency room. His repeat INR today is 1.6. 3. Kidney disease with elevated BUN and creatinine 4. History of AICD placement Plan: 1. Continue clear liquid diet, nothing by mouth after midnight 2. Continue with Protonix 40 mg daily 3. Monitor CBC daily 4. Repeat INR in the morning 5. Continue with bowel prep today 6. Rescheduled for EGD and colonoscopy tomorrow. Risks, benefits, and complications discussed with the patient Dr. Julio Hill I agree with the dictator's note, documented as a scribe by Carlotta Arroyo.
[2020-07-15] MEDS ORDERED: LIDOCAINE 1% (10MG/ML) FOR IV START INTRADERMA PRN (18:31)
[2020-07-15 19:58] LABS: Glucose,Whole Blood 150 mg/dL (75-99)
[2020-07-15] MEDS: LACTATED RINGERS 1,000 ML IV SCH (20:20)
[2020-07-15] MEDS: EZETIMIBE 10 MG TAB PO SCH (21:30)
[2020-07-15] MEDS: ATORVASTATIN 80 MG TAB PO SCH (21:30)
[2020-07-15 21:55] LABS: Ferritin 42.3 ng/mL (22.0-322.0)
[2020-07-15 22:01] LABS: % Iron Saturation 7.89 (15.00-50.00)
[2020-07-16] MEDS ORDERED: PROPOFOL 10 MG/ML 20 ML VIAL IV ONE (07:03)
[2020-07-16] MEDS ORDERED: LACTATED RINGERS 1,000 ML IV ONE (07:11)
--- NOTE | 2020-07-16 07:45 | P.PCN ---
Date of Procedure: 07/16/20 Procedure(s) Performed: Brief history: Patient is a pleasant 79-year-old white scheduled for an male admitted hospital with acute GI bleed. He had multiple episodes of black stools followed by bright red blood per rectum for the last 2 days' duration. He has been on Coumadin which is currently on hold. INR the time of admission to hospital was 5 and was given vitamin K and yesterday it was 1.6. He scheduled for an upper endoscopy as well as colonoscoevaluate further. Procedure performed: Esophagogastroduodenoscopy Colonoscopy and snare polypectomy, argon plasma coagulation and biopsy Preoperative diagnosis: Acute GI bleed Anesthesia: MAC Procedure: After informed consent was obtained from the patient was brought into the endoscopy unit and IV sedation was administered by anesthesia under continuous monitoring. Initially upper endoscopy was done. The Olympus GF 160 video endoscope was inserted inserted into the mouth and esophagus intubated without any difficulty and was gradually advanced into the stomach and duodenum and carefully examined. The bulb and second part of the duodenum appeared normal. The scope was then withdrawn into the stomach adequately insufflated with air and upon careful examination the antrum and body, cardia and fundus appeared normal. The scope was then withdrawn into the esophagus. The GE junction was located at 40 cm to the incisors. It appeared regular with no erythema erosions or ulcerations. Rest of the esophagus appeared normal. Patient tolerated the procedure well. At this time the patient continued to remain sedation. Initial digital rectal examination was normal. Olympus CF 160 video colonoscope was then inserted into the rectum and gradually advanced to the cecum without any difficulty. Careful examination was performed as the scope was gradually being withdrawn. The prep was fair. In the base of the cecum there was a 5 mm nonbleeding AVM that was cauterized using argon plasma coagulation. The cecum, ascending colon, appeared normal. In the transverse colon there were 3 polyps measuring about 5 mm in size all of which were removed by snare polypectomy. In the descending colon there was a 7 mm polyp and 3 mm 2 polyps removed by snare polypectomy. In the sigmoid colon there was a 3 mm polyp that was removed by cold biopsy. Scattered sigmoid diverticulosis seen. Rest of the transverse colon, descending colon, sigmoid colon and rectum appeared normal. Retroflexion was performed in the rectum and no lesions were noted. Patient tolerated the procedure well. Impression: 1. Upper endoscopy revealed mild gastritis and small hiatal hernia but no active GI bleed 2. Colonoscopy revealed : a) 5 mm nonbleeding cecal AVM status post argon plasma coagulation b) 5 mm and 3 transverse colon polyps status post polypectomy c) 7-8 mm AND 3 mm 2 descending colon polyp status post polypectomy d) 3 mm sigmoid colon polyp status post biopsy e) sigmoid diverticula Recommendations: Findings of this examination were discussed with the patient . He was advised to follow with the biopsy. Coumadin can be resumed tomorrow. Diet will be advanced as tolerated.
[2020-07-16 08:08] LABS: Glucose,Whole Blood 101 mg/dL (75-99)
[2020-07-16 08:45] LABS: Basophils % (A) 1 %; Eosinophils % (A) 0 %; HCT 29.1 % (39.0-53.0); HGB 9.3 gm/dL (13.0-17.5); Hypochromasia Slight; Lymphocytes # (A) 0.8 k/uL (1.0-4.8); Lymphocytes % (A) 8 %; MCH 34.2 pg (25.0-35.0); MCHC 31.8 g/dL (31.0-37.0); MCV 107.3 fL (80.0-100.0); Macrocytosis Marked; Mean Platelet Volume 7.3; Monocytes # (A) 0.6 k/uL (0-1.0); Monocytes % (A) 7 %; Neutrophils # (A) 7.6 k/uL (1.3-7.7); Neutrophils % (A) 82 %; Platelet Count 221 k/uL (150-450); RBC 2.71 m/uL (4.30-5.90); RDW 15.6 % (11.5-15.5); WBC 9.2 k/uL (3.8-10.6)
[2020-07-16] MEDS: SPIRONOLACTONE 25 MG TAB PO SCH (09:39)
[2020-07-16] MEDS: MAGNESIUM OXIDE 400 MG TAB PO SCH (09:39)
[2020-07-16] MEDS: FINASTERIDE 5 MG TAB PO SCH (09:39)
[2020-07-16] MEDS: allopurinoL 300 MG TAB PO SCH (09:40)
[2020-07-16] MEDS: AMIODARONE 200 MG TAB PO SCH (09:40)
[2020-07-16] MEDS: PANTOPRAZOLE 40 MG TABLET PO SCH ×2 (09:40→22:31)
[2020-07-16] MEDS: carvediloL 12.5 MG TAB PO SCH ×2 (09:40→22:31)
[2020-07-16] MEDS: TAMSULOSIN 0.4 MG CAP.ER.24H PO SCH ×2 (09:40→22:31)
[2020-07-16] MEDS: FUROSEMIDE 80 MG TAB PO SCH ×2 (09:41→17:23)
[2020-07-16] MEDS: MEXILETINE 200 MG CAP PO SCH ×3 (09:41→22:31)
--- NOTE | 2020-07-16 10:44 | P.PN ---
Subjective Progress Note Date: 07/16/20 HISTORY OF PRESENT ILLNESS: This is a pleasant 79-year-old male past medical history significant for hypertension, dyslipidemia, ischemic cardiomyopathy status post AICD, sustained ventricular tachycardia with slow rate, pulmonary hypertension, diabetes mellitus, valvular heart disease status post mitral clip, chronic kidney disease, chronic systolic heart failure, periph eral vascular disease status post right carotid endarterectomy and paroxysmal atrial fibrillation. He follows in the office with Dr. Benitez. We have been asked to see in consultation for heart failure. Stented to the hospital with symptoms of bleeding in the stool that started on Sunday night. He states he has noticed multiple episodes of bright red and black stools. He is maintained on warfarin secondary to A. fib and his INR on admission was 5 and hemoglobin of 9.9 with a repeat this morning of 9.2. His baseline on last admission was around 14. He also states after being discharged from the hospital in May there was adjustments made to his diuretic therapy. Since that time he has noticed increased shortness of breath and weight gain. He did follow-up in the office with Dr. Benitez in his diuretics were resumed at that time. His last hospitalization in May was for sustained ventricular tachycardia for which he was transferred to [facility] for high risk ablation. At that time the patient states he underwent cardiac catheterization and cardiac MRI. He was deemed too high risk to undergo ablation and had medication adjustments made. Most recent echocardiogram obtained in May 2020 revealed impaired LV systolic function with ejection fraction 35-40%, grade 2 diastolic dysfunction, basal inferior, basal inferior septal, mid inferior, apical septal and basal inferolateral wall hypokinesia, moderately dilated left atrium, mild aortic regurgitation, moderate to severe aortic stenosis, mild mitral regurgitation, mild mitral stenosis with a mean gradient of 4 mmHg, mild tricuspid regurgitation and mitral valve click noted. According to the patient lives at [facility] there was question about further valve surgery however when they performed the left heart catheterization the deemed that the valvular heart disease was not as bad as thought to be on echocardiogram. 07/15/2020 Patient examined this morning at the bedside. He denies chest pain or pressure. Denies shortness of breath. Patient was scheduled for EGD/colonoscopy today. However, he did not finish his bowel prep and his procedure has been rescheduled for tomorrow. Hemoglobin 9.1. INR 1.60. Coumadin remains on hold. 07/16/2020 Patient examined this morning at the bedside. Patient underwent EGD and col onoscopy this morning. EGD revealed mild gastritis with small hiatal hernia but no active GI bleeding. Colonoscopy revealed nonbleeding cecal AVM and transverse, descending colon, and sigmoid colon polyps and sigmoid diverticula. Patient denies any further bleeding in his stools. He denies chest pain. He reports mild shortness of breath. Blood pressure 120/74. Heart rate in the 60s. Hemoglobin 9.3. PHYSICAL EXAM: VITAL SIGNS: Reviewed. GENERAL: Well-developed in no acute distress. NECK: Supple. No JVD or thyromegaly LUNGS: Respirations even and unlabored. Lungs essentially clear to auscultation bilaterally. HEART: Regular rate and rhythm. S1 and S2 heard. Systolic murmur noted. EXTREMITIES: Normal range of motion. No clubbing or cyanosis. Peripheral puls es intact. Trace bilateral lower extremity edema ASSESSMENT: Acute GI bleeding Anemia secondary to above Paroxysmal atrial fibrillation maintained on Coumadin Supratherapeutic INR Chronic systolic heart failure Ischemic cardiomyopathy status post AICD Aortic stenosis Mitral regurgitation and stenosis status post mitral clip Chronic kidney disease History of sustained ventricular tachycardia Hypertension Dyslipidemia PLAN: Will resume Coumadin tomorrow (okay with GI service) Monitor INR Monitor hemoglobin Further recommendations pending patient course Nurse practitioner note has been reviewed by physician. Signing provider agrees with the documented findings, assessment, and plan of care. Objective - Vital Signs Vital signs: Vital Signs Temp 97.7 F 07/16/20 08:07 Pulse 61 07/16/20 10:23 Resp 16 07/16/20 10:23 BP 100/58 07/16/20 10:23 Pulse Ox 95 07/16/20 10:23 Intake & Output 07/15/20 07/16/20 07/16/20 18:59 06:59 18:59 Intake Total 1000 500 Balance 1000 500 Weight 113.2 kg Intake: IV 500 Oral 1000 Other: Voiding Method Bedside Commode Bedside Commode Urinal # Bowel Movements 5 8 - Labs CBC & Chem 7: 07/16/20 08:14 07/15/20 05:54 Labs: Abnormal Lab Results - Last 24 Hours (Table) 07/15/20 07/15/20 07/15/20 Range/Units 05:54 05:54 19:57 RBC (4.30-5.90) m/uL Hgb (13.0-17.5) gm/dL Hct (39.0-53.0) % MCV (80.0-100.0) fL RDW (11.5-15.5) % Lymphocytes # (1.0-4.8) k/uL Macrocytosis POC Glucose (mg/dL) 150 H (75-99) mg/dL Iron 27 L (65-175) ug/dL % Saturation 7.89 L (15.00-50.00) TSH 5.600 H (0.350-5.500) uIU/mL 07/16/20 07/16/20 Range/Units 08:07 08:14 RBC 2.71 L (4.30-5.90) m/uL Hgb 9.3 L (13.0-17.5) gm/dL Hct 29.1 L (39.0-53.0) % MCV 107.3 H (80.0-100.0) fL RDW 15.6 H (11.5-15.5) % Lymphocytes # 0.8 L (1.0-4.8) k/uL Macrocytosis Marked A POC Glucose (mg/dL) 101 H (75-99) mg/dL Iron (65-175) ug/dL % Saturation (15.00-50.00) TSH (0.350-5.500) uIU/mL
[2020-07-16 11:21] LABS: INR 1.49 (0.90-1.11); Prothrombin Time 15.6 sec (9.9-11.9)
[2020-07-16 11:39] LABS: Glucose,Whole Blood 180 mg/dL (75-99)
[2020-07-16 11:43] LABS: African American GFR (CKD) 28.9 (60.0-200.0); Anion Gap 14.3 mmol/L (4.00-12.00); BUN/Creat Ratio 15.83 Ratio (12.00-20.00); Calcium 8.7 mg/dL (8.7-10.3); Carbon Dioxide 19.7 mmol/L (21.6-31.8); Magnesium 2.5 mg/dL (1.5-2.4); Non-African American GFR(CKD) 24.9 (60.0-200.0); Potassium 4.2 mmol/L (3.5-5.5)
--- NOTE | 2020-07-16 12:10 | P.PN ---
Subjective Patient is seen in follow-up for acute kidney injury on chronic kidney disease. Patient has chronic kidney disease stage III with baseline creatinine in the range of 1.8-2 secondary to chronic interstitial nephritis and cardiorenal syndrome. Creatinine stable at 2.4 today. Has been voiding. Hemoglobin stable. No active bleeding. Vital signs are stable. General: The patient appeared well nourished and normally developed. HEENT: Head exam is unremarkable. Neck is without jugular venous distension. LUNGS: Breath sounds decreased. HEART: Rate and Rhythm are regular. ABDOMEN: Soft, nontender. Obese. EXTREMITITES: No edema. Objective - Vital Signs Vital signs: Vital Signs Temp 97.7 F 07/16/20 08:07 Pulse 61 07/16/20 10:23 Resp 16 07/16/20 10:23 BP 100/58 07/16/20 10:23 Pulse Ox 95 07/16/20 10:23 Intake & Output 07/15/20 07/16/20 07/16/20 18:59 06:59 18:59 Intake Total 1000 500 Balance 1000 500 Weight 113.2 kg Intake: IV 500 Oral 1000 Other: Voiding Method Bedside Commode Bedside Commode Urinal # Bowel Movements 5 8 - Labs CBC & Chem 7: 07/16/20 08:14 07/16/20 08:14 Labs: Abnormal Lab Results - Last 24 Hours (Table) 07/15/20 07/15/20 07/15/20 Range/Units 05:54 05:54 19:57 RBC (4.30-5.90) m/uL Hgb (13.0-17.5) gm/dL Hct (39.0-53.0) % MCV (80.0-100.0) fL RDW (11.5-15.5) % Lymphocytes # (1.0-4.8) k/uL Macrocytosis PT (9.9-11.9) sec INR (0.90-1.11) Carbon Dioxide (21.6-31.8) mmol/L Anion Gap (4.00-12.00) mmol/L BUN (9.0-27.0) mg/dL Creatinine (0.6-1.5) mg/dL Est GFR (CKD-EPI)AfAm (60.0-200.0) Est GFR (CKD-EPI)NonAf (60.0-200.0) POC Glucose (mg/dL) 150 H (75-99) mg/dL Magnesium (1.5-2.4) mg/dL Iron 27 L (65-175) ug/dL % Saturation 7.89 L (15.00-50.00) TSH 5.600 H (0.350-5.500) uIU/mL 07/16/20 07/16/20 07/16/20 Range/Units 08:07 08:14 08:14 RBC 2.71 L (4.30-5.90) m/uL Hgb 9.3 L (13.0-17.5) gm/dL Hct 29.1 L (39.0-53.0) % MCV 107.3 H (80.0-100.0) fL RDW 15.6 H (11.5-15.5) % Lymphocytes # 0.8 L (1.0-4.8) k/uL Macrocytosis Marked A PT 15.6 H (9.9-11.9) sec INR 1.49 H (0.90-1.11) Carbon Dioxide (21.6-31.8) mmol/L Anion Gap (4.00-12.00) mmol/L BUN (9.0-27.0) mg/dL Creatinine (0.6-1.5) mg/dL Est GFR (CKD-EPI)AfAm (60.0-200.0) Est GFR (CKD-EPI)NonAf (60.0-200.0) POC Glucose (mg/dL) 101 H (75-99) mg/dL Magnesium (1.5-2.4) mg/dL Iron (65-175) ug/dL % Saturation (15.00-50.00) TSH (0.350-5.500) uIU/mL 07/16/20 07/16/20 Range/Units 08:14 11:37 RBC (4.30-5.90) m/uL Hgb (13.0-17.5) gm/dL Hct (39.0-53.0) % MCV (80.0-100.0) fL RDW (11.5-15.5) % Lymphocytes # (1.0-4.8) k/uL Macrocytosis PT (9.9-11.9) sec INR (0.90-1.11) Carbon Dioxide 19.7 L (21.6-31.8) mmol/L Anion Gap 14.30 H (4.00-12.00) mmol/L BUN 38.0 H (9.0-27.0) mg/dL Creatinine 2.4 H (0.6-1.5) mg/dL Est GFR (CKD-EPI)AfAm 28.9 L (60.0-200.0) Est GFR (CKD-EPI)NonAf 24.9 L (60.0-200.0) POC Glucose (mg/dL) 180 H (75-99) mg/dL Magnesium 2.5 H (1.5-2.4) mg/dL Iron (65-175) ug/dL % Saturation (15.00-50.00) TSH (0.350-5.500) uIU/mL Assessment and Plan Plan: Assessment: 1. Acute kidney injury mostly prerenal secondary to cardiorenal syndrome. Creatinine stable at 2.4 today. 2. Chronic kidney disease stage III with baseline creatinine in the range of 1.8-2 secondary to chronic interstitial nephritis and chronic cardiorenal syndrome. 3. Chronic systolic CHF with ejection fraction of 35-40% status post AICD. 4. Aortic stenosis. 5. Mitral stenosis and regurgitation status post mitral valve clip. 6. Acute GI bleed. Status post EGD and colonoscopy which revealed mild gastritis, nonbleeding AVM status post argon plasma coagulation and polyps that were removed and biopsied. Maintained on Aranesp. Iron deficiency noted. 7. Chronic kidney disease mineral bone disease maintained on calcitriol. Plan: Maintain Lasix. Avoid nephrotoxins. IV iron 3 doses. First dose today. Continue to monitor renal function and urine output.
[2020-07-16] MEDS: SODIUM FERRIC GLUCONAT-SUCROSE 125 MG in SODIUM CHLORIDE 0.9% 100 ML IVPB SCH (13:11)
--- NOTE | 2020-07-16 15:47 | P.PN ---
Subjective Progress Note Date: 07/16/20 This is a 79-year-old male who was recently admitted with significant bleeding per rectum with bright red and black tarry stools and is being closely monitored. Patient's INR was 5 on admission and received a dose of vitamin K. Patient was scheduled to undergo EGD/colonoscopy today although did not complete bowel prep and is currently doing so at this time. Patient continues to have bright red and black tarry stools noted in the bedside commode. Patient's current hemoglobin is 9.1 today and Coumadin is on hold with an INR of 1.6. Patient will undergo endoscopy tomorrow with GI. Patient is maintained on clear liquids and will be nothing by mouth at midnight again. Nephrology consulted and following along with GI and cardiology. 07/16/2020 Patient was seen and evaluated in follow-up receiving underwent EGD and colonoscopy with GI which showed mild gastritis and small hiatal hernia with no active GI bleed, colonoscopy shows multiple polyps and biopsies obtained, sigmoid diverticula, a 5 mm nonbleeding cecal AVM status post argon plasma coagulation. Patient is on Coumadin which can be resumed tomorrow. Current hemoglobin is stable at 9.3 with no active bleeding noted. Patient is t olerating diet with no reports of nausea or vomiting. Patient is also being followed by nephrology and creatinine is stable. Patient is receiving iron infusion at this time. Review of systems: Constitutional: No reports of fatigue, fever, or chills Cardiovascular: No reports of chest pain or palpitations Respiratory: No reports of shortness of breath or cough GI: No reports of nausea, vomiting : No reports of dysuria or retention Neurovascular: No reports of weakness, and no reports of numbness All medications have been reviewed Objective - Vital Signs Vital signs: Vital Signs Temp 97.7 F 07/16/20 08:07 Pulse 60 07/16/20 08:07 Resp 20 07/16/20 08:07 BP 103/61 07/16/20 08:07 Pulse Ox 94 L 07/16/20 08:07 Intake & Output 07/15/20 07/16/20 07/16/20 18:59 06:59 18:59 Intake Total 1000 500 Balance 1000 500 Weight 113.2 kg Intake: IV 500 Oral 1000 Other: Voiding Method Bedside Commode Bedside Commode Urinal # Bowel Movements 5 8 - Exam Gen: This is a 79-year-old male awake, alert and oriented 3, well-developed, well-nourished. Obese 97.7F, pulse is 60, respirations are 20, blood pressure is 103/61, oxygen saturation is 94% on room air. HEENT: Head is atraumatic, normocephalic. Pupils equal, round. Sclerae is anicteric. NECK: Supple. No JVD. No lymphadenopathy. No thyromegaly. LUNGS: Diminished breath sounds at the bases with No wheezes or rhonchi. No intercostal retractions. HEART: S1, S2 are muffled ABDOMEN: Soft. Obese. Bowel sounds are present. No masses. No tenderness. EXTREMITIES: No pedal edema. No calf tenderness. NEUROLOGICAL: Patient is awake, alert and oriented x3. Cranial nerves 2 through 12 are grossly intact. - Labs CBC & Chem 7: 07/16/20 08:14 07/16/20 08:14 Labs: Abnormal Lab Results - Last 24 Hours (Table) 07/15/20 07/15/20 07/15/20 Range/Units 05:54 05:54 05:54 RBC (4.30-5.90) m/uL Hgb (13.0-17.5) gm/dL Hct (39.0-53.0) % MCV (80.0-100.0) fL RDW (11.5-15.5) % Lymphocytes # (1.0-4.8) k/uL Macrocytosis PT 16.7 H (9.9-11.9) sec INR 1.60 H (0.90-1.11) BUN 44.0 H (9.0-27.0) mg/dL Creatinine 2.4 H (0.6-1.5) mg/dL Est GFR (CKD-EPI)AfAm 28.9 L (60.0-200.0) Est GFR (CKD-EPI)NonAf 24.9 L (60.0-200.0) Glucose 123 H (70-110) mg/dL POC Glucose (mg/dL) (75-99) mg/dL Calcium 8.5 L (8.7-10.3) mg/dL Iron (65-175) ug/dL % Saturation (15.00-50.00) TSH 5.600 H (0.350-5.500) uIU/mL 07/15/20 07/15/20 07/16/20 Range/Units 05:54 19:57 08:07 RBC (4.30-5.90) m/uL Hgb (13.0-17.5) gm/dL Hct (39.0-53.0) % MCV (80.0-100.0) fL RDW (11.5-15.5) % Lymphocytes # (1.0-4.8) k/uL Macrocytosis PT (9.9-11.9) sec INR (0.90-1.11) BUN (9.0-27.0) mg/dL Creatinine (0.6-1.5) mg/dL Est GFR (CKD-EPI)AfAm (60.0-200.0) Est GFR (CKD-EPI)NonAf (60.0-200.0) Glucose (70-110) mg/dL POC Glucose (mg/dL) 150 H 101 H (75-99) mg/dL Calcium (8.7-10.3) mg/dL Iron 27 L (65-175) ug/dL % Saturation 7.89 L (15.00-50.00) TSH (0.350-5.500) uIU/mL 07/16/20 Range/Units 08:14 RBC 2.71 L (4.30-5.90) m/uL Hgb 9.3 L (13.0-17.5) gm/dL Hct 29.1 L (39.0-53.0) % MCV 107.3 H (80.0-100.0) fL RDW 15.6 H (11.5-15.5) % Lymphocytes # 0.8 L (1.0-4.8) k/uL Macrocytosis Marked A PT (9.9-11.9) sec INR (0.90-1.11) BUN (9.0-27.0) mg/dL Creatinine (0.6-1.5) mg/dL Est GFR (CKD-EPI)AfAm (60.0-200.0) Est GFR (CKD-EPI)NonAf (60.0-200.0) Glucose (70-110) mg/dL POC Glucose (mg/dL) (75-99) mg/dL Calcium (8.7-10.3) mg/dL Iron (65-175) ug/dL % Saturation (15.00-50.00) TSH (0.350-5.500) uIU/mL Assessment and Plan Assessment: Acute gastrointestinal bleeding possibly lower with blood loss anemia possibly d iverticular bleed. Ruled out ischemic colitis or peptic ulcer disease Coumadin coagulopathy Increased MCV Hyponatremia Acute on chronic renal failure, acute tubular necrosis Chronic kidney disease stage III baseline History of atrial fibrillation, chronic History of coronary artery disease history of congestive heart failure, ejection fraction unknown Diabetes mellitus type 2 History of gastroesophageal reflux disease Hypertension Hyperlipidemia History of myocardial infarction History of degenerative joint disease history of pneumonia History of prostate disorder Hypothyroidism History of congestive heart failure with chronic systolic dysfunction, ejection fraction 35-40% with severe cardiomyopathy with AICD History of pulmonary hypertension History of severe mitral, moderate tricuspid regurgitation History of carcinoma of the prostate Left carotid artery stenosis, awaiting stent placement history of appendectomy history back surgery with DJD obesity with body mass index of 34.8 Full code Recommendations and discussion: Recommend to continue current medications, management, and symptomatic treatment. Continue to hold Coumadin and may resume tomorrow. Hemoglobin is stable at 9.3 and will continue to monitor vital signs and labs closely. Patient is receiving iron transfusions and may need iron supplements upon discharge. No active bleeding noted at this time. It has been resumed. Multiple medical consultations following including nephrology, cardiology, and GI. Due to multiple complex medical issues, prognosis is guarded. Further recommendations to follow. Patient will need to follow-up with GI in the outpatient setting for biopsy results from colonoscopy. Possible discharge in 24 hours.
[2020-07-16 17:03] LABS: Glucose,Whole Blood 147 mg/dL (75-99)
[2020-07-16] MEDS ORDERED: WARFARIN 0.5 MG TAB PO ONE (18:00)
[2020-07-16 20:33] LABS: Glucose,Whole Blood 146 mg/dL (75-99)
[2020-07-16] MEDS: ATORVASTATIN 80 MG TAB PO SCH (22:31)
[2020-07-16] MEDS: EZETIMIBE 10 MG TAB PO SCH (22:31)
[2020-07-16] MEDS: LACTATED RINGERS 1,000 ML IV SCH (23:20)
[2020-07-17 07:21] LABS: Glucose,Whole Blood 206 mg/dL (75-99)
[2020-07-17] MEDS ORDERED: WARFARIN 1 MG TAB PO SCH ×2 (09:00)
--- NOTE | 2020-07-17 10:06 | P.PN ---
Subjective Progress Note Date: 07/17/20 HISTORY OF PRESENT ILLNESS: This is a pleasant 79-year-old male past medical history significant for hypertension, dyslipidemia, ischemic cardiomyopathy status post AICD, sustained ventricular tachycardia with slow rate, pulmonary hypertension, diabetes mellitus, valvular heart disease status post mitral clip, chronic kidney disease, chronic systolic heart failure, periph eral vascular disease status post right carotid endarterectomy and paroxysmal atrial fibrillation. He follows in the office with Dr. Benitez. We have been asked to see in consultation for heart failure. Stented to the hospital with symptoms of bleeding in the stool that started on Sunday night. He states he has noticed multiple episodes of bright red and black stools. He is maintained on warfarin secondary to A. fib and his INR on admission was 5 and hemoglobin of 9.9 with a repeat this morning of 9.2. His baseline on last admission was around 14. He also states after being discharged from the hospital in May there was adjustments made to his diuretic therapy. Since that time he has noticed increased shortness of breath and weight gain. He did follow-up in the office with Dr. Benitez in his diuretics were resumed at that time. His last hospitalization in May was for sustained ventricular tachycardia for which he was transferred to [facility] for high risk ablation. At that time the patient states he underwent cardiac catheterization and cardiac MRI. He was deemed too high risk to undergo ablation and had medication adjustments made. Most recent echocardiogram obtained in May 2020 revealed impaired LV systolic function with ejection fraction 35-40%, grade 2 diastolic dysfunction, basal inferior, basal inferior septal, mid inferior, apical septal and basal inferolateral wall hypokinesia, moderately dilated left atrium, mild aortic regurgitation, moderate to severe aortic stenosis, mild mitral regurgitation, mild mitral stenosis with a mean gradient of 4 mmHg, mild tricuspid regurgitation and mitral valve click noted. According to the patient lives at [facility] there was question about further valve surgery however when they performed the left heart catheterization the deemed that the valvular heart disease was not as bad as thought to be on echocardiogram. 07/15/2020 Patient examined this morning at the bedside. He denies chest pain or pressure. Denies shortness of breath. Patient was scheduled for EGD/colonoscopy today. However, he did not finish his bowel prep and his procedure has been rescheduled for tomorrow. Hemoglobin 9.1. INR 1.60. Coumadin remains on hold. 07/16/2020 Patient examined this morning at the bedside. Patient underwent EGD and col onoscopy this morning. EGD revealed mild gastritis with small hiatal hernia but no active GI bleeding. Colonoscopy revealed nonbleeding cecal AVM and transverse, descending colon, and sigmoid colon polyps and sigmoid diverticula. Patient denies any further bleeding in his stools. He denies chest pain. He reports mild shortness of breath. Blood pressure 120/74. Heart rate in the 60s. Hemoglobin 9.3. 07/17/2020 Patient examined at the bedside. Denies chest pain or pressure. Denies shortness of breath. No further blood noted in his stools. PHYSICAL EXAM: VITAL SIGNS: Reviewed. GENERAL: Well-developed in no acute distress. NECK: Supple. No JVD or thyromegaly LUNGS: Respirations even and unlabored. Lungs essentially clear to auscultation bilaterally. HEART: Regular rate and rhythm. S1 and S2 heard. Systolic murmur noted. EXTREMITIES: Normal range of motion. No clubbing or cyanosis. Peripheral pulses intact. Trace bilateral lower extremity edema ASSESSMENT: Acute GI bleeding Anemia secondary to above Paroxysmal atrial fibrillation maintained on Coumadin Supratherapeutic INR Chronic systolic heart failure Ischemic cardiomyopathy status post AICD Aortic stenosis Mitral regurgitation and stenosis status post mitral clip Chronic kidney disease History of sustained ventricular tachycardia Hypertension Dyslipidemia PLAN: May resume Coumadin today (okay with GI service) Per pharmacy notes, Dr. Mcginnis wants to dose Coumadin. Will defer to internal medicine. Patient is stable from a cardiac standpoint. We will sign off. Please call with questions or concerns. Nurse practitioner note has been reviewed by physician. Signing provider agrees with the documented findings, assessment, and plan of care. Objective - Vital Signs Vital signs: Vital Signs Temp 96.4 F L 07/17/20 08:00 Pulse 67 07/17/20 08:00 Resp 18 07/17/20 08:00 BP 106/66 07/17/20 08:00 Pulse Ox 97 07/17/20 08:00 Intake & Output 07/16/20 07/17/20 07/17/20 18:59 06:59 18:59 Intake Total 500 Balance 500 Intake: IV 500 Other: Voiding Method Bedside Commode Bedside Commode Urinal Urinal # Voids 1 - Labs CBC & Chem 7: 07/16/20 08:14 07/16/20 08:14 Labs: Abnormal Lab Results - Last 24 Hours (Table) 07/16/20 07/16/20 07/16/20 Range/Units 08:14 08:14 11:37 PT 15.6 H (9.9-11.9) sec INR 1.49 H (0.90-1.11) Carbon Dioxide 19.7 L (21.6-31.8) mmol/L Anion Gap 14.30 H (4.00-12.00) mmol/L BUN 38.0 H (9.0-27.0) mg/dL Creatinine 2.4 H (0.6-1.5) mg/dL Est GFR (CKD-EPI)AfAm 28.9 L (60.0-200.0) Est GFR (CKD-EPI)NonAf 24.9 L (60.0-200.0) POC Glucose (mg/dL) 180 H (75-99) mg/dL Magnesium 2.5 H (1.5-2.4) mg/dL 07/16/20 07/16/20 07/17/20 Range/Units 17:01 20:31 07:19 PT (9.9-11.9) sec INR (0.90-1.11) Carbon Dioxide (21.6-31.8) mmol/L Anion Gap (4.00-12.00) mmol/L BUN (9.0-27.0) mg/dL Creatinine (0.6-1.5) mg/dL Est GFR (CKD-EPI)AfAm (60.0-200.0) Est GFR (CKD-EPI)NonAf (60.0-200.0) POC Glucose (mg/dL) 147 H 146 H 206 H (75-99) mg/dL Magnesium (1.5-2.4) mg/dL
--- NOTE | 2020-07-17 10:08 | PN ---
PROGRESS NOTE DATE OF SERVICE: July 17, 2020 Patient is a 79-year-old pleasant white female admitted to the hospital with acute GI bleed. 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 The patient is doing well. He denies any symptoms. He reports no abdominal pain. No further episodes of bleeding. Coumadin is still currently on hold. PHYSICAL EXAMINATION: Appears comfortable in no apparent distress. Vital signs stable. Blood pressure is 106/66. Pulse rate 67 per minute and temperature 96.4. HEENT examination unremarkable. Conjunctivae pink. Sclerae anicteric. Oral cavity no lesions. Neck no JVD or lymph node enlargement. CHEST was clear to auscultation. HEART: Regular rate and rhythm. ABDOMEN: Soft. Bowel sounds are positive. No organomegaly. Extremities: No pedal edema. Skin no rashes. NEUROLOGIC: Alert and oriented x3. No focal deficits. LABS: From today WBC 9.2, hemoglobin 9.3, platelets normal. BUN is 38, creatinine 2.4. IMPRESSION: 1. Acute gastrointestinal bleed status post EGD and colonoscopy yesterday that revealed small hiatal hernia, mild gastritis, cecal AVM that was cauterized and multiple small colon polyps that were removed. The patient with no active bleeding. 2. History of atrial fibrillation on Coumadin currently on hold. 3. History of diabetes mellitus and hypertension. 4. History of cardiomyopathy status post AICD placement. RECOMMENDATIONS: 1. Advance diet as tolerated. 2. Monitor CBC daily. 3. Continue symptomatic supportive care. 4. He can be discharged home today. 5. Resume Coumadin. 6. Follow up in the office in 2 weeks. Thank you for this consultation. MMODL / IJN: [id number] /
[2020-07-17] MEDS: FINASTERIDE 5 MG TAB PO SCH (11:08)
[2020-07-17] MEDS: carvediloL 12.5 MG TAB PO SCH ×2 (11:08→21:20)
[2020-07-17] MEDS: allopurinoL 300 MG TAB PO SCH (11:08)
[2020-07-17] MEDS: FUROSEMIDE 80 MG TAB PO SCH ×2 (11:09→16:29)
[2020-07-17] MEDS: PANTOPRAZOLE 40 MG TABLET PO SCH ×2 (11:09→21:32)
[2020-07-17] MEDS: MAGNESIUM OXIDE 400 MG TAB PO SCH (11:09)
[2020-07-17] MEDS: SPIRONOLACTONE 25 MG TAB PO SCH (11:09)
[2020-07-17] MEDS: MEXILETINE 200 MG CAP PO SCH ×3 (11:09→21:31)
[2020-07-17] MEDS: SODIUM FERRIC GLUCONAT-SUCROSE 125 MG in SODIUM CHLORIDE 0.9% 100 ML IVPB SCH (11:10)
[2020-07-17] MEDS: AMIODARONE 200 MG TAB PO SCH (11:18)
[2020-07-17] MEDS: TAMSULOSIN 0.4 MG CAP.ER.24H PO SCH ×2 (11:18→21:32)
[2020-07-17 11:42] LABS: INR 1.54 (0.90-1.11); Prothrombin Time 16.1 sec (9.9-11.9)
[2020-07-17 11:58] LABS: Glucose,Whole Blood 118 mg/dL (75-99)
--- NOTE | 2020-07-17 12:20 | P.PN ---
Subjective Patient is seen in follow-up for acute kidney injury on chronic kidney disease. Patient has chronic kidney disease stage III with baseline creatinine in the range of 1.8-2 secondary to chronic interstitial nephritis and cardiorenal syndrome. Creatinine stable at 2.4 as of yesterday. Has been voiding. Hemoglobin stable. No active bleeding. Potentially going home today. Vital signs are stable. General: The patient appeared well nourished and normally developed. HEENT: Head exam is unremarkable. Neck is without jugular venous distension. LUNGS: Breath sounds decreased. HEART: Rate and Rhythm are regular. ABDOMEN: Soft, nontender. Obese. EXTREMITITES: No edema. Objective - Vital Signs Vital signs: Vital Signs Temp 96.4 F L 07/17/20 08:00 Pulse 67 07/17/20 08:00 Resp 18 07/17/20 08:00 BP 104/49 07/17/20 10:57 Pulse Ox 97 07/17/20 08:00 Intake & Output 07/16/20 07/17/20 07/17/20 18:59 06:59 18:59 Intake Total 500 Balance 500 Intake: IV 500 Other: Voiding Method Bedside Commode Bedside Commode Urinal Urinal # Voids 1 - Labs CBC & Chem 7: 07/16/20 08:14 07/16/20 08:14 Labs: Abnormal Lab Results - Last 24 Hours (Table) 07/16/20 07/16/20 07/17/20 Range/Units 17:01 20:31 06:40 PT 16.1 H (9.9-11.9) sec INR 1.54 H (0.90-1.11) POC Glucose (mg/dL) 147 H 146 H (75-99) mg/dL 07/17/20 07/17/20 Range/Units 07:19 11:57 PT (9.9-11.9) sec INR (0.90-1.11) POC Glucose (mg/dL) 206 H 118 H (75-99) mg/dL Assessment and Plan Plan: Assessment: 1. Acute kidney injury mostly prerenal secondary to cardiorenal syndrome. Creatinine stable at 2.4 as of yesterday. 2. Chronic kidney disease stage III with baseline creatinine in the range of 1.8-2 secondary to chronic interstitial nephritis and chronic cardiorenal syndrome. 3. Chronic systolic CHF with ejection fraction of 35-40% status post AICD. 4. Aortic stenosis. 5. Mitral stenosis and regurgitation status post mitral valve clip. 6. Acute GI bleed. Status post EGD and colonoscopy which revealed mild gastritis, nonbleeding AVM status post argon plasma coagulation and polyps that were removed and biopsied. Maintained on Aranesp. Iron deficiency noted. 7. Chronic kidney disease mineral bone disease maintained on calcitriol. Plan: Maintain Lasix. Avoid nephrotoxins. Continue IV iron. Second dose today. Continue to monitor renal function and urine output. Stable for discharge home from nephrology standpoint. Follow up outpatient in 7-10 days.
[2020-07-17 16:48] LABS: Glucose,Whole Blood 183 mg/dL (75-99)
[2020-07-17 20:20] LABS: Glucose,Whole Blood 170 mg/dL (75-99)
[2020-07-17] MEDS ORDERED: WARFARIN 1 MG TAB PO ONE (21:00)
[2020-07-17] MEDS: LACTATED RINGERS 1,000 ML IV SCH (21:16)
[2020-07-17] MEDS: EZETIMIBE 10 MG TAB PO SCH (21:32)
[2020-07-17] MEDS: ATORVASTATIN 80 MG TAB PO SCH (21:32)
[2020-07-18 07:04] LABS: Glucose,Whole Blood 159 mg/dL (75-99)
[2020-07-18 07:40] LABS: Basophils % (A) 0 %; Eosinophils % (A) 0 %; HGB 8.9 gm/dL (13.0-17.5); Hypochromasia Slight; Lymphocytes # (A) 0.8 k/uL (1.0-4.8); Lymphocytes % (A) 8 %; MCH 35.1 pg (25.0-35.0); MCHC 32.9 g/dL (31.0-37.0); MCV 106.9 fL (80.0-100.0); Macrocytosis Moderate; Mean Platelet Volume 7.7; Monocytes # (A) 0.6 k/uL (0-1.0); Monocytes % (A) 6 %; Neutrophils # (A) 8.6 k/uL (1.3-7.7); Neutrophils % (A) 84 %; Platelet Count 206 k/uL (150-450); RBC 2.53 m/uL (4.30-5.90); RDW 15.1 % (11.5-15.5); WBC 10.3 k/uL (3.8-10.6)
[2020-07-18] MEDS: AMIODARONE 200 MG TAB PO SCH (08:57)
[2020-07-18] MEDS: MAGNESIUM OXIDE 400 MG TAB PO SCH (08:57)
[2020-07-18] MEDS: carvediloL 12.5 MG TAB PO SCH (08:57)
[2020-07-18] MEDS: TAMSULOSIN 0.4 MG CAP.ER.24H PO SCH ×2 (08:57→20:45)
[2020-07-18] MEDS: allopurinoL 300 MG TAB PO SCH (08:57)
[2020-07-18] MEDS: PANTOPRAZOLE 40 MG TABLET PO SCH ×2 (08:57→20:45)
[2020-07-18] MEDS: FINASTERIDE 5 MG TAB PO SCH (08:58)
[2020-07-18] MEDS: FUROSEMIDE 80 MG TAB PO SCH ×3 (09:03→16:28)
[2020-07-18] MEDS: MEXILETINE 200 MG CAP PO SCH ×3 (09:03→20:45)
[2020-07-18] MEDS: SPIRONOLACTONE 25 MG TAB PO SCH ×2 (09:04→11:39)
--- NOTE | 2020-07-18 10:27 | PN ---
PROGRESS NOTE DATE OF SERVICE: July 18, 2020 The patient is a 79-year-old white male admitted to hospital with acute GI bleed. He had an EGD and colonoscopy done by me 2 days ago that showed cecal AVM and multiple colon polyps that were removed. Coumadin is on hold currently. He is doing well. He denies any further episodes of bleeding. He had hypotension last night and cardiology following the patient closely. He received IV iron infusions yesterday. PHYSICAL EXAMINATION: Appears comfortable in no apparent distress. VITAL SIGNS: Stable. Blood pressure is 101/47, pulse is 64, temperature 97.6. HEENT examination unremarkable. Conjunctivae pink. Sclerae anicteric. Oral cavity no lesions. Neck no JVD or lymph node enlargement. Chest was clear to auscultation. ABDOMEN: Soft. Bowel sounds are positive. No organomegaly. Extremities: No pedal edema. Neuro: He is alert, oriented to name and place and time. LABS: From today WBC 10.3, hemoglobin 8.9, platelets are 206. IMPRESSION: 1. Acute gastrointestinal bleed status post EGD and colonoscopy 2 days ago. Colonoscopy revealed cecal AVM that was cauterized and multiple small colon polyps that were removed. Patient has no further episodes of bleeding. Coumadin currently is on hold. 2. History of chronic kidney disease. 3. History of congestive heart failure. 4. Atrial fibrillation on Coumadin which is currently on hold. RECOMMENDATIONS: 1. Monitor CBC daily. 2. Resume Coumadin. 3. Continue with symptomatic and supportive care. 4. We will follow with you closely. Thank you for this consultation. MMODL / IJN: [id number] /
--- NOTE | 2020-07-18 11:25 | P.PN ---
Subjective Patient is seen in follow-up for acute kidney injury on chronic kidney disease. Patient has chronic kidney disease stage III with baseline creatinine in the range of 1.8-2 secondary to chronic interstitial nephritis and cardiorenal syndrome. Creatinine stable at 2.4 as of July 16.. Has been voiding. Hemoglobin stable. No active bleeding. Potentially going home today. Vital signs are stable. General: The patient appeared well nourished and normally developed. HEENT: Head exam is unremarkable. Neck is without jugular venous distension. LUNGS: Breath sounds decreased. HEART: Rate and Rhythm are regular. ABDOMEN: Soft, nontender. Obese. EXTREMITITES: No edema. Objective - Vital Signs Vital signs: Vital Signs Temp 97.6 F 07/18/20 07:59 Pulse 64 07/18/20 07:59 Resp 17 07/18/20 07:59 BP 101/47 07/18/20 07:59 Pulse Ox 93 L 07/18/20 07:59 Intake & Output 07/17/20 07/18/20 07/18/20 18:59 06:59 18:59 Intake Total 540 Output Total 250 Balance 540 -250 Intake: Oral 540 Output: Urine 250 Other: Voiding Method Toilet Toilet # Voids 2 - Labs CBC & Chem 7: 07/18/20 07:04 07/16/20 08:14 Labs: Abnormal Lab Results - Last 24 Hours (Table) 07/17/20 07/17/20 07/17/20 Range/Units 06:40 11:57 16:46 RBC (4.30-5.90) m/uL Hgb (13.0-17.5) gm/dL Hct (39.0-53.0) % MCV (80.0-100.0) fL MCH (25.0-35.0) pg Neutrophils # (1.3-7.7) k/uL Lymphocytes # (1.0-4.8) k/uL PT 16.1 H (9.9-11.9) sec INR 1.54 H (0.90-1.11) POC Glucose (mg/dL) 118 H 183 H (75-99) mg/dL 07/17/20 07/18/20 07/18/20 Range/Units 20:18 07:02 07:04 RBC 2.53 L (4.30-5.90) m/uL Hgb 8.9 L (13.0-17.5) gm/dL Hct 27.0 L (39.0-53.0) % MCV 106.9 H (80.0-100.0) fL MCH 35.1 H (25.0-35.0) pg Neutrophils # 8.6 H (1.3-7.7) k/uL Lymphocytes # 0.8 L (1.0-4.8) k/uL PT (9.9-11.9) sec INR (0.90-1.11) POC Glucose (mg/dL) 170 H 159 H (75-99) mg/dL Assessment and Plan Plan: Assessment: 1. Acute kidney injury mostly prerenal secondary to cardiorenal syndrome. Cre atinine stable at 2.4 as of July 16. 2. Chronic kidney disease stage III with baseline creatinine in the range of 1.8-2 secondary to chronic interstitial nephritis and chronic cardiorenal syndrome. 3. Chronic systolic CHF with ejection fraction of 35-40% status post AICD. 4. Aortic stenosis. 5. Mitral stenosis and regurgitation status post mitral valve clip. 6. Acute GI bleed. Status post EGD and colonoscopy which revealed mild gastritis, nonbleeding AVM status post argon plasma coagulation and polyps that were removed and biopsied. Maintained on Aranesp. Iron deficiency noted. S tat post IV iron this admission. 7. Chronic kidney disease mineral bone disease maintained on calcitriol. Plan: Maintain Lasix - he did not receive Lasix yesterday due to low blood pressure. Add low-dose midodrine. Avoid nephrotoxins. Continue to monitor renal function and urine output. Stable for discharge home from nephrology standpoint. Follow up outpatient in 7-10 days.
[2020-07-18 11:33] LABS: Glucose,Whole Blood 151 mg/dL (75-99)
[2020-07-18] MEDS: MIDODRINE 5 MG TAB PO SCH ×2 (11:39→17:58)
[2020-07-18 11:50] LABS: Anion Gap 9.3 mmol/L (4.00-12.00); BUN/Creat Ratio 14.44 Ratio (12.00-20.00); Calcium 8.5 mg/dL (8.7-10.3); Carbon Dioxide 24.7 mmol/L (21.6-31.8); Non-African American GFR(CKD) 21.6 (60.0-200.0); Potassium 3.4 mmol/L (3.5-5.5)
[2020-07-18 12:01] LABS: INR 1.5 (0.90-1.11); Prothrombin Time 15.7 sec (9.9-11.9)
[2020-07-18] MEDS ORDERED: POTASSIUM CHLORIDE ER 20 MEQ TAB.ER PO STA (12:37)
[2020-07-18 14:51] LABS: Glucose,Whole Blood 262 mg/dL (75-99)
[2020-07-18 15:04] LABS: ABG Base Excess -6.8 mmol/L; ABG HCO3 18 mmol/L (21-25); ABG Oxygen Saturation 97.7 % (94-97); ABG PCO2 30 mmHg (35-45); ABG PH 7.39 (7.35-7.45); ABG PO2 164 mmHg (83-108); ABG TCO2 19 mmol/L (19-24); Allen Test Performed? Yes
[2020-07-18 15:22] LABS: ALT 19 U/L (4-49); AST 33 U/L (17-59); African American GFR (CKD) 25 (>60 ml/min/1.73 sqM); Albumin 3.2 g/dL (3.5-5.0); Albumin/Globulin Ratio 1.3; Alkaline Phosphatase 110 U/L (38-126); Anion Gap 10 mmol/L; Blood Urea Nitrogen 38 mg/dL (9-20); Calcium 8.4 mg/dL (8.4-10.2); Carbon Dioxide 21 mmol/L (22-30); Chloride 102 mmol/L (98-107); Globulin 2.5 g/dL; Glucose 202 mg/dL (74-99); Magnesium 2.4 mg/dL (1.6-2.3); Non-African American GFR(CKD) 22 (>60 ml/min/1.73 sqM); Potassium 3.7 mmol/L (3.5-5.1); Sodium 133 mmol/L (137-145); Total Bilirubin 0.6 mg/dL (0.2-1.3); Total Protein 5.7 g/dL (6.3-8.2)
--- NOTE | 2020-07-18 15:28 | XR ---
EXAMINATION TYPE: XR chest 1V portable DATE OF EXAM: 07/18/2020 COMPARISON: July 14, 2020 HISTORY: Short of breath TECHNIQUE: FINDINGS: Heart is borderline enlarged. There is no heart failure. There is coarsening of the interst itial markings. There is no pleural effusion. IMPRESSION: Cardiomegaly. Mild pulmonary fibrosis. No heart failure seen. No significant change.
[2020-07-18 15:29] LABS: Basophils % (A) 0 %; Eosinophils # (A) 0.1 k/uL (0-0.7); Eosinophils % (A) 1 %; HCT 30.6 % (39.0-53.0); HGB 9.3 gm/dL (13.0-17.5); Hypochromasia Slight; Lymphocytes # (A) 0.9 k/uL (1.0-4.8); Lymphocytes % (A) 7 %; MCH 33.1 pg (25.0-35.0); MCHC 30.4 g/dL (31.0-37.0); MCV 108.8 fL (80.0-100.0); Macrocytosis Marked; Mean Platelet Volume 7.9; Monocytes # (A) 0.7 k/uL (0-1.0); Monocytes % (A) 6 %; Neutrophils # (A) 10.1 k/uL (1.3-7.7); Neutrophils % (A) 84 %; Platelet Count 248 k/uL (150-450); RBC 2.81 m/uL (4.30-5.90); RDW 15.4 % (11.5-15.5)
[2020-07-18 15:38] LABS: Glucose,Whole Blood 193 mg/dL (75-99)
[2020-07-18] MEDS ORDERED: SODIUM CHLORIDE 0.9% 500 ML 250 ML IV ONE (15:59)
[2020-07-18 16:07] LABS: INR 1.6 (<1.2)
--- NOTE | 2020-07-18 17:03 | P.PN ---
Progress Note - Text Progress Note Date: 07/18/20 Around 2:30 this afternoon patient was not feeling well, he was feeling dizzy and weak. He pushed the help button on his remote. CODE BLUE was activated as patient was unresponsive. His rhythm was V paced at that time. He had faint pulse and was having agonal breathing. Because of that CPR was started but for less than 1 minute. After that his pulse came back and he started to come round. His blood pressure was checked at that time and it was normal. His oxygen saturations were down in the 70s on room air came up to the 90s on nonrebreather mask. Heart examination revealed S1 and S2, regular rate and rhythm, no murmurs. Chest examination did not show any crackles or rhonchi. No wheezing. Plan Stat CBC Stat ABG Stat CMP Stat lactic acid Stat troponin No medications were given to the patient during the event. Further management decisions according to labs above.
[2020-07-18 17:16] LABS: Glucose,Whole Blood 167 mg/dL (75-99)
--- NOTE | 2020-07-18 17:59 | XR ---
EXAMINATION TYPE: XR ribs bilateral DATE OF EXAM: 07/18/2020 COMPARISON: Today HISTORY: CPR. Chest pain TECHNIQUE: FINDINGS: There is left axillary pacemaker. There is no pleural effusion or pneumothorax. I see no ri b fracture. IMPRESSION: No rib fracture seen.
[2020-07-18] MEDS ORDERED: WARFARIN 1 MG TAB PO ONE (18:00)
--- NOTE | 2020-07-18 19:15 | CONS ---
CONSULTATION PULMONARY/CRITICAL CARE CONSULTATION: DATE OF CONSULTATION: July 18, 2020 This is a patient who apparently was admitted back on July 13 for GI bleed. The patient apparently was going to be discharged today on July 18. The patient apparently got up to get dressed. He went to the bathroom to urinate. He bent over to tie his shoes and apparently was found by the nurse slumped on the bed. He was proctor and agonal in his respirations. A code was called. Chest compressions were done even though the patient apparently did not lose a pulse. He may have sustained some fractured ribs in the process of resuscitation. Anyway, an A-Team was called and the nurses from the ICU went up to evaluate the patient. The patient currently is on a couple liters, looking much better. Still complaining of pain in the chest. Not sure exactly what happened. This may have been an orthostatic event versus a vasovagal episode versus a cardiac event. Cardiology has been seeing this patient and will make sure that they at least evaluate him before discharge tomorrow. He will get bilateral rib series done tonight. In addition, again as I mentioned, the patient will not be discharged today, even though he was planning to be discharged today. It appears, the patient had an EGD and colonoscopy by Dr. Hill. It was done on July 16. The findings were a mild gastritis and small hiatal hernia, but no active bleeding, 5 mm nonbleeding cecal AVM, status post argon plasma coagulation, 5 mm, 3 transverse colon polyp, status post polypectomy, 7-8 mm and 3 mm x 2 descending colon polyp, status post polypectomy, 3 mm sigmoid colon polyp, status post biopsy, and sigmoid diverticula. There does not appear there was any active bleeding at all. Currently, as I mentioned, the patient appears to be resting relatively comfortably. His hemoglobins while being here have always been in the 9 range. CURRENT HOME MEDICATIONS: Include Lipitor, Proscar, Plavix, calcitriol, vitamin D2, Flomax, Zyloprim, iron, Aldactone, warfarin, calcium, Zetia, Lasix, Mag-Ox, Protonix, Pacerone, Coreg, Colace, Mexitil, and Coumadin. ALLERGIES: ADHESIVE TAPE. MEDICAL HISTORY: His medical history is extensive and includes atrial fibrillation, CAD, heart failure, diabetes, GERD, hyperlipidemia, hypertension, myocardial infarction, DJD, pneumonia, prostate disorder, hypothyroidism, among other things. In addition, the patient has systolic heart failure with ejection fraction of 35-40 percent, status post AICD placement, severe pulmonary hypertension, severe mitral and moderate tricuspid regurgitation, stage 3 chronic kidney disease, prostate cancer, left carotid artery stenosis, bilateral cataracts, diverticular disease, and gout. SURGICAL HISTORY: Includes AICD placement, appendectomy, back surgery, cholecystectomy, and prostatectomy along with tonsillectomy. He has also had bilateral breast lumpectomies, mitral valve clipping, right carotid endarterectomy with reocclusion, back surgery x2. SOCIAL HISTORY: Negative for tobacco use. No alcohol use or illicit drug use. FAMILY HISTORY: Father at age 82. The patient does remember father's history. Mother apparently had coronary disease. REVIEW OF SYSTEMS: CONSTITUTIONAL: Negative. NEUROLOGIC: Lightheadedness and dizziness prior to the episode. HEENT: Negative. CARDIOVASCULAR: Negative. PULMONARY: Mild shortness of breath. GI: Negative. : Negative. RHEUMATOLOGIC: Negative. IMMUNOLOGIC: Negative. ENDOCRINOLOGIC: Negative. DERMATOLOGIC: Negative. PHYSICAL EXAMINATION: VITAL SIGNS: Current vital signs are reviewed. Temperature 97.6, heart rate 64, respiratory rate 17, blood pressure 101/47, mean 65, room air saturation 93% and on 2 L she is 96%. Appears in no acute distress. HEENT: Examination is grossly unremarkable. NECK: Supple. Full range of motion. No adenopathy. Neck veins are flat. CARDIOVASCULAR: Examination reveals a regular rhythm and rate. S1, S2 normal. Soft systolic murmur is noted. LUNGS: Reveal mostly clear breath sounds. He is tender on palpation to the anterior chest. No wheezes, rhonchi, or crackles. ABDOMEN: Soft. Bowel sounds are heard. EXTREMITIES: Are intact. No edema. SKIN: Without rash. NEUROLOGIC: Exam appears normal. LABS: Reviewed. White count 9.2, hemoglobin 9.3, hematocrit 29.1, platelet count 221. Sodium 137, potassium 4.2, chloride 103, CO2 20, anion gap is 14, BUN and creatinine were 38 and 2.4. TSH was 5.6. Micro is negative. IMAGING: A chest x-ray was done which showed cardiomegaly, and mild pulmonary fibrosis. His device is noted. The mild pulmonary fibrosis could actually be mild interstitial edema. CURRENT MEDICATIONS: Include Tylenol, allopurinol, Cordarone, Lipitor, Rocaltrol, Coreg, Aranesp, Zetia, Proscar, Lasix, Mag-Ox, Mexitil, midodrine, Narcan, Protonix, potassium chloride, Aldactone, Flomax and warfarin. ASSESSMENT: 1. Near cardiopulmonary arrest, although it is unclear whether or not the patient actually lost pulses, which might relate to a primary cardiac event, orthostasis, or vasovagal syncope. The patient did have chest compressions, and again it is unclear whether or not the patient actually lost pulses. 2. Rule out rib fractures secondary to cardiopulmonary resuscitation and chest compressions. 3. Recent admission to the hospital for GI bleed, evaluated by Dr. Hill with endoscopy. Findings as above. 4. History of atrial fibrillation. 5. History of coronary artery disease. 6. History of prostate cancer status post prostatectomy. 7. Cardiomyopathy with an ejection fraction of 35-40 percent and systolic congestive heart failure. 8. Diabetes mellitus. 9. Gastroesophageal reflux disease. 10.Hyperlipidemia. 11.Essential hypertension. 12.Myocardial infarction. 13.Hypothyroidism. 14.Severe mitral and moderate tricuspid regurgitation. 15.Stage 3 chronic kidney disease. 16.Status post AICD placement. 17.Left carotid artery stenosis. 18.Multiple other medical problems and comorbidities. PLAN: Cardiology should see the patient before discharge. The patient should have bilateral rib x-rays to rule out rib fractures. Additional recommendations and suggestions are forthcoming. The patient is stable to stay on the floor. Hold discharge tonight. MMODL / IJN: [id number] /
[2020-07-18 19:23] LABS: Ovalocytes Present; Polychromasia Present; RBC Fragments Present
[2020-07-18] MEDS: LACTATED RINGERS 1,000 ML IV SCH (19:49)
[2020-07-18] MEDS: EZETIMIBE 10 MG TAB PO SCH (20:45)
[2020-07-18] MEDS: ATORVASTATIN 80 MG TAB PO SCH (20:45)
[2020-07-18] MEDS: carvediloL 6.25 MG TAB PO SCH (20:45)
[2020-07-18 21:55] LABS: Glucose,Whole Blood 163 mg/dL (75-99)
--- NOTE | 2020-07-19 01:27 | P.PN ---
Subjective Progress Note Date: 07/17/20 Principal diagnosis: Acute gastrointestinal bleeding possibly lower with blood loss anemia This is a 79-year-old male who was recently admitted with significant bleeding per rectum with bright red and black tarry stools and is being closely monitored. Patient's INR was 5 on admission and received a dose of vitamin K. Patient was scheduled to undergo EGD/colonoscopy today although did not complete bowel prep and is currently doing so at this time. Patient continues to have bright red and black tarry stools noted in the bedside commode. Patient's current hemoglobin is 9.1 today and Coumadin is on hold with an INR of 1.6. Patient will undergo endoscopy tomorrow with GI. Patient is maintained on clear liquids and will be nothing by mouth at midnight again. Nephrology consulted and following along with GI and cardiology. 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 Patient is on Coumadin which can be resumed tomorrow. Current hemoglobin is stable at 9.3 with no active bleeding noted. Patient is tolerating diet with no reports of nausea or vomiting. Patient is also being followed by nephrology and creatinine is stable. Patient is receiving iron infusion at this time. 07/17/2020 Patient is currently denied any complaints of chest pain or shortness of the. Denies any blood in the stool. Monitor H&H in the next 24 hours. No further blood noted in the stools. Patient is being followed by cardiology and GI. Patient underwent EGD and colonoscopy yesterday for acute GI bleed. EGD showed mild gastritis and small hiatal hernia. No active GI bleed. Colonoscopy showed nonbleeding cecal AVM and colon polyp transverse polypectomy. Coumadin resumed today. Monitor INR. Monitor H&H. Patient is hypotensive today. Would like to be discharged home. Current medications reviewed. Review of systems: Constitutional: No reports of fatigue, fever, or chills Cardiovascular: No reports of chest pain or palpitations Respiratory: No reports of shortness of breath or cough GI: No reports of nausea, vomiting : No reports of dysuria or retention Neurovascular: No reports of weakness, and no reports of numbness All medications have been reviewed Objective - Vital Signs Vital signs: Vital Signs Temp 97.5 F L 07/17/20 14:00 Pulse 60 07/17/20 14:00 Resp 16 07/17/20 14:00 BP 96/61 07/17/20 16:11 Pulse Ox 94 L 07/17/20 14:00 Intake & Output 07/16/20 07/17/20 07/17/20 18:59 06:59 18:59 Intake Total 500 Balance 500 Intake: IV 500 Other: Voiding Method Bedside Commode Bedside Commode Toilet Urinal Urinal # Voids 1 - Exam Gen: This is a 79-year-old male awake, alert and oriented 3, well-developed, well-nourished. Obese 97.7F, pulse is 60, respirations are 20, blood pressure is 103/61, oxygen saturation is 94% on room air. HEENT: Head is atraumatic, normocephalic. Pupils equal, round. Sclerae is anicteric. NECK: Supple. No JVD. No lymphadenopathy. No thyromegaly. LUNGS: Diminished breath sounds at the bases with No wheezes or rhonchi. No intercostal retractions. HEART: S1, S2 are muffled ABDOMEN: Soft. Obese. Bowel sounds are present. No masses. No tenderness. EXTREMITIES: No pedal edema. No calf tenderness. NEUROLOGICAL: Patient is awake, alert and oriented x3. Cranial nerves 2 through 12 are grossly intact. - Labs CBC & Chem 7: 07/18/20 15:05 07/18/20 15:05 Labs: Abnormal Lab Results - Last 24 Hours (Table) 07/16/20 07/17/20 07/17/20 Range/Units 20:31 06:40 07:19 PT 16.1 H (9.9-11.9) sec INR 1.54 H (0.90-1.11) POC Glucose (mg/dL) 146 H 206 H (75-99) mg/dL 07/17/20 07/17/20 Range/Units 11:57 16:46 PT (9.9-11.9) sec INR (0.90-1.11) POC Glucose (mg/dL) 118 H 183 H (75-99) mg/dL Assessment and Plan Assessment: Acute gastrointestinal bleeding possibly lower with blood loss anemia possibly diverticular bleed. Ruled out ischemic colitis or peptic ulcer disease. Status post EGD and colonoscopy. Coumadin coagulopathy Increased MCV Hyponatremia Acute on chronic renal failure, acute tubular necrosis Chronic kidney disease stage III baseline History of atrial fibrillation, chronic History of coronary artery disease history of congestive heart failure, ejection fraction unknown Diabetes mellitus type 2 History of gastroesophageal reflux disease Hypertension Hyperlipidemia History of myocardial infarction History of degenerative joint disease history of pneumonia History of prostate disorder Hypothyroidism History of congestive heart failure with chronic systolic dysfunction, ejection fraction 35-40% with severe cardiomyopathy with AICD History of pulmonary hypertension History of severe mitral, moderate tricuspid regurgitation History of carcinoma of the prostate Left carotid artery stenosis, awaiting stent placement history of appendectomy history back surgery with DJD obesity with body mass index of 34.8 Full code Recommendations and discussion: Recommend to continue current medications, management, and symptomatic treatment. Continue to hold Coumadin and may resume tomorrow. Hemoglobin is stable and will continue to monitor vital signs and labs closely. Patient is receiving iron transfusions and may need iron supplements upon discharge. No active bleeding noted at this time. It has been resumed. Multiple medical consultations following including nephrology, cardiology, and GI. Due to multiple complex medical issues, prognosis is guarded. Further recommendations to follow. Patient will need to follow-up with GI in the outpatient setting for biopsy results from colonoscopy. Possible discharge in 24 hours. Time with Patient: Greater than 30
--- NOTE | 2020-07-19 01:31 | P.PN ---
Subjective Progress Note Date: 07/18/20 Principal diagnosis: Acute gastrointestinal bleeding possibly lower with blood loss anemia This is a 79-year-old male who was recently admitted with significant bleeding per rectum with bright red and black tarry stools and is being closely monitored. Patient's INR was 5 on admission and received a dose of vitamin K. Patient was scheduled to undergo EGD/colonoscopy today although did not complete bowel prep and is currently doing so at this time. Patient continues to have bright red and black tarry stools noted in the bedside commode. Patient's current hemoglobin is 9.1 today and Coumadin is on hold with an INR of 1.6. Patient will undergo endoscopy tomorrow with GI. Patient is maintained on clear liquids and will be nothing by mouth at midnight again. Nephrology consulted and following along with GI and cardiology. 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 Patient is on Coumadin which can be resumed tomorrow. Current hemoglobin is stable at 9.3 with no active bleeding noted. Patient is tolerating diet with no reports of nausea or vomiting. Patient is also being followed by nephrology and creatinine is stable. Patient is receiving iron infusion at this time. 07/17/2020 Patient is currently denied any complaints of chest pain or shortness of the. Denies any blood in the stool. Monitor H&H in the next 24 hours. No further blood noted in the stools. Patient is being followed by cardiology and GI. Patient underwent EGD and colonoscopy yesterday for acute GI bleed. EGD showed mild gastritis and small hiatal hernia. No active GI bleed. Colonoscopy showed nonbleeding cecal AVM and colon polyp transverse polypectomy. Coumadin resumed today. Monitor INR. Monitor H&H. Patient is hypotensive today. Would like to be discharged home. 07/18/2020 Patient is is awake alert and oriented. Hemoglobin is stable. Creatinine level is also stable at 2.4. No active GI bleeding was noted. Patient underwent EGD and colonoscopy. Otherwise patient was hypotensive and was started midodrine. Patient is being continued on Lasix. After giving his Lasix dose patient became pale and unresponsive. TAYLOR ZEPEDA was called today. Patient did have faint pulse and was having agonal breathing. CPR was started but only for less than 1 minute. His pulse came back and started to come around. Patient became more awake and oriented. Blood pressure is stable. Patient will be continued on current blood pressure medications and lower the dose of Coreg. Monitor patient on the 24 hours. Monitor H&H. CBC and BMP. Patient is also found to have elevated lactic acid level and fluid bolus was given with improvement to 1.5. Current medications reviewed. Review of systems: Constitutional: No reports of fatigue, fever, or chills Cardiovascular: No reports of chest pain or palpitations Respiratory: No reports of shortness of breath or cough GI: No reports of nausea, vomiting : No reports of dysuria or retention Neurovascular: No reports of weakness, and no reports of numbness All medications have been reviewed Objective - Vital Signs Vital signs: Vital Signs Temp 97.6 F 07/18/20 07:59 Pulse 64 07/18/20 07:59 Resp 17 07/18/20 07:59 BP 101/47 07/18/20 07:59 Pulse Ox 93 L 07/18/20 07:59 Intake & Output 07/17/20 07/18/20 07/18/20 18:59 06:59 18:59 Intake Total 540 Output Total 250 Balance 540 -250 Intake: Oral 540 Output: Urine 250 Other: Voiding Method Toilet Toilet # Voids 2 - Exam Gen: This is a 79-year-old male awake, alert and oriented 3, well-developed, well-nourished. Obese 97.7F, pulse is 60, respirations are 20, blood pressure is 103/61, oxygen saturation is 94% on room air. HEENT: Head is atraumatic, normocephalic. Pupils equal, round. Sclerae is anicteric. NECK: Supple. No JVD. No lymphadenopathy. No thyromegaly. LUNGS: Diminished breath sounds at the bases with No wheezes or rhonchi. No intercostal retractions. HEART: S1, S2 are muffled ABDOMEN: Soft. Obese. Bowel sounds are present. No masses. No tenderness. EXTREMITIES: No pedal edema. No calf tenderness. NEUROLOGICAL: Patient is awake, alert and oriented x3. Cranial nerves 2 through 12 are grossly intact. - Labs CBC & Chem 7: 07/18/20 15:05 07/18/20 15:05 Labs: Abnormal Lab Results - Last 24 Hours (Table) 07/17/20 07/18/20 07/18/20 Range/Units 20:18 07:02 07:04 WBC (3.8-10.6) k/uL RBC (4.30-5.90) m/uL Hgb (13.0-17.5) gm/dL Hct (39.0-53.0) % MCV (80.0-100.0) fL MCH (25.0-35.0) pg MCHC (31.0-37.0) g/dL Neutrophils # (1.3-7.7) k/uL Lymphocytes # (1.0-4.8) k/uL Macrocytosis PT 15.7 H (9.9-11.9) sec INR 1.50 H (0.90-1.11) ABG pCO2 (35-45) mmHg ABG pO2 (83-108) mmHg ABG HCO3 (21-25) mmol/L ABG O2 Saturation (94-97) % Sodium (137-145) mmol/L Potassium (3.5-5.5) mmol/L Carbon Dioxide (22-30) mmol/L BUN (9.0-27.0) mg/dL Creatinine (0.6-1.5) mg/dL Est GFR (CKD-EPI)AfAm (60.0-200.0) Est GFR (CKD-EPI)NonAf (60.0-200.0) Glucose (70-110) mg/dL POC Glucose (mg/dL) 170 H 159 H (75-99) mg/dL Plasma Lactic Acid Tk (0.7-2.0) mmol/L Calcium (8.7-10.3) mg/dL Magnesium (1.6-2.3) mg/dL Troponin I (0.000-0.034) ng/mL Total Protein (6.3-8.2) g/dL Albumin (3.5-5.0) g/dL 07/18/20 07/18/20 07/18/20 Range/Units 07:04 07:04 11:32 WBC (3.8-10.6) k/uL RBC 2.53 L (4.30-5.90) m/uL Hgb 8.9 L (13.0-17.5) gm/dL Hct 27.0 L (39.0-53.0) % MCV 106.9 H (80.0-100.0) fL MCH 35.1 H (25.0-35.0) pg MCHC (31.0-37.0) g/dL Neutrophils # 8.6 H (1.3-7.7) k/uL Lymphocytes # 0.8 L (1.0-4.8) k/uL Macrocytosis PT (9.9-11.9) sec INR (0.90-1.11) ABG pCO2 (35-45) mmHg ABG pO2 (83-108) mmHg ABG HCO3 (21-25) mmol/L ABG O2 Saturation (94-97) % Sodium (137-145) mmol/L Potassium 3.4 L (3.5-5.5) mmol/L Carbon Dioxide (22-30) mmol/L BUN 39.0 H (9.0-27.0) mg/dL Creatinine 2.7 H (0.6-1.5) mg/dL Est GFR (CKD-EPI)AfAm 25.0 L (60.0-200.0) Est GFR (CKD-EPI)NonAf 21.6 L (60.0-200.0) Glucose 132 H (70-110) mg/dL POC Glucose (mg/dL) 151 H (75-99) mg/dL Plasma Lactic Acid Tk (0.7-2.0) mmol/L Calcium 8.5 L (8.7-10.3) mg/dL Magnesium (1.6-2.3) mg/dL Troponin I (0.000-0.034) ng/mL Total Protein (6.3-8.2) g/dL Albumin (3.5-5.0) g/dL 07/18/20 07/18/20 07/18/20 Range/Units 14:51 14:51 15:05 WBC 12.0 H (3.8-10.6) k/uL RBC 2.81 L (4.30-5.90) m/uL Hgb 9.3 L (13.0-17.5) gm/dL Hct 30.6 L (39.0-53.0) % MCV 108.8 H (80.0-100.0) fL MCH (25.0-35.0) pg MCHC 30.4 L (31.0-37.0) g/dL Neutrophils # (1.3-7.7) k/uL Lymphocytes # (1.0-4.8) k/uL Macrocytosis Marked A PT (9.9-11.9) sec INR (0.90-1.11) ABG pCO2 30 L (35-45) mmHg ABG pO2 164 H (83-108) mmHg ABG HCO3 18 L (21-25) mmol/L ABG O2 Saturation 97.7 H (94-97) % Sodium (137-145) mmol/L Potassium (3.5-5.5) mmol/L Carbon Dioxide (22-30) mmol/L BUN (9.0-27.0) mg/dL Creatinine (0.6-1.5) mg/dL Est GFR (CKD-EPI)AfAm (60.0-200.0) Est GFR (CKD-EPI)NonAf (60.0-200.0) Glucose (70-110) mg/dL POC Glucose (mg/dL) 262 H (75-99) mg/dL Plasma Lactic Acid Tk (0.7-2.0) mmol/L Calcium (8.7-10.3) mg/dL Magnesium (1.6-2.3) mg/dL Troponin I (0.000-0.034) ng/mL Total Protein (6.3-8.2) g/dL Albumin (3.5-5.0) g/dL 07/18/20 07/18/20 07/18/20 Range/Units 15:05 15:05 15:05 WBC (3.8-10.6) k/uL RBC (4.30-5.90) m/uL Hgb (13.0-17.5) gm/dL Hct (39.0-53.0) % MCV (80.0-100.0) fL MCH (25.0-35.0) pg MCHC (31.0-37.0) g/dL Neutrophils # (1.3-7.7) k/uL Lymphocytes # (1.0-4.8) k/uL Macrocytosis PT (9.9-11.9) sec INR (0.90-1.11) ABG pCO2 (35-45) mmHg ABG pO2 (83-108) mmHg ABG HCO3 (21-25) mmol/L ABG O2 Saturation (94-97) % Sodium 133 L (137-145) mmol/L Potassium (3.5-5.5) mmol/L Carbon Dioxide 21 L (22-30) mmol/L BUN 38 H (9.0-27.0) mg/dL Creatinine 2.71 H (0.6-1.5) mg/dL Est GFR (CKD-EPI)AfAm (60.0-200.0) Est GFR (CKD-EPI)NonAf (60.0-200.0) Glucose 202 H (70-110) mg/dL POC Glucose (mg/dL) (75-99) mg/dL Plasma Lactic Acid Tk 4.2 H* (0.7-2.0) mmol/L Calcium (8.7-10.3) mg/dL Magnesium 2.4 H (1.6-2.3) mg/dL Troponin I 0.056 H* (0.000-0.034) ng/mL Total Protein 5.7 L (6.3-8.2) g/dL Albumin 3.2 L (3.5-5.0) g/dL 07/18/20 07/18/20 07/18/20 Range/Units 15:05 15:36 17:15 WBC (3.8-10.6) k/uL RBC (4.30-5.90) m/uL Hgb (13.0-17.5) gm/dL Hct (39.0-53.0) % MCV (80.0-100.0) fL MCH (25.0-35.0) pg MCHC (31.0-37.0) g/dL Neutrophils # (1.3-7.7) k/uL Lymphocytes # (1.0-4.8) k/uL Macrocytosis PT 16.0 H (9.9-11.9) sec INR 1.6 H (0.90-1.11) ABG pCO2 (35-45) mmHg ABG pO2 (83-108) mmHg ABG HCO3 (21-25) mmol/L ABG O2 Saturation (94-97) % Sodium (137-145) mmol/L Potassium (3.5-5.5) mmol/L Carbon Dioxide (22-30) mmol/L BUN (9.0-27.0) mg/dL Creatinine (0.6-1.5) mg/dL Est GFR (CKD-EPI)AfAm (60.0-200.0) Est GFR (CKD-EPI)NonAf (60.0-200.0) Glucose (70-110) mg/dL POC Glucose (mg/dL) 193 H 167 H (75-99) mg/dL Plasma Lactic Acid Tk (0.7-2.0) mmol/L Calcium (8.7-10.3) mg/dL Magnesium (1.6-2.3) mg/dL Troponin I (0.000-0.034) ng/mL Total Protein (6.3-8.2) g/dL Albumin (3.5-5.0) g/dL Assessment and Plan Assessment: Acute gastrointestinal bleeding possibly lower with blood loss anemia possibly diverticular bleed. Ruled out ischemic colitis or peptic ulcer disease. Status post EGD and colonoscopy. Coumadin coagulopathy. resolved Increased MCV Hyponatremia Acute on chronic renal failure, acute tubular necrosis Chronic kidney disease stage III baseline History of atrial fibrillation, chronic History of coronary artery disease history of congestive heart failure, ejection fraction unknown Diabetes mellitus type 2 History of gastroesophageal reflux disease Hypertension Hyperlipidemia History of myocardial infarction History of degenerative joint disease history of pneumonia History of prostate disorder Hypothyroidism History of congestive heart failure with chronic systolic dysfunction, ejection fraction 35-40% with severe cardiomyopathy with AICD History of pulmonary hypertension History of severe mitral, moderate tricuspid regurgitation History of carcinoma of the prostate Left carotid artery stenosis, awaiting stent placement history of appendectomy history back surgery with DJD obesity with body mass index of 34.8 Full code Recommendations and discussion: Recommend to continue current medications, management, and symptomatic treatment. Continue to hold Coumadin and may resume tomorrow. Hemoglobin is stable and will continue to monitor vital signs and labs closely. Patient is receiving iron transfusions and may need iron supplements upon discharge. No active bleeding noted at this time. It has been resumed. Multiple medical consultations following including nephrology, cardiology, and GI. Due to multiple complex medical issues, prognosis is guarded. Further recommendations to follow. Patient will need to follow-up with GI in the outpatient setting for biopsy results from colonoscopy. Possible discharge in 24 hours. Time with Patient: Greater than 30
[2020-07-19 06:49] LABS: Basophils % (A) 0 %; Eosinophils # (A) 0.1 k/uL (0-0.7); Eosinophils % (A) 1 %; HCT 26.5 % (39.0-53.0); HGB 8.4 gm/dL (13.0-17.5); Hypochromasia Slight; Lymphocytes # (A) 0.9 k/uL (1.0-4.8); Lymphocytes % (A) 9 %; MCH 34.2 pg (25.0-35.0); MCHC 31.9 g/dL (31.0-37.0); MCV 107.2 fL (80.0-100.0); Macrocytosis Moderate; Mean Platelet Volume 7.5; Monocytes # (A) 0.6 k/uL (0-1.0); Monocytes % (A) 6 %; Neutrophils # (A) 7.9 k/uL (1.3-7.7); Neutrophils % (A) 82 %; Platelet Count 199 k/uL (150-450); RBC 2.47 m/uL (4.30-5.90); RDW 15.1 % (11.5-15.5); WBC 9.7 k/uL (3.8-10.6)
[2020-07-19 07:13] LABS: Glucose,Whole Blood 123 mg/dL (75-99)
[2020-07-19] MEDS: MIDODRINE 5 MG TAB PO SCH ×3 (07:48→17:04)
[2020-07-19 09:17] LABS: African American GFR (CKD) 28.9 (60.0-200.0); Anion Gap 8.7 mmol/L (4.00-12.00); Calcium 8.4 mg/dL (8.7-10.3); Carbon Dioxide 23.3 mmol/L (21.6-31.8); Non-African American GFR(CKD) 24.9 (60.0-200.0)
[2020-07-19] MEDS: FINASTERIDE 5 MG TAB PO SCH (09:28)
[2020-07-19] MEDS: MAGNESIUM OXIDE 400 MG TAB PO SCH (09:28)
[2020-07-19] MEDS: carvediloL 6.25 MG TAB PO SCH (09:31)
[2020-07-19] MEDS: SPIRONOLACTONE 25 MG TAB PO SCH (09:31)
[2020-07-19] MEDS: AMIODARONE 200 MG TAB PO SCH (09:31)
[2020-07-19] MEDS: TAMSULOSIN 0.4 MG CAP.ER.24H PO SCH ×2 (09:31→21:45)
[2020-07-19] MEDS: allopurinoL 300 MG TAB PO SCH (09:31)
[2020-07-19] MEDS: PANTOPRAZOLE 40 MG TABLET PO SCH ×2 (09:31→21:45)
[2020-07-19] MEDS: MEXILETINE 200 MG CAP PO SCH ×3 (09:32→21:45)
[2020-07-19 09:37] LABS: INR 1.79 (0.90-1.11); Prothrombin Time 18.5 sec (9.9-11.9)
[2020-07-19] MEDS: FUROSEMIDE 80 MG TAB PO SCH ×4 (10:05→15:44)
[2020-07-19] MEDS ORDERED: FUROSEMIDE 40 MG TAB PO STA (10:15)
[2020-07-19 11:24] LABS: Glucose,Whole Blood 168 mg/dL (75-99)
--- NOTE | 2020-07-19 12:41 | P.PN ---
<Charley Chu - Last Filed: 07/19/20 12:32> Subjective Progress Note Date: 07/19/20 HISTORY OF PRESENT ILLNESS: This is a pleasant 79-year-old male past medical history significant for hypertension, dyslipidemia, ischemic cardiomyopathy status post AICD, sustained ventricular tachycardia with slow rate, pulmonary hypertension, diabetes mellitus, valvular heart disease status post mitral clip, chronic kidney disease, chronic systolic heart failure, peripheral vascular disease status post right carotid endarterectomy and paroxysmal atrial fibrillation. He follows in the office with Dr. Benitez. We have been asked to see in consultation for heart failure. Stented to the hospital with symptoms of bleeding in the stool that started on Sunday night. He states he has noticed multiple episodes of bright red and black stools. He is maintained on warfarin secondary to A. fib and his INR on admission was 5 and hemoglobin of 9.9 with a repeat this morning of 9.2. His baseline on last admission was around 14. He also states after being discharged from the hospital in May there was adjustments made to his diuretic therapy. Since that time he has noticed increased shortness of breath and weight gain. He did follow-up in the office with Dr. Benitez in his diuretics were resumed at that time. His last hospitalization in May was for sustained ventricular tachycardia for which he was transferred to [facility] for high risk ablation. At that time the patient states he underwent cardiac catheterization and cardiac MRI. He was deemed too high risk to undergo ablation and had medication adjustments made. Most recent echocardiogram obtained in May 2020 revealed impaired LV systolic function with ejection fraction 35-40%, grade 2 diastolic dysfunction, basal inferior, basal inferior septal, mid inferior, apical septal and basal inferolateral wall hypokinesia, moderately dilated left atrium, mild aortic regurgitation, moderate to severe aortic stenosis, mild mitral regurgitation, mild mitral stenosis with a mean gradient of 4 mmHg, mild tricuspid regurgitation and mitral valve click noted. According to the patient lives at [facility] there was question about further valve surgery however when they performed the left heart catheterization the deemed that the valvular heart disease was not as bad as thought to be on echocardiogram. 07/15/2020 Patient examined this morning at the bedside. He denies chest pain or pressure. Denies shortness of breath. Patient was scheduled for EGD/colonoscopy today. However, he did not finish his bowel prep and his procedure has been rescheduled for tomorrow. Hemoglobin 9.1. INR 1.60. Coumadin remains on hold. 07/16/2020 Patient examined this morning at the bedside. Patient underwent EGD and colonoscopy this morning. EGD revealed mild gastritis with small hiatal hernia but no active GI bleeding. Colonoscopy revealed nonbleeding cecal AVM and transverse, descending colon, and sigmoid colon polyps and sigmoid diverticula. Patient denies any further bleeding in his stools. He denies chest pain. He reports mild shortness of breath. Blood pressure 120/74. Heart rate in the 60s. Hemoglobin 9.3. 07/17/2020 Patient examined at the bedside. Denies chest pain or pressure. Denies shortness of breath. No further blood noted in his stools. 07/19/2020 Patient examined this morning at the bedside. Patient reports that he went to use the bathroom yesterday afternoon. He urinated and thought maybe he had to have a bowel movement but only passed flatus. He walked back to his bed and started to feel dizzy. He pressed his call light. Apparently, when a staff member entered his room he was unresponsive. A code blue was called. It is questionable whether or not the patient lost a pulse however CPR was started. I spoke with the PROOF OPERATOR who responded to the code yesterday and she stated that when she entered the room the patient had a strong femoral pulse but the physician running the code wanted to continue chest compressions. After about a minute, the code was finally stopped. The patient was breathing on his own and moving around in the bed. No medications were administered. The patient reports chest discomfort this morning secondary to CPR. He reports shortness of breath which is chronic for him and at his baseline currently. PHYSICAL EXAM: VITAL SIGNS: Reviewed. GENERAL: Well-developed in no acute distress. NECK: Supple. No JVD or thyromegaly LUNGS: Respirations even and unlabored. Lungs essentially clear to auscultation bilaterally. HEART: Regular rate and rhythm. S1 and S2 heard. Systolic murmur noted. EXTREMITIES: Normal range of motion. No clubbing or cyanosis. Peripheral pulses intact. Trace bilateral lower extremity edema ASSESSMENT: Acute GI bleeding Anemia secondary to above Paroxysmal atrial fibrillation maintained on Coumadin Supratherapeutic INR upon admission Chronic systolic heart failure Ischemic cardiomyopathy status post AICD Moderate to severe aortic stenosis, s/p workup at [facility] and deemed not to need a valve replacement at this time Mitral regurgitation and stenosis status post mitral clip Chronic kidney disease History of sustained ventricular tachycardia Hypertension Dyslipidemia Syncope, possible vasovagal, with questionable loss of pulse PLAN: Continue coumadin Check orthostatic blood pressures Interrogate AICD Further recommendations pending patient course Nurse practitioner note has been reviewed by physician. Signing provider agrees with the documented findings, assessment, and plan of care. Objective - Vital Signs Vital signs: Vital Signs Temp 97.5 F L 07/19/20 07:00 Pulse 60 07/19/20 10:47 Resp 22 07/19/20 07:00 BP 105/66 07/19/20 10:47 Pulse Ox 96 07/19/20 07:00 Intake & Output 07/18/20 07/19/20 07/19/20 18:59 06:59 18:59 Intake Total 540 Output Total 2 250 Balance 538 -250 Intake: Oral 540 Output: Urine 2 250 Other: Voiding Method Toilet Urinal # Voids 4 - Labs CBC & Chem 7: 07/19/20 06:11 07/19/20 06:11 Labs: Abnormal Lab Results - Last 24 Hours (Table) 07/18/20 07/18/20 07/18/20 Range/Units 07:04 07:04 11:32 WBC (3.8-10.6) k/uL RBC (4.30-5.90) m/uL Hgb (13.0-17.5) gm/dL Hct (39.0-53.0) % MCV (80.0-100.0) fL MCHC (31.0-37.0) g/dL Neutrophils # (1.3-7.7) k/uL Lymphocytes # (1.0-4.8) k/uL Macrocytosis PT 15.7 H (9.9-11.9) sec INR 1.50 H (0.90-1.11) ABG pCO2 (35-45) mmHg ABG pO2 (83-108) mmHg ABG HCO3 (21-25) mmol/L ABG O2 Saturation (94-97) % Sodium (137-145) mmol/L Potassium 3.4 L (3.5-5.5) mmol/L Carbon Dioxide (22-30) mmol/L BUN 39.0 H (9.0-27.0) mg/dL Creatinine 2.7 H (0.6-1.5) mg/dL Est GFR (CKD-EPI)AfAm 25.0 L (60.0-200.0) Est GFR (CKD-EPI)NonAf 21.6 L (60.0-200.0) Glucose 132 H (70-110) mg/dL POC Glucose (mg/dL) 151 H (75-99) mg/dL Plasma Lactic Acid Tk (0.7-2.0) mmol/L Calcium 8.5 L (8.7-10.3) mg/dL Magnesium (1.6-2.3) mg/dL Troponin I (0.000-0.034) ng/mL Total Protein (6.3-8.2) g/dL Albumin (3.5-5.0) g/dL 07/18/20 07/18/20 07/18/20 Range/Units 14:51 14:51 15:05 WBC 12.0 H (3.8-10.6) k/uL RBC 2.81 L (4.30-5.90) m/uL Hgb 9.3 L (13.0-17.5) gm/dL Hct 30.6 L (39.0-53.0) % MCV 108.8 H (80.0-100.0) fL MCHC 30.4 L (31.0-37.0) g/dL Neutrophils # 10.1 H (1.3-7.7) k/uL Lymphocytes # 0.9 L (1.0-4.8) k/uL Macrocytosis Marked A PT (9.9-11.9) sec INR (0.90-1.11) ABG pCO2 30 L (35-45) mmHg ABG pO2 164 H (83-108) mmHg ABG HCO3 18 L (21-25) mmol/L ABG O2 Saturation 97.7 H (94-97) % Sodium (137-145) mmol/L Potassium (3.5-5.5) mmol/L Carbon Dioxide (22-30) mmol/L BUN (9.0-27.0) mg/dL Creatinine (0.6-1.5) mg/dL Est GFR (CKD-EPI)AfAm (60.0-200.0) Est GFR (CKD-EPI)NonAf (60.0-200.0) Glucose (70-110) mg/dL POC Glucose (mg/dL) 262 H (75-99) mg/dL Plasma Lactic Acid Tk (0.7-2.0) mmol/L Calcium (8.7-10.3) mg/dL Magnesium (1.6-2.3) mg/dL Troponin I (0.000-0.034) ng/mL Total Protein (6.3-8.2) g/dL Albumin (3.5-5.0) g/dL 07/18/20 07/18/20 07/18/20 Range/Units 15:05 15:05 15:05 WBC (3.8-10.6) k/uL RBC (4.30-5.90) m/uL Hgb (13.0-17.5) gm/dL Hct (39.0-53.0) % MCV (80.0-100.0) fL MCHC (31.0-37.0) g/dL Neutrophils # (1.3-7.7) k/uL Lymphocytes # (1.0-4.8) k/uL Macrocytosis PT (9.9-11.9) sec INR (0.90-1.11) ABG pCO2 (35-45) mmHg ABG pO2 (83-108) mmHg ABG HCO3 (21-25) mmol/L ABG O2 Saturation (94-97) % Sodium 133 L (137-145) mmol/L Potassium (3.5-5.5) mmol/L Carbon Dioxide 21 L (22-30) mmol/L BUN 38 H (9.0-27.0) mg/dL Creatinine 2.71 H (0.6-1.5) mg/dL Est GFR (CKD-EPI)AfAm (60.0-200.0) Est GFR (CKD-EPI)NonAf (60.0-200.0) Glucose 202 H (70-110) mg/dL POC Glucose (mg/dL) (75-99) mg/dL Plasma Lactic Acid Tk 4.2 H* (0.7-2.0) mmol/L Calcium (8.7-10.3) mg/dL Magnesium 2.4 H (1.6-2.3) mg/dL Troponin I 0.056 H* (0.000-0.034) ng/mL Total Protein 5.7 L (6.3-8.2) g/dL Albumin 3.2 L (3.5-5.0) g/dL 07/18/20 07/18/20 07/18/20 Range/Units 15:05 15:36 17:15 WBC (3.8-10.6) k/uL RBC (4.30-5.90) m/uL Hgb (13.0-17.5) gm/dL Hct (39.0-53.0) % MCV (80.0-100.0) fL MCHC (31.0-37.0) g/dL Neutrophils # (1.3-7.7) k/uL Lymphocytes # (1.0-4.8) k/uL Macrocytosis PT 16.0 H (9.9-11.9) sec INR 1.6 H (0.90-1.11) ABG pCO2 (35-45) mmHg ABG pO2 (83-108) mmHg ABG HCO3 (21-25) mmol/L ABG O2 Saturation (94-97) % Sodium (137-145) mmol/L Potassium (3.5-5.5) mmol/L Carbon Dioxide (22-30) mmol/L BUN (9.0-27.0) mg/dL Creatinine (0.6-1.5) mg/dL Est GFR (CKD-EPI)AfAm (60.0-200.0) Est GFR (CKD-EPI)NonAf (60.0-200.0) Glucose (70-110) mg/dL POC Glucose (mg/dL) 193 H 167 H (75-99) mg/dL Plasma Lactic Acid Tk (0.7-2.0) mmol/L Calcium (8.7-10.3) mg/dL Magnesium (1.6-2.3) mg/dL Troponin I (0.000-0.034) ng/mL Total Protein (6.3-8.2) g/dL Albumin (3.5-5.0) g/dL 07/18/20 07/18/20 07/18/20 Range/Units 18:07 21:08 21:54 WBC (3.8-10.6) k/uL RBC (4.30-5.90) m/uL Hgb (13.0-17.5) gm/dL Hct (39.0-53.0) % MCV (80.0-100.0) fL MCHC (31.0-37.0) g/dL Neutrophils # (1.3-7.7) k/uL Lymphocytes # (1.0-4.8) k/uL Macrocytosis PT (9.9-11.9) sec INR (0.90-1.11) ABG pCO2 (35-45) mmHg ABG pO2 (83-108) mmHg ABG HCO3 (21-25) mmol/L ABG O2 Saturation (94-97) % Sodium (137-145) mmol/L Potassium (3.5-5.5) mmol/L Carbon Dioxide (22-30) mmol/L BUN (9.0-27.0) mg/dL Creatinine (0.6-1.5) mg/dL Est GFR (CKD-EPI)AfAm (60.0-200.0) Est GFR (CKD-EPI)NonAf (60.0-200.0) Glucose (70-110) mg/dL POC Glucose (mg/dL) 163 H (75-99) mg/dL Plasma Lactic Acid Tk (0.7-2.0) mmol/L Calcium (8.7-10.3) mg/dL Magnesium (1.6-2.3) mg/dL Troponin I 0.069 H* 0.101 H* (0.000-0.034) ng/mL Total Protein (6.3-8.2) g/dL Albumin (3.5-5.0) g/dL 07/19/20 07/19/20 07/19/20 Range/Units 06:11 06:11 06:11 WBC (3.8-10.6) k/uL RBC 2.47 L (4.30-5.90) m/uL Hgb 8.4 L (13.0-17.5) gm/dL Hct 26.5 L (39.0-53.0) % MCV 107.2 H (80.0-100.0) fL MCHC (31.0-37.0) g/dL Neutrophils # 7.9 H (1.3-7.7) k/uL Lymphocytes # 0.9 L (1.0-4.8) k/uL Macrocytosis PT 18.5 H (9.9-11.9) sec INR 1.79 H (0.90-1.11) ABG pCO2 (35-45) mmHg ABG pO2 (83-108) mmHg ABG HCO3 (21-25) mmol/L ABG O2 Saturation (94-97) % Sodium (137-145) mmol/L Potassium (3.5-5.5) mmol/L Carbon Dioxide (22-30) mmol/L BUN 36.0 H (9.0-27.0) mg/dL Creatinine 2.4 H (0.6-1.5) mg/dL Est GFR (CKD-EPI)AfAm 28.9 L (60.0-200.0) Est GFR (CKD-EPI)NonAf 24.9 L (60.0-200.0) Glucose 113 H (70-110) mg/dL POC Glucose (mg/dL) (75-99) mg/dL Plasma Lactic Acid Tk (0.7-2.0) mmol/L Calcium 8.4 L (8.7-10.3) mg/dL Magnesium (1.6-2.3) mg/dL Troponin I (0.000-0.034) ng/mL Total Protein (6.3-8.2) g/dL Albumin (3.5-5.0) g/dL 07/19/20 Range/Units 06:59 WBC (3.8-10.6) k/uL RBC (4.30-5.90) m/uL Hgb (13.0-17.5) gm/dL Hct (39.0-53.0) % MCV (80.0-100.0) fL MCHC (31.0-37.0) g/dL Neutrophils # (1.3-7.7) k/uL Lymphocytes # (1.0-4.8) k/uL Macrocytosis PT (9.9-11.9) sec INR (0.90-1.11) ABG pCO2 (35-45) mmHg ABG pO2 (83-108) mmHg ABG HCO3 (21-25) mmol/L ABG O2 Saturation (94-97) % Sodium (137-145) mmol/L Potassium (3.5-5.5) mmol/L Carbon Dioxide (22-30) mmol/L BUN (9.0-27.0) mg/dL Creatinine (0.6-1.5) mg/dL Est GFR (CKD-EPI)AfAm (60.0-200.0) Est GFR (CKD-EPI)NonAf (60.0-200.0) Glucose (70-110) mg/dL POC Glucose (mg/dL) 123 H (75-99) mg/dL Plasma Lactic Acid Tk (0.7-2.0) mmol/L Calcium (8.7-10.3) mg/dL Magnesium (1.6-2.3) mg/dL Troponin I (0.000-0.034) ng/mL Total Protein (6.3-8.2) g/dL Albumin (3.5-5.0) g/dL <Fred Fong - Last Filed: 07/19/20 17:20> Subjective Patient with episode of loss of consciousness however questionable if patient actually lost pulses with brief round of CPR performed. May have been a vasovagal episode with patient having recently urinated. AICD interrogated which showed adequate pacing and sensing parameters with no significant arrhythmias identified. No significant arrhythmias identified on telemetry. Patient had recent workup for his aortic stenosis and he was deemed not to need any intervention at this time. Would recommend close monitoring of his aortic valve for progression to severe stenosis. Would recommend continued monitoring for 24 hours and if patient remains stable, may consider discharge. Fred Fong D.O. Objective - Vital Signs Vital signs: Vital Signs Temp 98.4 F 07/19/20 14:00 Pulse 62 07/19/20 14:00 Resp 20 07/19/20 14:00 BP 113/70 07/19/20 14:00 Pulse Ox 95 07/19/20 14:00 Intake & Output 07/18/20 07/19/20 07/19/20 18:59 06:59 18:59 Intake Total 540 240 Output Total 2 350 Balance 538 -110 Intake: Oral 540 240 Output: Urine 2 350 Other: Voiding Method Toilet Urinal # Voids 4 1 - Labs CBC & Chem 7: 07/19/20 06:11 07/19/20 06:11 Labs: Abnormal Lab Results - Last 24 Hours (Table) 07/18/20 07/18/20 07/18/20 Range/Units 15:05 17:15 18:07 RBC (4.30-5.90) m/uL Hgb (13.0-17.5) gm/dL Hct (39.0-53.0) % MCV (80.0-100.0) fL Neutrophils # 10.1 H (1.3-7.7) k/uL Lymphocytes # 0.9 L (1.0-4.8) k/uL PT (9.9-11.9) sec INR (0.90-1.11) BUN (9.0-27.0) mg/dL Creatinine (0.6-1.5) mg/dL Est GFR (CKD-EPI)AfAm (60.0-200.0) Est GFR (CKD-EPI)NonAf (60.0-200.0) Glucose (70-110) mg/dL POC Glucose (mg/dL) 167 H (75-99) mg/dL Calcium (8.7-10.3) mg/dL Troponin I 0.069 H* (0.000-0.034) ng/mL 07/18/20 07/18/20 07/19/20 Range/Units 21:08 21:54 06:11 RBC (4.30-5.90) m/uL Hgb (13.0-17.5) gm/dL Hct (39.0-53.0) % MCV (80.0-100.0) fL Neutrophils # (1.3-7.7) k/uL Lymphocytes # (1.0-4.8) k/uL PT 18.5 H (9.9-11.9) sec INR 1.79 H (0.90-1.11) BUN (9.0-27.0) mg/dL Creatinine (0.6-1.5) mg/dL Est GFR (CKD-EPI)AfAm (60.0-200.0) Est GFR (CKD-EPI)NonAf (60.0-200.0) Glucose (70-110) mg/dL POC Glucose (mg/dL) 163 H (75-99) mg/dL Calcium (8.7-10.3) mg/dL Troponin I 0.101 H* (0.000-0.034) ng/mL 07/19/20 07/19/20 07/19/20 Range/Units 06:11 06:11 06:59 RBC 2.47 L (4.30-5.90) m/uL Hgb 8.4 L (13.0-17.5) gm/dL Hct 26.5 L (39.0-53.0) % MCV 107.2 H (80.0-100.0) fL Neutrophils # 7.9 H (1.3-7.7) k/uL Lymphocytes # 0.9 L (1.0-4.8) k/uL PT (9.9-11.9) sec INR (0.90-1.11) BUN 36.0 H (9.0-27.0) mg/dL Creatinine 2.4 H (0.6-1.5) mg/dL Est GFR (CKD-EPI)AfAm 28.9 L (60.0-200.0) Est GFR (CKD-EPI)NonAf 24.9 L (60.0-200.0) Glucose 113 H (70-110) mg/dL POC Glucose (mg/dL) 123 H (75-99) mg/dL Calcium 8.4 L (8.7-10.3) mg/dL Troponin I (0.000-0.034) ng/mL 07/19/20 07/19/20 Range/Units 11:20 16:54 RBC (4.30-5.90) m/uL Hgb (13.0-17.5) gm/dL Hct (39.0-53.0) % MCV (80.0-100.0) fL Neutrophils # (1.3-7.7) k/uL Lymphocytes # (1.0-4.8) k/uL PT (9.9-11.9) sec INR (0.90-1.11) BUN (9.0-27.0) mg/dL Creatinine (0.6-1.5) mg/dL Est GFR (CKD-EPI)AfAm (60.0-200.0) Est GFR (CKD-EPI)NonAf (60.0-200.0) Glucose (70-110) mg/dL POC Glucose (mg/dL) 168 H 182 H (75-99) mg/dL Calcium (8.7-10.3) mg/dL Troponin I (0.000-0.034) ng/mL
[2020-07-19] MEDS: SENNOSIDES 8.6 MG TAB PO SCH (13:36)
--- NOTE | 2020-07-19 15:07 | P.PN ---
Subjective Progress Note Date: 07/19/20 Principal diagnosis: Acute GI bleed This is a 71-year-old white male with a history of atrial fibrillation coronary artery disease who was Coumadin who came in to the emergency department after having multiple episodes of bloody stools. He patient initially had dark stools that followed with bright red. Upon admission to the hospital the patient's INR was 5 he was given 2 mg of IV vitamin K. He has status post EGD and colonoscopy. Upper endoscopy revealed mild gastritis and small hiatal hernia but no active GI bleed. Colonoscopy revealed 5 mm nonbleeding cecal AVM status post argon plasma coagulation, with several polyps status post polypectomy, and sigmoid diverticula. He has had no further episodes of bleeding. He denies any abdominal pain, nausea, or vomiting. He has not had a bowel movement and colonoscopy. Yesterday patient had a hypotensive event, was given Lasix became very hypotensive, had agonal breathing and CODE BLUE was called. CPR was given on the patient less than 1 minute. Objective - Vital Signs Vital signs: Vital Signs Temp 97.5 F L 07/19/20 07:00 Pulse 60 07/19/20 10:47 Resp 22 07/19/20 07:00 BP 105/66 07/19/20 10:47 Pulse Ox 96 07/19/20 07:00 Intake & Output 07/18/20 07/19/20 07/19/20 18:59 06:59 18:59 Intake Total 540 Output Total 2 250 Balance 538 -250 Intake: Oral 540 Output: Urine 2 250 Other: Voiding Method Toilet Urinal # Voids 4 - Exam General appearance: The patient is alert, oriented, in no acute distress. HET: Head is normocephalic and atraumatic. Conjunctiva pink. Sclera anicteric. Neck: Supple without lymphadenopathy. Abdomen: Soft, obese, nontender, nondistended with bowel sounds. No guarding or rigidity. Extremities: Normal skin color and turgor. No pedal edema Neurological: No focal deficits. Alert and oriented 3. - Labs CBC & Chem 7: 07/19/20 06:11 07/19/20 06:11 Labs: Abnormal Lab Results - Last 24 Hours (Table) 07/18/20 07/18/20 07/18/20 Range/Units 14:51 14:51 15:05 WBC 12.0 H (3.8-10.6) k/uL RBC 2.81 L (4.30-5.90) m/uL Hgb 9.3 L (13.0-17.5) gm/dL Hct 30.6 L (39.0-53.0) % MCV 108.8 H (80.0-100.0) fL MCHC 30.4 L (31.0-37.0) g/dL Neutrophils # 10.1 H (1.3-7.7) k/uL Lymphocytes # 0.9 L (1.0-4.8) k/uL Macrocytosis Marked A PT (9.0-12.0) sec INR (<1.2) ABG pCO2 30 L (35-45) mmHg ABG pO2 164 H (83-108) mmHg ABG HCO3 18 L (21-25) mmol/L ABG O2 Saturation 97.7 H (94-97) % Sodium (137-145) mmol/L Carbon Dioxide (22-30) mmol/L BUN (9-20) mg/dL Creatinine (0.66-1.25) mg/dL Est GFR (CKD-EPI)AfAm (60.0-200.0) Est GFR (CKD-EPI)NonAf (60.0-200.0) Glucose (74-99) mg/dL POC Glucose (mg/dL) 262 H (75-99) mg/dL Plasma Lactic Acid Tk (0.7-2.0) mmol/L Calcium (8.7-10.3) mg/dL Magnesium (1.6-2.3) mg/dL Troponin I (0.000-0.034) ng/mL Total Protein (6.3-8.2) g/dL Albumin (3.5-5.0) g/dL 07/18/20 07/18/20 07/18/20 Range/Units 15:05 15:05 15:05 WBC (3.8-10.6) k/uL RBC (4.30-5.90) m/uL Hgb (13.0-17.5) gm/dL Hct (39.0-53.0) % MCV (80.0-100.0) fL MCHC (31.0-37.0) g/dL Neutrophils # (1.3-7.7) k/uL Lymphocytes # (1.0-4.8) k/uL Macrocytosis PT (9.0-12.0) sec INR (<1.2) ABG pCO2 (35-45) mmHg ABG pO2 (83-108) mmHg ABG HCO3 (21-25) mmol/L ABG O2 Saturation (94-97) % Sodium 133 L (137-145) mmol/L Carbon Dioxide 21 L (22-30) mmol/L BUN 38 H (9-20) mg/dL Creatinine 2.71 H (0.66-1.25) mg/dL Est GFR (CKD-EPI)AfAm (60.0-200.0) Est GFR (CKD-EPI)NonAf (60.0-200.0) Glucose 202 H (74-99) mg/dL POC Glucose (mg/dL) (75-99) mg/dL Plasma Lactic Acid Tk 4.2 H* (0.7-2.0) mmol/L Calcium (8.7-10.3) mg/dL Magnesium 2.4 H (1.6-2.3) mg/dL Troponin I 0.056 H* (0.000-0.034) ng/mL Total Protein 5.7 L (6.3-8.2) g/dL Albumin 3.2 L (3.5-5.0) g/dL 07/18/20 07/18/20 07/18/20 Range/Units 15:05 15:36 17:15 WBC (3.8-10.6) k/uL RBC (4.30-5.90) m/uL Hgb (13.0-17.5) gm/dL Hct (39.0-53.0) % MCV (80.0-100.0) fL MCHC (31.0-37.0) g/dL Neutrophils # (1.3-7.7) k/uL Lymphocytes # (1.0-4.8) k/uL Macrocytosis PT 16.0 H (9.0-12.0) sec INR 1.6 H (<1.2) ABG pCO2 (35-45) mmHg ABG pO2 (83-108) mmHg ABG HCO3 (21-25) mmol/L ABG O2 Saturation (94-97) % Sodium (137-145) mmol/L Carbon Dioxide (22-30) mmol/L BUN (9-20) mg/dL Creatinine (0.66-1.25) mg/dL Est GFR (CKD-EPI)AfAm (60.0-200.0) Est GFR (CKD-EPI)NonAf (60.0-200.0) Glucose (74-99) mg/dL POC Glucose (mg/dL) 193 H 167 H (75-99) mg/dL Plasma Lactic Acid Tk (0.7-2.0) mmol/L Calcium (8.7-10.3) mg/dL Magnesium (1.6-2.3) mg/dL Troponin I (0.000-0.034) ng/mL Total Protein (6.3-8.2) g/dL Albumin (3.5-5.0) g/dL 07/18/20 07/18/20 07/18/20 Range/Units 18:07 21:08 21:54 WBC (3.8-10.6) k/uL RBC (4.30-5.90) m/uL Hgb (13.0-17.5) gm/dL Hct (39.0-53.0) % MCV (80.0-100.0) fL MCHC (31.0-37.0) g/dL Neutrophils # (1.3-7.7) k/uL Lymphocytes # (1.0-4.8) k/uL Macrocytosis PT (9.0-12.0) sec INR (<1.2) ABG pCO2 (35-45) mmHg ABG pO2 (83-108) mmHg ABG HCO3 (21-25) mmol/L ABG O2 Saturation (94-97) % Sodium (137-145) mmol/L Carbon Dioxide (22-30) mmol/L BUN (9-20) mg/dL Creatinine (0.66-1.25) mg/dL Est GFR (CKD-EPI)AfAm (60.0-200.0) Est GFR (CKD-EPI)NonAf (60.0-200.0) Glucose (74-99) mg/dL POC Glucose (mg/dL) 163 H (75-99) mg/dL Plasma Lactic Acid Tk (0.7-2.0) mmol/L Calcium (8.7-10.3) mg/dL Magnesium (1.6-2.3) mg/dL Troponin I 0.069 H* 0.101 H* (0.000-0.034) ng/mL Total Protein (6.3-8.2) g/dL Albumin (3.5-5.0) g/dL 07/19/20 07/19/20 07/19/20 Range/Units 06:11 06:11 06:11 WBC (3.8-10.6) k/uL RBC 2.47 L (4.30-5.90) m/uL Hgb 8.4 L (13.0-17.5) gm/dL Hct 26.5 L (39.0-53.0) % MCV 107.2 H (80.0-100.0) fL MCHC (31.0-37.0) g/dL Neutrophils # 7.9 H (1.3-7.7) k/uL Lymphocytes # 0.9 L (1.0-4.8) k/uL Macrocytosis PT 18.5 H (9.0-12.0) sec INR 1.79 H (<1.2) ABG pCO2 (35-45) mmHg ABG pO2 (83-108) mmHg ABG HCO3 (21-25) mmol/L ABG O2 Saturation (94-97) % Sodium (137-145) mmol/L Carbon Dioxide (22-30) mmol/L BUN 36.0 H (9-20) mg/dL Creatinine 2.4 H (0.66-1.25) mg/dL Est GFR (CKD-EPI)AfAm 28.9 L (60.0-200.0) Est GFR (CKD-EPI)NonAf 24.9 L (60.0-200.0) Glucose 113 H (74-99) mg/dL POC Glucose (mg/dL) (75-99) mg/dL Plasma Lactic Acid Tk (0.7-2.0) mmol/L Calcium 8.4 L (8.7-10.3) mg/dL Magnesium (1.6-2.3) mg/dL Troponin I (0.000-0.034) ng/mL Total Protein (6.3-8.2) g/dL Albumin (3.5-5.0) g/dL 07/19/20 07/19/20 Range/Units 06:59 11:20 WBC (3.8-10.6) k/uL RBC (4.30-5.90) m/uL Hgb (13.0-17.5) gm/dL Hct (39.0-53.0) % MCV (80.0-100.0) fL MCHC (31.0-37.0) g/dL Neutrophils # (1.3-7.7) k/uL Lymphocytes # (1.0-4.8) k/uL Macrocytosis PT (9.0-12.0) sec INR (<1.2) ABG pCO2 (35-45) mmHg ABG pO2 (83-108) mmHg ABG HCO3 (21-25) mmol/L ABG O2 Saturation (94-97) % Sodium (137-145) mmol/L Carbon Dioxide (22-30) mmol/L BUN (9-20) mg/dL Creatinine (0.66-1.25) mg/dL Est GFR (CKD-EPI)AfAm (60.0-200.0) Est GFR (CKD-EPI)NonAf (60.0-200.0) Glucose (74-99) mg/dL POC Glucose (mg/dL) 123 H 168 H (75-99) mg/dL Plasma Lactic Acid Tk (0.7-2.0) mmol/L Calcium (8.7-10.3) mg/dL Magnesium (1.6-2.3) mg/dL Troponin I (0.000-0.034) ng/mL Total Protein (6.3-8.2) g/dL Albumin (3.5-5.0) g/dL Assessment and Plan (1) Acute GI bleeding Narrative/Plan: Q gastrointestinal bleed status post EGD and colonoscopy 3 days ago. 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 Patient has had no further episodes of bleeding. Coumadin a be resumed. Current Visit: Yes Status: Acute Code(s): K92.2 - GASTROINTESTINAL HEMORRHAGE, UNSPECIFIED SNOMED Code(s): 05865365 (2) Chronic kidney disease Current Visit: Yes Status: Acute Code(s): N18.9 - CHRONIC KIDNEY DISEASE, UNSPECIFIED SNOMED Code(s): 676663958 (3) History of atrial fibrillation Narrative/Plan: Was on Coumadin, INR on admission was 5, patient was given vitamin K. Patient is now status post EGD and colonoscopy without any further evidence of bleeding. Patient may restart Coumadin. Current Visit: Yes Status: Acute Code(s): Z86.79 - PERSONAL HISTORY OF OTHER DISEASES OF THE CIRCULATORY SYSTEM SNOMED Code(s): 700256309 (4) Congestive heart failure Current Visit: No Status: Acute Code(s): I50.9 - HEART FAILURE, UNSPECIFIED SNOMED Code(s): 19387234 Plan: 1. Supportive care 2. Heart healthy diet 3. Continue with Protonix 40 mg daily 4. Monitor CBC daily 5. Add senna daily to help with constipation Dr. Thurston I agree with the dictator's note, documented as a scribe by Carlotta Arroyo.
--- NOTE | 2020-07-19 16:02 | PN ---
PROGRESS NOTE The patient is seen for followup for acute kidney injury. His renal function has improved over the last 3 days, with creatinine down to 2.4 from 2.7 two days ago. The patient had an episode of syncope yesterday after he had received Lasix. CODE KATELYN was called in and patient was in PEA. He did not need intubation. Blood pressure has been slightly on the lower side, with systolic around 105 to 107 mmHg. Orthostatic blood pressures were positive today. PHYSICAL EXAMINATION: On examination today, blood pressure was 120/64, heart rate 60 per minute. He is afebrile. EXAMINATION OF THE HEART: S1 and S2. EXAMINATION OF LUNGS: Bilateral breath sounds are heard. Decreased breath sounds at bases. ABDOMEN: Soft, non-tender. Examination of lower extremities shows no significant edema. [employer] SPECIALIST exam is grossly intact. LABS: Labs show sodium of 135, potassium 4.0, chloride 103, BUN of 36, serum creatinine 2.4. ASSESSMENT: 1. Acute kidney injury associated with hypotension, hypoperfusion, currently improved. 2. Status post PEA/cardiac arrest yesterday. 3. Hypovolemia and postural hypotension. 4. Chronic kidney disease, stage 3. Baseline creatinine 1.8 to 2 mg/dL secondary to chronic interstitial nephropathy and chronic cardiorenal syndrome. 5. Chronic systolic congestive heart failure with ejection fraction 35% to 40%. 6. Gastrointestinal bleed, status post esophagogastroduodenoscopy and colonoscopy which revealed mild gastritis, nonbleeding AVM, status post argon plasma coagulation and removal of polyps. 7. Anemia, maintained on Aranesp, status post IV infusion. 8. Chronic kidney disease mineral bone disorder, maintained on calcitriol. PLAN: Give half the dose of Lasix today and we will hold off on the Lasix following that. Chest x-ray does not show any CHF. At home patient was taking 80 mg p.o. b.i.d. He will likely need much less than that, at least for the next few days. MMODL / IJN: [id number] /
[2020-07-19 16:57] LABS: Glucose,Whole Blood 182 mg/dL (75-99)
[2020-07-19] MEDS: LACTATED RINGERS 1,000 ML IV SCH (17:00)
--- NOTE | 2020-07-19 17:39 | P.PN ---
Subjective Acute gastrointestinal bleeding possibly lower with blood loss anemia This is a 79-year-old male who was recently admitted with significant bleeding per rectum with bright red and black tarry stools and is being closely monitored. Patient's INR was 5 on admission and received a dose of vitamin K. Patient was scheduled to undergo EGD/colonoscopy today although did not complete bowel prep and is currently doing so at this time. Patient continues to have bright red and black tarry stools noted in the bedside commode. Patient's current hemoglobin is 9.1 today and Coumadin is on hold with an INR of 1.6. Patient will undergo endoscopy tomorrow with GI. Patient is maintained on clear liquids and will be nothing by mouth at midnight again. Nephrology consulted and following along with GI and cardiology. 07/16/2020 Patient was seen and evaluated in follow-up receiving underwent EGD and colonoscopy with GI which showed mild gastritis and small hiatal hernia with no active GI bleed, colonoscopy shows multiple polyps and biopsies obtained, sigmoid diverticula, a 5 mm nonbleeding cecal AVM status post argon plasma coagulation. Patient is on Coumadin which can be resumed tomorrow. Current hemoglobin is stable at 9.3 with no active bleeding noted. Patient is tolerating diet with no reports of nausea or vomiting. Patient is also being followed by nephrology and creatinine is stable. Patient is receiving iron infusion at this time. 07/17/2020 Patient is currently denied any complaints of chest pain or shortness of the. Denies any blood in the stool. Monitor H&H in the next 24 hours. No further blood noted in the stools. Patient is being followed by cardiology and GI. Patient underwent EGD and colonoscopy yesterday for acute GI bleed. EGD showed mild gastritis and small hiatal hernia. No active GI bleed. Colonoscopy showed nonbleeding cecal AVM and colon polyp transverse polypectomy. Coumadin resumed today. Monitor INR. Monitor H&H. Patient is hypotensive today. Would like to be discharged home. 07/18/2020 Patient is is awake alert and oriented. Hemoglobin is stable. Creatinine level is also stable at 2.4. No active GI bleeding was noted. Patient underwent EGD and colonoscopy. Otherwise patient was hypotensive and was started midodrine. Patient is being continued on Lasix. After giving his Lasix dose patient became pale and unresponsive. TAYLOR ZEPEDA was called today. Patient did have faint pulse and was having agonal breathing. CPR was started but only for less than 1 minute. His pulse came back and started to come around. Patient became more awake and oriented. Blood pressure is stable. Patient will be continued on current blood pressure medications and lower the dose of Coreg. Monitor patient on the 24 hours. Monitor H&H. CBC and BMP. Patient is also found to have elevated lactic acid level and fluid bolus was given with improvement to 1.5. 07/19/2020 Patient is an have any more GI bleed. Patient was started back on warfarin patient had interrogation of AICD which is functioning fine. Patient actually had pulseless electrical activity probably patient may have had a pulse that was not appreciated because of hypotension during code. Patient is still hypotensive will change Coreg to metoprolol will monitor him overnight possibly of discharge tomorrow. Constitutional: Denied any fatigue denied any fever. Cardio vascular: As have some chest pain from chest compressions Gastrointestinal denied any nausea vomiting Pulmonary: Denied any shortness of breath cough Neurologic denied any new focal deficits All inpatient medications were reviewed and appropriate changes in these medications as dictated in the interval history and assessment and plan. Objective - Vital Signs Vital signs: Vital Signs Temp 98.4 F 07/19/20 14:00 Pulse 62 07/19/20 14:00 Resp 20 07/19/20 14:00 BP 113/70 07/19/20 14:00 Pulse Ox 95 07/19/20 14:00 Intake & Output 07/18/20 07/19/20 07/19/20 18:59 06:59 18:59 Intake Total 540 240 Output Total 2 350 Balance 538 -110 Intake: Oral 540 240 Output: Urine 2 350 Other: Voiding Method Toilet Urinal # Voids 4 1 - Exam PHYSICAL EXAMINATION: GENERAL: The patient is alert and oriented x3, not in any acute distress. Well developed, well nourished. HEENT: Pupils are round and equally reacting to light. EOMI. No scleral icterus. No conjunctival pallor. Normocephalic, atraumatic. No pharyngeal erythema. No thyromegaly. CARDIOVASCULAR: S1 and S2 present. No murmurs, rubs, or gallops. PULMONARY: Chest is clear to auscultation, no wheezing or crackles. ABDOMEN: Soft, nontender, nondistended, normoactive bowel sounds. No palpable organomegaly. MUSCULOSKELETAL: No joint swelling or deformity. EXTREMITIES: No cyanosis, clubbing, or pedal edema. NEUROLOGICAL: Gross neurological examination did not reveal any focal deficits. SKIN: No rashes. - Labs CBC & Chem 7: 07/19/20 06:11 07/19/20 06:11 Labs: Abnormal Lab Results - Last 24 Hours (Table) 07/18/20 07/18/20 07/18/20 Range/Units 15:05 18:07 21:08 RBC (4.30-5.90) m/uL Hgb (13.0-17.5) gm/dL Hct (39.0-53.0) % MCV (80.0-100.0) fL Neutrophils # 10.1 H (1.3-7.7) k/uL Lymphocytes # 0.9 L (1.0-4.8) k/uL PT (9.9-11.9) sec INR (0.90-1.11) BUN (9.0-27.0) mg/dL Creatinine (0.6-1.5) mg/dL Est GFR (CKD-EPI)AfAm (60.0-200.0) Est GFR (CKD-EPI)NonAf (60.0-200.0) Glucose (70-110) mg/dL POC Glucose (mg/dL) (75-99) mg/dL Calcium (8.7-10.3) mg/dL Troponin I 0.069 H* 0.101 H* (0.000-0.034) ng/mL 07/18/20 07/19/20 07/19/20 Range/Units 21:54 06:11 06:11 RBC 2.47 L (4.30-5.90) m/uL Hgb 8.4 L (13.0-17.5) gm/dL Hct 26.5 L (39.0-53.0) % MCV 107.2 H (80.0-100.0) fL Neutrophils # 7.9 H (1.3-7.7) k/uL Lymphocytes # 0.9 L (1.0-4.8) k/uL PT 18.5 H (9.9-11.9) sec INR 1.79 H (0.90-1.11) BUN (9.0-27.0) mg/dL Creatinine (0.6-1.5) mg/dL Est GFR (CKD-EPI)AfAm (60.0-200.0) Est GFR (CKD-EPI)NonAf (60.0-200.0) Glucose (70-110) mg/dL POC Glucose (mg/dL) 163 H (75-99) mg/dL Calcium (8.7-10.3) mg/dL Troponin I (0.000-0.034) ng/mL 07/19/20 07/19/20 07/19/20 Range/Units 06:11 06:59 11:20 RBC (4.30-5.90) m/uL Hgb (13.0-17.5) gm/dL Hct (39.0-53.0) % MCV (80.0-100.0) fL Neutrophils # (1.3-7.7) k/uL Lymphocytes # (1.0-4.8) k/uL PT (9.9-11.9) sec INR (0.90-1.11) BUN 36.0 H (9.0-27.0) mg/dL Creatinine 2.4 H (0.6-1.5) mg/dL Est GFR (CKD-EPI)AfAm 28.9 L (60.0-200.0) Est GFR (CKD-EPI)NonAf 24.9 L (60.0-200.0) Glucose 113 H (70-110) mg/dL POC Glucose (mg/dL) 123 H 168 H (75-99) mg/dL Calcium 8.4 L (8.7-10.3) mg/dL Troponin I (0.000-0.034) ng/mL 07/19/20 Range/Units 16:54 RBC (4.30-5.90) m/uL Hgb (13.0-17.5) gm/dL Hct (39.0-53.0) % MCV (80.0-100.0) fL Neutrophils # (1.3-7.7) k/uL Lymphocytes # (1.0-4.8) k/uL PT (9.9-11.9) sec INR (0.90-1.11) BUN (9.0-27.0) mg/dL Creatinine (0.6-1.5) mg/dL Est GFR (CKD-EPI)AfAm (60.0-200.0) Est GFR (CKD-EPI)NonAf (60.0-200.0) Glucose (70-110) mg/dL POC Glucose (mg/dL) 182 H (75-99) mg/dL Calcium (8.7-10.3) mg/dL Troponin I (0.000-0.034) ng/mL Assessment and Plan Plan: Acute gastrointestinal bleeding possibly lower with blood loss anemia possibly diverticular bleed. Ruled out ischemic colitis or peptic ulcer disease. Status post EGD and colonoscopy. no more Gi Bleed Coumadin coagulopathy. resolved Chronic kidney disease stage III baseline atrial fibrillation, chronic is in the rate controlled. coronary artery disease -An episode of unresponsiveness believed the to have had PEA and patient was resuscitated, although has integration did not reveal any significant abnormality. Diabetes mellitus type 2 History of gastroesophageal reflux disease Hypertension Hyperlipidemia Coronary artery disease degenerative joint disease Hypothyroidism congestive heart failure with chronic systolic dysfunction, ejection fraction 35-40% with severe cardiomyopathy with AICD and is not in acute exacerbation History of pulmonary hypertension severe mitral, moderate tricuspid regurgitation History of carcinoma of the prostate Left carotid artery stenosis, awaiting stent placement
[2020-07-19] MEDS ORDERED: WARFARIN 1 MG TAB PO ONE (18:00)
[2020-07-19 21:27] LABS: Glucose,Whole Blood 185 mg/dL (75-99)
[2020-07-19] MEDS: EZETIMIBE 10 MG TAB PO SCH (21:45)
[2020-07-19] MEDS: METOPROLOL TARTRATE 25 MG TAB PO SCH (21:45)
[2020-07-19] MEDS: ATORVASTATIN 80 MG TAB PO SCH (21:45)
[2020-07-20 02:08] VITALS: RESP 18
[2020-07-20 06:58] LABS: Glucose,Whole Blood 156 mg/dL (75-99)
[2020-07-20 06:59] LABS: HCT 28.6 % (39.0-53.0); HGB 9.4 gm/dL (13.0-17.5); Hypochromasia Slight; MCH 35.1 pg (25.0-35.0); MCHC 32.9 g/dL (31.0-37.0); MCV 106.6 fL (80.0-100.0); Macrocytosis Moderate; Mean Platelet Volume 7.4; Platelet Count 213 k/uL (150-450); RBC 2.68 m/uL (4.30-5.90); RDW 15.3 % (11.5-15.5); WBC 11.1 k/uL (3.8-10.6)
[2020-07-20] MEDS: MIDODRINE 5 MG TAB PO SCH ×2 (07:28→13:55)
[2020-07-20 08:14] VITALS: BP 130/84; TEMP 98.6
[2020-07-20] MEDS ORDERED: FUROSEMIDE 40 MG TAB PO SCH (09:00)
[2020-07-20] MEDS: allopurinoL 300 MG TAB PO SCH (09:25)
[2020-07-20] MEDS: AMIODARONE 200 MG TAB PO SCH (09:26)
[2020-07-20] MEDS: MAGNESIUM OXIDE 400 MG TAB PO SCH (09:27)
[2020-07-20] MEDS: FINASTERIDE 5 MG TAB PO SCH (09:27)
[2020-07-20] MEDS: METOPROLOL TARTRATE 25 MG TAB PO SCH (09:28)
[2020-07-20] MEDS: MEXILETINE 200 MG CAP PO SCH (09:28)
[2020-07-20] MEDS: TAMSULOSIN 0.4 MG CAP.ER.24H PO SCH (09:32)
[2020-07-20] MEDS: SENNOSIDES 8.6 MG TAB PO SCH (09:32)
[2020-07-20] MEDS: SPIRONOLACTONE 25 MG TAB PO SCH (09:32)
[2020-07-20] MEDS: PANTOPRAZOLE 40 MG TABLET PO SCH (09:32)
[2020-07-20 09:33] LABS: African American GFR (CKD) 28.9 (60.0-200.0); Anion Gap 10.4 mmol/L (4.00-12.00); BUN/Creat Ratio 15.83 Ratio (12.00-20.00); Calcium 8.4 mg/dL (8.7-10.3); Carbon Dioxide 21.6 mmol/L (21.6-31.8); Non-African American GFR(CKD) 24.9 (60.0-200.0); Potassium 3.9 mmol/L (3.5-5.5)
[2020-07-20 10:09] LABS: INR 2.39 (0.90-1.11); Prothrombin Time 24.2 sec (9.9-11.9)
[2020-07-20 10:36] VITALS: PULSE 70
--- NOTE | 2020-07-20 11:02 | P.PN ---
Subjective Progress Note Date: 07/20/20 Principal diagnosis: Acute GI bleed This is a 71-year-old white male with a history of atrial fibrillation coronary artery disease who was Coumadin who came in to the emergency department after having multiple episodes of bloody stools. He patient initially had dark stools that followed with bright red. Upon admission to the hospital the patient's INR was 5 he was given 2 mg of IV vitamin K. He has status post EGD and colonoscopy. Upper endoscopy revealed mild gastritis and small hiatal hernia but no active GI bleed. Colonoscopy revealed 5 mm nonbleeding cecal AVM status post argon plasma coagulation, with several polyps status post polypectomy, and sigmoid diverticula. He has had no further episodes of bleeding. Denies any acute changes through the night. He denies any abdominal pain, nausea, or vomiting. He still has not had a bowel movement. He states he is passing flatus. Physical therapy is scheduled to get the patient up in assist with ambulation today. The patient states he is being discharged home today. Objective - Vital Signs Vital signs: Vital Signs Temp 98.6 F 07/20/20 08:00 Pulse 70 07/20/20 09:15 Resp 18 07/20/20 08:00 BP 130/84 07/20/20 08:00 Pulse Ox 94 L 07/20/20 08:00 Intake & Output 07/19/20 07/20/20 07/20/20 18:59 06:59 18:59 Intake Total 240 Output Total 400 700 Balance -160 -700 Intake: Oral 240 Output: Urine 400 700 Other: Voiding Method Toilet Urinal # Voids 1 - Exam General appearance: The patient is alert, oriented, in no acute distress. HET: Head is normocephalic and atraumatic. Conjunctiva pink. Sclera anicteric. Neck: Supple without lymphadenopathy. Abdomen: Soft, obese, nontender, nondistended with bowel sounds. No guarding or rigidity. Extremities: Normal skin color and turgor. No pedal edema Neurological: No focal deficits. Alert and oriented 3. - Labs CBC & Chem 7: 07/20/20 06:43 07/20/20 06:43 Labs: Abnormal Lab Results - Last 24 Hours (Table) 07/19/20 07/19/20 07/19/20 Range/Units 11:20 16:54 21:24 WBC (3.8-10.6) k/uL RBC (4.30-5.90) m/uL Hgb (13.0-17.5) gm/dL Hct (39.0-53.0) % MCV (80.0-100.0) fL MCH (25.0-35.0) pg PT (9.9-11.9) sec INR (0.90-1.11) Sodium (135-145) mmol/L BUN (9.0-27.0) mg/dL Creatinine (0.6-1.5) mg/dL Est GFR (CKD-EPI)AfAm (60.0-200.0) Est GFR (CKD-EPI)NonAf (60.0-200.0) Glucose (70-110) mg/dL POC Glucose (mg/dL) 168 H 182 H 185 H (75-99) mg/dL Calcium (8.7-10.3) mg/dL 07/20/20 07/20/20 07/20/20 Range/Units 06:43 06:43 06:43 WBC 11.1 H (3.8-10.6) k/uL RBC 2.68 L (4.30-5.90) m/uL Hgb 9.4 L (13.0-17.5) gm/dL Hct 28.6 L (39.0-53.0) % MCV 106.6 H (80.0-100.0) fL MCH 35.1 H (25.0-35.0) pg PT 24.2 H (9.9-11.9) sec INR 2.39 H (0.90-1.11) Sodium 134 L (135-145) mmol/L BUN 38.0 H (9.0-27.0) mg/dL Creatinine 2.4 H (0.6-1.5) mg/dL Est GFR (CKD-EPI)AfAm 28.9 L (60.0-200.0) Est GFR (CKD-EPI)NonAf 24.9 L (60.0-200.0) Glucose 143 H (70-110) mg/dL POC Glucose (mg/dL) (75-99) mg/dL Calcium 8.4 L (8.7-10.3) mg/dL 07/20/20 Range/Units 06:56 WBC (3.8-10.6) k/uL RBC (4.30-5.90) m/uL Hgb (13.0-17.5) gm/dL Hct (39.0-53.0) % MCV (80.0-100.0) fL MCH (25.0-35.0) pg PT (9.9-11.9) sec INR (0.90-1.11) Sodium (135-145) mmol/L BUN (9.0-27.0) mg/dL Creatinine (0.6-1.5) mg/dL Est GFR (CKD-EPI)AfAm (60.0-200.0) Est GFR (CKD-EPI)NonAf (60.0-200.0) Glucose (70-110) mg/dL POC Glucose (mg/dL) 156 H (75-99) mg/dL Calcium (8.7-10.3) mg/dL Assessment and Plan Assessment: 1. Acute GI bleed since yesterday. Patient had multiple episodes of black colored stool followed by bright red blood per rectum. He had 6 episodes with no further bleeding since admission. His admission hemoglobin was 9.2, a month ago was 14.3. His last colonoscopy was several years ago. No recent NSAID use. No prior history of peptic ulcer disease. Today's hemoglobin was 9.1, INR 1.6. The patient was scheduled for an upper and lower endoscopy today, however patient failed to complete his bowel prep. Patient is scheduled for an upper and lower endoscopy tomorrow. 2. History of atrial fibrillation on Coumadin with an visual INR of 5, he was given vitamin K 2 mg IV in the emergency room. His repeat INR today is 1.6. 3. Kidney disease with elevated BUN and creatinine 4. History of AICD placement (1) Acute GI bleeding Narrative/Plan: Q gastrointestinal bleed status post EGD and colonoscopy 3 days ago. 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 Patient has had no further episodes of bleeding. Coumadin can be resumed. Current Visit: Yes Status: Acute Code(s): K92.2 - GASTROINTESTINAL HEMORRHAGE, UNSPECIFIED SNOMED Code(s): 40224733 (2) Chronic kidney disease Current Visit: Yes Status: Acute Code(s): N18.9 - CHRONIC KIDNEY DISEASE, UNSPECIFIED SNOMED Code(s): 339679069 (3) History of atrial fibrillation Narrative/Plan: Was on Coumadin, INR on admission was 5, patient was given vitamin K. Patient is now status post EGD and colonoscopy without any further evidence of bleeding. Patient may restart Coumadin. Current Visit: Yes Status: Acute Code(s): Z86.79 - PERSONAL HISTORY OF OTHER DISEASES OF THE CIRCULATORY SYSTEM SNOMED Code(s): 235498634 (4) Congestive heart failure Current Visit: No Status: Acute Code(s): I50.9 - HEART FAILURE, UNSPECIFIED SNOMED Code(s): 21596832 Plan: 1. Supportive care 2. Heart healthy diet 3. Continue with Protonix 40 mg daily 4. Monitor CBC daily 5. Add senna daily to help with constipation Dr. Thurston I agree with the dictator's note, documented as a scribe by Carlotta Arroyo.
[2020-07-20 12:20] LABS: Glucose,Whole Blood 187 mg/dL (75-99)
--- NOTE | 2020-07-20 13:53 | XR ---
EXAMINATION TYPE: XR chest 1V DATE OF EXAM: 07/20/2020 COMPARISON: Chest x-ray dated 07/18/2020 HISTORY: CODE BLUE, shortness of breath TECHNIQUE: Single frontal view of the chest is obtained. FINDINGS: Patient is rotated. Cardiac mediastinal silhouette, pulmonary vascularity and hector are sta ble. Generators present in the left pectoral region, there are leads in the right atrium, right ventr icle, coronary sinus region as on prior. No evident pneumothorax or pleural effusion. Aorta is dense. Prominence of the right pulmonary artery is again noted. IMPRESSION: Cardiomegaly. Findings are stable compared to prior exam. Rotated exam, consider follow- up as indicated.
[2020-07-20] MEDS ORDERED: FUROSEMIDE 10 MG/ML 4 ML VIAL IV STA (14:20)
--- NOTE | 2020-07-20 14:28 | P.DS ---
Providers Date of admission: 07/15/20 08:51 Attending physician: Edd Mcginnis Consults: 07/13/20 17:31 Consult Physician Routine Consulting Provider: Edmund Thurston Consult Reason/Comments: gi bleeding Do you want consulting provider notified?: Yes 07/14/20 16:57 Consult Physician Routine Consulting Provider: Ezequiel Mott Consult Reason/Comments: arf Do you want consulting provider notified?: Yes 07/18/20 17:45 Consult Physician Routine Consulting Provider: Zeb Hill Consult Reason/Comments: cardiac arrest Do you want consulting provider notified?: Already Contacted Primary care physician: Joslyn Reece DO Hospital Course: Acute gastrointestinal bleeding possibly lower with blood loss anemia This is a 79-year-old male who was recently admitted with significant bleeding per rectum with bright red and black tarry stools and is being closely monitored. Patient's INR was 5 on admission and received a dose of vitamin K. Patient was scheduled to undergo EGD/colonoscopy today although did not complete bowel prep and is currently doing so at this time. Patient continues to have bright red and black tarry stools noted in the bedside commode. Patient's current hemoglobin is 9.1 today and Coumadin is on hold with an INR of 1.6. Patient will undergo endoscopy tomorrow with GI. Patient is maintained on clear liquids and will be nothing by mouth at midnight again. Nephrology consulted and following along with GI and cardiology. 07/16/2020 Patient was seen and evaluated in follow-up receiving underwent EGD and colonoscopy with GI which showed mild gastritis and small hiatal hernia with no active GI bleed, colonoscopy shows multiple polyps and biopsies obtained, sigmoid diverticula, a 5 mm nonbleeding cecal AVM status post argon plasma coagulation. Patient is on Coumadin which can be resumed tomorrow. Current hemoglobin is stable at 9.3 with no active bleeding noted. Patient is tolerating diet with no reports of nausea or vomiting. Patient is also being followed by nephrology and creatinine is stable. Patient is receiving iron infusion at this time. 07/17/2020 Patient is currently denied any complaints of chest pain or shortness of the. Denies any blood in the stool. Monitor H&H in the next 24 hours. No further blood noted in the stools. Patient is being followed by cardiology and GI. Patient underwent EGD and colonoscopy yesterday for acute GI bleed. EGD showed mild gastritis and small hiatal hernia. No active GI bleed. Colonoscopy showed nonbleeding cecal AVM and colon polyp transverse polypectomy. Coumadin resumed today. Monitor INR. Monitor H&H. Patient is hypotensive today. Would like to be discharged home. 07/18/2020 Patient is is awake alert and oriented. Hemoglobin is stable. Creatinine level is also stable at 2.4. No active GI bleeding was noted. Patient underwent EGD and colonoscopy. Otherwise patient was hypotensive and was started midodrine. Patient is being continued on Lasix. After giving his Lasix dose patient became pale and unresponsive. CODE BLUE was called today. Patient did have faint pulse and was having agonal breathing. CPR was started but only for less than 1 minute. His pulse came back and started to come around. Patient became more awake and oriented. Blood pressure is stable. Patient will be continued on current blood pressure medications and lower the dose of Coreg. Monitor patient on the 24 hours. Monitor H&H. CBC and BMP. Patient is also found to have elevated lactic acid level and fluid bolus was given with improvement to 1.5. 07/19/2020 Patient is an have any more GI bleed. Patient was started back on warfarin patient had interrogation of AICD which is functioning fine. Patient actually had pulseless electrical activity probably patient may have had a pulse that was not appreciated because of hypotension during code. Patient is still hypotensive will change Coreg to metoprolol will monitor him overnight possibly of discharge tomorrow. 07/20/2020 Patient given with super that we cannot with the INR of around 5 patient was using 0.5 and 1 mg alternately patient will be changed to 0.5 mg daily. Because of the GI bleed Plavix will be discontinued patient that they have history of carotid stenosis for which patient is awaiting endarterectomy. Patient is bit constipated will be discharged on senna and MiraLAX. Patient will be discharged on metoprolol. Patient appears to be in mild heart failure exacerbation patient will be given an additional dose of Lasix now patient was bit short of breath patient's oral Lasix will be changed to 40 mg oral twice a day patient is only taking 40 mg daily here as opposed to 80 mg twice a day at home before admission. PHYSICAL EXAMINATION: GENERAL: The patient is alert and oriented x3, not in any acute distress. Well developed, well nourished. HEENT: Pupils are round and equally reacting to light. EOMI. No scleral icterus. No conjunctival pallor. Normocephalic, atraumatic. No pharyngeal erythema. No thyromegaly. CARDIOVASCULAR: S1 and S2 present. No murmurs, rubs, or gallops. PULMONARY: Chest is clear to auscultation, no wheezing or crackles. ABDOMEN: Soft, nontender, nondistended, normoactive bowel sounds. No palpable organomegaly. MUSCULOSKELETAL: No joint swelling or deformity. EXTREMITIES: No cyanosis, clubbing, or pedal edema. NEUROLOGICAL: Gross neurological examination did not reveal any focal deficits. SKIN: No rashes. Assessment and Plan Plan: Acute gastrointestinal bleeding possibly lower with blood loss anemia possibly diverticular bleed. Ruled out ischemic colitis or peptic ulcer disease. Status post EGD and colonoscopy. no more Gi Bleed Coumadin coagulopathy. resolved Chronic kidney disease stage 4 baseline atrial fibrillation, chronic is in the rate controlled. coronary artery disease -An episode of unresponsiveness believed the to have had PEA and patient was resuscitated, although has integration did not reveal any significant abnormality. Diabetes mellitus type 2 History of gastroesophageal reflux disease Hypertension Hyperlipidemia Coronary artery disease degenerative joint disease Hypothyroidism congestive heart failure with chronic systolic dysfunction, ejection fraction 35-40% with severe cardiomyopathy with AICD and is not in acute exacerbation History of pulmonary hypertension severe mitral, moderate tricuspid regurgitation History of carcinoma of the prostate Left carotid artery stenosis, awaiting stent placement Patient Condition at Discharge: Stable Plan - Discharge Summary Discharge Rx Participant: Yes New Discharge Prescriptions: New Potassium Chloride [K-Tab ER] 10 meq PO DAILY #30 tablet.er Midodrine [ProAmatine] 2.5 mg PO AC-TID #90 tab Metoprolol Tartrate [Lopressor] 25 mg PO BID #60 tab Warfarin [Coumadin] 0.5 mg PO DAILY #30 tab Continue Finasteride [Proscar] 5 mg PO DAILY Atorvastatin Calcium [Lipitor] 80 mg PO HS calcitrioL [Calcitriol] 0.5 mcg PO FR@2100 allopurinoL [Zyloprim] 150 mg PO DAILY Tamsulosin HCl [Flomax] 0.4 mg PO BID Ergocalciferol (Vitamin D2) [Vitamin D2] 50,000 unit PO Q30D Ferrous Sulfate [Iron (65 MG Elemental)] 325 mg PO DAILY Spironolactone [Aldactone] 25 mg PO DAILY Magnesium Oxide [Mag-Ox] 400 mg PO DAILY Calcium 20meq(Unknown Otc) 1 tab PO DAILY Ezetimibe [Zetia] 10 mg PO HS Pantoprazole [Protonix] 40 mg PO BID Mexiletine [Mexitil] 200 mg PO TID Docusate [Colace] 100 mg PO DAILY PRN PRN Reason: Constipation Amiodarone HCl [Pacerone] 400 mg PO DAILY Changed Furosemide [Lasix] 40 mg PO BID@0900,1500 #0 Discontinued Clopidogrel [Plavix] 75 mg PO DAILY Warfarin [Coumadin] 0.5 mg PO Q48H Warfarin [Coumadin] 1 mg PO Q48H Carvedilol [Coreg] 12.5 mg PO BID Discharge Medication List Atorvastatin Calcium [Lipitor] 80 mg PO HS 04/29/14 [History] Finasteride [Proscar] 5 mg PO DAILY 04/29/14 [History] calcitrioL [Calcitriol] 0.5 mcg PO FR@2100 07/25/16 [History] Ergocalciferol (Vitamin D2) [Vitamin D2] 50,000 unit PO Q30D 09/25/17 [History] Tamsulosin HCl [Flomax] 0.4 mg PO BID 09/25/17 [History] allopurinoL [Zyloprim] 150 mg PO DAILY 09/25/17 [History] Ferrous Sulfate [Iron (65 MG Elemental)] 325 mg PO DAILY 12/31/18 [History] Spironolactone [Aldactone] 25 mg PO DAILY 12/31/18 [History] Calcium 20meq(Unknown Otc) 1 tab PO DAILY 05/31/20 [History] Ezetimibe [Zetia] 10 mg PO HS 05/31/20 [History] Magnesium Oxide [Mag-Ox] 400 mg PO DAILY 05/31/20 [History] Pantoprazole [Protonix] 40 mg PO BID 05/31/20 [History] Amiodarone HCl [Pacerone] 400 mg PO DAILY 07/13/20 [History] Docusate [Colace] 100 mg PO DAILY PRN 07/13/20 [History] Mexiletine [Mexitil] 200 mg PO TID 07/13/20 [History] Midodrine [ProAmatine] 2.5 mg PO AC-TID #90 tab 07/18/20 [Rx] Potassium Chloride [K-Tab ER] 10 meq PO DAILY #30 tablet.er 07/18/20 [Rx] Furosemide [Lasix] 40 mg PO BID@0900,1500 #0 07/20/20 [Rx] Metoprolol Tartrate [Lopressor] 25 mg PO BID #60 tab 07/20/20 [Rx] Warfarin [Coumadin] 0.5 mg PO DAILY #30 tab 07/20/20 [Rx] Follow up Appointment(s)/Referral(s): Laura Hill MD [STAFF PHYSICIAN] - 1 Week (Office closed. Please call Sunday to schedule an appointment) [facility], [NON-STAFF] - As Needed Joslyn Reece DO [Primary Care Provider] - 1-2 days (office closed. Please call Sunday to schedule appointment ) Patient Instructions/Handouts: Gastrointestinal Bleeding (DC) Discharge Disposition: HOME WITH HOME HEALTH SERVICES
--- NOTE | 2020-07-20 17:19 | PN ---
PROGRESS NOTE Patient is seen for followup for acute kidney injury. His renal function has been fairly stable over the last couple of days with creatinine staying at about 2.4 mg/dL which is not far from his previous creatinine of about 1.8 in December and November of 2019. PHYSICAL EXAMINATION: Today patient is comfortable. Blood pressure is 130/84, heart rate 78 per minute, he is afebrile. Examination of the heart S1, S2. Examination of the lungs, bilateral breath sounds are heard. Abdomen is soft, nontender. Examination of the lower extremities shows trace edema. HAM PASSER exam grossly intact. LABS: Show sodium 134, potassium 3.9, chloride 102, BUN 38, serum creatinine 2.4, hemoglobin 9.4 g/dL. ASSESSMENT: 1. Acute kidney injury associated with hypotension, hypoperfusion, improved now staying stable with creatinine at about 2.4 mg/dL. 2. Status post PEA/cardiac arrest 2 days ago. 3. Hypovolemia, postal hypotension. Diuretics have been decreased. 4. Chronic kidney disease stage III. Baseline creatinine 1.8-2 mg/dL secondary to chronic interstitial nephropathy, and cardiorenal syndrome. 5. Chronic systolic congestive heart failure. 6. Cardiomyopathy, ejection fraction 35%-40%. 7. GI bleed, status post EGD and colonoscopy which revealed mild gastritis, nonbleeding AVM, status post argon plasma coagulation and removal of polyps. 8. 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 PLAN: Continue to encourage increased oral intake. Follow up as outpatient for CKD. MMODL / IJN: [id number] /
[2020-07-20] MEDS ORDERED: WARFARIN 0.5 MG TAB PO ONE (18:00)
== END 2020-07-20 16:31 | disposition home health service (06) | DRG 377 ==
LOC: EC 10:06 → 3SCARD 12:46 → 4SSUR 07-14 11:55 → OBSVTOIN 07-15 08:51
PROVIDERS: ADMIT Hospitalist; ATTEND Hospitalist
PROC: 0DBN8ZX Excision of Sigmoid Colon, Via Natural or Artificial Opening Endoscopic, Diagnostic (ICD-10-PCS; principal; 2020-07-16 07:00)
PROC: 0DBL8ZX Excision of Transverse Colon, Via Natural or Artificial Opening Endoscopic, Diagnostic (ICD-10-PCS; principal; 2020-07-16 07:00)
PROC: 0W3P8ZZ Control Bleeding in Gastrointestinal Tract, Via Natural or Artificial Opening Endoscopic (ICD-10-PCS; principal; 2020-07-16 07:00)
PROC: 0DBM8ZX Excision of Descending Colon, Via Natural or Artificial Opening Endoscopic, Diagnostic (ICD-10-PCS; principal; 2020-07-16 07:00)
PROC: 0DJ08ZZ Inspection of Upper Intestinal Tract, Via Natural or Artificial Opening Endoscopic (ICD-10-PCS; principal; 2020-07-16 07:00)
PROC: 5A12012 Performance of Cardiac Output, Single, Manual (ICD-10-PCS; 2020-07-18)
DX: K57.31 Diverticulosis of large intestine without perforation or abscess with bleeding (principal); N17.0 Acute kidney failure with tubular necrosis; I46.9 Cardiac arrest, cause unspecified; I13.0 Hypertensive heart and chronic kidney disease with heart failure and stage 1 through stage 4 chronic kidney disease, or unspecified chronic kidney disease; I50.22 Chronic systolic (congestive) heart failure; N11.9 Chronic tubulo-interstitial nephritis, unspecified; D62 Acute posthemorrhagic anemia; E87.1 Hypo-osmolality and hyponatremia; I48.20 Chronic atrial fibrillation, unspecified; N18.4 Chronic kidney disease, stage 4 (severe); E11.22 Type 2 diabetes mellitus with diabetic chronic kidney disease; E11.51 Type 2 diabetes mellitus with diabetic peripheral angiopathy without gangrene; I48.0 Paroxysmal atrial fibrillation; I27.20 Pulmonary hypertension, unspecified; R79.1 Abnormal coagulation profile; T45.515A Adverse effect of anticoagulants, initial encounter; Q27.33 Arteriovenous malformation of digestive system vessel; M89.8X9 Other specified disorders of bone, unspecified site; K29.70 Gastritis, unspecified, without bleeding; K44.9 Diaphragmatic hernia without obstruction or gangrene; K63.5 Polyp of colon; I25.10 Atherosclerotic heart disease of native coronary artery without angina pectoris; E03.9 Hypothyroidism, unspecified; I65.22 Occlusion and stenosis of left carotid artery; E78.5 Hyperlipidemia, unspecified; M19.90 Unspecified osteoarthritis, unspecified site; E86.1 Hypovolemia; K21.9 Gastro-esophageal reflux disease without esophagitis; M47.9 Spondylosis, unspecified; I25.5 Ischemic cardiomyopathy; E66.9 Obesity, unspecified; E83.89 Other disorders of mineral metabolism; I08.3 Combined rheumatic disorders of mitral, aortic and tricuspid valves; H26.9 Unspecified cataract; M10.9 Gout, unspecified; Z68.34 Body mass index [BMI] 34.0-34.9, adult; I25.2 Old myocardial infarction; Z95.810 Presence of automatic (implantable) cardiac defibrillator; Z90.49 Acquired absence of other specified parts of digestive tract; Z98.890 Other specified postprocedural states; Z79.01 Long term (current) use of anticoagulants; Z79.899 Other long term (current) drug therapy; Z79.02 Long term (current) use of antithrombotics/antiplatelets; Z91.048 Other nonmedicinal substance allergy status; Z82.49 Family history of ischemic heart disease and other diseases of the circulatory system; Z87.01 Personal history of pneumonia (recurrent); Z87.891 Personal history of nicotine dependence; Z85.46 Personal history of malignant neoplasm of prostate; Z91.09 Other allergy status, other than to drugs and biological substances
CPT/HCPCS: 36415; 36600; 43235; 45380; 45382; 45385; 71045; 71046; 71110; 80048; 80053; 82272; 82728; 82805; 83540; 83550; 83605; 83735; 83880; 84439; 84443; 84484; 85025; 85027; 85610; 85730; 86850; 86900; 86901; 88305; 93005; 96365; 96366; 96375; 99291